=== PATIENT | female | born 1990 | race Caucasian/White ===

== ENCOUNTER 2025-05-17 17:36 | Emergency (ER) | payer OTHER, SELFPAY ==
[2025-05-17] VITALS (8 sets, daily range): BP systolic 95–121; BP diastolic 62–86; PULSE 71–84; RESP 12–18; TEMP 36.5–36.8; O2SAT 98–100; BMI 22.6
--- NOTE | ~2025-05-17 | CT_ITS ---
CLINICAL HISTORY: dissection CT angiography abdomen and pelvis with contrast. 3-D post processing. Comparison: None provided Findings: Aorta, mesenteric/renal arteries, and iliofemoral systems are within normal limits. No consolidation or effusion. Status post cholecystectomy. Solid organs are within normal limits. No renal stones. No bowel obstruction, pneumoperitoneum, or pneumatosis. Moderately distended urinary bladder measuring 12.3 cm in craniocaudal dimension.Post appendectomy changes. No acute fracture. IMPRESSION: Patent aorta and its major branches. No evidence of dissection or aneurysm. No significant atherosclerotic disease. Moderately distended urinary bladder. Emptying is suggested. Status post cholecystectomy. This document has been electronically signed by: Amador Portillo MD on 05/17/2025 19:49:33
--- NOTE | ~2025-05-17 | CT_ITS ---
CLINICAL HISTORY: CP, known PE off eliquis CT angiography chest with contrast. 3D Postprocessing. Comparison: None provided Findings: The heart is normal size. RV/LV ratio is normal. Unremarkable thoracic aorta and great vessels. No aneurysm. No pulmonary artery filling defects. The visualized thyroid and mediastinum are unremarkable. No consolidation or effusion. The visualized upper abdomen is unremarkable. The bones are intact. IMPRESSION: 1. No pulmonary emboli. No acute aortic syndrome. Lungs are grossly clear. This document has been electronically signed by: Amador Portillo MD on 05/17/2025 19:45:50
--- NOTE | 2025-05-17 17:42 | ECG_ITS ---
Test Reason : chest pain Blood Pressure : */* mmHG Vent. Rate : 80 BPM Atrial Rate : 80 BPM P-R Int : 144 ms QRS Dur : 62 ms QT Int : 368 ms P-R-T Axes : 69 35 82 degrees QTcB Int : 424 ms Normal sinus rhythm Possible Left atrial enlargement Possible Anterior infarct , age undetermined Abnormal ECG No previous ECGs available Referred By: Sindhu Ingram Electronically Signed By: DERICK GONZALEZ MD
--- NOTE | 2025-05-17 18:08 | ED.GENADULT ---
HPI - General Adult General Chief complaint: Chest Pain Stated complaint: sob,lung/chest pain past heart surgery Time Seen by Provider: 05/17/25 18:12 Source: patient Limitations: no limitations History of Present Illness ED Provider: Grace Hardwick PA-C HPI narrative: 35-year-old female with self report of cardiac ablation secondary to inappropriate tachycardia related to dysautonomia December of 2024 at [facility]. She was enrolled in a clinical trial related to the procedure. The procedure involved collapsing the right lung, to gain access to the heart. She had a chest tube placed following the procedure. She developed a subsequent pleural effusion. The patient also developed pulmonary emboli, her anticoagulation was discontinued after a few months of treatment. Today, patient developed severe, crushing, right anterior pleuritic chest pain. The patient is still having discomfort. Associated nausea. Related Data Allergies Allergy/AdvReac Type Severity Reaction Status Date / Time Penicillins Allergy Unknown Verified 05/17/25 18:06 Sulfa (Sulfonamide Allergy Unknown Verified 05/17/25 18:06 Antibiotics) diphenhydramine (From AdvReac Unknown Verified 05/17/25 18:06 Benadryl) midazolam AdvReac Itching Verified 05/17/25 20:29 ondansetron (From Zofran) AdvReac Unknown Verified 05/17/25 18:06 Review of Systems Review of Systems: Yes all other systems are reviewed and are negative Constitutional: Constitutional: Denies fatigue and Denies fever(s) Cardiovascular: Cardiovascular: Reports chest pain and Reports dyspnea Respiratory: Respiratory: Denies cough and Reports dyspnea Gastrointestinal: Gastrointestinal: Denies abdominal pain, Reports nausea and Denies vomiting Endocrine: Endocrine: Denies fatigue PMF Past Medical History Attestation statement: The following information was validated with the patient. Social History Social History Smoked in Last 30 Days: No Use of substances other than those prescribed or required for medical reasons: No Advance Directives: No Advance Directives Information Provided: Yes Do you have a plan to hurt others: No Plan Patient : No Physical Exam ED Vital Signs: Vital Signs - 24 hr 05/17/25 18:04 05/17/25 18:46 05/17/25 18:47 Temperature 98.3 F Pulse Rate 83 82 84 Respiratory Rate 18 18 18 Blood Pressure 95/62 97/64 107/68 Pulse Oximetry 100 Oxygen Delivery Method Room Air 06/30/25 19:42 05/17/25 20:24 05/17/25 21:08 Temperature Pulse Rate 79 71 Respiratory Rate 15 16 17 Blood Pressure 120/86 121/86 Pulse Oximetry 100 Oxygen Delivery Method Room Air 05/17/25 22:09 05/17/25 22:31 Temperature 97.7 F 97.7 F Pulse Rate 76 76 Respiratory Rate 12 12 Blood Pressure 107/74 107/74 Pulse Oximetry 98 98 Oxygen Delivery Method Room Air Room Air BMI result Body Mass Index 22.6 Const Other: Alert, pale, appears unwell Orientation/consciousness: patient oriented x3 Resp Other: Nonlabored respirations Cardio Other: Normal peripheral perfusion, radial pulses +2 equal bilaterally Skin Other: Warm dry no rash Neuro General: patient oriented x3, gait normal, no focal motor deficits and CN's II-XI intact bilaterally Psych Other: Cooperative Course Course Course Narrative: RME performed by Sindhu Ingram PA-C. Patient is a 35 year old assigned female at presenting to the emergency department with chest pain, dizziness, PE, recent cardiac surgery. Detailed physical exam and review of systems are deferred to the operater. EKG, labs, imaging ordered. veneer trimmer aware. Reevaluation(s) Reevaluation #1: I discussed findings with the patient, she is extremely relieved. She states that she has follow up with [facility] on this week. I offered pain medication for her to be discharged with, she declines. 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 If she is given analgesia in a hospital or an emergency department setting, this is appropriate. She states she is currently seeking pain management, she will discuss further options with her specialist at [place] this week. Medications Administered Discontinued Medications Generic Name Dose Route Start Last Admin Trade Name Freq PRN Reason Stop Dose Admin Acetaminophen 650 mg 05/17/25 19:23 05/17/25 19:34 Acetaminophen 325 Mg Tablet PO 05/17/25 19:24 Not Given ONCE ONE Acetaminophen 975 mg 05/17/25 19:23 05/17/25 19:27 Acetaminophen 325 Mg Tablet PO 05/17/25 19:24 975 mg ONCE ONE Administration Hydromorphone HCl 1 mg 05/17/25 20:07 05/17/25 20:24 Hydromorphone Hcl 1 Mg/Ml Syringe IVPUSH 05/17/25 20:08 1 mg ONCE ONE Administration Protocol Midazolam HCl 2 mg 05/17/25 19:23 05/17/25 19:27 Midazolam Hcl 2 Mg/2 Ml Vial IVPUSH 05/17/25 19:24 2 mg ONCE ONE Administration Medical Decision Making Medical Decision Making MDM Narrative: 35-year-old female with self report of cardiac ablation secondary to inappropriate tachycardia related to dysautonomia December of 2024 at [facility]. She was enrolled in a clinical trial related to the procedure. The procedure involved collapsing the right lung, to gain access to the heart. She had a chest tube placed following the procedure. She developed a subsequent pleural effusion. The patient also developed pulmonary emboli, her anticoagulation was discontinued after a few months of treatment. Today, patient developed severe, crushing, right anterior pleuritic chest pain. The patient is still having discomfort. Associated nausea. Problem: Extensive cardiac history History: Per patient I have considered the following differential diagnoses: PE, dissection, ACS, pneumonia, postoperative complication Plan: From triage, there was discrepancy with the patient's blood pressures, we will repeat. Given her reported history, I am considering PE versus dissection as cause for her symptoms. In regard to the dissection, she is not complaining of back or abdominal pain, her radial pulses are equal, and she is stable. Airing on the side of caution, we will be obtaining angiograms of the chest abdomen and pelvis. We will be screening basic labs including coag studies. I will be reaching out to [facility] to obtain records. Also considering ACS, however the patient has no known risk factors for coronary artery disease. We will be adding on troponin, EKG. The patient could have infectious etiology, we will wait for the chest x-ray. Although she has not been sick recently she is afebrile. Seems far out from her procedure to have a postoperative complication. Patient states Dilaudid works for her pain. I have independently reviewed the following tests: Labs: No leukocytosis, not anemic, no electrolyte abnormality, not , troponin negative EKG: Normal sinus, no ischemic changes no ectopy, rate of 80, QTC 424 CT angio chest:Findings: The heart is normal size. RV/LV ratio is normal. Unremarkable thoracic aorta and great vessels. No aneurysm. No pulmonary artery filling defects. The visualized thyroid and mediastinum are unremarkable. No consolidation or effusion. The visualized upper abdomen is unremarkable. The bones are intact. IMPRESSION: 1. No pulmonary emboli. No acute aortic syndrome. Lungs are grossly clear. CT angio abd/pelvis: IMPRESSION: Patent aorta and its major branches. No evidence of dissection or aneurysm. No significant atherosclerotic disease. Moderately distended urinary bladder. Emptying is suggested. Status post cholecystectomy. Lab Data 05/17/25 18:24 05/17/25 18:24 Labs: Lab Results 05/17/25 Range/Units 18:24 WBC 6.8 (4.8-10.8) X10*3/uL RBC 4.32 (4.20-5.50) X10*6/uL Hgb 11.4 L (12.0-16.0) g/dl Hct 35.2 L (37.0-47.0) % MCV 81.5 (80.0-98.0) fL MCH 26.4 L (27.0-33.0) pg MCHC 32.4 (31.0-35.0) g/dl RDW 14.6 (11.0-16.0) % Plt Count 315 (160-400) X10*3/uL MPV 8.9 L (9.4-12.3) fL Immature Gran % (Auto) 0.3 (0.0-0.4) % Neut % (Auto) 53.0 (45-73) % Lymph % (Auto) 37.5 (20-40) % [place] % (Auto) 7.0 (2-11) % Eos % (Auto) 1.6 (0-4) % Baso % (Auto) 0.6 (0-2) % Lymph # (Auto) 2.6 (1.2-4.9) X10*3/uL [place] # (Auto) 0.5 (0.1-1.2) X10*3/uL Eos # (Auto) 0.1 (0.0-0.4) X10*3/uL Baso # (Auto) 0.0 (0.0-0.2) X10*3/uL Abs Immat Gran (auto) 0.02 (0.00-0.03) X10*3/uL Absolute Neuts (auto) 3.6 (2.0-8.3) x10*3/uL Absolute Nucleated RBC 0.000 (0.0-0.012) X10*3/uL Nucleated RBC % (auto) 0.0 (0.0-0.2) /100WBC PT 10.4 L (10.9-12.4) SEC INR 0.9 (0.9-1.1) Sodium 137 (135-145) mmol/L Potassium 4.6 (3.3-5.1) mmol/L Chloride 109 H (96-108) mmol/L Carbon Dioxide 22 (22-29) mmol/L Anion Gap 11 L (12-20) BUN 13 (9-16) mg/dL Creatinine 0.69 (0.5-1.4) mg/dL Estim Creat Clear Calc 153.4 Estimated GFR > 60 Random Glucose 85 (60-115) mg/dL Calcium 8.9 (8.4-10.2) mg/dL Magnesium 2.1 (1.6-2.6) mg/dL Total Bilirubin 0.3 (0.0-1.0) mg/dL AST 27 (5-31) U/L ALT 20 (0-31) U/L Alkaline Phosphatase 54 (39-117) U/L Troponin I High Sens < 2.7 (<3.5-17.0) ng/L B-Natriuretic Peptide 115 H (<100) pg/mL Total Protein 7.6 (6.5-8.0) g/dL Albumin 4.2 (3.5-5.0) g/dL Discharge Plan Discharge Clinical Impression: Chest pain Patient Disposition: Home, Self-Care Instructions: Chest Pain (ED) Additional Instructions: All of your screening labs including a cardiac enzymes were normal. There were no concerning changes on your EKG. The angiograms of your chest, abdomen and pelvis were negative for acute process. Continue to follow up with your specialists. Stand Alone Forms: Work/School Release Interventions: ED Discharge Assessment Last Done: 05/17/25 22:31 Discharge Date/Time: 05/17/25 22:32 Print Language: Bruneian
[2025-05-17 18:28] LABS: MANUAL DIFF FLAG NO
[2025-05-17 18:32] LABS: Basophils Percent Auto 0.6 % (0-2); Eosinophils Absolute Auto 0.1 X10*3/uL (0.0-0.4); Eosinophils Percent Auto 1.6 % (0-4); Hematocrit 35.2 % (37.0-47.0); Hemoglobin 11.4 g/dl (12.0-16.0); Imm Gran Abs Auto 0.02 X10*3/uL (0.00-0.03); Imm Gran Pct Auto 0.3 % (0.0-0.4); Lymphocytes Absolute Auto 2.6 X10*3/uL (1.2-4.9); Lymphocytes Percent Auto 37.5 % (20-40); Mean Corpuscular HGB Conc 32.4 g/dl (31.0-35.0); Mean Corpuscular Hemoglobin 26.4 pg (27.0-33.0); Mean Corpuscular Volume 81.5 fL (80.0-98.0); Mean Platelet Volume 8.9 fL (9.4-12.3); Monocytes Absolute Auto 0.5 X10*3/uL (0.1-1.2); Neutrophils Absolute Auto 3.6 x10*3/uL (2.0-8.3); Platelet Count 315 X10*3/uL (160-400); Red Blood Count 4.32 X10*6/uL (4.20-5.50); Red Cell Distribution Width 14.6 % (11.0-16.0); White Blood Count 6.8 X10*3/uL (4.8-10.8)
[2025-05-17 18:42] LABS: INTERNATIONAL NORM RATIO 0.9 (0.9-1.1); Prothrombin Time 10.4 SEC (10.9-12.4)
--- OUTSIDE RECORDS SUMMARY | 2025-05-17 18:42 | XMS_ITS | Clinical Summary ---
Author Organization [facility] Address [address] [place] [address] Care Team Providers Care Track Patrol Name Role Phone Unavailable Primary Care Provider Unavailabl e Social History Tobacco Use Types Packs/Day Years Used Date Smoking Tobacco: Never Assessed Comments Unknown Sex and Gender Information Value Date Recorded Sex Assigned at Not on file Legal Sex Female 3:19 PM PST Gender Identity Not on file Sexual Orientation Not on file Plan of Treatment Not on file
--- OUTSIDE RECORDS SUMMARY | 2025-05-17 18:42 | XMS_ITS | Data Portability ---
Author Organization [employer] Address [address] [place] [address] Assessment Encounter Date Assessment Date Assessment LastModified by Organization Details LastModified Time 08/02/2018 08/02/2018 Patient with symptoms and findings most c/w persistent cervical lymphadenitis with increasing fatigue and generalized weakness. In light of symptoms and findings, patient was referred to the ER for further management and evaluation. Patient defers further evaluation here due to her ongoing symptoms and would like testing today. Patient expresses understanding and agrees with the plan and management. Patient left in stable condition to [facility] ER Not available 08/02/2018 16:20:04 Plan of Treatment Reminders Order Date Submit Date Provider Last Modified By Organization Details Last Modified Time Details Appointments None recorded. Lab None recorded. Referral emergency medicine referral - 28 year old female with persistent right sided neck pain and swelling X2 months. Patient has been treated with 2 courses of abx and without improvement by her PCP. Patient with persistent symptoms and now with increase in fatigue and malaise. Please evaluate for further management. 2017 018 Not available 8 09:54:32 Procedures None recorded. Surgeries None recorded. Imaging None recorded. Medication Orders None recorded. Patient TargetsNo targets recorded. Patient Instructions Encounter Date Encounter Id Patient Instructions Last Modified By Organization Details Last Modified Time 08/02/2018 neck pain: care instructions Not available 08/02/2018 14:31:00 fatigue: care instructions Not available 08/02/2018 14:31:00 Based on your symptoms and findings, you will require further evaluation and management for your condition which we are not able to provide you at this facility. You are being referred the nearest Emergency Room for further evaluation and treatment. Please bring your discharge summary and pertinent paper work for your treating provider to review. Not available 08/02/2018 14:31:41 Please refer to care instructions as discussed and provided by handout. Not available 08/02/2018 14:31:45 Reason for Referral Emergency Medicine Referral for Cervical lymphadenitis 28 year old female with persistent right sided neck pain and swelling X2 months. Patient has been treated with 2 courses of abx and without improvement by her PCP. Patient with persistent symptoms and now with increase in fatigue and malaise. Please evaluate for further management. Referring Physician: Deshaun Centeno, Urgent Care, Encounter Date: 08/02/2018 Problems Name Problem SNOMED Code Status Onset Date Resolution Date Notes Provider Name and Address Organization Details Recorded Time Hypertensive disorder 07794500 Active 2017 Deshaun Centeno MD [address] ,[place] [address], [place], [address], [facility], [facility] 8 16:10:33 Problem Notes None recorded. Procedures Surgical History Date Name Laterality Status Provider Name and Address Organization Details Recorded Time Cholecystectomy completed tasha walsh [facility], [facility] 08/02/2018 14:17:41 Shoulder joint surgery completed tasha walsh [facility], [facility] 08/02/2018 14:17:55 Ankle arthroscopy/surgery completed tasha walsh [facility], [facility] 08/02/2018 14:18:02 Imaging Results None recorded. Procedure Notes None recorded. Medical Equipment None Reported. Allergies Allergen ID Allergen Name Allergen Category Reaction Reaction Severity Criticality Documentation Date Start Date Code Code System Note Provider Name and Address Organization Details Recorded Time 8094 Product containin g penicilli n (product) medicatio n Not available Not available Not available 08/02/2018 15339 8001 SNOMED tasah pittman [facility], [facility] 8 14:16:35 8095 prednison e medicatio n Not available Not available Not available 08/02/2018 8640 RxNorm tasha pittman, [facility], [facility] 8 14:16:41 8096 Substance with sulfonami de structure and antibacte rial mechanism of action (substanc e) medicatio n Not available Not available Not available 08/02/2018 28801 8003 SNOMED tasha walsh null, [place] - [facility], [facility] 8 14:16:48 Medications Name Sig Start Date Stop Date Status Note LastModified by Organization Details LastModified Time quetiapine 25 mg tablet active Not Available Not Available Not Available clonidine HCl 0.1 mg tablet active Not Available Not Availabl e Not Available clindamycin HCl 300 mg capsule 08/02 completed Not Available Not Available Not Available citalopram 40 mg tablet active Not Available Not Available Not Available trazodone 50 mg tablet active Not Available Not Available Not Available azithromycin 250 mg tablet 08/02 completed Not Available Not Available Not Available alprazolam 1 mg tablet active Not Available Not Available Not Available hydrocodone 5 mg-acetaminophen 325 mg tablet active Not Available Not Availabl e Not Available sumatriptan 25 mg tablet active Not Available Not Available No t Available prednisone 20 mg tablet 08/02 completed Not Available Not Available Not Available dextroamphetamin e-amphetamine 10 mg tablet active Not Available Not Available No t Available clonazepam 1 mg tablet active Not Available Not Available Not Available hydroxyzine pamoate 50 mg capsule active Not Available Not Available Not Available butalbital-aceta minophen-caffein e 50 mg-325 mg-40 mg tablet active Not Available Not Availa ble Not Available ondansetron 8 mg disintegrating tablet active Not Available Not Available Not Available trazodone 100 mg tablet active Not Available Not Available Not Available lorazepam 2 mg tablet active Not Available Not Available Not Available benzonatate 100 mg capsule 08/02 completed Not Available Not Available Not Available clonazepam 2 mg tablet active Not Available Not Available Not Available propranolol ER 80 mg capsule,24 hr,extended release active Not Available Not Available Not Available promethazine 25 mg tablet active Not Available Not Available No t Available buspirone 7.5 mg tablet active Not Available Not Available Not Available zolpidem 10 mg tablet active Not Available Not Available Not Available ondansetron 4 mg disintegrating tablet active Not Available Not Available Not Available diazepam 5 mg tablet active Not Available Not Available Not Available Ventolin HFA 90 mcg/actuation aerosol inhaler active Not Available Not Availa ble Not Available desvenlafaxine succinate ER 50 mg tablet,extended release 24 hr active Not Available Not Availabl e Not Available Vitals Date Recorded Body height Body mass index (BMI) Body weight Heart rate Respiratory rate Oxygen saturation Oxygen saturation in Arterial blood by Pulse oximetry Body temperature Systolic blood pressure Diastolic blood pressure Provider Name and Address Organization Details Last Updated DateTime 8 185.42 cm 32.1 kg/m2 207590. 95 g 76 /min 16 /min 98 % 98 % 98.2 [degF] 128 mm[Hg] 87 mm[Hg] tasha walsh [facility], [facility] 8 14:16:12 Social History None recorded. Functional Status None recorded. Mental Status None recorded. Family History Relationship Description Onset Age of this Age Resolved Age Notes LastModified by Organization Details LastModified Time Unspecified Relation Hypertensive disorder [email or web address] Not available 08/02 14:17:18 Medical History Condition Response ADHD Y Hypertension Y Gynecological History Statement/Question Response Current Control Method None LMP Approximate Obstetrics History GPAL:G 0 P 0 0 0 0 Past Encounters Encounter ID Performer Location Encounter Start Date Encounter Closed Date Diagnosis/Indication Diagnosis SNOMED-CT Code Diagnosis ICD10 Code Diagnosis Note [id number] Deshaun Centeno MD [facility] ) [address] [place] [address] 08/02/2018 13:56:16 08/02/2018 14:38:50 Cervical lymphadenitis 0550820 I88.9 Malaise and fatigue 2717 46850 R53.81 Neck pain 28611451 M54.2 Health Concerns Section Related Observation LastModified by Organization Detai ls LastModified Time None Recorded Concern Status LastModified by Organization Details LastModified Time None Recorded Advance Directives Directive None Recorded Payers Insurance Date Sequence Insurance Name Policy Number Policy Narvaez Covered Member ID Narvaez Member ID Guarantor Name 08/02/2018 1 [employer] (PP[employer]) [id number] [facility] [id number] 74 [facility] Notes Date Note Type Note Provider Name a nd Address Organization Details Recorded Time 08/02/2018 text/html CC: Neck pain, swollen glands, fatigue Reported by patient: Patient recently relocated to the area over a week ago. Patient complains of right neck pain and mass for 2 months. Patient reports being treated by her PCP with 2 courses of abx for possible infection. However, patient reports that symptoms have not improved. She reports continued right neck pain and swelling. Notes pain with movement of her neck. She reports feeling a small mass in the right neck region. Patient reports today that she is concerned about her continued symptoms, but more so, she has had increase in fatigue and generalized. She sleeps all day and feels tired soon after activities. She denies chest pain, dyspnea or abdominal pain. Deshaun Centeno MD [address] ,[facility] [address], [place], [address], [facility] 08/02/2018 16:20:40 OBGyn Episode No OBEpisode recorded.
[2025-05-17 18:45] LABS: Alanine Aminotransferase 20 U/L (0-31); Albumin Level 4.2 g/dL (3.5-5.0); Alkaline Phosphatase 54 U/L (39-117); Anion Gap 11 (12-20); Aspartate Amino Transferase 27 U/L (5-31); Bilirubin Total 0.3 mg/dL (0.0-1.0); Blood Urea Nitrogen 13 mg/dL (9-16); Calcium 8.9 mg/dL (8.4-10.2); Carbon Dioxide 22 mmol/L (22-29); Chloride 109 mmol/L (96-108); Creatinine Clr Calc Pharmacy 153.4; Estimated Glomerular Filt Rate > 60; Glucose Random 85 mg/dL (60-115); Magnesium 2.1 mg/dL (1.6-2.6); Potassium 4.6 mmol/L (3.3-5.1); Sodium 137 mmol/L (135-145); Total Protein 7.6 g/dL (6.5-8.0)
[2025-05-17 18:50] LABS: B Type Natriuretic Peptide 115 pg/mL (<100)
[2025-05-17 18:52] LABS: Troponin-I High Sensitivity < 2.7 ng/L (<3.5-17.0)
[2025-05-17] MEDS: Midazolam HCl 2 MG/2 ML VIAL IVPUSH (19:27)
[2025-05-17] MEDS: Acetaminophen 325 MG TABLET 975 MG PO (19:27)
[2025-05-17] MEDS: HYDROmorphone HCl 1 MG/ML SYRINGE IVPUSH (20:24)
== END 2025-05-17 22:32 | disposition home or self-care (01) ==
PROVIDERS: Physician Assistant Medical; Emergency Provider Emergency Medicine
DX: R07.9 Chest pain, unspecified (principal); R11.0 Nausea; R06.00 Dyspnea, unspecified
CPT/HCPCS: 36415; 71275; 74174; 80053; 83735; 83880; 84484; 85025; 85610; 93005; 96374; 96375; 99285; J1171; J2250

== ENCOUNTER → 2025-05-17 17:42 | Outpatient (BNV) | payer OTHER, SELFPAY | PROVIDERS: Emergency Provider Emergency Medicine; Visit Provider Internal Medicine Cardiovascular Disease | DX: R94.31 Abnormal electrocardiogram [ECG] [EKG] (principal); R07.9 Chest pain, unspecified | CPT/HCPCS: 93010 ==

== ENCOUNTER → 2025-05-17 18:15 | Outpatient (BNV) | payer OTHER, SELFPAY | PROVIDERS: Visit Provider Student in an Organized Health Care Education/Training Program | DX: N32.89 Other specified disorders of bladder (principal); R07.9 Chest pain, unspecified; I26.99 Other pulmonary embolism without acute cor pulmonale; Z90.49 Acquired absence of other specified parts of digestive tract | CPT/HCPCS: 71275; 74174 ==

== ENCOUNTER 2025-05-30 17:04 | Emergency (ER) | payer OTHER, SELFPAY ==
--- NOTE | ~2025-05-30 | XR_ITS ---
CLINICAL HISTORY: cp 1 view chest x-ray Comparison: CT/SR - CT ANGIO CHEST PE PROTOCOL - 05/17/25 18:26 EDT Findings: No consolidation or effusion. Heart size is normal. No acute fracture. IMPRESSION: 1. No acute findings. This document has been electronically signed by: Jamil Singleton MD on 05/30/2025 21:14:53
--- NOTE | 2025-05-30 17:05 | ECG_ITS ---
Test Reason : chest pain Blood Pressure : */* mmHG Vent. Rate : 78 BPM Atrial Rate : 78 BPM P-R Int : 152 ms QRS Dur : 60 ms QT Int : 384 ms P-R-T Axes : 59 18 83 degrees QTcB Int : 437 ms Normal sinus rhythm Low voltage QRS Borderline ECG When compared with ECG of 17-May-2025 17:48, No significant change was found Referred By: Hima Mike Electronically Signed By: BRANDY NOVA
--- NOTE | 2025-05-30 17:05 | ED_ITS ---
HPI - General Adult General Chief complaint: Chest Pain Stated complaint: chest pain, fainted 2x today, heart surg months ag Time Seen by Provider: 05/30/25 17:22 Source: patient Mode of arrival: ambulatory Limitations: no limitations History of Present Illness ED Provider: HPI narrative: Patient's history of cardiac ablation for POTS related to dysautonomia in 01/12 used to be on propranolol 120 mg twice a day now taking only 20 mg twice a day comes here for still having the palpitation episode for last few days with today she had similar episode with heart rate in the 190s and fell lightheaded and slumped down with passing out noticed her heart rate was slowing down in 40s before she near-syncope this happened twice patient never had similar episode in the past does have palpitation mostly but heart rate never went down so slow patient took her propranolol in the morning also patient complaining of left- sided chest pain no incontinence no seizures no injury patient did have history of PE took anticoagulation only for 3 months stopped 2 months ago was seen here on 05/17 for similar episode and CTA chest was negative for PE patient is complaining of left-sided chest pain which increases on taking deep breaths no relation to the posterior no fever no chills Related Data Allergies Allergy/AdvReac Type Severity Reaction Status Date / Time Penicillins Allergy Unknown Verified 05/17/25 18:06 Sulfa (Sulfonamide Allergy Unknown Verified 05/17/25 18:06 Antibiotics) diphenhydramine (From AdvReac Unknown Verified 05/17/25 18:06 Benadryl) midazolam AdvReac Itching Verified 05/17/25 20:29 ondansetron (From Zofran) AdvReac Unknown Verified 05/30/25 17:16 Review of Systems 2 Review of Systems: Yes all other systems are reviewed and are negative [facility] Past Medical History Medical History (Updated 05/31/25 @ 00:00 by Orlando Hernandez) Dysautonomia POTS (postural orthostatic tachycardia syndrome) Surgical History (Updated 05/30/25 @ 19:33 by Wong Florian MD) H/O cardiac radiofrequency ablation Social History Social History Smoked in Last 30 Days: No Use of substances other than those prescribed or required for medical reasons: No Advance Directives: No Advance Directives Information Provided: No Do you have a plan to hurt others: No Plan Physical Exam ED Vital Signs: Vital Signs - 24 hr 05/30/25 17:09 05/30/25 18:35 05/30/25 19:47 Temperature 97.8 F 98.6 F Pulse Rate 81 79 78 Respiratory Rate 16 13 20 Blood Pressure 113/89 110/78 104/68 Pulse Oximetry 100 99 98 Oxygen Delivery Method Room Air Room Air Room Air 05/30/25 20:16 05/30/25 21:19 Temperature 97.7 F Pulse Rate 73 Respiratory Rate 20 16 Blood Pressure 103/60 Pulse Oximetry 99 Oxygen Delivery Method Room Air BMI result Body Mass Index 25.7 Appearance: Alert. Oriented X3. No acute distress. Eyes: PERRLA, No Nystagmus ENT: Pharynx normal. Oral Mucosa moist Neck: Normal inspection. Neck supple. CVS: Normal heart rate and rhythm. Pulses normal. No murmur no pericardial rub Respiratory: No respiratory distress. Equal air entry bilateral, no wheezing/rales/rhonchi Abdomen: Soft and nontender. Bowel sounds are present, no mass palpable, no CVA tenderness Skin: Skin warm and dry. Normal skin color. Normal skin turgor. Extremities: No lower extremity edema. No calf tenderness Neuro: Oriented X 3. No motor deficit. No sensory deficit.No cerebellar signs , cranial nerves II-XII intact Medications Administered Discontinued Medications Generic Name Dose Route Start Last Admin Trade Name Freq PRN Reason Stop Dose Admin Hydromorphone HCl 1 mg 05/30/25 20:12 05/30/25 20:16 Hydromorphone Hcl 1 Mg/Ml Syringe IVPUSH 05/30/25 20:13 1 mg ONCE ONE Administration Protocol Sodium Chloride 1,000 mls @ 999 mls/hr 05/30/25 19:21 05/30/25 21:20 Ns IV 05/30/25 20:21 Infused .Q1H1M ONE Infusion Acetaminophen 1,000 mg in 100 mls @ 400 mls/hr 05/30/25 19:21 05/30/25 20:16 Ofirmev IV 05/30/25 19:35 Infused ONCE ONE Infusion Ketorolac Tromethamine 15 mg 05/30/25 17:44 05/30/25 18:00 Ketorolac Tromethamine 15 Mg/Ml Vial IVPUSH 05/30/25 17:45 15 mg ONCE ONE Administration Lidocaine 1 patch 05/30/25 20:13 05/30/25 20:16 Lidocaine 4 % Patch Adh..Patch TRANSDERMA 05/30/25 20:14 1 patch ONCE ONE Administration Protocol Morphine Sulfate 4 mg 05/30/25 17:43 05/30/25 18:00 Morphine Sulfate 4 Mg/Ml Cartridge IVPUSH 05/30/25 17:44 4 mg ONCE ONE Administration Protocol Ondansetron HCl 4 mg 05/30/25 17:43 05/30/25 18:00 Ondansetron Hcl 4 Mg/2 Ml Vial IVPUSH 05/30/25 17:44 Not Given ONCE ONE Medical Decision Making Medical Decision Making [facility] Narrative: Patient's left-sided chest pain with recent cardiac ablation with similar presentation on 05/17 with workup negative today also patient's workup is negative no signs of pericarditis no EKG changes inflammatory markers CRP and sed rate also negative. Patient's D-dimer is also negative unlikely PE with recent CTA negative Differential Diagnosis Differential Diagnoses: The differential diagnosis associated with the presentation includes Bradycardia/vasovagal/autonomic syncope/PE/pericarditis Admission/Observation Consideration of admission/observation: Escalation of care including admission/observation considered Lab Data [facility] Lab Attestation statement: I reviewed the patient's lab results. 05/30/25 17:54 05/30/25 17:54 Labs: Lab Results 05/30/25 05/30/25 05/30/25 Range/Units 17:53 17:54 20:23 WBC 6.5 (4.8-10.8) X10*3/uL RBC 4.52 (4.20-5.50) X10*6/uL Hgb 11.6 L (12.0-16.0) g/dl Hct 36.1 L (37.0-47.0) % MCV 79.9 L (80.0-98.0) fL MCH 25.7 L (27.0-33.0) pg MCHC 32.1 (31.0-35.0) g/dl RDW 14.5 (11.0-16.0) % Plt Count 452 H D (160-400) X10*3/uL MPV 8.4 L (9.4-12.3) fL Immature Gran % (Auto) 0.3 (0.0-0.4) % Neut % (Auto) 62.9 (45-73) % Lymph % (Auto) 29.0 (20-40) % [place] % (Auto) 5.8 (2-11) % Eos % (Auto) 1.2 (0-4) % Baso % (Auto) 0.8 (0-2) % Lymph # (Auto) 1.9 (1.2-4.9) X10*3/uL [place] # (Auto) 0.4 (0.1-1.2) X10*3/uL Eos # (Auto) 0.1 (0.0-0.4) X10*3/uL Baso # (Auto) 0.1 (0.0-0.2) X10*3/uL Abs Immat Gran (auto) 0.02 (0.00-0.03) X10*3/uL Absolute Neuts (auto) 4.1 (2.0-8.3) x10*3/uL Absolute Nucleated RBC 0.000 (0.0-0.012) X10*3/uL Nucleated RBC % (auto) 0.0 (0.0-0.2) /100WBC ESR 16 (0-20) MM/HR D-Dimer High Sensitivty < 150 NG/ML Sodium 139 (135-145) mmol/L Potassium 3.9 (3.3-5.1) mmol/L Chloride 108 (96-108) mmol/L Carbon Dioxide 22 (22-29) mmol/L Anion Gap 13 (12-20) BUN 11 (9-16) mg/dL Creatinine 0.58 (0.5-1.4) mg/dL Estim Creat Clear Calc 162.6 Estimated GFR > 60 Random Glucose 85 (60-115) mg/dL Calcium 8.8 (8.4-10.2) mg/dL Magnesium 2.1 (1.6-2.6) mg/dL Troponin I High Sens < 2.7 < 2.7 (<3.5-17.0) ng/L C-Reactive Protein 0.11 (< or = 0.50) mg/dL Independent Interpretation I performed an independent interpretation of an: EKG Interpretation: Normal sinus rhythm heart rate 78 beats per minute normal interval normal axis no acute ST-T no acute ischemia External Record Review External record reviewed: Inpatient record Discharge Plan Discharge Clinical Impression: Chest pain, Dysautonomia, Near syncope Patient Disposition: Home, Self-Care Instructions: Chest Pain (ED), Near Syncope (ED), POTS (Postural Orthostatic Tachycardia Syndrome) (ED) Additional Instructions: Cause of chest pain is not clear at this time no evidence of acute coronary event Follow up with your prosthodontist/educator in a.m. Hold propranolol for now as you had slow heart rate Drink plenty of fluid Interventions: ED Discharge Assessment Last Done: 05/30/25 21:19 Discharge Date/Time: 05/30/25 21:24 Print Language: Azeri
[2025-05-30 17:09] VITALS: BP 113/89; PULSE 81; RESP 16; TEMP 36.6; O2SAT 100; BMI 25.7
[2025-05-30 17:59] LABS: MANUAL DIFF FLAG NO
[2025-05-30 18:01] LABS: Hematocrit 36.1 % (37.0-47.0); Hemoglobin 11.6 g/dl (12.0-16.0); Imm Gran Abs Auto 0.02 X10*3/uL (0.00-0.03); Imm Gran Pct Auto 0.3 % (0.0-0.4); Lymphocytes Absolute Auto 1.9 X10*3/uL (1.2-4.9); Mean Corpuscular HGB Conc 32.1 g/dl (31.0-35.0); Mean Corpuscular Hemoglobin 25.7 pg (27.0-33.0); Mean Corpuscular Volume 79.9 fL (80.0-98.0); NRBC Abs Auto 0.000 X10*3/uL (0.0-0.012); NRBC Pct Auto 0.0 /100WBC (0.0-0.2); Platelet Count 452 X10*3/uL (160-400); Red Blood Count 4.52 X10*6/uL (4.20-5.50); White Blood Count 6.5 X10*3/uL (4.8-10.8)
[2025-05-30 18:12] LABS: Anion Gap 13 (12-20); Blood Urea Nitrogen 11 mg/dL (9-16); Calcium 8.8 mg/dL (8.4-10.2); Carbon Dioxide 22 mmol/L (22-29); Chloride 108 mmol/L (96-108); Creatinine Clr Calc Pharmacy 162.6; Estimated Glomerular Filt Rate > 60; Potassium 3.9 mmol/L (3.3-5.1); Sodium 139 mmol/L (135-145)
[2025-05-30 18:14] LABS: Magnesium 2.1 mg/dL (1.6-2.6)
[2025-05-30 18:18] LABS: D Dimer High Sensitivity < 150 NG/ML
--- OUTSIDE RECORDS SUMMARY | 2025-05-30 18:26 | XMS_ITS | Data Portability ---
Author Organization [employer] Address [address] [place] [address] Assessment Encounter Date Assessment Date Assessment LastModified [...] management. Patient left in stable condition to [facility] ER Not available 08/02/2018 16:20:04 Plan [...] Address Organization Details Recorded Time Hypertensive disorder 63207741 Active 2017 Deshaun Centeno MD [address] [address], [place], [address], [facility], [facility] 8 16:10:33 Problem Notes None recorded. Procedures Surgical History Date Name Laterality Status Provider Name and Address Organization Details Recorded Time Cholecystectomy completed atsha walsh [facility], [facility] 08/02/2018 14:17:41 Shoulder joint surgery completed tasha walsh [facility], [facility] 08/02/2018 14:17:55 Ankle arthroscopy/surgery completed tasha walsh [facility], [facility] 08/02/2018 14:18:02 Imaging Results None recorded. Procedure Notes None recorded. Medical Equipment None Reported. Allergies Allergen ID Allergen Name Allergen Category Reaction Reaction Severity Criticality Documentation Date Start Date Code Code System Note Provider Name and Address Organization Details Recorded Time 8094 Product containin g penicilli n (product) medicatio n Not available Not available Not available 08/02/2018 53978 8001 SNOMED tasha pittman [facility], [facility] 8 14:16:35 8095 prednison e medicatio n Not available Not available Not available 08/02/2018 8640 RxNorm tasha pittman, [facility], [facility] 8 14:16:41 8096 Substance with sulfonami de structure and antibacte rial mechanism of action (substanc e) medicatio n Not available Not available Not available 08/02/2018 36169 8003 SNOMED tasha walsh [place], [place] - [place] [facility], [facility] 8 14:16:48 Medications Name Sig Start Date [...] blood by Pulse oximetry Body temperature Systolic And Diastolic Provider Name and Address Organization Details Last Updated DateTime 8 185.42 cm 32.1 kg/m2 062293. 95 g 76 /min 16 /min 98 % 98 % 98.2 [degF] 128/87 mm[Hg] tasha walsh [place] - [place] [facility], [facility] 8 14:16:12 Social History None recorded. Functional Status None recorded. Mental Status None recorded. Family History Relationship Description Onset Age of this Age Resolved Age Notes LastModified by Organization Details LastModified Time Unspecified Relation Hypertensive disorder [email or web address] Not available 08/02 14:17:18 Medical History Condition Response ADHD Y Hypertension Y Gynecological History Statement/Question Response Current Control Method None LMP Approximate Obstetrics History GPAL:G 0 P 0 0 0 0 Past Encounters Encounter ID Performer Location Encounter Start Date Encounter Closed Date Diagnosis/Indication Diagnosis SNOMED-CT Code Diagnosis ICD10 Code Diagnosis Note [id number] Deshaun Centeno MD [facility] ) [address] [place] [address] 08/02/2018 13:56:16 08/02/2018 14:38:50 Cervical lymphadenitis 7461873 I88.9 Malaise and fatigue 2717 50691 R53.81 Neck pain 26045829 M54.2 Health Concerns Section Related Observation LastModified by Organization Detai ls LastModified Time None Recorded Concern Status LastModified by Organization Details LastModified Time None Recorded Advance Directives Directive None Recorded Payers Insurance Date Sequence Insurance Name Policy Number Policy Narvaez Covered Member ID Narvaez Member ID Guarantor Name 08/02/2018 1 [employer] [id number] [facility] [id number] [facility] Notes Date Note Type Note Provider Name [...] abdominal pain. Deshaun Centeno MD [address] ,[facility] [address], [place], [address], [facility], [facility] 08/02/2018 16:20:40 OBGyn Episode No OBEpisode recorded.
--- OUTSIDE RECORDS SUMMARY | 2025-05-30 18:26 | XMS_ITS | Encounter Summary ---
Author Organization Formerly [facility] Address [address] [place] [address] Care Team Providers Care Tentering Machine Feeder Name Role Phone Alice Carmen NP Primary Care Provider [phone] Richard Bello MD Unavailable [phone] Encounter Details Date Type Department Care Team (Late st Contact Info) Description 01/15/2025 Scanned Document [facility] Cardiothoracic Surgery [address] [address] Cardiology, Scan Social History Tobacco Use Types Packs/Day Years Used Date Smoking Tobacco: Never Smokeless Tobacco: Never Alcohol Use Standard Drinks/Week Comments Never 0 (1 standard drink = 0.6 oz pur e alcohol) [facility] Utilities Answer Date Recorded In the past 12 months has e electric, gas, oil, or water [employer] threatened to shut off services in your home? No 01/08/2025 AUDIT-C Answer Date Recorded Q1: How often do you have a drink containing alcohol? Never 01/07/2025 Q2: How many drinks containi ng alcohol do you have on a typical day when you are drinking? Patient does not drink Q3: How often do you have si x or more drinks on one occasion? Never 01/07/2025 Overall Financial Resource Strain (CARDIA) Answe r Date Recorded How hard is it for you to pa y for the very basics like food, housing, medical care, and heating? Not hard at all 01/08/2025 Hunger Vital Sign Answer Date Recorded Within the past 12 months, y ou worried that your food would run out before you got the money to buy more. Never true 01/08/20 25 Within the past 12 months, t he food you bought just didn't last and you didn't have money to get more. Never true 01/08/2025 PRAPARE - Transportation Answer Date Re corded In the past 12 months, has l ack of transportation kept you from medical appointments or from getting medications? No 12/20 In the past 12 months, has l ack of transportation kept you from meetings, work, or from getting things needed for daily living? No 01/08/2025 Housing Stability Vital Sign Answer Warner e Recorded In the last 12 months, was t here a time when you were not able to pay the mortgage or rent on time? No 01/08/2025 In the past 12 months, how m any times have you moved where you were living? 0 01/08/2025 At any time in the past 12 m [facility], were you homeless or living in a senior care (including now)? No 01/08/2025 Comments Unknown Sex and Gender Information Value Date Recorded Sex Assigned at Female 07/23/2024 4:21 PM EDT Legal Sex Female 6:41 PM EDT Gender Identity Female 01/05/2025 1:54 PM EST Sexual Orientation Heterosexual (straight) 01/05 1:54 PM EST documented as of this encounter Plan of Treatment Upcoming Encounters Date Type Department Care Team (Late st Contact Info) Description 06/04/2025 1:00 PM EDT Office Visit [facility] Vascular [address] [id number] Bandar Schmitt MD [address] [place] [address] Jacqui Moore APRN [address] [place] [address] 06/10/2025 3:20 PM EDT [facility] [place] [address] [place] [address] Richard Bello MD [address] [address] documented as of this encounter Procedures Procedure Name Priority Date/Time Associated Diagnosis Comments CARDIOLOGY ANGIOGRAM 01/24/2025 documented in this encounter Results * CARDIOLOGY ANGIOGRAM (01/24/2025) Anatomical Region Laterality Modality Other us Scan Cardiology HX AMB PROCEDURES Final Result documented in this encounter Visit Diagnoses Not on filedocumented in this encounter Care Teams Tentering Machine Feeder Relationship Specialty Start Date End Date Alice Carmen NP [address] [place] [address] PCP - General 08/07/24 Richard Bello MD [address] [place] [id number] Primary Handhole Machine Operator Cardiovascular Disease 08/07/24 documented as of this encounter
--- OUTSIDE RECORDS SUMMARY | 2025-05-30 18:26 | XMS_ITS | Clinical Summary ---
Author Organization [address] [place] [address] Address [address] [place] [address] Phone Care Team Providers Care Machine Hamper Maker Name Role Phone Alice Carmen NP Primary Care Provider [phone] Allergies Active Allergy Reactions Criticality Noted Date Comments Diphenhydramine Hcl Cardiac Issue 05/10/2025 Penicillins Hives Medium 11/04/2015 Sulfa (Sulfonamide Antibiotics) Hives Medium 10/18 Ondansetron Hcl Cardiac Issue 05/10/2025 Long QT issues Medications apixaban (ELIQUIS) 5 mg tablet Take 1 tablet (5 mg total) by mouth 2 (two) times a day. Active clonazePAM (KlonoPIN) 2 mg tablet Take 1 tablet (2 mg total) by mouth 2 (two) times a day. Max Daily Amount: 4 mg Active colchicine (MITIGARE) 0.6 mg capsule capsule Take 1 capsule (0.6 mg total) by mouth 2 (two) times a day. For 90 days Active pantoprazole (PROTONIX) 40 mg EC tablet Take 1 tablet (40 mg total) by mouth 1 (one) time each day. Do not crush, chew, or split. Active propranoloL (INDERAL) 20 mg tablet Take 1 tablet (20 mg total) by mouth 2 (two) times a day. Active Active Problems Problem Noted Date Diagnosed Date Chest pain 03/30/2025 Inappropriate sinus tachycardia (CMS/HCC V24) Pericarditis 03/30/2025 Encounters Date Type Department Care Team Description 05/11/2025 7:01 PM EDT - 05/11/2025 9:32 PM EDT Emergency [facility] Emergency [address] [place] [address] Discharge Disposition: Left Against Medical Advice 05/10/2025 8:46 PM EDT - 05/10/2025 10:52 PM EDT Emergency [facility] Emergency [address] [place] [address] Discharge Disposition: Left Against Medical Advice 04/02/2025 Telephone [facility] Cardiology [facility] [address] [place] [address] Adilson Carver NP No Show 03/19/2025 Telephone [facility] Cardiology [facility] [address] [place] [address] Alice Carmen NP Hospital Follow-up from Last 3 Months Surgical History Surgery Date Site/Laterality Comments CARDIAC CATHETERIZATION Pt states she had experimental cardiac surgery 3 months ago for Vtach. Medical History Medical History Date Comments Anxiety and depression Social History Tobacco Use Types Packs/Day Years Used Date Smoking Tobacco: Never Smokeless Tobacco: Never Tobacco Cessation:Counseling Given: Not Answered Comments No Sex and Gender Information Value Date Recorded Sex Assigned at Not on file Legal Sex Female 8:12 PM EDT Gender Identity Not on file Sexual Orientation Not on file Obstetrics History Last Filed Vital Signs Vital Sign Reading Time Taken Comments Blood Pressure 105/83 05/11/2025 7:27 PM EDT Pulse 85 05/11/2025 7:27 PM EDT Temperature 36.7 C (98.1 F) 05/11/2025 7:27 PM EDT Respiratory Rate 16 05/11/2025 7:27 PM EDT Oxygen Saturation 100% 05/11/2025 7:27 PM EDT Inhaled Oxygen Concentration - - Weight 77.1 kg (170 lb) 05/11/2025 7:27 PM EDT Height 172.7 cm (5' 8 ) 05/11/2025 7:27 PM EDT Body Mass Index 25.85 05/11/2025 7:27 PM EDT Plan of Treatment Health Maintenance Due Date Last Done Comments DTaP,Tdap,and Td Vaccines (1 - Tdap) 2010 Hepatitis B Vaccines (1 of 3 - 19+ 3-dose series) 2010 Cervical Cancer Screening: P ap Smear 2012 Depression Screening 12/17/2023 HIV Screening 12/17/2023 Hepatitis C Screening 12/17/2023 Social Influencers of Health Screening 12/17/2023 COVID-19 Vaccine ( - 2023-2 5 season) 2024 Influenza Vaccine (#1) 2025 HIB Vaccines Aged Out No longer eligi ble based on patient's age to complete this topic HPV Vaccines Aged Out No longer eligi ble based on patient's age to complete this topic Hepatitis A Vaccines Aged Out No long er eligible based on patient's age to complete this topic IPV Vaccines Aged Out No longer eligi ble based on patient's age to complete this topic MMR Vaccines Aged Out No longer eligi ble based on patient's age to complete this topic Meningococcal ACWY Vaccine Aged Out N o longer eligible based on patient's age to complete this topic Meningococcal B Vaccine Aged Out No l onger eligible based on patient's age to complete this topic Pneumococcal Vaccine: Pediat rics (0 to 5 Years) and At-Risk Patients (6 to 49 Years) Aged Out No longer eligible b ased on patient's age to complete this topic RSV Immunization Patients Un bernadette 20 months Aged Out No longer eligible b ased on patient's age to complete this topic Varicella Vaccines Aged Out No longer eligible based on patient's age to complete this topic Procedures Procedure Name Priority Date/Time Associated Diagnosis Comments ECG ANNOTATED 05/12/2025 CBC WITH AUTO DIFFERENTIAL STAT 05/11/2025 8:00 PM EDT ACTIVATED PARTIAL THROMBOPLASTIN TIME STAT 05/11/2025 8:00 PM EDT PROTHROMBIN TIME WITH INR STAT 05/11/2025 8:00 PM EDT BASIC METABOLIC PANEL STAT 05/11/2025 8:00 PM EDT CBC AND DIFFERENTIAL STAT 05/11/2025 8:00 PM EDT ECG 12-LEAD STAT 05/11/2025 7:48 PM EDT ECG ANNOTATED 05/11/2025 CBC WITH AUTO DIFFERENTIAL STAT 05/10/2025 9:27 PM EDT B-TYPE NATRIURETIC PEPTIDE STAT 05/10/2025 9:27 PM EDT MAGNESIUM STAT 05/10/2025 9:27 PM EDT LIPASE STAT 05/10/2025 9:27 PM EDT COMPREHENSIVE METABOLIC PANEL STAT 05/10/2025 9:27 PM EDT CBC AND DIFFERENTIAL STAT 05/10/2025 9:27 PM EDT TROPONIN I HIGH SENSITIVITY STAT 05/10/2025 9:27 PM EDT ECG 12-LEAD STAT 05/10/2025 8:58 PM EDT from Last 3 Months Results * ECG-Annotated (05/12/2025) Only the most recent of2 resultswithin the time period is included. us Provider Onbase MD ECG ORDERABLES Final Result * (ABNORMAL) CBC auto differential (05/11/2025 8:00 PM EDT) Only the most recent of2 resultswithin the time period is included. WBC 5.5 4.8 - 10.8 K/mcL LAB HEMETOLOGY METHOD 05/11/2025 8:09 PM EDT [facility] RBC 4.20 3.80 - 4.80 M/mcL LAB HEMETOLOGY METHOD 05/11/2025 8:09 PM EDT [facility] Hemoglobin 10.9(L) 11.5 - 16.0 g/dL LAB HEMETOLOGY METHOD 05/11/2025 8:09 PM EDT [facility] Hematocrit 35.4 35.0 - 47.0 % LAB HEMETOLOGY METHOD 05/11/2025 8:09 PM EDT [facility] MCV 83.7 79.0 - 98.0 FL LAB HEMETOLOGY METHOD 05/11/2025 8:09 PM [facility] MCH 25.8(L) 27.0 - 32.0 pcg LAB HEMETOLOGY METHOD 05/11/2025 8:09 PM [facility] MCHC 30.8(L) 32.0 - 37.0 g/dL LAB HEMETOLOGY METHOD 05/11/2025 8:09 PM [facility] RDW 14.1 11.0 - 15.0 % LAB HEMETOLOGY METHOD 05/11/2025 8:09 PM [facility] Platelets 352 130 - 400 K/mcL LAB HEMETOLOGY METHOD 05/11/2025 8:09 PM [facility] MPV 8.7 7.0 - 11.0 FL LAB HEMETOLOGY METHOD 05/11/2025 8:09 PM [facility] NRBC 0.0 <1.0 % LAB HEMETOLOGY METHOD 05/11/2025 8:09 PM [facility] NRBC Absolute 0.00 <0.10 K/mcL LAB HEMETOLOGY METHOD 05/11/2025 8:09 PM [facility] Neutrophils Relative 54.1 % LAB HEMETOLOGY METHOD 05/11/2025 8:09 PM [facility] Lymphocytes Relative 37.4 % LAB HEMETOLOGY METHOD 05/11/2025 8:09 PM [facility] Monocytes Relative 6.6 % LAB HEMETOLOGY METHOD 05/11/2025 8:09 PM [facility] Eosinophils Relative 1.1 % LAB HEMETOLOGY METHOD 05/11/2025 8:09 PM [facility] Basophils Relative 0.6 % LAB HEMETOLOGY METHOD 05/11/2025 8:09 PM [facility] Immature Granulocytes Relative 0.2 % LAB HEMETOLOGY METHOD 05/11/2025 8:09 PM EDT [facility] Neutrophils Absolute 2.95 1.50 - 7.00 K/[facility] LAB HEMETOLOGY METHOD 05/11/2025 8:09 PM EDT [facility] Lymphocytes Absolute 2.04 1.00 - 5.00 K/mcL LAB HEMETOLOGY METHOD 05/11/2025 8:09 PM EDT [facility] Monocytes Absolute 0.36 0.20 - 1.00 K/[facility] LAB HEMETOLOGY METHOD 05/11/2025 8:09 PM EDT [facility] Eosinophils Absolute 0.06 0.00 - 0.50 K/[facility] LAB HEMETOLOGY METHOD 05/11/2025 8:09 PM EDT [facility] Basophils Absolute 0.03 0.00 - 0.20 K/mcL LAB HEMETOLOGY METHOD 05/11/2025 8:09 PM EDT [facility] Immature Granulocytes Absolute 0.01 0.00 - 0.03 K/[facility] LAB HEMETOLOGY METHOD 05/11/2025 8:09 PM EDT [facility] Blood Venous blood specimen / Unknown Venipuncture / Unknown 05/11/2025 8:00 PM EDT 05/11/2025 8:03 PM EDT us Brenda FELTON LAB BLOOD ORDERABLES Final Res ult [facility] [address] [place] [address], * APTT (05/11/2025 8:00 PM EDT) aPTT 29.8 24.1 - 39.3 sec LAB COAGULATION METHOD 05/11/2025 8:16 PM EDT [facility] Blood Venous blood specimen / Unknown Venipuncture / Unknown 05/11/2025 8:00 PM EDT 05/11/2025 8:03 PM EDT Brenda FELTON LAB BLOOD ORDERABLES Final Res ult Performing Organization Address [facility]/ZIP Co de Phone Number [facility] [address] [place] [address], [place] [phone] * Prothrombin time with INR (05/11/2025 8:00 PM EDT) Pathologist [facility] Protime 11.2 10.6 - 13.9 sec LAB COAGULATION METHOD 05/11/2025 8:16 PM EDT [facility] INR 0.9 LAB COAGULATION METHOD 05/11/2025 8:16 PM EDT [facility] Blood Venous blood specimen / Unknown Venipuncture / Unknown 05/11/2025 8:00 PM EDT 05/11/2025 8:03 PM EDT Brenda FELTON LAB BLOOD ORDERABLES Final Res ult Performing Organization Address City/[facility]/ZIP Co de Phone Number [facility] [address] [place] [address], [place] [phone] * Basic metabolic panel (05/11/2025 8:00 PM EDT) Pathologist [facility] Sodium 135 133 - 145 mmol/L LAB CHEMISTRY METHOD 05/11/2025 8:31 PM EDT [facility] Potassium 3.9 3.5 - 5.5 mmol/L LAB CHEMISTRY METHOD 05/11/2025 8:31 PM EDT [facility] Chloride 104 96 - 110 mmol/L LAB CHEMISTRY METHOD 05/11/2025 8:31 PM EDT [facility] CO2 24 21 - 32 mmol/L LAB CHEMISTRY METHOD 05/11/2025 8:31 PM EDT [facility] Anion Gap 7 3 - 11 LAB CHEMISTRY METHOD 05/11/2025 8:31 PM EDT [facility] Glucose 88 70 - 100 mg/dL LAB CHEMISTRY METHOD 05/11/2025 8:31 PM EDT [facility] BUN 9 5 - 25 mg/dL LAB CHEMISTRY METHOD 05/11/2025 8:31 PM EDT [facility] Creatinine 0.72 0.50 - 1.10 mg/dL LAB CHEMISTRY METHOD 05/11/2025 8:31 PM EDT [facility] eGFR 113 >=60 mL/min/1. 73m2 LAB CHEMISTRY METHOD 05/11/2025 8:31 PM EDT [facility] Comment:Calculation based on the Chronic Kidney Disease Epidemiology Collaboration (CKD-EPI) equation refit without adjustment for race. BUN/Creatinine Ratio 12.5 LAB CHEMISTRY METHOD 05/11/2025 8:31 PM EDT [facility] Calcium 9.1 8.5 - 10.5 mg/dL LAB CHEMISTRY METHOD 05/11/2025 8:31 PM EDT [facility] Blood Venous blood specimen / Unknown Venipuncture / Unknown 05/11/2025 8:00 PM EDT 05/11/2025 8:03 PM EDT us Brenda FELTON LAB BLOOD ORDERABLES Final Res ult [facility] [address] [place] [address], * ECG 12 lead (05/11/2025 7:48 PM EDT) Only the most recent of2 resultswithin the time period is included. Ventricular Rate ECG 77 BPM GEMUSE Atrial Rate 77 BPM GEMUSE P-R Interval 164 ms GEMUSE QRS Duration 62 ms GEMUSE Q-T Interval 386 ms GEMUSE QTc 436 ms GEMUSE P Wave [place] 57 degrees GEMUSE R [place] 22 degrees GEMUSE T [place] 76 degrees GEMUSE ECG Interpretation Normal sinus rhythm Normal ECG When compared with ECG of 10-MAY-2025 20:58, No significant change was found Confirmed by LISETTE BARAHONA ([id number]) on 05/12/2025 11:16:06 AM GEMUSE 05/11/2025 7:48 PM EDT 05/12/2025 11:16 AM EDT Brenda FELTON ECG ORDERABLES Final Result Performing Organization Address [facility] de Phone Number GEMUSE * Troponin I high sensitivity (05/10/2025 9:27 PM EDT) Pathologist [facility] High Sensitivity Troponin I <3 <=54 ng/L LAB CHEMISTRY METHOD 05/10/2025 10:32 PM EDT [facility] Blood Venous blood specimen / Unknown Venipuncture / Unknown 05/10/2025 9:27 PM EDT 05/10/2025 10:01 PM EDT Narrative [facility] - 05/10/2025 10:32 PM EDT High levels of biotin in samples may falsely decrease hsTroponin values. Use caution when interpreting hsTroponin results in patients taking biotin who exhibit renal impairment (eGFR <60) or in patients taking more than 20 mg/day of biotin. Tod Barr MD LAB BLOOD ORDERABLES Final Result Performing Organization Address [facility] de Phone Number [facility] [address] [place] [address], * B-type natriuretic peptide (05/10/2025 9:27 PM EDT) Pathologist [facility] BNP 50 <=100 pcg/mL LAB CHEMISTRY METHOD 05/10/2025 10:38 PM EDT [facility] Blood Venous blood specimen / Unknown Venipuncture / Unknown 05/10/2025 9:27 PM EDT 05/10/2025 10:01 PM EDT Tod Barr MD LAB BLOOD ORDERABLES Final Result Performing Organization Address [facility]/ZIP Co de Phone Number [facility] [address] [place] [address], [place] [phone] * Magnesium (05/10/2025 9:27 PM EDT) Magnesium 2.3 1.9 - 2.6 mg/dL LAB CHEMISTRY METHOD 05/10/2025 10:50 PM EDT [facility] Blood Venous blood specimen / Unknown Venipuncture / Unknown 05/10/2025 9:27 PM EDT 05/10/2025 10:01 PM EDT Tod Barr MD LAB BLOOD ORDERABLES Final Result Performing Organization Address [facility] Co de Phone Number [facility] [address] [place] [address], [place] [phone] * Lipase (05/10/2025 9:27 PM EDT) Pathologist [facility] Lipase 46 13 - 75 unit/L LAB CHEMISTRY METHOD 05/10/2025 10:50 PM EDT [facility] Blood Venous blood specimen / Unknown Venipuncture / Unknown 05/10/2025 9:27 PM EDT 05/10/2025 10:01 PM EDT Tod Barr MD LAB BLOOD ORDERABLES Final Result Performing Organization Address City/[facility]/ZIP Co de Phone Number [facility] [address] [place] [address], [place] [phone] * Comprehensive metabolic panel (05/10/2025 9:27 PM EDT) Sodium 138 133 - 145 mmol/L LAB CHEMISTRY METHOD 05/10/2025 10:51 PM EDT [facility] Potassium 4.1 3.5 - 5.5 mmol/L LAB CHEMISTRY METHOD 05/10/2025 10:51 PM [facility] Chloride 106 96 - 110 mmol/L LAB CHEMISTRY METHOD 05/10/2025 10:51 PM [facility] CO2 26 21 - 32 mmol/L LAB CHEMISTRY METHOD 05/10/2025 10:51 PM [facility] Anion Gap 6 3 - 11 LAB CHEMISTRY METHOD 05/10/2025 10:51 PM [facility] Glucose 83 70 - 100 mg/dL LAB CHEMISTRY METHOD 05/10/2025 10:51 PM [facility] BUN 10 5 - 25 mg/dL LAB CHEMISTRY METHOD 05/10/2025 10:51 PM [facility] Creatinine 0.71 0.50 - 1.10 mg/dL LAB CHEMISTRY METHOD 05/10/2025 10:51 PM [facility] eGFR 115 >=60 mL/min/1. 73m2 LAB CHEMISTRY METHOD 05/10/2025 10:51 PM [facility] Comment:Calculation based on the Chronic Kidney Disease Epidemiology Collaboration (CKD-EPI) equation refit without adjustment for race. BUN/Creatinine Ratio 14.1 LAB CHEMISTRY METHOD 05/10/2025 10:51 PM [facility] Calcium 9.2 8.5 - 10.5 mg/dL LAB CHEMISTRY METHOD 05/10/2025 10:51 PM [facility] AST (SGOT) 12 10 - 42 unit/L LAB CHEMISTRY METHOD 05/10/2025 10:51 PM [facility] ALT (SGPT) 21 10 - 60 unit/L LAB CHEMISTRY METHOD 05/10/2025 10:51 PM [facility] Alkaline Phosphatase 64 42 - 121 unit/L LAB CHEMISTRY METHOD 05/10/2025 10:51 PM [facility] Total Protein 7.1 6.0 - 8.0 g/dL LAB CHEMISTRY METHOD 05/10/2025 10:51 PM EDT [facility] Albumin 3.4 3.2 - 5.0 g/dL LAB CHEMISTRY METHOD 05/10/2025 10:51 PM EDT [facility] Total Bilirubin 0.3 0.0 - 1.4 mg/dL LAB CHEMISTRY METHOD 05/10/2025 10:51 PM EDT [facility] Blood Venous blood specimen / Unknown Venipuncture / Unknown 05/10/2025 9:27 PM EDT 05/10/2025 10:01 PM EDT us Tod Barr MD LAB BLOOD ORDERABLES Final Result [facility] [address] [place] [address], from Last 3 Months Insurance [facility] Care Teams Machine Hamper Maker Relationship Specialty Start Date End Date Alice Carmen NP [address] [place] [address], [address] [place], [place] [phone] PCP - General 03/27/23
--- OUTSIDE RECORDS SUMMARY | 2025-05-30 18:26 | XMS_ITS | Clinical Summary ---
Author Organization [facility] Address [address] [place] [address] Care Team Providers Care Operator Cavity Pump Name Role Phone Unavailable Primary Care Provider [...]
[2025-05-30 18:31] LABS: Troponin-I High Sensitivity < 2.7 ng/L (<3.5-17.0)
[2025-05-30 18:35] VITALS: BP 110/78; PULSE 79; RESP 13; TEMP 37; O2SAT 99
[2025-05-30 19:47] VITALS: BP 104/68; PULSE 78; RESP 20; O2SAT 98
[2025-05-30 20:16] VITALS: RESP 20
[2025-05-30] MEDS: Lidocaine 4 % Patch ADH..PATCH 1 PATCH TRANSDERMA (20:16)
[2025-05-30 20:46] LABS: Troponin-I High Sensitivity < 2.7 ng/L (<3.5-17.0)
[2025-05-30 21:19] VITALS: BP 103/60; PULSE 73; RESP 16; TEMP 36.5; O2SAT 99
== END 2025-05-30 21:24 | disposition home or self-care (01) ==
PROVIDERS: Emergency Provider Internal Medicine; PCP Nurse Practitioner Family
DX: R07.89 Other chest pain (principal); G90.1 Familial dysautonomia [Riley-Day]; R55 Syncope and collapse; Z79.899 Other long term (current) drug therapy
CPT/HCPCS: 36415; 71045; 80048; 83735; 84484; 85025; 85379; 85652; 86140; 93005; 96361; 96374; 96375; 99285; J0131; J1171; J1885; J2270

== ENCOUNTER → 2025-05-30 17:05 | Outpatient (BNV) | payer OTHER, SELFPAY | PROVIDERS: Emergency Provider Internal Medicine; PCP Nurse Practitioner Family; Visit Provider Internal Medicine | DX: R07.89 Other chest pain (principal) | CPT/HCPCS: 93010 ==

== ENCOUNTER → 2025-05-30 20:11 | Outpatient (BNV) | payer OTHER, SELFPAY | PROVIDERS: Emergency Provider Internal Medicine; PCP Nurse Practitioner Family; Visit Provider Radiology Diagnostic Radiology | DX: R07.9 Chest pain, unspecified (principal) | CPT/HCPCS: 71045 ==

== ENCOUNTER 2025-06-23 17:10 | Emergency (ER) | payer OTHER, SELFPAY ==
--- NOTE | ~2025-06-23 | MR_ITS ---
CLINICAL HISTORY: low back pain, numbness heavy LLE, urine incont --- Additional Notes or Special Instructions: r o cauda equina MR lumbar spine without intravenous contrast Comparison: None Findings: Normal heights of the 5 lumbar vertebrae. Trace retrolisthesis of the L5-S1. Heterogeneous marrow signal accentuated by multiple scattered hemangiomas. Modic endplate changes include Modic type 1 at L5-S1. Edge of the field artifacts noted. Conus terminates of the lower margin of the L1. No drainable paraspinal fluid collection. L1-L2: Bilateral facet arthropathy. No spinal stenosis. L2-L3: Disc bulge and bilateral facet arthropathy, with small facet effusions present. No spinal stenosis. L3-L4: Disc bulge, annular fissure, endplate hypertrophy, and bilateral facet arthropathy. No spinal stenosis. L4-L5: Disc bulge with small extrusion, endplate hypertrophy, and bilateral facet arthropathy. [id number] left lateral recess narrowing. Minimal left foraminal narrowing. L5-S1: Disc bulge, disc extrusion, endplate hypertrophy, listhesis, and bilateral facet arthropathy. Left paracentral disc component with mild/minimal spinal canal stenosis and moderate left lateral recess narrowing. Trace left foraminal narrowing. IMPRESSION: 1. Left lateral recess narrowing at L4-L5 and L5-S1. 2. Multifocal degenerative disc changes. 3. Multifocal facet arthropathy. This document has been electronically signed by: Sandro Montemayor MD on 06/23/2025 22:07:32
[2025-06-23 17:19] VITALS: BP 111/69; PULSE 85; RESP 18; TEMP 36.6; O2SAT 98; BMI 24.4
--- NOTE | 2025-06-23 17:21 | ED_ITS ---
HPI - Back Pain/Injury General Chief Complaint: Back Pain/Injury Stated Complaint: back injury, leg numbness, urinating onself Time Seen by Provider: 06/23/25 18:16 Source: patient and old records reviewed Mode of arrival: ambulatory Limitations: no limitations History of Present Illness ED Provider: CARMEN HPI Narrative: 35 yo female with PMH of anxiety, prior failed ablation attempt for tachycardia with complications including pericardial effusion and PE - just off blood thinners for 1 month now, back pain with disc herniation L4-L5/L5-S1 states she saw PCP and did PT but no relief - she has chronic pain, gait issues, L leg weakness, on and off tingling of her LE at times. Today she lifted a stack of book, closed the guerrero to the car, sat in her car and twisted her back and felt severe pain across the back along with saddle anesthesia, urinary incontinence and severe pain. No IVDA, no recent infections, no blood thinners in 1 month. MD elicited complaint: back pain and back injury Pertinent past history: prior back pain Onset (ago): hour(s) (today) Timing: constant Severity: severe Similar Symptoms Previously: No Quality: sharp and throbbing Location: lumbar spine Radiation: other (both hips) Exacerbating factors: movement Relieving factors: immobilization Context: while lifting and turning/twisting Associated symptoms: weakness, numbness, difficulty walking, loss of sensation in lower extremities and urinary incontinence Work related injury: No Related Data Previous Rx's ?Medication ?Instructions ?Recorded acetaminophen 500 mg capsule 1,000 mg (2 x 500 mg) PO .q8 PRN 06/23/25 fever or pain #30 caps cyclobenzaprine 10 mg tablet 10 mg PO TID PRN muscle s pasm #14 06/23/25 tabs ibuprofen 600 mg tablet 600 mg PO Q8H PRN fever or p ain 06/23/25 #30 tabs prednisone 10 mg tablet 10 mg PO DIRECTED #42 tab s 06/23/25 Allergies Allergy/AdvReac Type Severity Reaction Status Date / Time Penicillins Allergy Unknown Verified 06/23/25 17:21 Sulfa (Sulfonamide Allergy Unknown Verified 06/23/25 17:21 Antibiotics) diphenhydramine (From AdvReac Unknown Verified 06/23/25 17:21 Benadryl) midazolam AdvReac Itching Verified 06/23/25 17:21 ondansetron (From Zofran) AdvReac Unknown Verified 06/23/25 17:21 Review of Systems 2 Review of Systems: Constitutional : No Weight loss, No Fever, No Chills, ENT/Mouth : No Hearing loss, No Ear Pain, No Nasal Congestion, No Sinus Pain, No Hoarseness, No sore throat, No Rhinorrhea, No Swallowing Difficulty Cardiovascular : No Chest Pain, No SOB Respiratory : No Cough, No Dyspnea Gastrointestinal : No Nausea, No Vomiting, No Diarrhea, No abdominal Pain, No Hematochezia, No Melena Genitourinary : No Dysuria, No Urinary Frequency, No Hematuria, No Urinary Incontinence, Musculoskeletal : positive back pain Skin : No Skin Lesions, No rash Neuro : pos Weakness, pos Numbness, pos Paresthesias, pos loss of bowel or bladder incontinence, pos saddle anesthesia Yes all other systems are reviewed and are negative [facility] Past Medical History Attestation statement: The following information was validated with the patient. Source: old records reviewed Medical History Dysautonomia POTS (postural orthostatic tachycardia syndrome) Surgical History H/O cardiac radiofrequency ablation Social History Social History (Updated 06/23/25 @ 18:32 by Thuy Marshall DO) Unable to assess alcohol history related to: Unknown Patient Tobacco Use Status: Never used Tobacco Use of substances other than those prescribed or required for medical reasons: Unknown Advance Directives: No Advance Directives Information Provided: Yes Do you have a plan to hurt others: No Plan Patient : No Physical Exam 2 Vital Signs: Vital Signs: Last Vital Signs Temp 98.0 F 06/23/25 19:53 Pulse 70 06/23/25 19:53 Resp 16 06/23/25 19:53 BP 114/82 06/23/25 19:53 Pulse Ox 100 06/23/25 19:53 O2 Del Method Room Air 06/23/25 19:53 BMI result Body Mass Index 24.4 Appearance: Alert. Oriented X3. No acute distress. somewhat frustrated and upset with questioning but able to redirect the conversation Eyes: Pupils equal, round and reactive to light. ENT: Pharynx normal. Neck: Normal inspection. Neck supple. CVS: Normal heart rate and rhythm. Pulses normal. Respiratory: No respiratory distress. Breath sounds normal. Abdomen: Soft and nontender. Rectal: tone is present - Dot PCT present Back: ttp along lower lumbar spinal area Skin: Skin warm and dry. Normal skin color. Normal skin turgor. Extremities: No lower extremity edema. No calf ttp Neuro: Oriented X 3. diffuse weakness though limited effort due to pain, can wiggle toes, no clonus, reports saddle anesthesia, diminished DTRs in both achilles and patella Course Course Course Narrative: JOSE FRANCISCO Delcid 06/23/25 7992 This is a Rapid Medical Examination (RME) performed by Hector Lee PA-C in triage. Full HPI, ROS, assessment and treatment plan per primary provider in the Main ED. Hx: 35 yo F here for eval of acute onset back pain s/o lifting a few books around 1200 today. Reports episode of urinary incontinence after this, she did not know she was urinating at the time. Now having increasing numbness down her left lower extremity. States ?my legs feel like concrete blocks . hx of herniated discs. denies hx of spinal surgery. no IVDU. PE/vitals: decreased strength to LLE. decreased sensation to light touch to LLE. Exquisitely tender to palpation of midline lumbar spine without palpable step- off. Exam limited in triage as patient is seated in wheelchair Plan: labs, further eval in back charge preparation technician aware Reevaluation(s) Reevaluation #1: signed out to Rick Marshall DO 06/23/252012 Reevaluation #2: 8:31 PM 06/23/2025 (Hector FELTON): Patient is signed out to this provider at shift change. In summary the patient is a 35-year-old female presenting to the ED for evaluation of low back pain which began after lifting a book and twisting into her car. Patient reports associated loss of bladder control and bilateral lower extremity numbness with decreased sensation. The patient has a history of herniated discs but denies surgical spinal history or IVDA. The patient was evaluated with basic laboratory workup and ordered for an MRI which is scheduled at 20:30. This provider will follow up MRI results and disposition accordingly. 8:54 PM 06/23/2025 (Hector FELTON): This provider wishes contacted by information technology administrator advising patient was in the middle of preliminary images when she became extremely anxious and demanding to be pulled out of the machine. This provider went to the MRI suite and discussed her concerns, patient reports her father in an MRI machine and she is being triggered by the memories of that event and sounds of the machine. The patient is requesting additional anxiolysis and pain management. Patient will be treated with an additional mg of Dilaudid as well as Valium, RN is in route to the MRI suite at this time to administer medications to facilitate imaging. 11:09 PM 06/23/2025 (Hector FELTON): The patient's MRI has resulted and shows no fluid collection or evidence of cauda equina. The patient's MRI does show narrowing at L4-L5, and L5-S1 with multifocal degenerative disc changes. Patient will be treated with topical analgesics, Flexeril, prednisone, and OTC analgesics, with instructions for outpatient follow up with PCP for neurosurgical referral as indicated. Medications Administered Discontinued Medications Generic Name Dose Route Start Last Admin Trade Name Flash PRN Reason Stop Dose Admin Diazepam 5 mg 06/23/25 20:50 06/23/25 21:01 Diazepam 10 Mg/2 Ml Cartridge IVPUSH 06/23/25 20:51 5 mg STAT STA Administration Hydromorphone HCl 1 mg 06/23/25 18:27 06/23/25 19:57 Hydromorphone Hcl 1 Mg/Ml Syringe IVPUSH 06/23/25 18:28 1 mg ONCE ONE Administration Protocol Hydromorphone HCl 1 mg 06/23/25 20:47 06/23/25 21:01 Hydromorphone Hcl 1 Mg/Ml Syringe IVPUSH 06/23/25 20:48 1 mg ONCE ONE Administration Protocol Medical Decision Making Medical Decision Making [facility] Narrative: 35 yo female with PMH of anxiety, prior failed ablation attempt for tachycardia with complications including pericardial effusion and PE - just off blood thinners for 1 month now, back pain with disc herniation L4-L5/L5-S1 now here with pain, incontinence and saddle anesthesia after twisting. I am going to obtain labs, MRI and start on IV dilaudid for pain. I have also ordered bladder scan and PVR confirmed MRI tonight Differential Diagnosis Differential Diagnoses: The differential diagnosis associated with the presentation includes disc herniation, spasm, cauda equina Lab Data [facility] Lab Attestation statement: I reviewed the patient's lab results. 06/23/25 19:46 06/23/25 19:46 Labs: Lab Results 06/23/25 Range/Units 19:46 WBC 5.8 (4.8-10.8) X10*3/uL RBC 4.69 (4.20-5.50) X10*6/uL Hgb 11.8 L (12.0-16.0) g/dl Hct 36.6 L (37.0-47.0) % MCV 78.0 L (80.0-98.0) fL MCH 25.2 L (27.0-33.0) pg MCHC 32.2 (31.0-35.0) g/dl RDW 14.6 (11.0-16.0) % Plt Count 345 (160-400) X10*3/uL MPV 8.9 L (9.4-12.3) fL Immature Gran % (Auto) 0.3 (0.0-0.4) % Neut % (Auto) 55.2 (45-73) % Lymph % (Auto) 35.9 (20-40) % [place] % (Auto) 6.9 (2-11) % Eos % (Auto) 1.2 (0-4) % Baso % (Auto) 0.5 (0-2) % Lymph # (Auto) 2.1 (1.2-4.9) X10*3/uL [place] # (Auto) 0.4 (0.1-1.2) X10*3/uL Eos # (Auto) 0.1 (0.0-0.4) X10*3/uL Baso # (Auto) 0.0 (0.0-0.2) X10*3/uL Abs Immat Gran (auto) 0.02 (0.00-0.03) X10*3/uL Absolute Neuts (auto) 3.2 (2.0-8.3) x10*3/uL Absolute Nucleated RBC 0.000 (0.0-0.012) X10*3/uL Nucleated RBC % (auto) 0.0 (0.0-0.2) /100WBC Sodium 139 (135-145) mmol/L Potassium 4.2 (3.3-5.1) mmol/L Chloride 103 (96-108) mmol/L Carbon Dioxide 27 (22-29) mmol/L Anion Gap 13 (12-20) BUN 12 (9-16) mg/dL Creatinine 0.67 (0.5-1.4) mg/dL Estim Creat Clear Calc 140.8 Estimated GFR > 60 Random Glucose 82 (60-115) mg/dL Calcium 9.5 D (8.4-10.2) mg/dL Total Bilirubin 0.4 (0.0-1.0) mg/dL AST 28 (5-31) U/L ALT 29 (0-31) U/L Alkaline Phosphatase 63 (39-117) U/L Total Protein 7.6 (6.5-8.0) g/dL Albumin 4.5 (3.5-5.0) g/dL Beta HCG, Quant < 2 mIU/mL Independent Interpretation I performed an independent interpretation of an: MRI Radiology Impression Discussion of test interpretation with radiology: I have reviewed the radiologist's reading. Radiologist Impression: CLINICAL HISTORY: low back pain, numbness heavy LLE, urine incont --- Additional Notes or Special Instructions: r o cauda equina MR lumbar spine without intravenous contrast Comparison: None Findings: Normal heights of the 5 lumbar vertebrae. Trace retrolisthesis of the L5-S1. Heterogeneous marrow signal accentuated by multiple scattered hemangiomas. Modic endplate changes include Modic type 1 at L5-S1. Edge of the field artifacts noted. Conus terminates of the lower margin of the L1. No drainable paraspinal fluid collection. L1-L2: Bilateral facet arthropathy. No spinal stenosis. L2-L3: Disc bulge and bilateral facet arthropathy, with small facet effusions present. No spinal stenosis. L3-L4: Disc bulge, annular fissure, endplate hypertrophy, and bilateral facet arthropathy. No spinal stenosis. L4-L5: Disc bulge with small extrusion, endplate hypertrophy, and bilateral facet arthropathy. [id number] left lateral recess narrowing. Minimal left foraminal narrowing. L5-S1: Disc bulge, disc extrusion, endplate hypertrophy, listhesis, and bilateral facet arthropathy. Left paracentral disc component with mild/minimal spinal canal stenosis and moderate left lateral recess narrowing. Trace left foraminal narrowing. IMPRESSION: 1. Left lateral recess narrowing at L4-L5 and L5-S1. 2. Multifocal degenerative disc changes. 3. Multifocal facet arthropathy. This document has been electronically signed by: Sandro Montemayor MD on 06/23/2025 22:07:32 External Record Review External record reviewed: Outpatient record Procedures EJ/Peripheral Line Arm L: Time Out Performed: Yes Skin Cleansed in Sterile Fashion: Yes Size (gauge): 20 IV Secured and Dressing Applied: Yes Patient Tolerated Procedure: well and no complications Additional Comments: sterile US guided Discharge Plan Discharge Clinical Impression: Lumbar radiculopathy Strain of lumbar region Qualifiers: Encounter type: initial encounter Qualified Code(s): S39.012A - Strain of muscle, fascia and tendon of lower back, initial encounter Patient Disposition: Home, Self-Care Instructions: Low Back Strain (ED), Lumbar Radiculopathy (ED) Additional Instructions: Thank you for choosing [facility] Emergency Department for your care today. Thankfully your MRI today shows no evidence of compression of your spinal cord or an infectious cause of your low back pain. At this time there is no indication for admission to the hospital or continued ED observation, and it is safe to discharge you home. Your MRI does show degenerative disc disease and arthritis, as well as some narrowing of the space between your L4/L5 vertebrae and your L5/S1 vertebrae. This may be causing compression of nerves in your low back, a condition was lumbar radiculopathy. Please take prednisone as prescribed until finished. You may take alternating (staggered) doses of ibuprofen 600mg and Tylenol 1000mg every 4 hours as needed for any additional pain. Please rest the injured area, and apply ice for 20 minutes every hour. Please stay well hydrated and get plenty of rest. As a part of your care plan, you have also been prescribed a muscle relaxer called flexeril. Please take this medication only for severe pain or spasm that is not relieved by ibuprofen and/or Tylenol. Muscle relaxer medications can carry high risk of unintentional addiction and abuse. Take this medication only as directed and only if absolutely necessary. This medicine can make you drowsy, you are not allowed to drive, operate heavy machinery, or be the sole care provider for children while taking this medication. We have treated you with a lidocaine patch, if you find this provides you significant relief additional patches can be purchased at any local pharmacy without a prescription. Please follow up with your primary care physician for additional pain management, re-evaluation, and neurosurgical referral as indicated. As well as continued preventative care. If you do not have a primary care physician, please call the [facility] at [phone] to establish a new primary care physician. While waiting to establish your new primary care physician, you can call our Walk[facility]in [facility] at [phone] for non-emergency needs. Please return to the emergency department if you develop a severe or sudden change in your symptoms, a fever over 100.4 that does not improve with Tylenol or Ibuprofen, recurrent vomiting, or any other new or worsening symptoms or concerns. Prescriptions: New cyclobenzaprine 10 mg tablet 10 mg PO TID PRN (Reason: muscle spasm) Qty: 14 0RF prednisone 10 mg tablet 10 mg PO DIRECTED Qty: 42 0RF Rx Instructions: Take 60 mg (6 tabs) daily for 2 days. Then take 50 mg (5 tabs) daily for 2 days. Then take 40 mg (4 tabs) daily for 2 days. Then take 30 mg (3 tabs) daily for 2 days. Then take 20 mg (2 tabs) daily for 2 days. Then take 10 mg (1 tab) daily for 2 days. Then stop. ibuprofen 600 mg tablet 600 mg PO Q8H PRN (Reason: fever or pain) Qty: 30 0RF acetaminophen 500 mg capsule 1,000 mg PO .q8 PRN (Reason: fever or pain) Qty: 30 0RF Referrals: Alice Carmen, CRIMPING MACHINE OPERATOR [Primary Care Provider, Medical] Clinical Impression: Lumbar radiculopathy; Strain of lumbar region Print Language: Japanese
[2025-06-23 19:52] LABS: MANUAL DIFF FLAG NO
[2025-06-23 19:53] VITALS: BP 114/82; PULSE 70; RESP 16; TEMP 36.7; O2SAT 100
[2025-06-23 20:03] LABS: Hematocrit 36.6 % (37.0-47.0); Hemoglobin 11.8 g/dl (12.0-16.0); Imm Gran Abs Auto 0.02 X10*3/uL (0.00-0.03); Imm Gran Pct Auto 0.3 % (0.0-0.4); Lymphocytes Absolute Auto 2.1 X10*3/uL (1.2-4.9); Mean Corpuscular HGB Conc 32.2 g/dl (31.0-35.0); Mean Corpuscular Hemoglobin 25.2 pg (27.0-33.0); Mean Corpuscular Volume 78.0 fL (80.0-98.0); NRBC Abs Auto 0.000 X10*3/uL (0.0-0.012); NRBC Pct Auto 0.0 /100WBC (0.0-0.2); Platelet Count 345 X10*3/uL (160-400); Red Blood Count 4.69 X10*6/uL (4.20-5.50); White Blood Count 5.8 X10*3/uL (4.8-10.8)
[2025-06-23 20:15] LABS: Alanine Aminotransferase 29 U/L (0-31); Albumin Level 4.5 g/dL (3.5-5.0); Alkaline Phosphatase 63 U/L (39-117); Anion Gap 13 (12-20); Aspartate Amino Transferase 28 U/L (5-31); Blood Urea Nitrogen 12 mg/dL (9-16); Calcium 9.5 mg/dL (8.4-10.2); Carbon Dioxide 27 mmol/L (22-29); Chloride 103 mmol/L (96-108); Creatinine Clr Calc Pharmacy 140.8; Estimated Glomerular Filt Rate > 60; Potassium 4.2 mmol/L (3.3-5.1); Sodium 139 mmol/L (135-145); Total Protein 7.6 g/dL (6.5-8.0)
[2025-06-23] MEDS: diazePAM 10 MG/2 ML CARTRIDGE 5 MG IVPUSH (21:01)
[2025-06-23 23:55] VITALS: BP 117/87; PULSE 78; RESP 18; TEMP 36.7; O2SAT 97
[2025-06-24 00:11] VITALS: BP 117/87; PULSE 78; RESP 18; TEMP 36.7; O2SAT 97
== END 2025-06-24 00:12 | disposition home or self-care (01) ==
PROVIDERS: Physician Assistant Medical; Emergency Provider Emergency Medicine; PCP Nurse Practitioner Family
DX: S39.012A Strain of muscle, fascia and tendon of lower back, initial encounter (principal); M54.16 Radiculopathy, lumbar region; R20.0 Anesthesia of skin; R32 Unspecified urinary incontinence; R10.2 Pelvic and perineal pain; X50.1XXA Overexertion from prolonged static or awkward postures, initial encounter; X50.0XXA Overexertion from strenuous movement or load, initial encounter; Y93.9 Activity, unspecified; Y92.9 Unspecified place or not applicable; Y99.8 Other external cause status
CPT/HCPCS: 36415; 36556; 72148; 80053; 84702; 85025; 96374; 96375; 96376; 99284; 99285; J1171; J3360

== ENCOUNTER → 2025-06-23 18:16 | Outpatient (BNV) | payer OTHER, SELFPAY | PROVIDERS: Emergency Provider Emergency Medicine; PCP Nurse Practitioner Family; Visit Provider Radiology Neuroradiology | DX: M48.062 Spinal stenosis, lumbar region with neurogenic claudication (principal) | CPT/HCPCS: 72148 ==

== ENCOUNTER 2025-07-04 16:40 | Inpatient (IN) | payer OTHER, SELFPAY ==
--- NOTE | ~2025-07-04 | CT_ITS ---
CLINICAL HISTORY: neck manipulation , new headache numbness CT Head without contrast. CT angiography head and neck with contrast. 3D Postprocessing. Comparison: None provided Findings: HEAD CT: No intra-axial mass, midline shift, hydrocephalus, or acute hemorrhage. Vo-white matter differentiation is preserved. The visualized paranasal sinuses and mastoid air cells are normal. The orbits are unremarkable. No skull fracture. HEAD AND NECK CTA: Aortic arch and cervical great vessels are patent. Intracranial arteries are patent. No aneurysm, dissection, or occlusion. origin of the right posterior cerebral artery. No abnormal intracranial enhancement. The visualized thyroid gland is unremarkable. No cervical mass or fluid collection. Lung apices clear. No acute fracture. IMPRESSION: 1. Unremarkable head CT. 2. Patent head and neck CTA. This document has been electronically signed by: Jamil Singleton MD on 07/04/2025 23:33:56
[2025-07-04 17:12] VITALS: BP 125/83; PULSE 97; RESP 18; TEMP 36.6; O2SAT 97; BMI 25.8
--- NOTE | 2025-07-04 17:17 | ED.GENADULT ---
HPI - General Adult General Chief complaint: Back Pain/Injury Stated complaint: back weakness numbness (2 herniated discs) Time Seen by Provider: 07/04/25 20:50 Source: patient Mode of arrival: ambulatory Limitations: no limitations History of Present Illness ED Provider: Dr. Michaela Mcgarry HPI narrative: 35-year-old female with history of SVT post ablation presenting with ongoing lower extremity weakness, incontinence of bowel and bladder, continued low back pain after an injury that occurred at the gym approximately 2 weeks ago. Since that time she has been seen in the emergency department and had an MRI on 06/23/2025. She was diagnosed with a pinched nerve but no spinal cord impingement at that time. Admits that she has been doing physical therapy as prescribed 3 days a week as well as Lidoderm patches, Tylenol and ibuprofen for pain. Admits that nothing has seemed to help in her symptoms are only worsening over time. Unfortunately, she decided to go see a chiropractor on 07/01/2025, where she had her neck cracked. States that since that time she has been having headaches, severe neck pain, numbness and tingling of her bilateral upper extremities. Admits she will occasionally have numbness and tingling to her face as well. Had some blurry vision last week but that resolved. Denies nausea or vomiting. No reported chest pain or difficulty breathing. Admits that the pain in her back, legs, incontinence and saddle paresthesias have all worsened since she was seen here on the . She has not followed up with a neurosurgeon. Related Data Previous Rx's ?Medication ?Instructions ?Recorded acetaminophen 500 mg capsule 1,000 mg (2 x 500 mg) PO .q8 PRN 06/23/25 fever or pain #30 caps cyclobenzaprine 10 mg tablet 10 mg PO TID PRN muscle spasm #14 06/23/25 tabs ibuprofen 600 mg tablet 600 mg PO Q8H PRN fever or pain 06/23/25 #30 tabs prednisone 10 mg tablet 10 mg PO DIRECTED #42 tabs 06/23/25 Allergies Allergy/AdvReac Type Severity Reaction Status Date / Time Penicillins Allergy Unknown Verified 07/04/25 17:14 Sulfa (Sulfonamide Allergy Unknown Verified 07/04/25 17:14 Antibiotics) diphenhydramine (From AdvReac Unknown Verified 07/04/25 17:14 Benadryl) midazolam AdvReac Itching Verified 07/04/25 17:14 ondansetron (From Zofran) AdvReac Unknown Verified 07/04/25 17:14 prednisone AdvReac Palpitation Verified 07/04/25 17:16 s Review of Systems Review of Systems: as per HPI, full review of systems performed and negative but for the above mentioned pertinent positives and negatives. [facility] Past Medical History Attestation statement: The following information was validated with the patient. [facility] Narrative: SVT post ablation Source: old records reviewed Medical History Dysautonomia POTS (postural orthostatic tachycardia syndrome) Surgical History H/O cardiac radiofrequency ablation Social History Social History Unable to assess alcohol history related to: Unknown Patient Tobacco Use Status: Never used Tobacco Smoked in Last 30 Days: No Use of substances other than those prescribed or required for medical reasons: No Advance Directives: No Advance Directives Information Provided: No Do you have a plan to hurt others: No Plan Physical Exam ED Exam Exam: GENERAL: Ill-Appearing, appears uncomfortable. SKIN: Normal skin color for ethnicity, warm, dry, no rashes noted. HEENT: Normocephalic, atraumatic, no stridor, dry mucous membranes, dentition intact, EOMI, PERRLA. NECK: Soft, hypertonicity of the bilateral trapezius and scalenes, no crepitus, full ROM, midline structures nontender, no step-offs, no deformities, no lymphadenopathy. CHEST: Heart regular rhythm, no murmurs, symmetric chest rise and fall. PULMONARY: Clear to auscultation bilaterally, diminished at the bases, no labored breathing, no wheezes/rhales/rhonchi. ABDOMINAL: Soft, nondistended, nontender, positive bowel sounds in all quadrants. : Deferred. MUSCULOSKELETAL: Normal tone, full range of motion, no deformities, no peripheral edema. NEURO: Alert and oriented x3, CN II through XII intact, diminished sensation to light touch overlying bilateral lower extremities to the thighs, unable to elicit patellar reflexes bilaterally, diminished strength in plantar flexion, equal +3/5 strength bilateral dorsiflexion. PSYCHIATRIC: Flat affect, fluid speech, good eye contact and appropriate demeanor. Vital Signs: Vital Signs - 24 hr 07/04/25 17:12 07/04/25 20:08 07/04/25 22:24 Temperature 97.9 F 98.7 F Pulse Rate 97 85 Respiratory Rate 18 16 15 Blood Pressure 125/83 126/97 H Pulse Oximetry 97 100 Oxygen Delivery Method Room Air Room Air 07/04/25 23:09 Temperature Pulse Rate Respiratory Rate 14 Blood Pressure Pulse Oximetry Oxygen Delivery Method BMI result Body Mass Index 25.8 Course Course Course Narrative: Medical screening exam performed. Please refer to detailed history, exam, evaluation, and management by primary provider. Patient continues with low back pain, now with worsening headache, neck pain. MRI on 06/23. Consideration for possible MS? JS. Medications Administered Discontinued Medications Generic Name Dose Route Start Last Admin Trade Name Freq PRN Reason Stop Dose Admin Diazepam 5 mg 07/04/25 21:55 07/04/25 22:25 Diazepam 10 Mg/2 Ml Cartridge IVPUSH 07/04/25 21:56 5 mg STAT STA Administration Hydromorphone HCl 1 mg 07/04/25 23:06 07/04/25 23:09 Hydromorphone Hcl 1 Mg/Ml Syringe IVPUSH 07/04/25 23:07 1 mg ONCE ONE Administration Protocol Lactated Ringer's 1,000 mls @ 999 mls/hr 07/04/25 21:55 07/05/25 00:08 Lr IV 07/04/25 22:55 Infused .Q1H1M ONE Infusion Iohexol 70 ml 07/04/25 22:58 07/04/25 22:58 Iohexol 350 Mg/Ml 100 Ml Infus..Btl IV 07/04/25 22:59 70 ml ONCE ONE Administration Morphine Sulfate 4 mg 07/04/25 21:55 07/04/25 22:24 Morphine Sulfate 4 Mg/Ml Cartridge IVPUSH 07/04/25 21:56 4 mg ONCE ONE Administration Protocol Medical Decision Making Medical Decision Making [facility] Narrative: Patient presents today with a chief complaint of back pain, neck pain. Differential diagnosis includes musculoskeletal pain, osseous abnormality such as fracture or tumor, infection, spinal cord pathology such as cauda equina syndrome, ligamentous or disc pathology, vascular abnormalities, among many others. I reviewed the list of red flag features such as trauma, weight loss, abnormal neurological findings such as weakness, bowel or bladder incontinence, saddle paresthesia, as well as history of cancer, IV drug abuse, fever, to list a few. Based on history and physical examination, workup was initiated and results were reviewed. Patient had an MRI less than 2 weeks ago that showed evidence of degenerative disc disease and a pinched nerve at L4/L5 however, there was no spinal cord impingement to explain the cauda equina symptoms she is having today. A workup being so complete and including an MRI, obvious concern would be for other neurologic conditions causing her loss of bowel or bladder control, sensation alterations in tingling and numbness, vision changes and headache, such as MS. I do not feel that this is cauda equina syndrome given the injury that she had, normal MRI just a week and a half ago and continued worsening symptoms since then. Patient is at the point where she is wearing a diaper. She has to walk with a walker. She has never had this issue before. Malingering is also a consideration given her symptoms and relatively normal workup thus far however, I reviewed her controlled substance list and she has had pretty consistent medications prescribed over the last several months. Neurologically, I am unable to elicit patellar reflexes. She does have some hypertonicity of the bilateral lower extremities. She does have full function of the radial, median and ulnar nerves of the bilateral hands though. I think she will ultimately need an MRI, lumbar puncture to rule out MS. Plan to treat her pain, rule out dissection given her recent manipulation of the C-spine last week by chiropractor and if that is negative, we will admit to the hospital for further care and evaluation. Differential Diagnosis Differential Diagnoses: The differential diagnosis associated with the presentation includes (as above) Admission/Observation Consideration of admission/observation: Escalation of care including admission/observation considered Lab Data MDM Lab Attestation statement: I reviewed the patient's lab results. 07/04/25 17:46 07/04/25 17:46 Labs: Lab Results 07/04/25 Range/Units 17:46 WBC 6.5 (4.8-10.8) X10*3/uL RBC 4.47 (4.20-5.50) X10*6/uL Hgb 11.2 L (12.0-16.0) g/dl Hct 35.3 L (37.0-47.0) % MCV 79.0 L (80.0-98.0) fL MCH 25.1 L (27.0-33.0) pg MCHC 31.7 (31.0-35.0) g/dl RDW 15.0 (11.0-16.0) % Plt Count 377 (160-400) X10*3/uL MPV 8.7 L (9.4-12.3) fL Immature Gran % (Auto) 0.2 (0.0-0.4) % Neut % (Auto) 57.3 (45-73) % Lymph % (Auto) 32.3 (20-40) % [place] % (Auto) 7.9 (2-11) % Eos % (Auto) 1.4 (0-4) % Baso % (Auto) 0.9 (0-2) % Lymph # (Auto) 2.1 (1.2-4.9) X10*3/uL [place] # (Auto) 0.5 (0.1-1.2) X10*3/uL Eos # (Auto) 0.1 (0.0-0.4) X10*3/uL Baso # (Auto) 0.1 (0.0-0.2) X10*3/uL Abs Immat Gran (auto) 0.01 (0.00-0.03) X10*3/uL Absolute Neuts (auto) 3.7 (2.0-8.3) x10*3/uL Absolute Nucleated RBC 0.000 (0.0-0.012) X10*3/uL Nucleated RBC % (auto) 0.0 (0.0-0.2) /100WBC Sodium 136 (135-145) mmol/L Potassium 4.0 (3.3-5.1) mmol/L Chloride 107 (96-108) mmol/L Carbon Dioxide 20 L (22-29) mmol/L Anion Gap 13 (12-20) BUN 19 H (9-16) mg/dL Creatinine 0.70 (0.5-1.4) mg/dL Estim Creat Clear Calc 134.7 Estimated GFR > 60 Random Glucose 125 H (60-115) mg/dL Calcium 9.1 (8.4-10.2) mg/dL Total Creatine Kinase 75 (26-140) U/L C-Reactive Protein < 0.10 (< or = 0.50) mg/dL Beta HCG, Quant < 2 mIU/mL Radiology Impression Discussion of test interpretation with radiology: I have reviewed the radiologist's reading. Radiologist Impression: CT Head without contrast. CT angiography head and neck with contrast. 3D Postprocessing. Comparison: None provided Findings: HEAD CT: No intra-axial mass, midline shift, hydrocephalus, or acute hemorrhage. Vo-white matter differentiation is preserved. The visualized paranasal sinuses and mastoid air cells are normal. The orbits are unremarkable. No skull fracture. HEAD AND NECK CTA: Aortic arch and cervical great vessels are patent. Intracranial arteries are patent. No aneurysm, dissection, or occlusion. origin of the right posterior cerebral artery. No abnormal intracranial enhancement. The visualized thyroid gland is unremarkable. No cervical mass or fluid collection. Lung apices clear. No acute fracture. IMPRESSION: 1. Unremarkable head CT. 2. Patent head and neck CTA. This document has been electronically signed by: Jamil Singleton MD on 07/04/2025 23:33:56 External Record Review External record reviewed: Inpatient record Prescription Management I considered prescription management with: Pain Medication Chronic Conditions Patient?s care impacted by: Other (SVT) Discharge Plan Discharge Clinical Impression: Low back pain, Facial paresthesia, Urinary incontinence, Headache Patient Disposition: Admitted As Inpatient Print Language: Vietnamese
[2025-07-04 18:00] LABS: MANUAL DIFF FLAG NO
[2025-07-04 18:01] LABS: Hematocrit 35.3 % (37.0-47.0); Hemoglobin 11.2 g/dl (12.0-16.0); Imm Gran Abs Auto 0.01 X10*3/uL (0.00-0.03); Imm Gran Pct Auto 0.2 % (0.0-0.4); Lymphocytes Absolute Auto 2.1 X10*3/uL (1.2-4.9); Mean Corpuscular HGB Conc 31.7 g/dl (31.0-35.0); Mean Corpuscular Hemoglobin 25.1 pg (27.0-33.0); Mean Corpuscular Volume 79.0 fL (80.0-98.0); NRBC Abs Auto 0.000 X10*3/uL (0.0-0.012); NRBC Pct Auto 0.0 /100WBC (0.0-0.2); Platelet Count 377 X10*3/uL (160-400); Red Blood Count 4.47 X10*6/uL (4.20-5.50); White Blood Count 6.5 X10*3/uL (4.8-10.8)
[2025-07-04 18:24] LABS: Anion Gap 13 (12-20); Blood Urea Nitrogen 19 mg/dL (9-16); Calcium 9.1 mg/dL (8.4-10.2); Carbon Dioxide 20 mmol/L (22-29); Chloride 107 mmol/L (96-108); Creatinine Clr Calc Pharmacy 134.7; Estimated Glomerular Filt Rate > 60; Potassium 4.0 mmol/L (3.3-5.1); Sodium 136 mmol/L (135-145)
[2025-07-04 20:08] VITALS: BP 126/97; PULSE 85; RESP 16; TEMP 37.1; O2SAT 100
[2025-07-04 22:24] VITALS: RESP 15
[2025-07-04] MEDS: diazePAM 10 MG/2 ML CARTRIDGE 5 MG IVPUSH (22:25)
--- NOTE | 2025-07-04 22:43 | PC.NURSE ---
20 G IV line established in L forearm, patient medicated per JAN.
[2025-07-04] MEDS: iohexoL 350 MG/ML 100 ML INFUS..BTL 70 ML IV (22:58)
[2025-07-04] MEDS: Lactated Ringers 1,000 ML 999 ML IV (23:02)
[2025-07-04 23:09] VITALS: RESP 14
[2025-07-05] VITALS (7 sets, daily range): BP systolic 100–122; BP diastolic 61–88; PULSE 77–90; RESP 16–20; TEMP 36.4–37.2; O2SAT 99–100; BMI 25.8
--- NOTE | 2025-07-05 02:01 | PC.NURSE ---
Patient is incontinent of urine, re care provided, purewick applied. Patient continues to complaint of 10/10 pain in her neck/spinal cord. Dr. Mcgarry made aware, new order received for Ketamine 50 mg IVP. Patient refused Ketamine. Dr. Mcgarry notified.
--- NOTE | 2025-07-05 02:12 | P.HPHOSP_ITS ---
History of Present Illness Date of Service: 07/05/25 Attending physician on admission: David Navarro Chief Complaint: Lower abdominal pain, lower extremities weakness Lorene Cabezas is a 35 years old woman with a past medical history significant for POTS and dysautonomia presents to the emergency department complaining of worsening lower back pain associated with lower extremities weakness + decreased sensation, gait difficulty and incontinence of bowel and bladder. Lower back pain started after injuring her back while exercising at the gym about 2 weeks ago. She also complained of having numbness to her groin. She has been using a walker. She visited the emergency department about 12 days ago and underwent an MRI that showed no compression of the spinal cord. She has been participating with physical therapy and has been taking ibuprofen, Tylenol; and using lidocaine patches. Unfortunately these interventions have been unsuccessful. She was also referred to Neurosurgery for follow-up. She also has been experiencing headache and neck pain since she her neck was many purulent by a chiropractor 4 days ago. She denied fever or chills. She denied any chest pain, shortness on breath, abdominal pain, nausea, vomiting or diarrhea. She did not report any toxic habits. June 25 - left lateral recess narrowing at L4-L5 and L5-S1, multifocal degenerative disc changes and multifocal enteropathy. In the ED today, she was found to have normal vital signs. Blood workup showed no leukocytosis and CRP is normal. Hemoglobin is 11.7 and platelets 377. There are no significant electrolyte imbalances. BUN is 19 and creatinine 0.70. test is negative. Head and neck CTA is normal. ED tx: Diazepam 5 mg IV, morphine mg IV, LR 1 L IV, Dilaudid 1 mg IV Review of Systems 2 Review of Systems: All 12 systems were reviewed and normal except as noted in HPI. [facility] Medical History Dysautonomia POTS (postural orthostatic tachycardia syndrome) Surgical History H/O cardiac radiofrequency ablation Social History Unable to assess alcohol history related to: Unknown Patient Tobacco Use Status: Never used Tobacco Smoked in Last 30 Days: No Use of substances other than those prescribed or required for medical reasons: No Advance Directives: No Advance Directives Information Provided: No Do you have a plan to hurt others: No Plan Nutrition Risks: No Nutritional Risk Meds Allergies Allergy/AdvReac Type Severity Reaction Status Date / Time Penicillins Allergy Unknown Verified 07/04/25 17:14 Sulfa (Sulfonamide Allergy Unknown Verified 07/04/25 17:14 Antibiotics) diphenhydramine (From AdvReac Unknown Verified 07/04/25 17:14 Benadryl) midazolam AdvReac Itching Verified 07/04/25 17:14 ondansetron (From Zofran) AdvReac Unknown Verified 07/04/25 17:14 prednisone AdvReac Palpitation Verified 07/04/25 17:16 s Active Medications: Current Medications Acetaminophen (Acetaminophen 325 Mg Tablet) 975 mg PO Q6H PRN PRN Reason: Pain, Mild 1-3,fever,headache Calcium Carbonate (Calcium Carbonate 750 Mg Tab.Chew) 750 mg PO Q4H PRN PRN Reason: Heartburn Enoxaparin Sodium (Enoxaparin Sodium 40 Mg/0.4 Ml Syringe) 40 mg SUBCUT Q24H JOSIANE Hydromorphone HCl (Hydromorphone Hcl 1 Mg/Ml Syringe) 1 mg IVPUSH Q4H PRN; Protocol PRN Reason: Pain, Severe (Pain Scale 7-10) Magnesium Hydroxide (Milk Of Magnesia 30 Ml Oral.Susp) 30 ml PO DAILY PRN PRN Reason: Constipation Melatonin (Melatonin 3 Mg Tablet) 6 mg PO BEDTIME PRN PRN Reason: Insomnia Sodium Chloride (0.9 % Sodium Chloride Flush 3 Ml Syringe) 3 ml IVFLUSH QSHIFT [facility] Physical Exam 2 Vital Signs and Narrative: Vital Signs: Last Vital Signs Temp 98.7 F 07/04/25 20:08 Pulse 85 07/05/25 01:57 Resp 18 07/05/25 01:57 BP 122/88 07/05/25 01:57 Pulse Ox 99 07/05/25 01:57 O2 Del Method Room Air 07/05/25 01:57 BMI result Body Mass Index 25.8 Constitutional - Awake and Alert, No apparent distress HEENT - PERRL, EOMI Heart - RRR, no murmurs. Heart - Normal lung expansion, Normal respiratory effort, No respiratory distress, CTA bilaterally Abdomen - NT / ND; +BS; No rebound or guarding Extremities - no calf tenderness bilaterally, no swelling Musculoskeletal - Lower back/paraspinal muscles tenderness to palpation. Skin - Warm/Dry Neurological - Alert & oriented x3. Strength: 5/5 upper extremities; 1/5 lower extremities. DTRs knees absent. Babinski sign - equivocal. Psychological - Appropriate affect Results Labs 07/04/25 17:46 07/04/25 17:46 Labs: Laboratory Results - last 24 hr 07/04/25 17:46 MCV 79.0 L MCH 25.1 L MCHC 31.7 RDW 15.0 Plt Count 377 MPV 8.7 L Immature Gran % (Auto) 0.2 Neut % (Auto) 57.3 Lymph % (Auto) 32.3 [place] % (Auto) 7.9 Eos % (Auto) 1.4 Baso % (Auto) 0.9 Lymph # (Auto) 2.1 [place] # (Auto) 0.5 Eos # (Auto) 0.1 Baso # (Auto) 0.1 Abs Immat Gran (auto) 0.01 Absolute Neuts (auto) 3.7 Absolute Nucleated RBC 0.000 Nucleated RBC % (auto) 0.0 Anion Gap 13 Estim Creat Clear Calc 134.7 Estimated GFR > 60 Random Glucose 125 H Calcium 9.1 Total Creatine Kinase 75 C-Reactive Protein < 0.10 Beta HCG, Quant < 2 Assessment and Plan (1) Low back pain: Qualifiers: Chronicity: acute Back pain laterality: bilateral Sciatica presence: u nspecified whether sciatica present Qualified Code(s): M54.50 - Low back pain, unspecified Status: Acute (2) Urinary incontinence: Qualifiers: Urinary Incontinence type: unspecified incontinence Qualified Code(s): R32 - Unspecified urinary incontinence Status: Acute (3) Lower extremity weakness: Qualifiers: Laterality: bilateral Qualified Code(s): R29.898 - Other symptoms and signs involving the musculoskeletal system Status: Acute Plan Lorene Cabezas is a 35 y/o woman presents with: Lower back pain, lower extremities weakness and numbness; and incontinence. Recent lumbar MRI without constraxt showed no cord compression; showed left lateral recess narrowing at L4-L5 and L5-S1. CRP negative. Obtain thoracic and lumbar CT scan with IV contrast to asses for other pathology such infections, tumors, myelitis. Check vitamin B12 level, HIV, TAMARA, IAN, RPR and Lyme serology. Neurology consult. Code status: Full DVT prophylaxis: Lovenox Patient will need hospitalization for at least 2 midnights for lower back pain and lower extremity neurological changes management evaluation with IV pain meds and evaluation by subspecialty. Quality Stroke Does the patient have a stroke diagnosis?: No VTE Prior VTE?: No VTE Risk Level:: Medical - moderate - high VTE Device Contraindication: Treatment Not Indicated VTE Drug Contraindication: N/A - Med Ordered
--- NOTE | 2025-07-05 02:19 | PC.NURSE ---
Patient medicated with Dilaudid 1 mg IVP for 10/10 pain in neck/back.
[2025-07-05 04:38] LABS: MANUAL DIFF FLAG NO
[2025-07-05 04:39] LABS: Hematocrit 33.0 % (37.0-47.0); Hemoglobin 10.3 g/dl (12.0-16.0); Imm Gran Abs Auto 0.02 X10*3/uL (0.00-0.03); Imm Gran Pct Auto 0.3 % (0.0-0.4); Lymphocytes Absolute Auto 2.6 X10*3/uL (1.2-4.9); Mean Corpuscular HGB Conc 31.2 g/dl (31.0-35.0); Mean Corpuscular Hemoglobin 24.6 pg (27.0-33.0); Mean Corpuscular Volume 78.9 fL (80.0-98.0); NRBC Abs Auto 0.000 X10*3/uL (0.0-0.012); NRBC Pct Auto 0.0 /100WBC (0.0-0.2); Platelet Count 323 X10*3/uL (160-400); Red Blood Count 4.18 X10*6/uL (4.20-5.50); White Blood Count 6.4 X10*3/uL (4.8-10.8)
[2025-07-05 04:57] LABS: Anion Gap 12 (12-20); Blood Urea Nitrogen 12 mg/dL (9-16); Calcium 9.0 mg/dL (8.4-10.2); Carbon Dioxide 22 mmol/L (22-29); Chloride 106 mmol/L (96-108); Creatinine Clr Calc Pharmacy 154.6; Estimated Glomerular Filt Rate > 60; Magnesium 2.2 mg/dL (1.6-2.6); Potassium 3.7 mmol/L (3.3-5.1); Sodium 136 mmol/L (135-145)
[2025-07-05 05:33] LABS: Vitamin B12 347 pg/mL (200-900)
--- NOTE | 2025-07-05 05:41 | MHC.EDTECH ---
New purewick, along with new tubing and suction canister has been placed in order to collect urine sample from patient. Marian care was provided prior to placement.
[2025-07-05 06:30] LABS: Appearance Urine Clear; Glucose Urine UA Negative (Negative); PH 5.5 (5.0-9.0); Specific Gravity - Urine >= 1.030 (1.005-1.025)
--- NOTE | 2025-07-05 06:30 | PC.NURSE ---
Urine sample collected for UA, C+S via clean catch and sent to lab for processing, purewick in place. Patient medicated with Dilaudid 1 mg IVP for 9/10 back pain, effect pending. Patient is able to make her needs known, call boyce within patient's reach.
--- NOTE | 2025-07-05 08:23 | PHA.MEDREC ---
Pharmacy Consult ? Medication Reconciliation Pharmacy has completed the medication reconciliation. Spoke with pt to confirm meds, pt was a good historian.
[2025-07-05 08:29] LABS: Syphilis Screen Nonreactive (Nonreactive)
[2025-07-05] MEDS: 0.9 % Sodium Chloride Flush 3 ML SYRINGE IVFLUSH ×2 (09:46→16:31)
--- NOTE | 2025-07-05 10:27 | P.CNNE_ITS ---
History of Present Illness Data of Consult Service Date: 07/05/25 Primary Care Provider: None Physician HPI Reason for consult: Back pain and leg weakness 35 years old woman with a past medical history significant for POTS and dysautonomia presents to the emergency department complaining of worsening lower back pain associated with lower extremities weakness + decreased sensation, gait difficulty and incontinence of bowel and bladder. Lower back pain started after injuring her back while exercising at the gym about 2 weeks ago. She also complained of having numbness to her groin. She has been using a walker. She visited the emergency department about 12 days ago and underwent an MRI that showed no compression of the spinal cord. When I saw her in emergency room she continues to have these symptoms and back pain. Review of Systems 2 Review of Systems: Complain of problem with urination and leg weakness PMFSH Past Medical History Medical History Dysautonomia POTS (postural orthostatic tachycardia syndrome) Surgical History Surgical History H/O cardiac radiofrequency ablation Social History Social History Unable to assess alcohol history related to: Unknown Patient Tobacco Use Status: Never used Tobacco Smoked in Last 30 Days: No Use of substances other than those prescribed or required for medical reasons: No Advance Directives: No Advance Directives Information Provided: No Do you have a plan to hurt others: No Plan Nutrition Risks: No Nutritional Risk Meds Allergies Allergy/AdvReac Type Severity Reaction Status Date / Time Penicillins Allergy Unknown Verified 07/04/25 17:14 Sulfa (Sulfonamide Allergy Unknown Verified 07/04/25 17:14 Antibiotics) diphenhydramine (From AdvReac Unknown Verified 07/04/25 17:14 Benadryl) midazolam AdvReac Itching Verified 07/04/25 17:14 ondansetron (From Zofran) AdvReac Unknown Verified 07/04/25 17:14 prednisone AdvReac Palpitation Verified 07/04/25 17:16 s Active Medications: Current Medications Acetaminophen (Acetaminophen 325 Mg Tablet) 975 mg PO Q6H PRN PRN Reason: Pain, Mild 1-3,fever,headache Calcium Carbonate (Calcium Carbonate 750 Mg Tab.Chew) 750 mg PO Q4H PRN PRN Reason: Heartburn Enoxaparin Sodium (Enoxaparin Sodium 40 Mg/0.4 Ml Syringe) 40 mg SUBCUT Q24H [facility] Last Admin: 07/05/25 09:46 Dose: Not Given Hydromorphone HCl (Hydromorphone Hcl 1 Mg/Ml Syringe) 1 mg IVPUSH Q4H PRN; Protocol PRN Reason: Pain, Severe (Pain Scale 7-10) Last Admin: 07/05/25 06:22 Dose: 1 mg Magnesium Hydroxide (Milk Of Magnesia 30 Ml Oral.Susp) 30 ml PO DAILY PRN PRN Reason: Constipation Melatonin (Melatonin 3 Mg Tablet) 6 mg PO BEDTIME PRN PRN Reason: Insomnia Sodium Chloride (0.9 % Sodium Chloride Flush 3 Ml Syringe) 3 ml IVFLUSH QSHIFT [facility] Last Admin: 07/05/25 09:46 Dose: 3 ml Home Medications ?Medication ?Instructions ?Recorded ?Confirmed ?Last Taken ?Type acetaminophen 500 mg capsule 1,000 mg PO Q8H fever or pain 07/05/25 07/05/25 07/04/25 History clonazepam 1 mg tablet 1 mg PO BID PRN panic attack s 07/05/25 07/05/25 Unknown History ibuprofen 800 mg tablet 800 mg PO QID 07/05/2507/0507/04/25 History lemborexant 10 mg tablet (Dayvigo) 10 mg PO BEDTIME [place] N insomnia 07/05/25 07/05/25 Unknown History propranolol 20 mg tablet 40 mg PO TID PRN anxiety 07/05/25 Unknown History Physical Exam 2 Vital Signs: Vital Signs: Last Vital Signs Temp 97.6 F 07/05/25 05:12 Pulse 77 07/05/25 05:12 Resp 16 07/05/25 06:22 BP 100/65 07/05/25 05:12 Pulse Ox 99 07/05/25 05:12 O2 Del Method Room Air 07/05/25 05:12 BMI result Body Mass Index 25.8 Neuro: Other: She is alert and awake with normal spontaneity of speech fluency comprehension and affect. No obvious arm weakness. She was having difficulty putting herself in a sitting position complaining of severe back pain. There was no obvious muscle atrophy or fasciculation in legs. Knee reflexes were good 2+ bilaterally. Ankle reflexes were absent and plantars were flexor. She barely could lift each leg up against gravity. She was able to wiggle toes but formal strength examination was somewhat limited. Speech was normal. Results Labs 07/05/25 03:31 07/05/25 03:31 Labs: Short CBC 07/04/25 07/05/25 Range/Units 17:46 03:31 WBC 6.5 6.4 (4.8-10.8) X10*3/uL Hgb 11.2 L 10.3 L (12.0-16.0) g/dl Hct 35.3 L 33.0 L (37.0-47.0) % Plt Count 377 323 (160-400) X10*3/uL BMP 07/04/25 07/05/25 17:46 03:31 Sodium 136 136 Potassium 4.0 3.7 Chloride 107 106 Carbon Dioxide 20 L 22 BUN 19 H 12 Creatinine 0.70 0.61 Calcium 9.1 9.0 Cardiac Enzymes 07/04/25 Range/Units 17:46 Total Creatine Kinase 75 (26-140) U/L Urine 07/05/25 Range/Units 06:21 Urine Color Yellow Urine Appearance Clear Urine pH 5.5 (5.0-9.0) Ur Specific [place] >= 1.030 H (1.005-1.025) Urine Protein Negative (Neg-Trace) mg/dL Urine Glucose (UA) Negative (Negative) mg/dL MRI of lumbosacral spine was reviewed. There was disc osteophyte complex at L5- S1 slightly towards the left side causing [id number] foraminal stenosis. Assessment and Plan (1) Lower extremity weakness: Qualifiers: Laterality: bilateral Qualified Code(s): R29.898 - Other symptoms and signs involving the musculoskeletal system Status: Acute 35 years old woman with somewhat atypical presentation but main complain of bilateral leg weakness, loss of urine control and severe back pain. She recently has been investigated with an MRI of lumbosacral spine that did not reveal any significant pathology or surgical lesion. Disc osteophyte complex at L5-S1 was there but not significant enough to explain her situation. Her examination is somewhat difficult to interpret because of pain. My recommendation is to obtain a thoracic spine MRI to rule out any lesion in that area. I agree with the labs tested. Please add serum CPK level. If no thoracic area lesion is found, EMG nerve conduction study of lower extremities should also be considered for explanation of loss of ankle reflexes. Procedures Date of Service Date of Service: 07/05/25
--- NOTE | 2025-07-05 12:14 | PC.NURSE ---
Pt refusing MRI until she receives sedation. Pt states today is the anniversary of her father's , and he passed while getting an MRI. Pt states ativan will not be helpful and states you need to knock me out . MD aware, MRI aware.
--- NOTE | 2025-07-05 12:47 | PC.NURSE ---
Per field map technician Marta Sunitha, no need for new MRI screening form at this time as pt just had MRI imaging 06/23/2025.
--- NOTE | 2025-07-05 13:40 | MHC.CM.PN ---
pt lives with roomates is indepedent has a ride when dcd pcp is pola hernandez [facility]
--- NOTE | 2025-07-05 14:00 | PC.NURSE ---
Pt requesting tylenol for 07/28 pain. Administered PRN 975mg PO per request. Care ongoing.
--- NOTE | 2025-07-05 18:04 | HO.PM.IMPN ---
Subjective Subjective Date of Service: 07/05/25 Interval History: Multiple complaints today including significant back pain, endorsed paresthesia down the back of both legs the medial aspects of the thighs. Endorses generalized pins and needles around the cheek and face today. Review of Systems Review of Systems: Yes all other systems are reviewed and are negative Physical Exam Exam: Exam: Constitutional - Awake and Alert, No apparent distress HEENT - PERRL, EOMI Heart - RRR, no murmurs. Heart - Normal lung expansion, Normal respiratory effort, No respiratory distress, CTA bilaterally Abdomen - NT / ND; +BS; No rebound or guarding Extremities - no calf tenderness bilaterally, no swelling Musculoskeletal - Lower back/paraspinal muscles tenderness to palpation. Skin - Warm/Dry Neurological - Alert & oriented x3. Strength: 5/5 upper extremities; 1/5 lower extremities. DTRs knees absent. Babinski sign - equivocal. Psychological - Appropriate affect Vital Signs: Vital Signs: Last Vital Signs Temp 99.0 F 07/05/25 15:33 Pulse 90 07/05/25 15:33 Resp 20 07/05/25 15:33 BP 117/68 07/05/25 15:33 Pulse Ox 99 07/05/25 15:33 O2 Del Method Room Air 07/05/25 15:33 BMI result Body Mass Index 25.8 Objective Data Active Medications Acetaminophen (Acetaminophen 325 Mg Tablet) 975 mg PO Q6H PRN PRN Reason: Pain, Mild 1-3,fever,headache Last Admin: 07/05/25 14:00 Dose: 975 mg Documented By: MILO-BERONICA Calcium Carbonate (Calcium Carbonate 750 Mg Tab.Chew) 750 mg PO Q4H PRN PRN Reason: Heartburn Enoxaparin Sodium (Enoxaparin Sodium 40 Mg/0.4 Ml Syringe) 40 mg SUBCUT Q24H [facility] Last Admin: 07/05/25 09:46 Dose: Not Given Documented By: GINNY Non-Admin Reason: Patient Refused Comments: pt refused, education given Hydromorphone HCl (Hydromorphone Hcl 1 Mg/Ml Syringe) 1 mg IVPUSH Q4H PRN; Protocol PRN Reason: Pain, Severe (Pain Scale 7-10) Last Admin: 07/05/25 15:36 Dose: 1 mg Documented By: MIRI Magnesium Hydroxide (Milk Of Magnesia 30 Ml Oral.Susp) 30 ml PO DAILY PRN PRN Reason: Constipation Melatonin (Melatonin 3 Mg Tablet) 6 mg PO BEDTIME PRN PRN Reason: Insomnia Sodium Chloride (0.9 % Sodium Chloride Flush 3 Ml Syringe) 3 ml IVFLUSH QSHIFT [facility] Last Admin: 07/05/25 16:31 Dose: 3 ml Documented By: JOSE Labs 07/05/25 03:31 07/05/25 03:31 Labs: Laboratory Results - last 24 hr 07/04/25 07/05/25 07/05/25 17:46 03:31 06:21 MCV 78.9 L MCH 24.6 L MCHC 31.2 RDW 15.0 Plt Count 323 MPV 9.0 L Immature Gran % (Auto) 0.3 Neut % (Auto) 50.0 Lymph % (Auto) 40.0 [place] % (Auto) 7.8 Eos % (Auto) 1.4 Baso % (Auto) 0.5 Lymph # (Auto) 2.6 [place] # (Auto) 0.5 Eos # (Auto) 0.1 Baso # (Auto) 0.0 Abs Immat Gran (auto) 0.02 Absolute Neuts (auto) 3.2 Absolute Nucleated RBC 0.000 Nucleated RBC % (auto) 0.0 Anion Gap 13 12 Estim Creat Clear Calc 134.7 154.6 Estimated GFR > 60 > 60 Random Glucose 125 H 84 Calcium 9.1 9.0 Magnesium 2.2 Total Creatine Kinase 75 C-Reactive Protein < 0.10 Vitamin B12 347 Beta HCG, Quant < 2 Urine Color Yellow Urine Appearance Clear Urine pH 5.5 Ur Specific [place] >= 1.030 H Urine Protein Negative Urine Glucose (UA) Negative Urine Ketones Negative Urine Blood Negative Urine Nitrite Negative Ur Leukocyte Esterase Negative T.pallidum Ab (EIA) Nonreactive Assessment and Plan (1) Lower extremity weakness: Status: Acute (2) Low back pain: Status: Acute (3) Facial paresthesia: Status: Acute (4) Urinary incontinence: Status: Acute Plan 35-year-old female, background history of PE OTS, dysautonomia, presenting to emergency department with complaints of worsening lower back pain and lower extremity weakness with decreased sensation, gait difficulty and urinary/bowel incontinence, admitted to hospital for workup of same. MRI 06/25/25: left lateral recess narrowing at L4-L5 and L5-S1, multifocal degenerative disc changes and multifocal enteropathy Neuro recommending workup with thoracic MRI Lower back pain Bilateral lower extremity weakness and numbness Bowel and urinary incontinence Chronic medical complaints MRI 06/25/2025 revealing left lateral recess narrowing L4/L5 and L5-S1. No evidence of cord compression. Blood work otherwise unremarkable. Neurology has evaluated patient, recommendation is greatly appreciated. PLAN - Neurology recommendations greatly appreciated - MRI thoracic spine - analgesia - evaluate for other pathology; lab work and evaluation ordered [facility] - VTE: Enoxaparin - CODE STATUS: Full code - DIET: Regular Total time managing care of this patient today: 35 minutes. Quality Stroke Does the patient have a stroke diagnosis?: No VTE Prior VTE?: No VTE Risk Level:: Medical - moderate - high VTE Device Contraindication: Treatment Not Indicated VTE Drug Contraindication: N/A - Med Ordered
--- NOTE | 2025-07-05 19:43 | PM.EVENT ---
Event Note Date of Service: 07/05/25 Event Note: Nurse reported that the patient wanted to leave. Patient states that she can not continue with hospitalization as she has to present herself to a court tomorrow morning. Patient deemed to have capacity and understands the risks of leaving against medical advice including worsening of her condition. She verbalized understanding and wants to leave against medical advice. Time Spent With Patient Time: Total time managing care of this patient today ____ minutes.
--- NOTE | 2025-07-05 20:08 | PC.NURSE ---
Assumed care of this patient at 19:00. On safe start, this patient stated to this automatic typewriter inspector I need to leave. I can't stay. I have court in the morning that I can't miss or they will issue a warrant for my arrest . Consultant Education offered to place an U/S IV so that the previously ordered CT could be obtained tonight. Despite this, this patient denied these offered and repeated again their request to leave. This automatic typewriter inspector explained this would be leaving AGAINST MEDICAL ADVICE. Patient is A&Ox4 and verbalized understanding. This patient also refused scheduled vital signs. Nursing casting supervisor made aware of patient AMA request, as well as covering Dr. López, who presented to this patient's bedside to discuss leaving AMA (please see MD event note for details). IV was removed. AMA form completed by this automatic typewriter inspector and RN witness. Patient ambulated independently, appearing steady, with a walker and her belongings off the unit.
[2025-07-06 14:57] LABS: SM/Ribonucleoprotein Ab <1.0 NEG AI (<1.0 NEG); Smith Protein <1.0 NEG AI (<1.0 NEG)
[2025-07-06 18:28] LABS: Lyme Abs Screen <0.90 index
[2025-07-08 22:43] LABS: ANA Pattern 3 Nuclear, Homogeneous; ANA Titer 3 1:320 titer; Anti Nuclear Antibody Pattern Nuclear, Speckled; Anti Nuclear Antibody Screen POSITIVE (NEGATIVE); Anti Nuclear Antibody Titer 1:1280 titer
[2025-07-10 07:03] LABS: HIV RNA PCR Qn Copies Not Detected Copies/mL; HIV RNA PCR Qn Log Copies Not Detected Log cps/mL
== END 2025-07-05 20:00 | disposition left against medical advice (07) | DRG 552 ==
LOC: HO.ED 07-05 01:33 → HO.EDOVER 07-05 02:08 → HO.S3 07-05 14:24
PROVIDERS: Physician Assistant; Admitting Provider Internal Medicine; Emergency Provider Emergency Medicine; Visit Provider Hospitalist
DX: M54.50 Low back pain, unspecified (principal); R32 Unspecified urinary incontinence; R29.898 Other symptoms and signs involving the musculoskeletal system; R15.9 Full incontinence of feces; Z79.899 Other long term (current) drug therapy
CPT/HCPCS: 36415; 70496; 70498; 80048; 81003; 82550; 82607; 83735; 84702; 85025; 86038; 86039; 86140; 86235; 86617; 86618; 86780; 87536; 87900; 99285; J1171; J2270; J3360; J7120; Q9967

== ENCOUNTER → 2025-07-04 21:55 | Outpatient (BNV) | payer OTHER, SELFPAY | PROVIDERS: Emergency Provider Emergency Medicine; Visit Provider Radiology Diagnostic Radiology | DX: R51.9 Headache, unspecified (principal); R20.0 Anesthesia of skin | CPT/HCPCS: 70496; 70498 ==

== ENCOUNTER → 2025-07-05 01:33 | Outpatient (BNV) | payer OTHER, SELFPAY | PROVIDERS: Admitting Provider Internal Medicine; Emergency Provider Emergency Medicine; Visit Provider Internal Medicine | DX: R29.898 Other symptoms and signs involving the musculoskeletal system (principal); M54.50 Low back pain, unspecified; R20.2 Paresthesia of skin; R32 Unspecified urinary incontinence | CPT/HCPCS: 99223; 99499 ==

== ENCOUNTER → 2025-07-05 01:33 | Outpatient (BNV) | payer OTHER, SELFPAY | PROVIDERS: Admitting Provider Internal Medicine; Emergency Provider Emergency Medicine; Visit Provider Psychiatry & Neurology Neurology | DX: R29.898 Other symptoms and signs involving the musculoskeletal system (principal) | CPT/HCPCS: 99222 ==

== ENCOUNTER 2025-07-20 16:33 | Emergency (ER) | payer OTHER, SELFPAY ==
--- NOTE | ~2025-07-20 | CT_ITS ---
CLINICAL HISTORY: R neck pain paresthesia CT cervical spine without contrast Comparison: CT/SR - CT ANGIO HEAD NECK - 07/04/25 22:[address] - CT ANGIO HEAD NECK - 07/04/25 22:32 EDT Findings: Vertebral alignment is within normal limits. No significant degenerative change. No acute fractures or dislocations. No acute findings on limited view of the intracranial contents. No cervical fluid collections or masses. No consolidation or effusion at the lung apices. IMPRESSION: No acute findings. This document has been electronically signed by: Asa Ashby MD on 07/20/2025 20:14:22
--- NOTE | ~2025-07-20 | CT_ITS ---
CLINICAL HISTORY: fall 1 wk ago, headache CT head without contrast COMPARISON: CT/SR - CT ANGIO HEAD NECK - 07/04/25 22:[address] - CT ANGIO HEAD NECK - 07/04/25 22:32 EDT FINDINGS: No acute intracranial hemorrhage, extra-axial fluid collection, mass effect, or midline shift. Ventricular system and basilar cisterns are patent. Vo-white matter differentiation is maintained. No gross orbital abnormality. No suspicious or acute bone lesion. Mastoid air cells and paranasal sinuses are predominantly clear. IMPRESSION: 1. No acute intracranial abnormality. This document has been electronically signed by: Asa Ashby MD on 07/20/2025 20:15:59
--- NOTE | 2025-07-20 16:59 | ED.GENADULT ---
HPI - General Adult General Stated complaint: Fall - back injury, weakness in legs Related Data Home Medications ?Medication ?Instructions ?Recorded ?Confirmed acetaminophen 500 mg capsule 1,000 mg PO Q8H fever or pain 07/05/25 07/05/25 clonazepam 1 mg tablet 1 mg PO BID PRN panic attacks 07/05/25 07/05/25 ibuprofen 800 mg tablet 800 mg PO QID 07/05/25 07/05/25 lemborexant 10 mg tablet (Dayvigo) 10 mg PO BEDTIME PRN insomnia 07/05/25 07/05/25 propranolol 20 mg tablet 40 mg PO TID PRN anxiety 07/05/25 07/05/25 Allergies Allergy/AdvReac Type Severity Reaction Status Date / Time Penicillins Allergy Unknown Verified 07/04/25 17:14 Sulfa (Sulfonamide Allergy Unknown Verified 07/04/25 17:14 Antibiotics) diphenhydramine (From AdvReac Unknown Verified 07/04/25 17:14 Benadryl) midazolam AdvReac Itching Verified 07/04/25 17:14 ondansetron (From Zofran) AdvReac Unknown Verified 07/04/25 17:14 prednisone AdvReac Palpitation Verified 07/04/25 17:16 [facility] Past Medical History Medical History Dysautonomia POTS (postural orthostatic tachycardia syndrome) Surgical History H/O cardiac radiofrequency ablation Social History Social History Household Members: Friend(s) Housing: House Do you presently have visiting nurse or other home services: No Unable to assess alcohol history related to: Unknown Patient Tobacco Use Status: Never used Tobacco service: No Course Course Course Narrative: This is a Rapid Medical Examination (RME) performed by Hector Lee PA-C in triage. Full HPI, ROS, assessment and treatment plan per primary provider in the Main ED. Hx: 35 yo F here for eval of PE/vitals: Plan: Discharge Plan Discharge Prescriptions: No Action propranolol 20 mg tablet 40 mg PO TID PRN (Reason: anxiety) Dayvigo 10 mg tablet 10 mg PO BEDTIME PRN (Reason: insomnia) clonazepam 1 mg tablet 1 mg PO BID PRN (Reason: panic attacks) ibuprofen 800 mg tablet 800 mg PO QID acetaminophen 500 mg capsule 1,000 mg PO Q8H Print Language: Latvian
[2025-07-20 17:01] VITALS: BP 127/77; PULSE 80; RESP 18; TEMP 37; O2SAT 100; BMI 24.4
--- NOTE | 2025-07-20 17:35 | ED.BACK ---
HPI - Back Pain/Injury General Chief Complaint: Back Pain/Injury Stated Complaint: Fall - back injury, weakness in legs Time Seen by Provider: 07/20/25 17:31 History of Present Illness ED Provider: julio HPI Narrative: 35 F chronic back pain proximally a month ago she had a lumbar MRI showing degenerative disease and foraminal narrowing. Reported to have fallen about a week ago due to generalized weakness in the legs onto the coccyx. Patient reports to me that she went to [facility] 1 week ago after she fell onto the buttock sliding down the wall in her bathroom after she lost her balance due to generalized leg weakness. She tells me that low back imaging was done. She continues to complain of right paraspinal neck pain and some mild generalized headache. She feels weak all over especially in the legs worsening with severe pain in the coccyx and lumbosacral region no additional falls or trauma she lives in an apartment with a roommate was using a walker but has been having more and more difficulty ambulating. Arrived by over she said she had to be assisted out of the [employer] unable to bear any weight on her own. No fever or chills no anticoagulation she had a PE and pericardial effusion after SVT ablation in the past but not on anticoagulation currently only on clonazepam as needed and propranolol Related Data Home Medications ?Medication ?Instructions ?Recorded ?Confirmed acetaminophen 500 mg capsule 1,000 mg PO Q8H fever or pain 07/05/25 07/05/25 clonazepam 1 mg tablet 1 mg PO BID PRN panic attacks 07/05/25 07/05/25 ibuprofen 800 mg tablet 800 mg PO QID 07/05/25 07/05/25 lemborexant 10 mg tablet (Dayvigo) 10 mg PO BEDTIME PRN insomnia 07/05/25 07/05/25 propranolol 20 mg tablet 40 mg PO TID PRN anxiety 07/05/25 07/05/25 Allergies Allergy/AdvReac Type Severity Reaction Status Date / Time Penicillins Allergy Unknown Verified 07/20/25 17:03 Sulfa (Sulfonamide Allergy Unknown Verified 07/20/25 17:03 Antibiotics) diphenhydramine (From AdvReac Unknown Verified 07/20/25 17:03 Benadryl) midazolam AdvReac Itching Verified 07/20/25 17:03 ondansetron (From Zofran) AdvReac Unknown Verified 07/20/25 17:03 prednisone AdvReac Palpitation Verified 07/20/25 17:03 s [facility] Past Medical History Medical History Dysautonomia POTS (postural orthostatic tachycardia syndrome) Surgical History H/O cardiac radiofrequency ablation Social History Social History Household Members: Friend(s) Housing: House Do you presently have visiting nurse or other home services: No Unable to assess alcohol history related to: Unknown Patient Tobacco Use Status: Never used Tobacco Advance Directives: No Advance Directives Information Provided: No service: No Physical Exam Exam: Exam: EXAM: Gen: Alert, awake, looks uncomfortable in pain sitting in a wheelchair Head: Atraumatic Eyes: Anicteric, Normal conjunctiva. ENT: Moist mucosa, no pallor. ? Neck: Limitation of rotation due to pain. No midline instability or pinpoint bony tenderness mild right paraspinal tenderness. No bruising no step-offs Skin: ?No observable rash or bruising on exposed or examined skin Respiratory: Breathing comfortably, No distress.Clear to auscultation bilaterally, symmetric chest expansion, No wheeze, rales, ronchi. Cardiovascular: Regular rate and rhythm. No murmurs or rub. Well perfused periphery, warm extremities. No edema. ? Abdominal: No focal tenderness. Soft, no objective distension. No palpable masses or obvious organomegaly. ?No guarding, no rebound tenderness or other peritoneal findings. : No flank tenderness. Neuro: Alert. Minimal effort she reports secondary to pain and weakness in the legs will not lift the thighs off the bed minimal plantar dorsiflexion thought to be secondary to effort and/or pain provocation this is symmetric. Sensation intact to light touch Psych: Calm. Cooperative. MSK: No grossly visible deformity. Vital signs: See flowsheet Vital Signs: Vital Signs: Last Vital Signs Temp 98.6 F 07/20/25 20:48 Pulse 80 07/20/25 20:48 Resp 18 07/20/25 20:48 BP 127/77 07/20/25 20:48 Pulse Ox 100 07/20/25 20:48 O2 Del Method Room Air 07/20/25 20:48 BMI result Body Mass Index 24.4 Course Reevaluation(s) Reevaluation #1: 18:30: We will begin physician observation for physical therapy and case management evaluation Reevaluation #2: 1845 patient informed nurse and subsequently I spoke with her as well she declined PT case management. She did not want any prescribed medications. I went into discussed with her given her self-described limited mobility and ongoing intractable back pain she would benefit from rehab. I do not see evidence of any significant neurologic changes and she has been imaged with lumbar MR twice over the past week or 2. Unlikely acute neurosurgical issue or acute demyelinating or other neurologic issue given the comprehensive assessment at [facility] with in the past few days. The patient was tearful but confirmed and I felt she had capacity to do so that she did not want rehab I told her that she could return at anytime. The nurse informed me after this that the patient despite requiring 2 person assist to get from wheelchair into the bed dressed herself and ambulated with her walker out of the emergency department. Medications Administered Discontinued Medications Generic Name Dose Route Start Last Admin Trade Name Mirq PRN Reason Stop Dose Admin Diazepam 2 mg 07/20/25 17:46 07/20/25 18:17 Diazepam 2 Mg Tablet PO 07/20/25 17:47 2 mg ONCE ONE Administration Ketorolac Tromethamine 30 mg 07/20/25 17:46 07/20/25 18:20 Ketorolac Tromethamine 30 Mg/Ml Vial IM 07/20/25 17:47 Not Given ONCE ONE Morphine Sulfate 15 mg 07/20/25 17:46 07/20/25 18:17 Morphine Sulfate Immed Release 15 Mg Tablet PO 07/20/25 17:47 15 mg ONCE ONE Administration Medical Decision Making Medical Decision Making [facility] Narrative: Medical Decision Makin female with degenerative disc disease foraminal compression back injury in April 2025 now reports worsening bilateral lower extremity weakness complains of neck pain and headache. Lives alone declined acute rehab disposition from [facility] last time. She had a repeat MRI of the lumbar spine at [facility] which again showed no acute neurosurgical emergency neurosurgery and Neurology and physical medicine and rehabilitation were consulted due the patient's pain and demonstration of lower extremity weakness. Psych was also involved. Patient had had documentation of recent admissions there and the possibly of conversion disorder was raised . Here the patient demonstrates and reports severe pain and pinpoint pain in the lumbosacral and coccyx region. I will x-ray these areas to evaluate for fracture. She has no midline neck tenderness but given her perseveration and concern for the lack of imaging of cervical and head I will get these to rule out any acute emergent findings. Patient may need once again acute rehabilitation given her home situation and self-reported inability to ambulate. Pain control multimodal analgesia with opioid, non opioid and muscle relaxants topicals if patient tolerates. Preliminary Favored Differential Diagnosis: Degenerative disc disease, foraminal narrowing, back contusion, coccyx contusion, coccyx or sacral fracture, somatization, conversion disorder, unlikely acute or worsening neuromuscular disorder or higher level cord compression among additional considered etiologies Testing Interpreted Independently: ?See below for details Radiology or Lab testing Results Reviewed: ?See below for details Consults: ?See below for details Independent Historians/External Chart Reviews: ?See below for details Social Determinants of Health Impacting MDM/Planning: ?See below for details Admission/Observation Consideration of admission/observation: Escalation of care including admission/observation considered Consult Healthcare Provider PT and case management were consulted Lab Data 07/20/25 19:33 07/20/25 19:33 Labs: Lab Results 07/20/25 Range/Units 19:33 WBC 7.0 (4.8-10.8) X10*3/uL RBC 4.90 (4.20-5.50) X10*6/uL Hgb 11.9 L (12.0-16.0) g/dl Hct 38.8 (37.0-47.0) % MCV 79.2 L (80.0-98.0) fL MCH 24.3 L (27.0-33.0) pg MCHC 30.7 L (31.0-35.0) g/dl RDW 15.5 (11.0-16.0) % Plt Count 363 (160-400) X10*3/uL MPV 9.0 L (9.4-12.3) fL Immature Gran % (Auto) 0.3 (0.0-0.4) % Neut % (Auto) 63.8 (45-73) % Lymph % (Auto) 28.5 (20-40) % Galax % (Auto) 5.5 (2-11) % Eos % (Auto) 1.2 (0-4) % Baso % (Auto) 0.7 (0-2) % Lymph # (Auto) 2.0 (1.2-4.9) X10*3/uL Galax # (Auto) 0.4 (0.1-1.2) X10*3/uL Eos # (Auto) 0.1 (0.0-0.4) X10*3/uL Baso # (Auto) 0.1 (0.0-0.2) X10*3/uL Abs Immat Gran (auto) 0.02 (0.00-0.03) X10*3/uL Absolute Neuts (auto) 4.4 (2.0-8.3) x10*3/uL Absolute Nucleated RBC 0.000 (0.0-0.012) X10*3/uL Nucleated RBC % (auto) 0.0 (0.0-0.2) /100WBC Sodium 142 (135-145) mmol/L Potassium 4.3 (3.3-5.1) mmol/L Chloride 110 H (96-108) mmol/L Carbon Dioxide 22 (22-29) mmol/L Anion Gap 14 (12-20) BUN 10 (9-16) mg/dL Creatinine 0.67 (0.5-1.4) mg/dL Estim Creat Clear Calc 140.8 Estimated GFR > 60 Random Glucose 79 (60-115) mg/dL Calcium 9.1 (8.4-10.2) mg/dL Beta HCG, Quant < 2 mIU/mL Radiology Impression Discussion of test interpretation with radiology: I have reviewed the radiologist's reading. External Record Review External record reviewed: Inpatient record ([facility] records pasted below. ) [facility] 07/18 discharge summary copied below for clarity of recent clinical context: Hospital [id number] yo F w/ hx of mast cell activation syndrome, anxiety, inappropriate sinus tachy s/p ablation (12/2024), and provoked PE (01/2025) s/p AC completion, presented following a mechanical fall admitted for acute on chronic back pain and lower extremity weakness. MRI lumbar spine showed no significant changes compared to prior imaging, and neurosurgery determined no need for surgical intervention on initial presentation. PM&R consulted and recommended outpatient follow up in pain clinic. Patient was initially not amenable to PO medications iso of reported nausea/vomiting and limited efficacy of non-opiate analgesics from previous admissions, and was also not amenable to any anti-emetics as patient reports prior use was related to inappropriate sinus tachy s/p ablation (12/2024). Patient clinically improved to tolerate PO meds offered through shared decision making and demonstrated improvement in b/l LE functional mobility and sensation, now able to ambulate with a walker. PT w/ rehab offered for dispo planning, but patient declined so will instead plan for dispo to home w/ services. Patient requested to be discharged to home w/ only a walker and requested no medications be prescribed upon dc per her job requirements. Discussion of risks and benefits for dc without medications held; patient had full capacity. Patient is clinically and hemodynamically stable for discharge to home with services. ? Acute on chronic back pain (M54.9) Lumbar disc herniation (M51.26) Lower Extremity Weakness (R29.898) Patient reports onset of back pain in early April 2025 after injury at gym; patient had mechanical fall landing on tailbone w/o head trauma for current presentation Lower back pain refractory to PT, meds (ibuprofen, acetaminophen, gabapentin), massage therapy, and acupuncture Patient has been evaluated by PMR, neurology, neurosurgery, and psych in recent admissions and possibility of a conversion disorder was raised for LLE weakness ? Current Admit: MRI lumbar spine shows no significant changes compared to prior April 2025 lumbar spine MRIs. PM&R consulted; did not appreciate obvious neurological lesion on imaging, but noted T9 hemangioma. Radiology reported visualization of thoracic spine on patient's lumbar MRI and saw no cord compression; dedicated thoracic spine imaging not indicated. Patient requested to be sent home w/ no medication scripts per her job requirements and exclusively requested a walker for discharge; discussion of risks and benefits for discharge without medications held, patient has full capacity Prescription Management I considered prescription management with: Pain Medication Discharge Plan Discharge Clinical Impression: Low back pain Qualifiers: Chronicity: acute Back pain laterality: bilateral Sciatica presence: unspecified whether sciatica present Qualified Code(s): M54.50 - Low back pain, unspecified Patient Disposition: Home, Self-Care Instructions: Acute Low Back Pain (ED) Additional Instructions: You were evaluated for low back pain recent MRIs have shown degenerative disc disease and foraminal narrowing you also fell recently on your low back. You declined sacral and coccyx x-rays here. We wanted to have you evaluated by our physical therapist but you felt that you wanted to leave. At anytime you may return for re-evaluation and assessment by physical therapy. Per their records previously at [facility] they had offered and discharged with contact information for their pain management clinic we advise you to continue with that plan of care Prescriptions: No Action propranolol 20 mg tablet 40 mg PO TID PRN (Reason: anxiety) Dayvigo 10 mg tablet 10 mg PO BEDTIME PRN (Reason: insomnia) clonazepam 1 mg tablet 1 mg PO BID PRN (Reason: panic attacks) ibuprofen 800 mg tablet 800 mg PO QID acetaminophen 500 mg capsule 1,000 mg PO Q8H Interventions: ED Discharge Assessment Last Done: 07/20/25 20:48 Discharge Date/Time: 07/20/25 21:00 Print Language: Yi
--- NOTE | 2025-07-20 17:38 | PC.NURSE ---
Pt sitting in w/c, very crying stating shes frustrated w/ the lack of care shes been getting from [facility]. Pt endorses increased bilat LE weakness and incontinence of bowel and bladder x 3 mos. Pt has had mult imaging including lumbar xrays and MRi'S; THE LAST mri WAS LAST week at [facility].
[2025-07-20 18:00] VITALS: BP 126/84; PULSE 79; RESP 16; TEMP 37.1; O2SAT 100
--- OUTSIDE RECORDS SUMMARY | 2025-07-20 18:08 | XMS_ITS | Encounter Summary ---
Author Organization [facility] Address [address] [place] [address] Care Team Providers Care Project Eng Name Role Phone Alice Carmen NP Primary Care Provider [phone] Richard Bello MD Unavailable [phone] Bandar Schmitt MD Unavailable Yaneli Tesfaye RN Unavailable [phone] Beatriz Miller PT Unavailable [phone] Encounter Details Date Type Department Care Team (Late st Contact Info) Description 12/09/2024 Telephone [facility] OR [address] [place] [address] Penny Hui, BELL HOLE DIGGER [address] [place] [address] Social History Tobacco Use Types Packs/Day Years Used Date Smoking Tobacco: Never Smokeless Tobacco: Never Alcohol Use Standard Drinks/Week Comments Never 0 (1 standard drink = 0.6 oz pur e alcohol) Comments Unknown Sex and Gender Information Value Date Recorded Sex Assigned at Female 07/23/2024 4:21 PM EDT Legal Sex Female 6:41 PM EDT Gender Identity Female 01/05/2025 1:54 PM EST Sexual Orientation Heterosexual (straight) 01/05 1:54 PM EST documented as of this encounter Plan of Treatment Upcoming Encounters Date Type Department Care Team (Late Contact Info) Description 07/22/2025 2:00 PM EDT Evaluation [facility] [address] [place] [phone] Hugo Arias MD [address] [place] [address] Dianne Cash, PT [address] [place] [address] 08/06/2025 8:00 AM EDT Consult [facility] [address] [facility] [address] [place] [address] Sandro Sauer DO [address] [place], [place] [id number] 12/09/2025 3:00 PM EST Office Visit [facility] Heart & Vascular [facility] [address] [phone] Richard Bello MD [address] [place] [phone] documented as of this encounter Visit Diagnoses Not on filedocumented in this encounter Additional Health Concerns Infection Onset Date Last Indicated Resolved Time R/O Respiratory Disease 01/07/2025 01/07/202512/20 7:55 AM EST documented as of this encounter Care Teams Project Eng Relationship Specialty Start Date End Date Alice Carmen NP [address] [place] [address] PCP - General 08/07/24 Richard Bello MD [facility] [place] [address] Primary Painter Helper Spray Cardiovascular Disease 08/07/24 Bandar Schmitt MD [address] [place], [place] [address] Painter Helper Spray Cardiac Electrophysiology 06/04/25 Yaneli Tesfaye, RN [address] [place] [address] Nurse Navigator Surgery, Neurosurgery 06/28/25 07/07/25 Beatriz Miller, PT [address] [address] Pad AssemblerExtension Work Director Medicine and Rehabilitation 06/28/25 documented as of this encounter
--- OUTSIDE RECORDS SUMMARY | 2025-07-20 18:08 | XMS_ITS | Encounter Summary ---
Author Organization [facility] Address [address] [place] [address] Care Team Providers Care Fire Prevention Specialist Name Role Phone Alice Carmen NP Primary Care Provider [phone] Richard Bello MD Unavailable [phone] Bandar Schmitt MD Unavailable Yaneli Tesfaye RN Unavailable [phone] Beatriz Miller PT Unavailable [phone] Encounter Details Date Type Department Care Team (Late st Contact Info) Description 12/02/2024 Scanned Document [facility] Heart & Vascular [facility] [address] [place] [address] Bandar Schmitt MD [address] [place], [place] [id number] Social History Tobacco Use Types Packs/Day Years [...] Info) Description 07/22/2025 2:00 PM EDT Evaluation [facility] [address] [place] [address] Hugo Arias MD [address] [place] [address] Dianne Cash, PT [address] [place] [address] 08/06/2025 8:00 AM EDT Consult [facility] [address] 85 [facility] [address] [place] [phone] Sandro Sauer DO [address] [place], [place] [phone] 12/09/2025 3:00 PM EST Office Visit [facility] Heart & Vascular [facility] [address] [phone] Richard Bello MD [address] [phone] documented as of this encounter Visit Diagnoses Not on filedocumented in this encounter Additional Health Concerns Infection Onset Date Last Indicated Resolved Time R/O Respiratory Disease 01/07/2025 01/07/2025 02/ 7:55 AM EST documented as of this encounter Care Teams Fire Prevention Specialist Relationship Specialty Start Date End Date Alice Carmen NP [address] [place] [address] PCP - General 08/07/24 Richard Bello MD [address] [place] [id number] Primary Dry Kiln Loader Cardiovascular Disease 08/07/24 Bandar Schmitt MD [address] [place], [place] [phone] Dry Kiln Loader Cardiac Electrophysiology 7/18/25 Yaneli Tesfaye, RN [address] [place] [address] Nurse Navigator Surgery, Neurosurgery 06/28/25 07/07/25 Beatriz Miller, PT [address] [address] Licensed BondsmanRn Patient Services Medicine and Rehabilitation 06/28/25 documented as of this encounter
--- OUTSIDE RECORDS SUMMARY | 2025-07-20 18:08 | XMS_ITS ---
Author Name [facility] Organization Unknown Results Test Name/Text Value Interpretation Date Range Source Sodium SerPl-sCnc 138.0 mmol/L 06/27/2025 136 - 14 5 HHCCT BUN/Creat SerPl 15.0 Ratio 06/27/2025 10 - 25 HH CCT Calcium SerPl-mCnc 8.6 mg/dL Below low normal 06/27/2025 8.7 - 10.5 HHCCT Anion Gap Bld-sCnc 9.0 06/27/2025 7 - 17 HHCCT Chloride SerPl-sCnc 105.0 mmol/L 06/27/2025 98 - 1 07 HHCCT Potassium SerPl-sCnc 3.7 mmol/L 06/27/2025 3.4 - 5 .3 HHCCT Creat SerPl-mCnc 0.6 mg/dL 06/27/2025 0.4 - 1.1 HH CCT Glucose SerPl-mCnc 90.0 mg/dL 06/27/2025 65 - 99 HHCCT CO2 SerPl-sCnc 24.0 mmol/L 06/27/2025 22 - 33 HH CCT BUN SerPl-mCnc 9.0 mg/dL 06/27/2025 8 - 21 HHCC T GFR/BSA.pred SerPlBld FNP-GFW-AfTVeh >90.0 06/27/2025 59 - HHCCT Magnesium SerPl-mCnc 2.0 mg/dL 06/27/2025 1.6 - 2. 7 HHCCT Albumin SerPl-mCnc 3.6 g/dL 06/27/2025 3.5 - 5 HHCCT Globulin Ser Calc-mCnc 2.5 g/dL 06/27/2025 1.5 - 3.9 HHCCT ALT SerPl-cCnc 17.0 U/L 06/27/2025 10 - 50 HHCC T ALP SerPl-cCnc 54.0 U/L 06/27/2025 32 - 122 HHCC T Bilirub Direct SerPl-mCnc 0.1 mg/dL 06/27/2025 0 - 0.2 HHCCT Prot SerPl-mCnc 6.1 g/dL Below low normal 06/27/2025 6.3 - 8.3 HHCCT Bilirub SerPl-mCnc 0.3 mg/dL 06/27/2025 0.2 - 1 HHCCT AST SerPl-cCnc 13.0 U/L 06/27/2025 10 - 50 HH[facility] T Albumin/Glob SerPl 1.4 Ratio 06/27/2025 1 - 3 HHCCT Monocytes/leuk NFr Bld Auto 8.8 % 06/27/2025 HHCCT RBC num Bld Auto 4.1 Mil/uL 06/27/2025 4 - 5.4 H HCCT MCV RBC Auto 81.0 fL 06/27/2025 80 - 100 HHCCT Basophils/leuk NFr Bld Auto 0.6 % 06/27/2025 CCT Platelet num Bld Auto 308.0 Thou/uL 06/27/2025 150 - 450 HHCCT Imm Granulocytes/leuk NFr Bld Auto 0.2 % 06/27/2025 CCT Neutrophils/leuk NFr Bld Auto 45.0 % 06/27/2025 HHCCT Lymphocytes/leuk NFr Bld Auto 43.3 % 06/27/2025 CCT Imm Granulocytes num Bld Auto 0.01 Thou/uL 06/27/2025 0 - 0.1 HHCCT MCHC RBC Auto-mCnc 30.6 g/dL 06/27/2025 30 - 36 HHCCT Eosinophil/leuk NFr Bld Auto 2.1 % 06/27/2025 CCT RDW RBC Auto-Rto 14.7 % Above high normal 06/27/2025 11.5 - 14.5 HHCCT WBC num Bld Auto 5.4 Thou/uL 06/27/2025 4 - 11 HHCCT PMV Bld Auto 8.4 fL 06/27/2025 7.5 - 12.5 HHCCT Eosinophil num Bld Auto 0.11 Thou/uL 06/27/2025 0 - 0.7 HHCCT Basophils num Bld Auto 0.03 Thou/uL 06/27/2025 0 - 0.2 HHCCT MCH RBC Qn Auto 24.9 pg Below low normal 06/27/2025 26 - 3 4 HHCCT Hct VFr Bld Auto 33.3 % Below low normal 06/27/2025 35 - 47 HHCCT Hgb Bld-mCnc 10.2 g/dL Below low normal 06/27/2025 11.7 - 15 .7 HHCCT Monocytes num Bld Auto 0.47 Thou/uL 06/27/2025 0.2 - 1.5 HHCCT Lymphocytes num Bld Auto 2.32 Thou/uL 06/27/2025 1.5 - 4.5 HHCCT Neutrophils num Bld Auto 2.42 Thou/uL 06/27/2025 2 - 7.5 HHCCT Delta NO CHANGE 05/09/2025 - 3 HHCCT Troponin T SerPl-mCnc <6.0 ng/L 05/09/2025 - 15 HHCCT Globulin Ser Calc-mCnc 2.7 g/dL 05/09/2025 1.5 - 3.9 HHCCT CO2 SerPl-sCnc 25.0 mmol/L 05/09/2025 22 - 33 HH CCT ALT SerPl-cCnc 15.0 U/L 05/09/2025 10 - 50 HHCC T Bilirub SerPl-mCnc 0.3 mg/dL 05/09/2025 0.2 - 1 HHCCT Potassium SerPl-sCnc 4.1 mmol/L 05/09/2025 3.4 - 5 .3 HHCCT Glucose SerPl-mCnc 82.0 mg/dL 05/09/2025 65 - 99 HHCCT Prot SerPl-mCnc 6.6 g/dL 05/09/2025 6.3 - 8.[address] Calcium SerPl-mCnc 9.2 mg/dL 05/09/2025 8.7 - 10.5 HHCCT AST SerPl-cCnc 17.0 U/L 05/09/2025 10 - 50 HHCC T BUN/Creat SerPl 15.0 Ratio 05/09/2025 10 - 25 HH CCT Albumin SerPl-mCnc 3.9 g/dL 05/09/2025 3.5 - 5 HHCCT Chloride SerPl-sCnc 100.0 mmol/L 05/09/2025 98 - 1 07 HHCCT BUN SerPl-mCnc 9.0 mg/dL 05/09/2025 8 - 21 HHCC T ALP SerPl-cCnc 57.0 U/L 05/09/2025 32 - 122 HHCC T Sodium SerPl-sCnc 135.0 mmol/L Below low normal 05/09/2025 1 36 - 145 HHCCT Albumin/Glob SerPl 1.4 Ratio 05/09/2025 1 - 3 HHCCT Anion Gap Bld-sCnc 10.0 05/09/2025 7 - 17 HHCCT GFR/BSA.pred SerPlBld RUB-MHY-WzTYjr >90.0 05/09/2025 59 - HHCCT Creat SerPl-mCnc 0.6 mg/dL 05/09/2025 0.4 - 1.1 HH CCT Magnesium SerPl-mCnc 2.2 mg/dL 05/09/2025 1.6 - 2. 7 HHCCT Troponin T SerPl-mCnc <6.0 ng/L 05/09/2025 - 15 HHCCT Delta NO PREVIOUS RESULT 05/09/2025 - 3 HHCCT D dimer FEU PPP-mCnc <150.0 ng/mL DDU 05/09/2025 - 230 HHCCT Hct VFr Bld Auto 36.7 % 05/09/2025 35 - 47 HH CCT MCHC RBC Auto-mCnc 31.6 g/dL 05/09/2025 30 - 36 HHCCT Eosinophil num Bld Auto 0.1 Thou/uL 05/09/2025 0 - 0.7 HHCCT MCV RBC Auto 84.0 fL 05/09/2025 80 - 100 HHCCT Basophils/leuk NFr Bld Auto 0.7 % 05/09/2025 HHCCT Neutrophils num Bld Auto 4.07 Thou/uL 05/09/2025 2 - 7.5 HHCCT Monocytes num Bld Auto 0.47 Thou/uL 05/09/2025 0.2 - 1.5 HHCCT MCH RBC Qn Auto 26.6 pg 05/09/2025 26 - [address] Lymphocytes/leuk NFr Bld Auto 35.3 % 05/09/2025 HHCCT Hgb Bld-mCnc 11.6 g/dL Below low normal 05/09/2025 11.7 - 15 .7 HHCCT Eosinophil/leuk NFr Bld Auto 1.4 % 05/09/2025 HHCCT RBC num Bld Auto 4.36 Mil/uL 05/09/2025 4 - 5.4 HHCCT Lymphocytes num Bld Auto 2.56 Thou/uL 05/09/2025 1.5 - 4.5 HHCCT Basophils num Bld Auto 0.05 Thou/uL 05/09/2025 0 - 0.2 HHCCT Platelet num Bld Auto 399.0 Thou/uL 05/09/2025 150 - 450 HHCCT Monocytes/leuk NFr Bld Auto 6.5 % 05/09/2025 HHCCT WBC num Bld Auto 7.3 Thou/uL 05/09/2025 4 - 11 HHCCT Neutrophils/leuk NFr Bld Auto 56.0 % 05/09/2025 HHCCT Imm Granulocytes/leuk NFr Bld Auto 0.1 % 05/09/2025 HHCCT PMV Bld Auto 8.5 fL 05/09/2025 7.5 - 12.5 HHCCT RDW RBC Auto-Rto 14.4 % 05/09/2025 11.5 - 14.5 HHCCT Imm Granulocytes num Bld Auto 0.01 Thou/uL 05/09/2025 0 - 0.1 HHCCT Glucose Ur Strip-mCnc Negative 03/27/2025 0 - 99 HHCCT Urobilinogen Ur Strip-mCnc 0.2 EU/dL 03/27/2025 0.2 - 1 HHCCT Color Ur Yellow 03/27/2025 HHCCT Sp Gr Ur Strip 1.021 03/27/2025 1.003 - 1.03 HHCCT Prot Ur Strip-mCnc Negative 03/27/2025 - CCT Bilirub Ur Strip-mCnc Negative 03/27/2025 - HHCCT Clarity Ur Clear 03/27/2025 HHCCT Ketones Ur Strip-mCnc Small Abnormal 03/27/2025 - HHCCT pH Ur Strip 5.5 03/27/2025 5 - 8 HHCCT Nitrite Ur Ql Strip Negative 03/27/2025 - CCT Leukocyte esterase Ur Ql Strip Negative 03/27/2025 - CCT Hgb Ur Ql Strip Negative 03/27/2025 - [facility] CT Magnesium SerPl-mCnc 2.0 mg/dL 03/27/2025 1.6 - 2. 6 HHCCT Phosphate SerPl-mCnc 3.8 mg/dL 03/27/2025 2.4 - 5. 1 HHCCT ALP SerPl-cCnc 64.0 U/L 03/27/2025 32 - 122 HHCC T Sodium SerPl-sCnc 140.0 mmol/L 03/27/2025 136 - 14 5 HHCCT Glucose SerPl-mCnc 86.0 mg/dL 03/27/2025 74 - 106 HHCCT Prot SerPl-mCnc 7.1 g/dL 03/27/2025 5.7 - 8.[address] GFR/BSA.pred SerPlBld CRD-XCZ-UzCJnb >90.0 03/27/2025 59 - HHCCT ALT SerPl-cCnc 46.0 U/L Above high normal 03/27/2025 7 - 35 HHCCT Chloride SerPl-sCnc 107.0 mmol/L 03/27/2025 98 - 1 07 HHCCT Potassium SerPl-sCnc 4.3 mmol/L 03/27/2025 3.4 - 4 .5 HHCCT Anion Gap Bld-sCnc 9.0 03/27/2025 5 - 15 HHCCT Albumin/Glob SerPl 1.5 Ratio 03/27/2025 1.5 - 2.5 HHCCT Creat SerPl-mCnc 0.6 mg/dL 03/27/2025 0.6 - 1 HH CCT AST SerPl-cCnc 33.0 U/L 03/27/2025 - 34 HHCC T Calcium SerPl-mCnc 9.3 mg/dL 03/27/2025 8.7 - 10.5 HHCCT BUN/Creat SerPl 10.0 Ratio 03/27/2025 10 - 25 HH CCT Bilirub SerPl-mCnc 0.5 mg/dL 03/27/2025 0.3 - 1.2 HHCCT CO2 SerPl-sCnc 24.0 mmol/L 03/27/2025 20 - 31 HH CCT Globulin Ser Calc-mCnc 2.8 g/dL 03/27/2025 1.5 - 3.9 HHCCT Albumin SerPl-mCnc 4.3 g/dL 03/27/2025 3.4 - 4.8 HHCCT BUN SerPl-mCnc 6.0 mg/dL Below low normal 03/27/2025 9 - 23 HHCCT CK SerPl-cCnc 34.0 U/L 03/27/2025 34 - 145 HHCCT Delta NO PREVIOUS RESULT 03/27/2025 HHCCT Troponin I SerPl DL<=0.01 ng/mL-mCnc <3.0 ng/L 03/27/2025 - 34 HHCCT D dimer FEU PPP-mCnc 2855.0 ng/mL FEU Above high normal 03/18 0 - 500 HHCCT INR PPP 1.0 03/27/2025 HHCCT Prothrombin time 12.0 seconds 03/27/2025 10 - 13.5 HHCCT Anticoagulant APIXABAN (ELIQUIS) 03/27/2025 HHCCT Basophils num Bld Auto 0.05 Thou/uL 03/27/2025 0 - 0.2 HHCCT Eosinophil num Bld Auto 0.2 Thou/uL 03/27/2025 0 - 0.7 HHCCT Imm Granulocytes num Bld Auto 0.01 Thou/uL 03/27/2025 0 - 0.1 HHCCT WBC num Bld Auto 6.1 Thou/uL 03/27/2025 4 - 11 HHCCT Imm Granulocytes/leuk NFr Bld Auto 0.2 % 03/27/2025 HHCCT MCHC RBC Auto-mCnc 32.0 g/dL 03/27/2025 30 - 36 HHCCT Eosinophil/leuk NFr Bld Auto 3.3 % 03/27/2025 HHCCT Hct VFr Bld Auto 37.8 % 03/27/2025 35 - 47 HH CCT Neutrophils/leuk NFr Bld Auto 54.7 % 03/27/2025 HHCCT Lymphocytes/leuk NFr Bld Auto 33.8 % 03/27/2025 HHCCT RDW RBC Auto-Rto 13.6 % 03/27/2025 11.5 - 14.5 HHCCT RBC num Bld Auto 4.46 Mil/uL 03/27/2025 4 - 5.4 HHCCT Monocytes num Bld Auto 0.44 Thou/uL 03/27/2025 0.2 - 1.5 HHCCT Platelet num Bld Auto 273.0 Thou/uL 03/27/2025 150 - 450 HHCCT Monocytes/leuk NFr Bld Auto 7.2 % 03/27/2025 HHCCT MCV RBC Auto 85.0 fL 03/27/2025 80 - 100 HHCCT Hgb Bld-mCnc 12.1 g/dL 03/27/2025 11.7 - 15.7 HHCC T MCH RBC Qn Auto 27.1 pg 03/27/2025 26 - [address] Neutrophils num Bld Auto 3.32 Thou/uL 03/27/2025 2 - 7.5 HHCCT Lymphocytes num Bld Auto 2.05 Thou/uL 03/27/2025 1.5 - 4.5 HHCCT Basophils/leuk NFr Bld Auto 0.8 % 03/27/2025 HHCCT PMV Bld Auto 9.9 fL 03/27/2025 7.5 - 12.5 HHCCT Phosphate SerPl-mCnc 4.5 mg/dL Normal 01/13/2025 2.4 - 5. 1 HHCCT Glucose SerPl-mCnc 89.0 mg/dL Normal 01/13/2025 74 - 106 HHCCT Calcium SerPl-mCnc 9.2 mg/dL Normal 01/13/2025 8.7 - 10.5 HHCCT Chloride SerPl-sCnc 105.0 mmol/L Normal 01/13/2025 98 - 1 07 HHCCT Sodium SerPl-sCnc 139.0 mmol/L Normal 01/13/2025 136 - 14 5 HHCCT BUN SerPl-mCnc 7.0 mg/dL Below low normal 01/13/2025 9 - 23 HHCCT GFR/BSA.pred SerPlBld NJP-DUQ-KwBTxa >90.0 Normal 01/13/2025 59 - HHCCT CO2 SerPl-sCnc 26.0 mmol/L Normal 01/13/2025 20 - 31 HH CCT BUN/Creat SerPl 14.0 Ratio Normal 01/13/2025 10 - 25 HH CCT Anion Gap Bld-sCnc 8.0 Normal 01/13/2025 5 - 15 HHCCT Creat SerPl-mCnc 0.5 mg/dL Below low normal 01/13/2025 0.6 - 1 HHCCT Potassium SerPl-sCnc 3.8 mmol/L Normal 01/13/2025 3.4 - 4 .5 HHCCT Magnesium SerPl-mCnc 2.0 mg/dL Normal 01/13/2025 1.6 - 2. 6 HHCCT RBC num Bld Auto 4.45 Mil/uL Normal 01/13/2025 4 - 5.4 HHCCT PMV Bld Auto 9.1 fL Normal 01/13/2025 7.5 - 12.5 HHCCT WBC num Bld Auto 4.3 Thou/uL Normal 01/13/2025 4 - 11 HHCCT Platelet num Bld Auto 289.0 Thou/uL Normal 01/13/2025 150 - 450 HHCCT Hct VFr Bld Auto 37.9 % Normal 01/13/2025 35 - 47 HH CCT RDW RBC Auto-Rto 15.3 % Above high normal 01/13/2025 11.5 - 14.5 HHCCT MCHC RBC Auto-mCnc 31.9 g/dL Normal 01/13/2025 30 - 36 HHCCT MCV RBC Auto 85.0 fL Normal 01/13/2025 80 - 100 HHCCT Hgb Bld-mCnc 12.1 g/dL Normal 01/13/2025 11.7 - 15.7 HHCC T MCH RBC Qn Auto 27.2 pg Normal 01/13/2025 26 - [address] Magnesium SerPl-mCnc 2.0 mg/dL Normal 01/12/2025 1.6 - 2. 6 HHCCT Phosphate SerPl-mCnc 4.4 mg/dL Normal 01/12/2025 2.4 - 5. 1 HHCCT BUN SerPl-mCnc 6.0 mg/dL Below low normal 01/12/2025 9 - 23 HHCCT BUN/Creat SerPl 12.0 Ratio Normal 01/12/2025 10 - 25 HH CCT Potassium SerPl-sCnc 3.7 mmol/L Normal 01/12/2025 3.4 - 4 .5 HHCCT Sodium SerPl-sCnc 141.0 mmol/L Normal 01/12/2025 136 - 14 5 HHCCT CO2 SerPl-sCnc 28.0 mmol/L Normal 01/12/2025 20 - 31 HH CCT Creat SerPl-mCnc 0.5 mg/dL Below low normal 01/12/2025 0.6 - 1 HHCCT Calcium SerPl-mCnc 8.9 mg/dL Normal 01/12/2025 8.7 - 10.5 HHCCT Chloride SerPl-sCnc 106.0 mmol/L Normal 01/12/2025 98 - 1 07 HHCCT Anion Gap Bld-sCnc 7.0 Normal 01/12/2025 5 - 15 HHCCT Glucose SerPl-mCnc 96.0 mg/dL Normal 01/12/2025 74 - 106 HHCCT GFR/BSA.pred SerPlBld XVM-BQB-EnHEca >90.0 Normal 01/12/2025 59 - HHCCT MCH RBC Qn Auto 27.8 pg Normal 01/12/2025 26 - [address] Hgb Bld-mCnc 12.1 g/dL Normal 01/12/2025 11.7 - 15.7 HHCC T MCV RBC Auto 85.0 fL Normal 01/12/2025 80 - 100 HHCCT WBC num Bld Auto 4.5 Thou/uL Normal 01/12/2025 4 - 11 HHCCT PMV Bld Auto 8.7 fL Normal 01/12/2025 7.5 - 12.5 HHCCT RDW RBC Auto-Rto 15.3 % Above high normal 01/12/2025 11.5 - 14.5 HHCCT RBC num Bld Auto 4.36 Mil/uL Normal 01/12/2025 4 - 5.4 HHCCT MCHC RBC Auto-mCnc 32.5 g/dL Normal 01/12/2025 30 - 36 HHCCT Platelet num Bld Auto 251.0 Thou/uL Normal 01/12/2025 150 - 450 HHCCT Hct VFr Bld Auto 37.2 % Normal 01/12/2025 35 - 47 HH CCT Phosphate SerPl-mCnc 4.1 mg/dL Normal 01/11/2025 2.4 - 5. 1 HHCCT Magnesium SerPl-mCnc 2.0 mg/dL Normal 01/11/2025 1.6 - 2. 6 HHCCT GFR/BSA.pred SerPlBld HSQ-HIR-RrMEbe >90.0 Normal 01/11/2025 59 - HHCCT Glucose SerPl-mCnc 91.0 mg/dL Normal 01/11/2025 74 - 106 HHCCT Anion Gap Bld-sCnc 9.0 Normal 01/11/2025 5 - 15 HHCCT BUN SerPl-mCnc <5.0 mg/dL Below low normal 01/11/2025 9 - 23 HHCCT Calcium SerPl-mCnc 8.9 mg/dL Normal 01/11/2025 8.7 - 10.5 HHCCT CO2 SerPl-sCnc 27.0 mmol/L Normal 01/11/2025 20 - 31 HH CCT Sodium SerPl-sCnc 142.0 mmol/L Normal 01/11/2025 136 - 14 5 HHCCT BUN/Creat SerPl Not calculated Normal 01/11/2025 10 - 25 HHCCT Potassium SerPl-sCnc 3.6 mmol/L Normal 01/11/2025 3.4 - 4 .5 HHCCT Chloride SerPl-sCnc 106.0 mmol/L Normal 01/11/2025 98 - 1 07 HHCCT Creat SerPl-mCnc 0.5 mg/dL Below low normal 01/11/2025 0.6 - 1 HHCCT RDW RBC Auto-Rto 15.6 % Above high normal 01/11/2025 11.5 - 14.5 HHCCT WBC num Bld Auto 5.8 Thou/uL Normal 01/11/2025 4 - 11 HHCCT Hct VFr Bld Auto 37.7 % Normal 01/11/2025 35 - 47 HH CCT MCH RBC Qn Auto 26.8 pg Normal 01/11/2025 26 - [address] RBC num Bld Auto 4.4 Mil/uL Normal 01/11/2025 4 - 5.4 H HCCT MCV RBC Auto 86.0 fL Normal 01/11/2025 80 - 100 HHCCT Hgb Bld-mCnc 11.8 g/dL Normal 01/11/2025 11.7 - 15.7 HHCC T Platelet num Bld Auto 262.0 Thou/uL Normal 01/11/2025 150 - 450 HHCCT MCHC RBC Auto-mCnc 31.3 g/dL Normal 01/11/2025 30 - 36 HHCCT PMV Bld Auto 9.1 fL Normal 01/11/2025 7.5 - 12.5 HHCCT Creat SerPl-mCnc 0.5 mg/dL Below low normal 01/10/2025 0.6 - 1 HHCCT Anion Gap Bld-sCnc 8.0 Normal 01/10/2025 5 - 15 HHCCT Sodium SerPl-sCnc 143.0 mmol/L Normal 01/10/2025 136 - 14 5 HHCCT Chloride SerPl-sCnc 108.0 mmol/L Above high normal 98 - 107 HHCCT GFR/BSA.pred SerPlBld WIO-CMX-PvKUdj >90.0 Normal 01/10/2025 59 - HHCCT BUN/Creat SerPl Not calculated Normal 01/10/2025 10 - 25 HHCCT CO2 SerPl-sCnc 27.0 mmol/L Normal 01/10/2025 20 - 31 HH CCT Potassium SerPl-sCnc 4.2 mmol/L Normal 01/10/2025 3.4 - 4 .5 HHCCT BUN SerPl-mCnc <5.0 mg/dL Below low normal 01/10/2025 9 - 23 HHCCT Glucose SerPl-mCnc 88.0 mg/dL Normal 01/10/2025 74 - 106 HHCCT Calcium SerPl-mCnc 8.7 mg/dL Normal 01/10/2025 8.7 - 10.5 HHCCT Phosphate SerPl-mCnc 3.7 mg/dL Normal 01/10/2025 2.4 - 5. 1 HHCCT Magnesium SerPl-mCnc 2.0 mg/dL Normal 01/10/2025 1.6 - 2. 6 HHCCT MCV RBC Auto 87.0 fL Normal 01/10/2025 80 - 100 HHCCT Hct VFr Bld Auto 38.4 % Normal 01/10/2025 35 - 47 HH CCT Platelet num Bld Auto 271.0 Thou/uL Normal 01/10/2025 150 - 450 HHCCT MCH RBC Qn Auto 26.8 pg Normal 01/10/2025 26 - [address] RDW RBC Auto-Rto 15.9 % Above high normal 01/10/2025 11.5 - 14.5 HHCCT PMV Bld Auto 9.0 fL Normal 01/10/2025 7.5 - 12.5 HHCCT WBC num Bld Auto 7.7 Thou/uL Normal 01/10/2025 4 - 11 HHCCT RBC num Bld Auto 4.4 Mil/uL Normal 01/10/2025 4 - 5.4 H HCCT Hgb Bld-mCnc 11.8 g/dL Normal 01/10/2025 11.7 - 15.7 HHCC T MCHC RBC Auto-mCnc 30.7 g/dL Normal 01/10/2025 30 - 36 HHCCT Magnesium SerPl-mCnc 1.9 mg/dL Normal 01/10/2025 1.6 - 2. 6 HHCCT Phosphate SerPl-mCnc 2.2 mg/dL Below low normal 01/10/2025 2 .4 - 5.1 HHCCT GFR/BSA.pred SerPlBld ZWV-EXG-ZeKQeu >90.0 Normal 01/10/2025 59 - HHCCT Sodium SerPl-sCnc 141.0 mmol/L Normal 01/10/2025 136 - 14 5 HHCCT Calcium SerPl-mCnc 8.4 mg/dL Below low normal 01/10/2025 8.7 - 10.5 HHCCT Creat SerPl-mCnc 0.4 mg/dL Below low normal 01/10/2025 0.6 - 1 HHCCT BUN/Creat SerPl Not calculated Normal 01/10/2025 10 - 25 HHCCT BUN SerPl-mCnc <5.0 mg/dL Below low normal 01/10/2025 9 - 23 HHCCT Potassium SerPl-sCnc 3.6 mmol/L Normal 01/10/2025 3.4 - 4 .5 HHCCT Glucose SerPl-mCnc 88.0 mg/dL Normal 01/10/2025 74 - 106 HHCCT CO2 SerPl-sCnc 26.0 mmol/L Normal 01/10/2025 20 - 31 HH CCT Anion Gap Bld-sCnc 8.0 Normal 01/10/2025 5 - 15 HHCCT Chloride SerPl-sCnc 107.0 mmol/L Normal 01/10/2025 98 - 1 07 HHCCT Anion Gap Bld-sCnc 6.0 Normal 01/09/2025 5 - 15 HHCCT Creat SerPl-mCnc 0.5 mg/dL Below low normal 01/09/2025 0.6 - 1 HHCCT Chloride SerPl-sCnc 110.0 mmol/L Above high normal 98 - 107 HHCCT GFR/BSA.pred SerPlBld CKV-FCF-CbDUll >90.0 Normal 01/09/2025 59 - HHCCT Calcium SerPl-mCnc 8.3 mg/dL Below low normal 01/09/2025 8.7 - 10.5 HHCCT BUN SerPl-mCnc <5.0 mg/dL Below low normal 01/09/2025 9 - 23 HHCCT CO2 SerPl-sCnc 27.0 mmol/L Normal 01/09/2025 20 - 31 HH CCT BUN/Creat SerPl Not calculated Normal 01/09/2025 10 - 25 HHCCT Glucose SerPl-mCnc 81.0 mg/dL Normal 01/09/2025 74 - 106 HHCCT Sodium SerPl-sCnc 143.0 mmol/L Normal 01/09/2025 136 - 14 5 HHCCT Potassium SerPl-sCnc 3.8 mmol/L Normal 01/09/2025 3.4 - 4 .5 HHCCT Magnesium SerPl-mCnc 2.0 mg/dL Normal 01/09/2025 1.6 - 2. 6 HHCCT Phosphate SerPl-mCnc 2.1 mg/dL Below low normal 01/09/2025 2 .4 - 5.1 HHCCT WBC num Bld Auto 6.8 Thou/uL Normal 01/09/2025 4 - 11 HHCCT Hgb Bld-mCnc 11.2 g/dL Below low normal 01/09/2025 11.7 - 15 .7 HHCCT MCV RBC Auto 87.0 fL Normal 01/09/2025 80 - 100 HHCCT RDW RBC Auto-Rto 16.1 % Above high normal 01/09/2025 11.5 - 14.5 HHCCT RBC num Bld Auto 4.08 Mil/uL Normal 01/09/2025 4 - 5.4 HHCCT MCHC RBC Auto-mCnc 31.5 g/dL Normal 01/09/2025 30 - 36 HHCCT Hct VFr Bld Auto 35.5 % Normal 01/09/2025 35 - 47 HH CCT Platelet num Bld Auto 223.0 Thou/uL Normal 01/09/2025 150 - 450 HHCCT MCH RBC Qn Auto 27.5 pg Normal 01/09/2025 26 - [address] PMV Bld Auto 9.3 fL Normal 01/09/2025 7.5 - 12.5 HHCCT Magnesium SerPl-mCnc 2.2 mg/dL Normal 01/09/2025 1.6 - 2. 6 HHCCT Chloride SerPl-sCnc 106.0 mmol/L Normal 01/09/2025 98 - 1 07 HHCCT Anion Gap Bld-sCnc 8.0 Normal 01/09/2025 5 - 15 HHCCT Glucose SerPl-mCnc 104.0 mg/dL Normal 01/09/2025 74 - 106 HHCCT Calcium SerPl-mCnc 8.5 mg/dL Below low normal 01/09/2025 8.7 - 10.5 HHCCT Potassium SerPl-sCnc 3.3 mmol/L Below low normal 01/09/2025 3.4 - 4.5 HHCCT Creat SerPl-mCnc 0.5 mg/dL Below low normal 01/09/2025 0.6 - 1 HHCCT Sodium SerPl-sCnc 140.0 mmol/L Normal 01/09/2025 136 - 14 5 HHCCT BUN SerPl-mCnc <5.0 mg/dL Below low normal 01/09/2025 9 - 23 HHCCT GFR/BSA.pred SerPlBld TYT-HRV-LbCWaq >90.0 Normal 01/09/2025 59 - HHCCT CO2 SerPl-sCnc 26.0 mmol/L Normal 01/09/2025 20 - 31 HH CCT BUN/Creat SerPl Not calculated Normal 01/09/2025 10 - 25 HHCCT Phosphate SerPl-mCnc 1.3 mg/dL Below low normal 01/09/2025 2 .4 - 5.1 HHCCT Chloride SerPl-sCnc 108.0 mmol/L Above high normal 98 - 107 HHCCT BUN SerPl-mCnc <5.0 mg/dL Below low normal 01/08/2025 9 - 23 HHCCT Glucose SerPl-mCnc 98.0 mg/dL Normal 01/08/2025 74 - 106 HHCCT Calcium SerPl-mCnc 7.9 mg/dL Below low normal 01/08/2025 8.7 - 10.5 HHCCT BUN/Creat SerPl Not calculated Normal 01/08/2025 10 - 25 HHCCT GFR/BSA.pred SerPlBld POI-UHC-LrAQkv >90.0 Normal 01/08/2025 59 - HHCCT CO2 SerPl-sCnc 24.0 mmol/L Normal 01/08/2025 20 - 31 HH CCT Potassium SerPl-sCnc 3.3 mmol/L Below low normal 01/08/2025 3.4 - 4.5 HHCCT Creat SerPl-mCnc 0.5 mg/dL Below low normal 01/08/2025 0.6 - 1 HHCCT Anion Gap Bld-sCnc 6.0 Normal 01/08/2025 5 - 15 HHCCT Sodium SerPl-sCnc 138.0 mmol/L Normal 01/08/2025 136 - 14 5 HHCCT Magnesium SerPl-mCnc 2.1 mg/dL Normal 01/08/2025 1.6 - 2. 6 HHCCT WBC num Bld Auto 10.0 Thou/uL Normal 01/08/2025 4 - 11 H[facility]CT Platelet num Bld Auto 209.0 Thou/uL Normal 01/08/2025 150 - 450 HHCCT PMV Bld Auto 9.3 fL Normal 01/08/2025 7.5 - 12.5 HHCCT MCHC RBC Auto-mCnc 32.1 g/dL Normal 01/08/2025 30 - 36 HHCCT Hgb Bld-mCnc 11.2 g/dL Below low normal 01/08/2025 11.7 - 15 .7 HHCCT MCV RBC Auto 85.0 fL Normal 01/08/2025 80 - 100 HHCCT RBC num Bld Auto 4.11 Mil/uL Normal 01/08/2025 4 - 5.4 HHCCT Hct VFr Bld Auto 34.9 % Below low normal 01/08/2025 35 - 47 HHCCT RDW RBC Auto-Rto 15.9 % Above high normal 01/08/2025 11.5 - 14.5 HHCCT MCH RBC Qn Auto 27.3 pg Normal 01/08/2025 26 - [address] Magnesium SerPl-mCnc 1.7 mg/dL Normal 01/07/2025 1.6 - 2. 6 HHCCT Glucose SerPl-mCnc 120.0 mg/dL Above high normal 01/07/2025 74 - 106 HHCCT Creat SerPl-mCnc 0.6 mg/dL Normal 01/07/2025 0.6 - 1 HH CCT Bilirub SerPl-mCnc 0.3 mg/dL Normal 01/07/2025 0.3 - 1.2 HHCCT Sodium SerPl-sCnc 140.0 mmol/L Normal 01/07/2025 136 - 14 5 HHCCT AST SerPl-cCnc 24.0 U/L Normal 01/07/2025 - 34 HHCC T ALP SerPl-cCnc 44.0 U/L Normal 01/07/2025 32 - 122 [facility]CC T BUN/Creat SerPl 10.0 Ratio Normal 01/07/2025 10 - 25 HH CCT Globulin Ser Calc-mCnc 2.3 g/dL Normal 01/07/2025 1.5 - 3.9 HHCCT Potassium SerPl-sCnc 3.8 mmol/L Normal 01/07/2025 3.4 - 4 .5 HHCCT Prot SerPl-mCnc 6.0 g/dL Normal 01/07/2025 5.7 - 8.[address] CO2 SerPl-sCnc 21.0 mmol/L Normal 01/07/2025 20 - 31 HH CCT Chloride SerPl-sCnc 111.0 mmol/L Above high normal 5 98 - 107 HHCCT ALT SerPl-cCnc 18.0 U/L Normal 01/07/2025 7 - 35 HHCC T GFR/BSA.pred SerPlBld [id number] >90.0 Normal 01/07/2025 59 - HHCCT BUN SerPl-mCnc 6.0 mg/dL Below low normal 01/07/2025 9 - 23 HHCCT Anion Gap Bld-sCnc 8.0 Normal 01/07/2025 5 - 15 HHCCT Albumin/Glob SerPl 1.6 Ratio Normal 01/07/2025 1.5 - 2.5 HHCCT Albumin SerPl-mCnc 3.7 g/dL Normal 01/07/2025 3.4 - 4.8 HHCCT Calcium SerPl-mCnc 7.6 mg/dL Below low normal 01/07/2025 8.7 - 10.5 HHCCT WBC num Bld Auto 9.2 Thou/uL Normal 01/07/2025 4 - 11 HHCCT Hct VFr Bld Auto 37.9 % Normal 01/07/2025 35 - 47 HH CCT MCH RBC Qn Auto 26.9 pg Normal 01/07/2025 26 - [address] PMV Bld Auto 9.3 fL Normal 01/07/2025 7.5 - 12.5 HHCCT RDW RBC Auto-Rto 15.5 % Above high normal 01/07/2025 11.5 - 14.5 HHCCT MCHC RBC Auto-mCnc 31.4 g/dL Normal 01/07/2025 30 - 36 HHCCT Platelet num Bld Auto 225.0 Thou/uL Normal 01/07/2025 150 - 450 HHCCT Hgb Bld-mCnc 11.9 g/dL Normal 01/07/2025 11.7 - 15.7 HHCC T MCV RBC Auto 86.0 fL Normal 01/07/2025 80 - 100 HHCCT RBC num Bld Auto 4.42 Mil/uL Normal 01/07/2025 4 - 5.4 HHCCT Influenza virus A in upper resp spec by LETY with probe detection Not Detected Normal 01/07/2025 HHCCT 2019-nCOV RNA Not Detected Normal 01/07/2025 HH CCT Respiratory syncytial virus RNA in upper resp spec by LETY with probe detection Not Detected Normal 01/07/2025 HHCCT Influenza virus B in upper resp spec by LETY with probe detection Not Detected Normal 01/07/2025 HHCCT Comment Negative results do not preclude SARS-CoV-2, Influenza or RSV infection and should not be used as the sole basis for treatment or other patient management decisions. Normal 01/07/2025 HHCCT Creat SerPl-mCnc 0.7 mg/dL Normal 01/05/2025 0.6 - 1 HH CCT GFR/BSA.pred SerPlBld SUP-DAB-NeEDpe >90.0 Normal 01/05/2025 59 - HHCCT BUN SerPl-mCnc 10.0 mg/dL Normal 01/05/2025 9 - [address] BUN/Creat SerPl 14.0 Ratio Normal 01/05/2025 10 - 25 HH CCT Sodium SerPl-sCnc 140.0 mmol/L Normal 01/05/2025 136 - 14 5 HHCCT CO2 SerPl-sCnc 28.0 mmol/L Normal 01/05/2025 20 - 31 HH CCT Anion Gap Bld-sCnc 5.0 Normal 01/05/2025 5 - 15 HHCCT Calcium SerPl-mCnc 9.2 mg/dL Normal 01/05/2025 8.7 - 10.5 HHCCT Potassium SerPl-sCnc 3.8 mmol/L Normal 01/05/2025 3.4 - 4 .5 HHCCT Glucose SerPl-mCnc 100.0 mg/dL Normal 01/05/2025 74 - 106 HHCCT Chloride SerPl-sCnc 107.0 mmol/L Normal 01/05/2025 98 - 1 07 HHCCT INR PPP 1.0 Normal 01/05/2025 HHCCT Prothrombin time 11.4 seconds Normal 01/05/2025 10 - 13.5 HHCCT Anticoagulant Information not given Normal 01/05/2025 HHCCT Hct VFr Bld Auto 44.3 % Normal 01/05/2025 35 - 47 HH CCT PMV Bld Auto 9.2 fL Normal 01/05/2025 7.5 - 12.5 HHCCT MCV RBC Auto 86.0 fL Normal 01/05/2025 80 - 100 HHCCT Lymphocytes/leuk NFr Bld Auto 24.1 % Normal 01/05/2025 HHCCT Basophils num Bld Auto 0.03 Thou/uL Normal 01/05/2025 0 - 0.2 HHCCT Eosinophil num Bld Auto 0.06 Thou/uL Normal 01/05/2025 0 - 0.7 HHCCT Imm Granulocytes num Bld Auto 0.02 Thou/uL Normal 01/05/2025 0 - 0.1 HHCCT RDW RBC Auto-Rto 16.0 % Above high normal 01/05/2025 11.5 - 14.5 HHCCT Monocytes num Bld Auto 0.39 Thou/uL Normal 01/05/2025 0.2 - 1.5 HHCCT Monocytes/leuk NFr Bld Auto 5.6 % Normal 01/05/2025 HHCCT RBC num Bld Auto 5.14 Mil/uL Normal 01/05/2025 4 - 5.4 HHCCT Hgb Bld-mCnc 13.8 g/dL Normal 01/05/2025 11.7 - 15.7 HHCC T MCH RBC Qn Auto 26.8 pg Normal 01/05/2025 26 - [address] Lymphocytes num Bld Auto 1.68 Thou/uL Normal 01/05/2025 1.5 - 4.5 HHCCT Basophils/leuk NFr Bld Auto 0.4 % Normal 01/05/2025 HHCCT MCHC RBC Auto-mCnc 31.2 g/dL Normal 01/05/2025 30 - 36 HHCCT Neutrophils/leuk NFr Bld Auto 68.7 % Normal 01/05/2025 HHCCT WBC num Bld Auto 7.0 Thou/uL Normal 01/05/2025 4 - 11 H[facility]CT Platelet num Bld Auto 313.0 Thou/uL Normal 01/05/2025 150 - 450 HHCCT Neutrophils num Bld Auto 4.78 Thou/uL Normal 01/05/2025 2 - 7.5 HHCCT Eosinophil/leuk NFr Bld Auto 0.9 % Normal 01/05/2025 HHCCT Imm Granulocytes/leuk NFr Bld Auto 0.3 % Normal 01/05/2025 HHCCT History of Medication Use Medication Directions Dispensed Refills Start Date End Date Stat lidocaine (LIDODERM) 5 % patch Place 1 patch on the skin daily. Apply patch and leave on for 12 hours then remove. Patch may remain on skin for 12 hours per day. 06/29/2025 active acetaminophen (TYLENOL) 325 MG tablet Take 3 tablets (975 mg total) by mouth every 6 (six) hours. 06/28/2025 active oxyCODONE (ROXICODONE) 5 MG immediate release tablet Take 1 tablet (5 mg total) by mouth every 4 (four) hours as needed for severe pain. Max Daily Amount: 30 mg 06/28/2025 active Eliquis 5 MG tablet 1 tablet (5 mg total) by Mouth/Oral Cavity route every 12 hours. 02/11/2025 active acetaminophen (TYLENOL) 325 MG tablet Take 2 tablets (650 mg total) by mouth 4 times daily (every 6 hours) as needed for moderate pain, headaches or fever. 01/13/2025 active colchicine (COLCRYS) 0.6 mg tablet Take 1 tablet (0.6 mg total) by mouth 2 (two) times a day. 01/13/2025 active ibuprofen (MOTRIN) 600 MG tablet Take 1 tablet (600 mg total) by mouth every 6 (six) hours around the clock. 01/13/2025 active methocarbamol (ROBAXIN) 750 MG tablet Take 1 tablet (750 mg total) by mouth 3 (three) times a day as needed for muscle spasms. 01/13/2025 active oxyCODONE (ROXICODONE) 10 mg immediate release tablet Take 1 tablet (10 mg total) by mouth 4 times daily (every 6 hours) as needed for severe pain or moderate pain. Max Daily Amount: 40 mg 01/13/2025 active PANTOprazole (PROTONIX) 40 MG EC tablet Take 1 tablet (40 mg total) by mouth daily. 01/13/2025 active pregabalin (LYRICA) 75 MG capsule Take 1 capsule (75 mg total) by mouth 2 (two) times a day. 01/13/2025 active senna 8.6 MG Tab tablet Take 2 tablets by mouth 2 (two) times a day. 01/13/2025 active sucralfate (CARAFATE) 1 g tablet Take 1 tablet (1 g total) by mouth as needed. 08/03/2024 08/18/2024 aborted Lemborexant (DayVigo) 10 MG Tab Take by mouth. a ctive Allergies Allergen Reaction Severity Comment Documented Date Source Status ONDANSETRON UNKNOWN/PATIENT AND FAMILY UNABLE TO DEFINE 02/16/2025 [facility] active NICKEL ANAPHYLAXIS 01/07/2025 [facility] active IODINATED CONTRAST MEDIA UNKNOWN/PATIENT AND FAMILY UNABLE TO DEFINE 08/07/2024 [facility] active DIPHENHYDRAMINE UNKNOWN/PATIENT AND FAMILY UNABLE TO DEFINE 05/31/2024 [facility] active IVABRADINE RASH/DERMATITIS Brand name Bharat 05/19/2024 [facility] active BENZONATATE PALPITATIONS 04/13/2020 [facility] acti ve IODINE PALPITATIONS Patient went into SVT 03/04/2019 [facility] active PREDNISONE HIVES 07/31/2018 [facility] active ALUMINUM ANAPHYLAXIS [facility] CLINDAMYCIN ANAPHYLAXIS [facility] PENICILLINS HIVES [facility] Problems Problem Status Onset Date Problem Type Date of Resolution Source History of bruising easily active 2024-01-02 ProblemAct [facility] Primary oligomenorrhea active 2022-07-12 ProblemAct [facility] Positive TAMARA (antinuclear antibody) active 2024-01-02 ProblemAct [facility] Hypertensive disorder active 2018-08-02 ProblemAct [facility] 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 ProblemAct [facility] Polyarthralgia active 2024-01-[address] Palpitations active 2023-03-22 ProblemAct [facility] Intractable back pain active 2025-06-27 ProblemAct [facility] Sciatica of left side active 2022-10-17 ProblemAct [facility] Urinary incontinence, unspecified type active EncounterDiagnosisAct HH [facility] Acute pulmonary embolism without acute cor pulmonale active 2025-02-16 ProblemAct [facility] Keloid scar active 2023-01-09 ProblemAct [facility] 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 2022-07-12 ProblemAct [facility] Chest pain active 2024-05-31 ProblemAct [facility] Syncope active 2024-05-31 ProblemAct [facility] Sacroiliac joint dysfunction active EncounterDiagnosisAct [facility] History of pulmonary embolism active 2025-03-27 ProblemAct [facility] Lumbar radicular pain active EncounterDiagnosis Act [facility] Anxiety active 2024-10-01 ProblemAct [facility] Ventricular tachycardia (paroxysmal) active 2023-11-06 ProblemAct [facility] YAHAIRA (generalized anxiety disorder) active 2022-07-12 ProblemAct [facility] Encounter for consultation active 2024-08-18 ProblemAct [facility] PMS (premenstrual syndrome) active 2023-01-22 ProblemAct [facility] Panic disorder active 2023-04-17 ProblemAct [facility] Inappropriate sinus tachycardia active 2025-02-16 ProblemAct [facility] S/P ablation operation for arrhythmia active 2025-01-07 ProblemAct [facility] Immunizations Vaccine Date Source Lot Number Status Influenza, Quadrivalent (FLU ARIX, AFLURIA, FLULAVAL, FLUZONE) Preservative Free IM 09/13/2022 [facility] [id number] completed Influenza, Quadrivalent (FLU ARIX, AFLURIA, FLULAVAL, FLUZONE) Preservative Free IM 09/13/2022 [facility] [id number] completed Influenza, Quadrivalent (FLU ARIX, AFLURIA, FLULAVAL, FLUZONE) Preservative Free IM 09/13/2022 [facility] [id number] completed Tdap 06/28/2022 [facility] [id number] completed Tdap 06/28/2022 [facility] [id number] completed Tdap 06/28/2022 [facility] [id number] completed Encounters Encounter Type Encounter Reason Primary Diagnosis Location Date Ambulatory Dorsalgia, unspecified Dorsalgia, unspecified Potential 07/07/2025 Inpatient Low back pain, unspecified Low back pain, unspecified Potential 06/26/2025 Emergency LOWER BACK PAIN LOWER BACK PAIN [facility] 06/26/2025 Ambulatory Inappropriate sinus tachycardia Inappropriate sinus tachycardia Potential 06/10/2025 Emergency Chest pain, unspecified Chest pain, unspecified Potential 05/08/2025 Inpatient Chest pain, unspecified Chest pain, unspecified Potential 2025 Ambulatory Inappropriate sinus tachycardia, so stated Inappropriate sinus tachycardia, so stated Potential 02/16/2025 Ambulatory Inappropriate sinus tachycardia, so stated Inappropriate sinus tachycardia, so stated Potential 02/16/2025 Ambulatory Encounter for follow-up examination after completed treatment for conditions other than malignant neoplasm Encounter for follow-up examination after completed treatment for conditions other than malignant neoplasm Potential 01/21/2025 Inpatient Inappropriate sinus tachycardia, so stated Inappropriate sinus tachycardia, so stated Potential 01/07/2025 Ambulatory Encounter for other preprocedural examination Encounter for other preprocedural examination Potential 01/05/2025 Ambulatory Inappropriate sinus tachycardia, so stated Inappropriate sinus tachycardia, so stated Potential 01/05/2025 Ambulatory Inappropriate sinus tachycardia, so stated Inappropriate sinus tachycardia, so stated Potential 10/22/2024 Ambulatory Sore Throat Sore Throat Potential 10/05/2024 Ambulatory Counseling, unspecified Counseling, unspecified Potential 08/18/2024 Ambulatory Potential 08/18/2024 Ambulatory Inappropriate sinus tachycardia, so stated Inappropriate sinus tachycardia, so stated Potential 08/07/2024 Ambulatory Counseling, unspecified Counseling, unspecified Potential 08/07/2024 Care Team Organization Name Specialty Phone Email Start Date End Da te [facility] remember,Patient Primary Care 06/29/2025 [facility] Patient remember Primary Care 06/26/2025 [facility] Not directory Primary Care 06/26/[address] [facility] 11/03/2024 025 Potential ZURBA Primary Care 08/07/2024 Potential ISHA ZURBA Primary Care 08/07/2024 Potential 07/03/2024 Potential NO PCP Primary Care 07/03/[address] [facility] 10/20/2022 024
--- OUTSIDE RECORDS SUMMARY | 2025-07-20 18:08 | XMS_ITS | Encounter Summary ---
Author Organization [facility] Address [address] [place] [address] Care Team Providers Care Conservation Scientist Name Role Phone Alice Carmen NP Primary Care Provider [phone] Richard Bello MD Unavailable [phone] Bandar Schmitt MD Unavailable Yaneli Tesfaye RN Unavailable [phone] Beatriz Miller PT Unavailable [phone] Encounter Details Date Type Department Care Team (Late st Contact Info) Description 12/02/2024 Scanned Document [facility] Heart & Vascular [facility] [address] [place] [address] Bandar Schmitt MD [address] [place], [place] [id number] Social History Tobacco Use Types Packs/Day Years [...] Info) Description 07/22/2025 2:00 PM EDT Evaluation [facility] [address] [place] [address] Hugo Arias MD [address] [place] [address] Dianne Cash, PT [address] [place] [address] 08/06/2025 8:00 AM EDT Consult [facility] PHYSICAL MEDICINE & REHAB [place] [address] 85 [facility] [address] [place] [address] Sandro Sauer DO [address] [place], [place] [id number] 12/09/2025 3:00 PM EST Office Visit [facility] Heart & Vascular [facility] [address] [phone] Richard Bello MD [address] [id number] documented as of this encounter Visit Diagnoses Not on filedocumented in this encounter Additional Health Concerns Infection Onset Date Last Indicated Resolved Time R/O Respiratory Disease 01/07/2025 01/07/2025 02/ 7:55 AM EST documented as of this encounter Care Teams Conservation Scientist Relationship Specialty Start Date End Date Alice Carmen NP [address] [place] [address] PCP - General 08/07/24 Richard Bello MD [address] [place] [phone] Primary Clay Processing Factory Worker Cardiovascular Disease 08/07/24 Bandar Schmitt MD [address] [place], [place] [phone] Clay Processing Factory Worker Cardiac Electrophysiology 7/18/25 Yaneli Tesfaye, RN [address] [place] [address] Nurse Navigator Surgery, Neurosurgery 06/28/25 07/07/25 Beatriz Miller, PT [address] [address] Vulcanizing Machine OperatorCns Medicine and Rehabilitation 06/28/25 documented as of this encounter
--- OUTSIDE RECORDS SUMMARY | 2025-07-20 18:08 | XMS_ITS | Encounter Summary ---
Author Organization [facility] Address [address] [place] [address] Care Team Providers Care Driver/Merchandiser Name Role Phone Alice Carmen NP Primary Care Provider [phone] Richard Bello MD Unavailable [phone] Bandar Schmitt MD Unavailable Yaneli Beck RN Unavailable [phone] Beatriz Miller PT Unavailable [phone] Encounter Details Date Type Department Care Team (Late st Contact Info) Description 03/27/2025 Scanned Document [facility] 80 [facility] [address] [place] [address] Provider, Generic Social History Tobacco Use Types Packs/Day Years Used Date Smoking Tobacco: Never Smokeless Tobacco: Never Alcohol Use Standard Drinks/Week Comments Never 0 (1 standard drink = 0.6 oz pur e alcohol) [facility] Utilities Answer Date Recorded In the past 12 months has [employer], gas, oil, or water [employer] threatened to shut off services in your home? No 03/27/2025 AUDIT-C Answer Date Recorded Q1: How often do you have a drink containing alcohol? Never 03/27/2025 Q2: How many drinks containi ng alcohol do you have on a typical day when you are drinking? Patient does not drink Q3: How often do you have si x or more drinks on one occasion? Never 03/27/2025 Overall Financial Resource Strain (CARDIA) Answe r Date Recorded How hard is it for you to pa y for the very basics like food, housing, medical care, and heating? Somewhat hard 03/27/2025 Hunger Vital Sign Answer Date Recorded Within the past 12 months, y ou worried that your food would run out before you got the money to buy more. Never true 03/27/20 25 Within the past 12 months, t he food you bought just didn't last and you didn't have money to get more. Never true 03/27/2025 PRAPARE - Transportation Answer Date Re corded In the past 12 months, has l ack of transportation kept you from medical appointments or from getting medications? No 03/18 In the past 12 months, has l ack of transportation kept you from meetings, work, or from getting things needed for daily living? No 03/27/2025 Housing Stability Vital Sign Answer Warner e Recorded In the last 12 months, was t here a time when you were not able to pay the mortgage or rent on time? No 03/27/2025 In the past 12 months, how m any times have you moved where you were living? 0 03/27/2025 At any time in the past 12 m [facility], were you homeless or living in a fpc (including now)? No 03/27/2025 Comments Unknown Sex and Gender Information Value Date Recorded Sex Assigned at Female 07/23/2024 4:21 PM EDT Legal Sex Female 6:41 PM EDT Gender Identity Female 01/05/2025 1:54 PM EST Sexual Orientation Heterosexual (straight) 01/05 1:54 PM EST documented as of this encounter Functional Status * Audit-C Score Answer Date of Assessment Author 0 03/27/2025 3:27 PM EDT Jayesh Reid RN * Question Answer Date of Assessment Author Q1: How often do you have a drink containing alcohol? Never 03/27/2025 3:27 PM EDT Jayesh Reid RN Q2: How many drinks containing alcohol do you have on a typical day when you are drinking? Patient does not drink 03/27/2025 3:27 PM EDT Jayesh Reid RN Q3: How often do you have six or more drinks on one occasion? Never 03/27/2025 3:27 PM EDT Jayesh Reid RN documented as of this encounter Plan of Treatment Upcoming Encounters Date Type Department Care Team (Late st Contact Info) Description 07/22/2025 2:00 PM EDT Evaluation [facility] [address] [place] [phone] Hugo Arias MD [address] [place] [address] Dianne Cash, PT [address] [place] [address] 08/06/2025 8:00 AM EDT Consult [facility] PHYSICAL MEDICINE & REHAB [facility] [address] 85 [facility] [address] [place] [phone] Sandro Sauer DO [address] [place] [address] 12/09/2025 3:00 PM EST Office Visit [facility] Heart & Vascular [place] [address] [place] [phone] Richard Bello MD [address] [place] [address] documented as of this encounter Visit Diagnoses Not on filedocumented in this encounter Care Teams Driver/Merchandiser Relationship Specialty Start Date End Date Alice Carmen NP [address] [place] [address] PCP - General 08/07/24 Richard Bello MD [address] [place] [id number] Primary Painter And Body Mechanic Apprentice Cardiovascular Disease 08/07/24 Bandar Schmitt MD [address] [place] [address] Painter And Body Mechanic Apprentice Cardiac Electrophysiology 06/04/25 Yaneli Tesfaye, RN [address] [place] [address] Nurse Navigator Surgery, Neurosurgery 06/28/25 07/07/25 Beatriz Miller, PT [address] [address] Outreach CounselorRecruiting And Selection Consultant Medicine and Rehabilitation 06/28/25 documented as of this encounter
--- OUTSIDE RECORDS SUMMARY | 2025-07-20 18:08 | XMS_ITS | Encounter Summary ---
Author Organization [facility] Address [address] [place] [address] Care Team Providers Care Energy Consultant Name Role Phone Alice Carmen NP Primary Care Provider [phone] Richard Bello MD Unavailable [phone] Bandar Schmitt MD Unavailable Yaneli Beck RN Unavailable [phone] Beatriz Miller PT Unavailable [phone] Encounter Details Date Type Department Care Team (Late st Contact Info) Description 01/15/2025 Scanned Document [facility] Cardiothoracic Surgery [place] [address] [place] [phone] Cardiology, Scan Social History Tobacco Use Types Packs/Day Years Used Date Smoking Tobacco: Never Smokeless Tobacco: Never Alcohol Use Standard Drinks/Week Comments Never 0 (1 standard drink = 0.6 oz pur e alcohol) [facility] Utilities Answer Date Recorded In the past 12 months has [employer], gas, oil, or water [employer] threatened to shut off services in your [...] any time in the past 12 m [facility], were you homeless or living in a jail (including now)? No 01/08/2025 Comments Unknown Sex [...] Info) Description 07/22/2025 2:00 PM EDT Evaluation [facility] [address] [place] [address] Hugo Arias MD [address] [place] [address] Dianne Cash, PT [address] [place] [address] 08/06/2025 8:00 AM EDT Consult [facility] PHYSICAL MEDICINE & REHAB [place] [address] [facility] [address] [place] [address] Sandro Sauer DO [address] [place], [place] [phone] 12/09/2025 3:00 PM EST Office Visit [facility] Heart & Vascular [facility] [address] [place] [address] Richard Bello MD [address] [place] [address] documented as of this encounter Procedures Procedure Name Priority Date/Time Associated Diagnosis Comments CARDIOLOGY ANGIOGRAM 01/24/2025 documented in this encounter Results * CARDIOLOGY ANGIOGRAM (01/24/2025) Anatomical Region Laterality Modality Other us Scan Cardiology HX AMB PROCEDURES Final Result documented in this encounter Visit Diagnoses Not on filedocumented in this encounter Care Teams Energy Consultant Relationship Specialty Start Date End Date Alice Carmen NP [address] [place] [address] PCP - General 08/07/24 Richard Bello MD [address] [place] [address] Primary Deflector Operator Cardiovascular Disease 08/07/24 Bandar Schmitt MD [address] [place] [address] Deflector Operator Cardiac Electrophysiology 06/04/25 Yaneli Tesfaye RN [address] [place], [place] [phone] Nurse Navigator Surgery, Neurosurgery 06/28/25 07/07/25 Beatriz Miller, PT 85 [facility] [address] [place] [phone] Manager MissionTool And Machine Maintainer Medicine and Rehabilitation 06/28/25 documented as of this encounter
--- OUTSIDE RECORDS SUMMARY | 2025-07-20 18:08 | XMS_ITS | Clinical Summary ---
Author Organization [facility] Address [address] [place] [address] Care Team Providers Care Bill Cutter Name Role Phone Ref, Has No Pcp Or Primary Care Provider Unavail able Allergies Active Allergy Reactions Criticality Noted Date Comments Diphenhydramine Hcl Arrhythmia High 06/07/2025 Methocarbamol Ventricular Tachycardia Penicillins Hives 06/07/2025 Sulfa (Sulfonamide Antibiotics) Hives 06/07/2025 Ondansetron Hcl Arrhythmia High 06/07/2025 Medications clonazePAM (KlonoPIN) 1 mg tablet Take 1 mg by mouth 3 times a day. 05/25/2025 Active colchicine (COLCRYS) 0.6 mg tablet Take 0.6 mg by mouth 2 times daily. 01/13/2025 Active ibuprofen (MOTRIN) 800 mg tablet Take 800 mg by mouth every 8 hours as needed for pain. 02/27/2025 Active propranoloL (INDERAL) 20 mg tablet Take 20 mg by mouth 2 times daily. Active Active Problems Problem Noted Date Diagnosed Date Weakness 06/08/2025 Encounters Date Type Department Care Team Description 06/07/2025 7:15 PM EDT - 06/08/2025 12:08 PM EDT Hospital Encounter [facility] Emergency Department [address] [place] [address] Simone Ortiz MD [facility] MD Brigitte Donis, Arturo Cast MD Acute midline low back pain without sciatica (Primary Dx) Discharge Disposition: Home or Self Care () from Last 3 Months Social History Tobacco Use Types Packs/Day Years Used Date Smoking Tobacco: Never Smokeless Tobacco: Never Tobacco Cessation:Counseling Given: Not Answered Alcohol Use Standard Drinks/Week Comments Never 0 (1 standard drink = 0.6 oz pur e alcohol) Comments No Sex and Gender Information Value Date Recorded Sex Assigned at Female 06/07/2025 7:05 PM EDT Legal Sex Female 7:01 PM EDT Gender Identity Female 06/07/2025 7:05 PM EDT Sexual Orientation Not on file Last Filed Vital Signs Vital Sign Reading Time Taken Comments Blood Pressure 102/80 06/08/2025 8:00 AM EDT Pulse 75 06/08/2025 8:00 AM EDT Temperature 36.8 C (98.3 F) 06/07/2025 7:11 PM EDT Respiratory Rate 17 06/08/2025 8:00 AM EDT Oxygen Saturation 99% 06/08/2025 8:00 AM EDT Inhaled Oxygen Concentration - - Weight 83.9 kg (185 lb) 06/07/2025 7:11 PM EDT Height 185.4 cm (6' 1 ) 06/07/2025 7:11 PM EDT Body Mass Index 24.41 06/07/2025 7:11 PM EDT Plan of Treatment Health Maintenance Due Date Last Done Comments Cervical Cancer Screening 1991 HIV Screening 1991 HPV and Pap Smear 1991 Pap Smear 1991 Varicella Vaccines (1 of 2 - 13+ 2-dose series) 2004 Hepatitis B Vaccines (1 of 3 - 19+ 3-dose series) 2010 Alcohol/Substance Use Screening 11/18/2024 Depression Screening and Follow-Up 11/18/2024 Social Drivers of Health Tereza ual Screening 11/18/2024 COVID-19 Vaccine (1 - 2023-2 5 season) 2025 Influenza Vaccine (#1) 2025 09/13/2022 DTaP,Tdap,and Td Vaccines (2 - Td or Tdap) 06/28/2032 06/28/2022 RSV Vaccine (60+ years old a nd patients) (1 - 1-dose 75+ series) 2066 Hepatitis C Screening Completed 07/12/2022 Pneumococcal Vaccine: Pediat torin (0-5 Years) and At-Risk Patients (6-50 Years) Aged Out No longer eligible b ased on patient's age to complete this topic Procedures * Due to [place] [employer] law, this organization might not be sharing negative HIV tests. Procedure Name Priority Date/Time Associated Diagnosis Comments MRI LUMBAR SPINE WO CONTRAST STAT 06/07/2025 8:30 PM EDT HCG, QUALITATIVE, SERUM STAT 06/07/2025 8:14 PM EDT COMPREHENSIVE METABOLIC PANEL STAT 06/07/2025 8:14 PM EDT CBC AUTO DIFFERENTIAL STAT 06/07/2025 8:14 PM EDT from Last 3 Months Results * Due to [place] [employer] law, this organization might not be sharing negative HIV tests. * MRI Lumbar Spine without Contrast (06/07/2025 8:30 PM EDT) Anatomical Region Laterality Modality Spine, L-spine Magnetic Resonan ce 06/07/2025 8:00 PM EDT Impressions 06/07/2025 9:22 PM EDT Lumbar degenerative disease as above. END OF IMPRESSION If this radiology report contains a blank impression section, it is an incomplete radiology report. Please contact the interpreting radiologist or applicable radiology division as soon as possible to obtain the completed interpretation. Workstation ID: [id number] Narrative 06/07/2025 9:22 PM EDT PROCEDURE: MRI LUMBAR SPINE WO CONTRAST INDICATION: 35 years Female who presents with/for Low back pain, no red flags, no prior management TECHNIQUE: As Above. COMPARISON: None FINDINGS: Straightening of normal lumbar lordosis, nonspecific and possibly positional. Lumbar vertebral body heights are preserved. Bone marrow signal within normal limits. The spinal cord ends in good position above the level of L2. The terminal spinal cord, conus medullaris, and cauda equina are normal in course, caliber, and signal. Paravertebral soft tissues without evidence of acute pathology. L2 vertebral body hemangioma. Degenerative disc disease at L4-L5 and L5-S1 with left posterior paracentral disc protrusion. This is most pronounced at L4-L5. Moderate left asymmetric narrowing of the thecal sac at L4-L5 and mild left asymmetric narrowing of the thecal sac at L5-S1. The L5-S1 disc abuts the left L5 and S1 nerves but is without significant mass effect. Resulting Agency Comment [id number] Procedure Note Rick Tineo MD - 06/07/2025 PROCEDURE: MRI LUMBAR SPINE WO CONTRAST INDICATION: 35 years Female who presents with/for Low back pain, no redflags, no prior management TECHNIQUE: As Above. COMPARISON: None FINDINGS: Straightening of normal lumbar lordosis, nonspecific and possiblypositional. Lumbar vertebral body heights are preserved. Bone marrowsignal within normal limits. The spinal cord ends in good position abovethe level of L2. The terminal spinal cord, conus medullaris, and caudaequina are normal in course, caliber, and signal. Paravertebral softtissues without evidence of acute pathology. L2 vertebral bodyhemangioma. Degenerative disc disease at L4-L5 and L5-S1 with left posteriorparacentral disc protrusion. This is most pronounced at L4-L5. Moderateleft asymmetric narrowing of the thecal sac at L4-L5 and mild leftasymmetric narrowing of the thecal sac at L5-S1. The L5-S1 disc abuts theleft L5 and S1 nerves but is without significant mass effect. IMPRESSION: Lumbar degenerative disease as above. END OF IMPRESSION If this radiology report contains a blank impression section, it is anincomplete radiology report. Please contact the interpreting radiologistor applicable radiology division as soon as possible to obtain thecompleted interpretation. Workstation ID: [id number] us [facility] IM MRI PROCEDURES Final Re sult * (ABNORMAL) CBC Auto Differential (06/07/2025 8:14 PM EDT) WBC 6.7 4.8 - 10.8 10*3/uL 06/07/2025 8:33 PM EDT [facility] RBC 4.43 4.20 - 5.40 10*6/uL 06/07/2025 8:33 PM EDT [facility] Hemoglobin 11.1(L) 11.7 - 15.5 g/dL 06/07/2025 8:33 PM EDT [facility] Hematocrit 34.9(L) 35.7 - 45.8 % 06/07/2025 8:33 PM EDT [facility] MCV 78.8(L) 81.0 - 99.0 fL 06/07/2025 8:33 PM EDT [facility] MCH 25.1(L) 26.0 - 34.0 pg 06/07/2025 8:33 PM EDT [facility] MCHC 31.8 31.0 - 36.0 g/dL 06/07/2025 8:33 PM EDT [facility] RDW 14.4 12.0 - 15.0 % 06/07/2025 8:33 PM EDT [facility] RDW Standard Deviation 41.3 36.4 - 46.3 fL 06/07/2025 8:33 PM EDT [facility] Platelets 397 140 - 440 10*3/uL 06/07/2025 8:33 PM EDT [facility] MPV 8.8(L) 9.4 - 12.3 fL 06/07/2025 8:33 PM EDT [facility] Neutrophil % 48.9(L) 50.0 - 75.0 % 06/07/2025 8:33 PM EDT [facility] Immature Grans % 0.3 0.0 - 0.9 % 06/07/2025 8:33 PM EDT [facility] Lymphocyte % 39.7 20.0 - 44.0 % 06/07/2025 8:33 PM EDT [facility] Monocyte % 9.0 0.0 - 14.0 % 06/07/2025 8:33 PM EDT [facility] Eosinophil % 1.2 0.0 - 5.0 % 06/07/2025 8:33 PM EDT [facility] Basophil % 0.9 0.0 - 2.0 % 06/07/2025 8:33 PM EDT [facility] Neutrophil # 3.27 1.80 - 7.70 10*3/uL 06/07/2025 8:33 PM EDT [facility] Immature Grans # <0.03 0.00 - 0.03 10*3/uL 06/07/2025 8:33 PM EDT [facility] Lymphocyte # 2.70 1.00 - 4.75 10*3/uL 06/07/2025 8:33 PM EDT [facility] Monocyte # 0.60 0.00 - 0.60 10*3/uL 06/07/2025 8:33 PM EDT [facility] Eosinophil # 0.10 0.00 - 0.80 10*3/uL 06/07/2025 8:33 PM EDT [facility] Basophil # 0.10 0.00 - 0.20 10*3/uL 06/07/2025 8:33 PM EDT [facility] nRBC % 0.0 0 - 0 /100 WBCs 06/07/2025 8:33 PM EDT [facility] nRBC # <0.01 0.00 - 0.13 10*3/uL 06/07/2025 8:33 PM EDT [facility] Blood Structure of peripheral vein / Unknown Venipuncture / Unknown 06/07/2025 8:14 PM EDT 06/07/2025 8:30 PM EDT [facility] BLOOD ORDERABLES Final Result [facility] [address] [place] [address], [place] [phone] * hCG, Qualitative, Serum (06/07/2025 8:14 PM EDT) HCG Qualitative, Serum Negative Negative [place] [facility] 06/07/2025 8:44 PM EDT [facility] Blood Structure of peripheral vein / Unknown Venipuncture / Unknown 06/07/2025 8:14 PM EDT 06/07/2025 8:30 PM EDT [facility] BLOOD ORDERABLES Final Result [facility] [address] [place] [address], [place] [phone] * (ABNORMAL) Comprehensive Metabolic Panel (06/07/2025 8:14 PM EDT) NA 135(L) 136 - 145 mmol/L 06/07/2025 8:50 PM EDT [facility] K 4.1 3.5 - 5.1 mmol/L 06/07/2025 8:50 PM EDT [facility] Cl 102 98 - 109 mmol/L 06/07/2025 8:50 PM EDT [facility] CO2 22 22 - 32 mmol/L 06/07/2025 8:50 PM EDT [facility] Anion Gap 15 >=0 06/07/2025 8:50 PM EDT [facility] Glucose 88 60 - 99 mg/dL 06/07/2025 8:50 PM EDT [facility] Creatinine 0.61 0.50 - 1.12 mg/dL 06/07/2025 8:50 PM EDT [facility] Calcium 9.5 8.4 - 10.4 mg/dL 06/07/2025 8:50 PM EDT [facility] Total Protein 7.7 6.6 - 8.7 g/dL 06/07/2025 8:50 PM EDT [facility] Albumin 4.3 3.5 - 5.0 g/dL 06/07/2025 8:50 PM EDT [facility] Bilirubin, Total 0.2 0.2 - 1.2 mg/dL 06/07/2025 8:50 PM EDT [facility] Alkaline Phosphatase 60 40 - 129 U/L 06/07/2025 8:50 PM EDT [facility] AST 19 0 - 33 U/L 06/07/2025 8:50 PM EDT [facility] ALT 24 <=33 U/L 06/07/2025 8:50 PM EDT [facility] BUN 16 6 - 20 mg/dL 06/07/2025 8:50 PM EDT [facility] eGFR >90 >=60 mL/min/1. 73m2 06/07/2025 8:50 PM EDT [facility] Comment:The estimated glomer ular filtration rate (eGFR) is calculated using a new formula developed by the NKF-ASN task force to eliminate race-based correction factors. The new formula uses serum/plasma creatinine, age, and gender to determine eGFR. A value below 60mls/min might indicate kidney disease and will be flagged. For additional information, see Mian et al, Am J Kidney Dis. 2021;79(2):268- 288, A Unifying Approach for GFR estimation: Recommendations of the NKF-ASN Task Force on Reassessing the Inclusion of Race in Diagnosing Kidney Disease . Globulin, Total 3.4 2.1 - 4.2 g/dL 06/07/2025 8:50 PM EDT [facility] A/G Ratio 1.3(L) 1.5 - 3.0 06/07/2025 8:50 PM EDT [facility] Blood Structure of peripheral vein / Unknown Venipuncture / Unknown 06/07/2025 8:14 PM EDT 06/07/2025 8:30 PM EDT [facility] BLOOD ORDERABLES Final Result [facility] [address] [place] [address], from Last 3 Months Insurance [employer] Care Teams Bill Cutter Relationship Specialty Start Date End Date Ref, Has No Pcp Or DO NOT EDIT THIS RECORD VIA PROVIDER ON THE FLY PCP - General Social Work Specialist 06/07/25
--- OUTSIDE RECORDS SUMMARY | 2025-07-20 18:08 | XMS_ITS | Encounter Summary ---
Author Organization [facility] Address [address] [place] [phone] Phone Care Team Providers Care Micro Lab Analyst Name Role Phone Alice Carmen TRAINING AND DEVELOPMENT ASSISTANT Primary Care Provider [phone] Encounter Details Date Type Department Care Team (Late st Contact Info) Description 04/18/2025 Procedure Pass [facility], [address] [address] Social History Tobacco Use Types Packs/Day Years Used Date Smoking Tobacco: Never Smokeless Tobacco: Never Alcohol Use Standard Drinks/Week Comments Not Currently 0 (1 standard drink = 0.6 oz pur e alcohol) sober x 5 years Child or Family Care Answer Date Record ed Do you have problems with on e of the following making it difficult for you to work, study, or receive health care? No 07/09/2022 Education Answer Date Recorded Are you interested in more education? Not on vanessa e 07/10/2024 Are you concerned about learning? Not on file 07/10/2024 No 07/10/2024 No 07/10/2024 Food Answer Date Recorded Within the past 6 months we worried whether our food would run out before we got money to buy more. Never True 04/19/2025 Within the past 6 months the food we bought just didn't last and we didn't have enough money to get more. Never True Residential Stability Answer Date Recor ded What is your housing situation today? I have leonie sing 04/19/2025 How many times have you move d in the past 12 months? Zero (I did not move) 04/19/2025 Paying for Meds Answer Date Recorded Do you have trouble paying for medicines? No 04/19/2025 Paying Utility Bills Answer Date Record ed Do you have trouble paying your heating or elect ricity bill? No 04/19/2025 Transportation Answer Date Recorded Has the lack of transportati on kept you from medical appointments or from getting medications? No 04/19/2025 Unemployment Answer Date Recorded Are you currently unemployed or working on a part-time or temporary basis, and looking for work? No 07/09/2022 Digital Access Answer Date Recorded No 04/19/2025 Yes 04/19/2025 Do you have reliable internet access at home? Ye s 04/19/2025 Do you have a device (e.g., phone, tablet, computer) with a working camera? Yes 04/19/2025 Intimate Partner Violence Answer Date R ecorded Are you denied basic needs s uch as food, clothing, or medical care? No 04/19/2025 In the past 12 months have y ou been in a relationship with a person who hurts, threatens, or tries to control you? No 04/19/2025 Are you denied basic needs s uch as food, clothing, or medical care? No 04/19/2025 In the past 12 months have y ou been in a relationship with a person who hurts, threatens, or tries to control you? No 04/19/2025 Comments No Sex and Gender Information Value Date Recorded Sex Assigned at Female 03/03/2022 7:16 PM EDT Legal Sex Female 7:01 PM EDT Gender Identity Female 03/03/2022 7:16 PM EDT Sexual Orientation Straight 05/30/2023 3: 12 PM EDT documented as of this encounter Functional Status * Calculated C-SSRS Risk Score (Lifetime/Recent) Answer Date of Assessment Author No Risk Indicated 04/19/2025 8:53 PM EDT Brenda Ely RN * [place] Suicide Severity Rating Scale (Screener/Recent Self-Report) Question Answer Date of Assessment Author 1. Wish to be (Past 1 Month) No 04/19/2025 8:53 PM EDT Erin Herring RN 2. Non-Specific Active Suicidal Thoughts (Past 1 Month) No 04/19/2025 8:53 PM EDT Erin Herring RN 6. Suicidal Behavior (Lifetime) No 04/19/2025 8:53 PM EDT Erin Herring RN documented as of this encounter Plan of Treatment Not on file documented as of this encounter Visit Diagnoses Not on filedocumented in this encounter Additional Health Concerns Assessment Noted Time PHQ-2 Depression Total Score: 0 06/19/20 23 4:56 PM EDT documented as of this encounter Care Teams Micro Lab Analyst Relationship Specialty Start Date End Date Alice Carmen FNP [address] [place] [address], [address] [place] [address] [email or web address] PCP - General Family Medicine 09/28/22 documented as of this encounter Additional Source Comments The information contained in this document represents components of the legal health record. It is not the complete legal health record.[facility]
--- OUTSIDE RECORDS SUMMARY | 2025-07-20 18:08 | XMS_ITS | Encounter Summary ---
Author Organization [facility] Address [address] [place] [phone] Phone Care Team Providers Care Door To Door Salesman Name Role Phone Alice Carmen MEDICAL INSURANCE BILLER Primary Care Provider [phone] Encounter Details Date Type Department Care Team (Late st Contact Info) Description 10/15/2022 Procedure Pass [facility], [address] [address] Social History Tobacco Use Types Packs/Day Years [...] Answer Date Recorded Are you interested in help w ith more adult education (for example, completing high school, GED, job training, learning the Serbian language, technical skills, or developing parenting skills)? No 07/09/2022 Food Answer Date Recorded Within the past 6 months we worried whether our food would run out before we got money to buy more. Never True 07/09/2022 Within the past 6 months the food we bought just didn't last and we didn't have enough money to get more. Never True Residential Stability Answer Date Recor ded What is your housing situation today? I have leonie sing 07/09/2022 How many times have you moved in the past 12 sat ths? One time 07/09/2022 Paying for Meds Answer Date Recorded Do you have trouble paying for medicines? No 07/09/2022 Paying Utility Bills Answer Date Record ed Do you have trouble paying your heating or elect ricity bill? No 07/09/2022 Transportation Answer Date Recorded Has the lack of transportati on kept you from medical appointments or from getting medications? No 07/09/2022 Unemployment Answer Date Recorded Are you currently unemployed or working on a part-time or temporary basis, and looking for work? No 07/09/2022 Comments No Sex and Gender Information Value Date Recorded Sex Assigned at Female 03/03/2022 7:16 PM EDT Legal Sex Female 7:01 PM EDT Gender Identity Female 03/03/2022 7:16 PM EDT Sexual Orientation Straight 05/30/2023 3: 12 PM EDT documented as of this encounter Plan of Treatment Not on file documented as of this encounter Visit Diagnoses Not on filedocumented in this encounter Additional Health Concerns Infection Onset Date Last Indicated Resolved Time CoV-Risk 05/30/2023 05/30/2023 06/10/2023 1:21 AM EDT CoV-Risk 11/12/2024 11/12/2024 11/23/2024 1:22 AM EST CoV-Risk 01/01/2025 01/01/2025 01/12/2025 1:22 AM EST Assessment Noted Time PHQ-2 Depression Total Score: 0 07/09/20 11:33 AM EDT documented as of this encounter Care Teams Door To Door Salesman Relationship Specialty Start Date End Date Alice Carmen April, MEDICAL INSURANCE BILLER [address] [place] [address], [address] [place] [address] [email or web address] PCP - General Family Medicine 09/28/22 documented as of this encounter Additional Source Comments The information contained in this document represents components of the legal health record. It is not the complete legal health record.[facility]
--- OUTSIDE RECORDS SUMMARY | 2025-07-20 18:09 | XMS_ITS | Encounter Summary ---
Author Organization [facility] Address [address] [place] [address] Care Team Providers Care Warehouse Representative Name Role Phone Unavailable Primary Care Provider Unavailabl e Prior Encounters Date Type Department Care Team Description 12/07/2019 Converted 13x Documents [facility] [address] [facility] [address] [facility] [address] [place] [address] <No scans attached> Plan of Treatment Not on file Visit Diagnoses Not on file
--- OUTSIDE RECORDS SUMMARY | 2025-07-20 18:09 | XMS_ITS | Encounter Summary ---
Author Organization [facility] Address [address] [place] [address] Care Team Providers Care V/Stol Landing Signal Officer Name Role Phone Alice Carmen NP Primary Care Provider Richard Bello MD Unavailable [phone] Bandar Schmitt MD Unavailable Yaneli Tesfaye RN Unavailable [phone] Beatriz Miller PT Unavailable [phone] Encounter Details Date Type Department Care Team (Late Contact Info) Description 08/07/2024 Scanned Document [facility] [address] [facility] [address] [place] [phone] Provider, Generic Social History Tobacco Use [...] Info) Description 07/22/2025 2:00 PM EDT Evaluation [facility] [address] [place] [phone] Hugo Arias MD [address] [place] [id number] Dianne Cash, PT [address] [place] [address] 08/06/2025 8:00 AM EDT Consult [facility] [address] [facility] [address] [place] [address] Sandro Sauer DO [address] [place], [place] [id number] 12/09/2025 3:00 PM EST Office Visit [facility] [place] [address] [place] [address] Richard Bello MD [address] [place] [address] documented as of this encounter Visit Diagnoses Not on filedocumented in this encounter Additional Health Concerns Infection Onset Date Last Indicated Resolved Time R/O Respiratory Disease 01/07/2025 01/07/202512/20 7:55 AM EST documented as of this encounter Care Teams V/Stol Landing Signal Officer Relationship Specialty Start Date End Date Alice Carmen NP [address] [place] [address] PCP - General 08/07/24 Richard Bello MD [facility] [place] [address] Primary Branch Store Manager Cardiovascular Disease 08/07/24 Bandar Schmitt MD [address] [place] [address] Branch Store Manager Cardiac Electrophysiology 06/04/25 Yaneli Tesfaye, JIMI [address] [place] [address] Nurse Navigator Surgery, Neurosurgery 06/28/25 07/07/25 Beatriz Miller, PT [address] [address] Licensed ArchitectTour Narrator Medicine and Rehabilitation 06/28/25 documented as of this encounter
--- OUTSIDE RECORDS SUMMARY | 2025-07-20 18:09 | XMS_ITS | Clinical Summary ---
Author Organization [address] [place] [address] Address [address] [place] [address] Phone Care Team Providers Care Field Hauler Name Role Phone Physician, No Pcp Primary Care Provider Unavaila ble Allergies Active Allergy Reactions Criticality Noted Date Comments Diphenhydramine Hcl Cardiac Issue 05/10/2025 Penicillins Hives Medium 11/04/2015 Sulfa (Sulfonamide Antibiotics) Hives Medium 10/18 Ondansetron Hcl Cardiac Issue 05/10/2025 Long QT issues Medications clonazePAM (KlonoPIN) 2 mg tablet Take 1 [...] Active Problems Problem Noted Date Diagnosed Date Atypical mole 06/22/2025 History of atypical skin mole 06/22/2025 History of keloid of skin 06/22/2025 Chest pain 03/30/2025 Inappropriate sinus tachycardia (CMS/HCC V24) Pericarditis 03/30/2025 Encounters Date Type Department Care Team Description 07/13/[address] [place] [address] Trav Zarate, 06/23/[address] [place] [phone] Trav Zarate DO 06/22/2025 9:30 AM EDT Consult Plastic & Reconstructive Surgery [facility] [address] [place] [phone] Holland Rice PA Atypical mole (Primary Dx); History of atypical skin mole; History of keloid of skin 06/05/2025 3:15 PM EDT - 06/05/2025 5:44 PM EDT Emergency [facility] Emergency [address] [place] [phone] Warren Kelley MD Lyle, David C, MD Chest wall pain (Primary Dx) Discharge Disposition: Home or Self Care 05/11/2025 7:01 PM EDT - 05/11/2025 9:32 PM EDT Emergency [facility] Emergency [address] [place] [phone] Discharge Disposition: Left Against Medical Advice 05/10/2025 8:46 PM EDT - 05/10/2025 10:52 PM EDT Emergency [facility] Emergency [address] [place] [phone] Discharge Disposition: Left Against Medical Advice from Last 3 Months Surgical History Surgery Date Site/Laterality Comments CARDIAC CATHETERIZATION Pt states she had experimental cardiac surgery 3 months ago for Vtach. Medical History Medical History Date Comments Anxiety and depression History of pulmonary embolus (PE) Social History Tobacco Use Types Packs/Day Years [...] Sign Reading Time Taken Comments Blood Pressure 122/92 06/22/2025 9:20 AM EDT Pulse 78 06/22/2025 9:20 AM EDT Temperature 37.2 C (99 F) 06/05/2025 3:09 PM EDT Respiratory Rate 16 06/05/2025 4:53 PM EDT Oxygen Saturation 100% 06/05/2025 4:53 PM EDT Inhaled Oxygen Concentration - - Weight 90.4 kg (199 lb 3.2 oz) 06/22/2025 9:20 A M EDT Height 181.6 cm (5' 11.5 ) 06/22/2025 9:20 AM ED T Body Mass Index 27.4 06/22/2025 9:20 AM EDT Plan of Treatment Upcoming Encounters Date Type Department Care Team (Late st Contact Info) Description 07/28/2025 9:00 AM EDT Procedure visit Plastic & Reconstructive Surgery - [place] [address] [address] Trav Zarate DO [address] [place] [address] 08/09/2025 11:00 AM EDT Office Visit Plastic & Reconstructive Surgery [facility] [address] [phone] Mariam Sanchez PA [address] [place] [address] Health Maintenance Due Date Last Done Comments Hepatitis B Vaccines (1 of 3 - 19+ 3-dose series) 2010 Cervical Cancer Screening: Pap Smear 2012 Cholesterol Screening (Lipid Panel) 12/17/2023 HIV Screening 12/17/2023 Social Influencers of Health Screening 12/17/2023 Depression Screening 11/18/2024 COVID-19 Vaccine (2 - season) 2025 05/18/2022 Influenza Vaccine (#1) 2025 09/13/2022 Hypertension/CHF/CAD Annual BMP Blood Test 06/16/2026 06/16/2025, 06/05/2025, 05/11/2025, Additional history exists DTaP,Tdap,and Td Vaccines (2 - Td or Tdap) 06/28/2032 06/28/2022 Hepatitis C Screening Completed 07/12/2022 HIB Vaccines Aged Out No longer eligi [...] age to complete this topic Pneumococcal Vaccine: Pediatrics (0 to 5 Years) and At-Risk Patients (6 to 49 Years) Aged Out No longer eligible based on patient's age to complete this topic RSV Immunization Patients Under 20 months Aged Out No longer eligible based on patient's age to complete this topic Varicella Vaccines Aged Out No longer eligible based on patient's age to complete this topic Procedures Procedure Name Priority Date/Time Associated Diagnosis Comments ECG ANNOTATED 06/07/2025 XR CHEST 2 VIEWS STAT 06/05/2025 5:08 PM EDT POC , URINE DIAGNOSTIC STAT 06/05/2025 4:38 PM EDT CBC WITH AUTO DIFFERENTIAL STAT 06/05/2025 3:27 PM EDT LIPASE STAT 06/05/2025 3:27 PM EDT COMPREHENSIVE METABOLIC PANEL STAT 06/05/2025 3:27 PM EDT TROPONIN I HIGH SENSITIVITY STAT 06/05/2025 3:27 PM EDT CBC AND DIFFERENTIAL STAT 06/05/2025 3:27 PM EDT B-TYPE NATRIURETIC PEPTIDE STAT 06/05/2025 3:27 PM EDT D-DIMER STAT 06/05/2025 3:27 PM EDT ECG 12-LEAD STAT 06/05/2025 3:03 PM EDT ECG ANNOTATED 05/12/2025 CBC WITH AUTO DIFFERENTIAL [...] from Last 3 Months Results * ECG-Annotated (06/07/2025) Only the most recent of3 resultswithin the time period is included. us Provider Onbase MD ECG ORDERABLES Final Result * XR Chest 2 Views (06/05/2025 5:08 PM EDT) Anatomical Region Laterality Modality Body Radiographic Holly ging 06/06/2025 8:05 AM EDT Impressions 06/06/2025 8:07 AM EDT No acute chest disease. -------- FINAL REPORT -------- Dictated By: Cecilio Metz Dictated Date: 06/06/2025 08:05 ET Assigned Physician: Cecilio Metz Reviewed and Electronically Signed By: Cecilio Metz Signed Date: 06/06/2025 08:07 ET Workstation ID: [id number] Transcribed By: Self Edit Transcribed Date: 06/06/2025 08:05 ET Narrative 06/06/2025 8:07 AM EDT EXAMINATION: CHEST CLINICAL INFORMATION: Chest pain COMPARISON: Frontal view 07/13/24 TECHNIQUE: 2 views of the chest FINDINGS: Cardiac size within normal limits. The mediastinal contours, aimee, and vasculature are within normal limits. There are large lung volumes. There is no pneumonia or major zone of atelectasis. The visualized pleural margins are within normal limits. No suspicious focal bony lesions. No evidence of pneumoperitoneum. Procedure Note Cecilio Metz MD - 06/06/2025 EXAMINATION: CHEST CLINICAL INFORMATION: Chest pain COMPARISON: Frontal view 07/13/24 TECHNIQUE: 2 views of the chest FINDINGS: Cardiac size within normal limits. The mediastinal contours, aimee, andvasculature are within normal limits. There are large lung volumes. Thereis no pneumonia or major zone of atelectasis. The visualized pleural margins are within normal limits. No suspicious focal bony lesions. No evidence of pneumoperitoneum. IMPRESSION: No acute chest disease. -------- FINAL REPORT -------- Dictated By: Cecilio Metz Dictated Date: 06/06/2025 08:05 ET Assigned Physician: Cecilio Metz Reviewed and Electronically Signed By: Cecilio Metz Signed Date: 06/06/2025 08:07 ET Workstation ID: [id number] Transcribed By: Self Edit Transcribed Date: 06/06/2025 08:05 ET Shankar Watts MD IMG XR PROCEDURES Final Result * POC , urine manually resulted (06/05/2025 4:38 PM EDT) HCG, Ur POC Negative Negative POC hCG Int QC Pass? Yes Yes EXPIRATION DATE POC 2027-01-05 LOT NUMBER POC [id number] Urine Urine specimen obtained by clean catch procedure / Unknown 06/05/2025 4:38 PM EDT Shankar Watts MD POINT OF CARE TEST ENTER/EDIT OR DERABLES Final Result * Troponin I high sensitivity (06/05/2025 3:27 PM EDT) Only the most recent of2 resultswithin the time period is included. [facility] High Sensitivity Troponin I <3 <=54 ng/L LAB CHEMISTRY METHOD 06/05/2025 4:04 PM EDT [facility] Blood Venous blood specimen / Unknown Venipuncture / Unknown 06/05/2025 3:27 PM EDT 06/05/2025 3:36 PM EDT Narrative [facility] - 06/05/2025 4:04 PM EDT High levels of biotin in samples may falsely decrease hsTroponin values. Use caution when interpreting hsTroponin results in patients taking biotin who exhibit renal impairment (eGFR <60) or in patients taking more than 20 mg/day of biotin. us Warren Kelley MD LAB BLOOD ORDERABLES Final Resul t [facility] [address] [place] [address], * (ABNORMAL) CBC auto differential (06/05/2025 3:27 PM EDT) Only the most recent of3 resultswithin the time period is included. [facility] WBC 6.1 4.8 - 10.8 K/mcL LAB HEMETOLOGY METHOD 06/05/2025 3:49 PM EDT [facility] RBC 3.90 3.80 - 4.80 M/mcL LAB HEMETOLOGY METHOD 06/05/2025 3:49 PM EDT [facility] Hemoglobin 9.9(L) 11.5 - 16.0 g/dL LAB HEMETOLOGY METHOD 06/05/2025 3:49 PM EDT [facility] Hematocrit 33.1(L) 35.0 - 47.0 % LAB HEMETOLOGY METHOD 06/05/2025 3:49 PM EDT [facility] MCV 84.0 79.0 - 98.0 FL LAB HEMETOLOGY METHOD 06/05/2025 3:49 PM EDT [facility] MCH 25.1(L) 27.0 - 32.0 pcg LAB HEMETOLOGY METHOD 06/05/2025 3:49 PM EDT [facility] MCHC 29.9(L) 32.0 - 37.0 g/dL LAB HEMETOLOGY METHOD 06/05/2025 3:[facility] RDW 14.5 11.0 - 15.0 % LAB HEMETOLOGY METHOD 06/05/2025 3:49 PM EDT [facility] Platelets 302 130 - 400 K/mcL LAB HEMETOLOGY METHOD 06/05/2025 3:[facility] MPV 10.1 7.0 - 11.0 FL LAB HEMETOLOGY METHOD 06/05/2025 3:49 [facility] NRBC 0.0 <1.0 % LAB HEMETOLOGY METHOD 06/05/2025 3:49 PM EDT [facility] NRBC Absolute 0.00 <0.10 K/mcL LAB HEMETOLOGY METHOD 06/05/2025 3:49 PM EDT [facility] Neutrophils Relative 56.9 % LAB HEMETOLOGY METHOD 06/05/2025 3:49 PM EDT [facility] Lymphocytes Relative 32.8 % LAB HEMETOLOGY METHOD 06/05/2025 3:49 PM EDT [facility] Monocytes Relative 7.9 % LAB HEMETOLOGY METHOD 06/05/2025 3:49 PM EDT [facility] Eosinophils Relative 1.5 % LAB HEMETOLOGY METHOD 06/05/2025 3:49 PM EDT [facility] Basophils Relative 0.7 % LAB HEMETOLOGY METHOD 06/05/2025 3:49 PM EDT [facility] Immature Granulocytes Relative 0.2 % LAB HEMETOLOGY METHOD 06/05/2025 3:49 PM EDT [facility] Neutrophils Absolute 3.46 1.50 - 7.00 K/mcL LAB HEMETOLOGY METHOD 06/05/2025 3:49 PM EDT [facility] Lymphocytes Absolute 1.99 1.00 - 5.00 K/mcL LAB HEMETOLOGY METHOD 06/05/2025 3:49 PM EDT [facility] Monocytes Absolute 0.48 0.20 - 1.00 K/mcL LAB HEMETOLOGY METHOD 06/05/2025 3:49 PM EDT [facility] Eosinophils Absolute 0.09 0.00 - 0.50 K/mcL LAB HEMETOLOGY METHOD 06/05/2025 3:49 PM EDT [facility] Basophils Absolute 0.04 0.00 - 0.20 K/mcL LAB HEMETOLOGY METHOD 06/05/2025 3:49 PM EDT [facility] Immature Granulocytes Absolute 0.01 0.00 - 0.03 K/mcL LAB HEMETOLOGY METHOD 06/05/2025 3:49 PM EDT [facility] Blood Venous blood specimen / Unknown Venipuncture / Unknown 06/05/2025 3:27 PM EDT 06/05/2025 3:36 PM EDT us Warren Kelley MD LAB BLOOD ORDERABLES Final Resul t [facility] [address] [place] [address], * D-Dimer (06/05/2025 3:27 PM EDT) D-Dimer, Quant (D-DU) <150 <=230 ng/mL DDU LAB COAGULATION METHOD 06/05/2025 4:04 PM EDT [facility] Blood Venous blood specimen / Unknown Venipuncture / Unknown 06/05/2025 3:27 PM EDT 06/05/2025 3:36 PM EDT Narrative [facility] - 06/05/2025 4:04 PM EDT D-Dimer <230 ng/mL (D-Dimer units) is the threshold for exclusion of DVT/PE. D-Dimer may be elevated in: Critically ill, severely infected, trauma patients, DIC, acute CVA, acute SD, unstable angina, AF, old age, , and smoking. D-Dimer may be decreased with: Initiation of heparin therapy and oral anticoagulants. us Warren Kelley MD LAB BLOOD ORDERABLES Final Resul t Performing Organization Address [facility]/ZIP Co de Phone Number [facility] [address] [place] [address], [place] [phone] * (ABNORMAL) B-type natriuretic peptide (06/05/2025 3:27 PM EDT) Only the most recent of2 resultswithin the time period is included. BNP 203(H) <=100 pcg/mL LAB CHEMISTRY METHOD 06/05/2025 4:12 PM EDT [facility] Blood Venous blood specimen / Unknown Venipuncture / Unknown 06/05/2025 3:27 PM EDT 06/05/2025 3:36 PM EDT us Warren Kelley MD LAB BLOOD ORDERABLES Final Resul t Performing Organization Address [facility]/ZIP Co de Phone Number [facility] [address] [place] [address], [place] [phone] * Lipase (06/05/2025 3:27 PM EDT) Only the most recent of2 resultswithin the time period is included. Lipase 35 13 - 75 unit/L LAB CHEMISTRY METHOD 06/05/2025 4:04 PM [facility] Blood Venous blood specimen / Unknown Venipuncture / Unknown 06/05/2025 3:27 PM EDT 06/05/2025 3:36 PM EDT us Warren Kelley MD LAB BLOOD ORDERABLES Final Resul t [facility] [address] [place] [address], [place] [phone] * Comprehensive metabolic panel (06/05/2025 3:27 PM EDT) Only the most recent of2 resultswithin the time period is included. Pathologist [facility] Sodium 136 133 - 145 mmol/L LAB CHEMISTRY METHOD 06/05/2025 4:06 PM [facility] Potassium 4.6 3.5 - 5.5 mmol/L LAB CHEMISTRY METHOD 06/05/2025 4:06 PM [facility] Chloride 108 96 - 110 mmol/L LAB CHEMISTRY METHOD 06/05/2025 4:06 PM [facility] CO2 24 21 - 32 mmol/L LAB CHEMISTRY METHOD 06/05/2025 4:06 PM [facility] Anion Gap 4 3 - 11 LAB CHEMISTRY METHOD 06/05/2025 4:06 PM [facility] Glucose 89 70 - 100 mg/dL LAB CHEMISTRY METHOD 06/05/2025 4:06 PM [facility] BUN 15 5 - 25 mg/dL LAB CHEMISTRY METHOD 06/05/2025 4:06 PM [facility] Creatinine 0.56 0.50 - 1.10 mg/dL LAB CHEMISTRY METHOD 06/05/2025 4:06 PM [facility] eGFR 123 >=60 mL/min/1. 73m2 LAB CHEMISTRY METHOD 06/05/2025 4:06 PM [facility] Comment:Calculation based on the Chronic Kidney Disease Epidemiology Collaboration (CKD-EPI) equation refit without adjustment for race. BUN/Creatinine Ratio 26.8 LAB CHEMISTRY METHOD 06/05/2025 4:06 PM [facility] Calcium 8.5 8.5 - 10.5 mg/dL LAB CHEMISTRY METHOD 06/05/2025 4:06 PM [facility] AST (SGOT) 16 10 - 42 unit/L LAB CHEMISTRY METHOD 06/05/2025 4:06 PM [facility] ALT (SGPT) 36 10 - 60 unit/L LAB CHEMISTRY METHOD 06/05/2025 4:06 PM [facility] Alkaline Phosphatase 58 42 - 121 unit/L LAB CHEMISTRY METHOD 06/05/2025 4:06 PM [facility] Total Protein 6.5 6.0 - 8.0 g/dL LAB CHEMISTRY METHOD 06/05/2025 4:06 PM [facility] Albumin 3.2 3.2 - 5.0 g/dL LAB CHEMISTRY METHOD 06/05/2025 4:06 PM [facility] Total Bilirubin 0.2 0.0 - 1.4 mg/dL LAB CHEMISTRY METHOD 06/05/2025 4:06 PM [facility] Blood Venous blood specimen / Unknown Venipuncture / Unknown 06/05/2025 3:27 PM EDT 06/05/2025 3:36 PM EDT us Warren Kelley MD LAB BLOOD ORDERABLES Final Resul t [facility] [address] [place] [address], * ECG 12 lead (06/05/2025 3:03 PM EDT) Only the most recent of3 resultswithin the time period is included. Ventricular Rate ECG 81 BPM GEMUSE Atrial Rate 81 BPM GEMUSE P-R Interval 158 ms GEMUSE QRS Duration 62 ms GEMUSE Q-T Interval 364 ms GEMUSE QTc 422 ms GEMUSE P Wave [place] 59 degrees GEMUSE R [place] 17 degrees GEMUSE T [place] 82 degrees GEMUSE ECG Interpretation Normal sinus rhythm Normal ECG When compared with ECG of 11-MAY-2025 19:48, No significant change was found Confirmed by LISETTE BARAHONA ([id number]) on 06/06/2025 8:33:51 AM GEMUSE 06/05/2025 3:03 PM EDT 06/06/2025 8:33 AM EDT Warren Kelley MD ECG ORDERABLES Final Result Performing Organization Address City/[facility]/ZIP Co de Phone Number GEMUSE * APTT (05/11/2025 8:00 PM EDT) aPTT 29.8 24.1 - 39.3 sec LAB COAGULATION METHOD 05/11/2025 8:16 PM EDT [facility] Blood Venous blood specimen / Unknown Venipuncture / Unknown 05/11/2025 8:00 PM EDT 05/11/2025 8:03 PM EDT us Brenda FELTON LAB BLOOD ORDERABLES Final Res ult Performing Organization Address City/[facility]/ZIP Co de Phone Number [facility] [address] [place] [address], [place] [phone] * Prothrombin time with INR (05/11/2025 8:00 PM EDT) Protime 11.2 10.6 - 13.9 sec LAB COAGULATION METHOD 05/11/2025 8:16 PM EDT [facility] INR 0.9 LAB COAGULATION METHOD 05/11/2025 8:16 PM [facility] Blood Venous blood specimen / Unknown Venipuncture / Unknown 05/11/2025 8:00 PM EDT 05/11/2025 8:03 PM EDT us Brenda FELTON LAB BLOOD ORDERABLES Final Res ult [facility] [address] [place] [address], * Basic metabolic panel (05/11/2025 8:00 PM EDT) Sodium 135 133 - 145 mmol/L LAB CHEMISTRY METHOD 05/11/2025 8:31 PM [facility] Potassium 3.9 3.5 - 5.5 mmol/L LAB CHEMISTRY METHOD 05/11/2025 8:31 PM [facility] Chloride 104 96 - 110 mmol/L LAB CHEMISTRY METHOD 05/11/2025 8:31 PM [facility] CO2 24 21 - 32 mmol/L LAB CHEMISTRY METHOD 05/11/2025 8:31 PM [facility] Anion Gap 7 3 - 11 LAB CHEMISTRY METHOD 05/11/2025 8:31 PM [facility] Glucose 88 70 - 100 mg/dL LAB CHEMISTRY METHOD 05/11/2025 8:31 PM [facility] BUN 9 5 - 25 mg/dL LAB CHEMISTRY METHOD 05/11/2025 8:31 PM [facility] Creatinine 0.72 0.50 - 1.10 mg/dL LAB CHEMISTRY METHOD 05/11/2025 8:31 PM [facility] eGFR 113 >=60 mL/min/1. 73m2 LAB CHEMISTRY METHOD 05/11/2025 8:31 PM [facility] Comment:Calculation based on the Chronic Kidney Disease Epidemiology Collaboration (CKD-EPI) equation refit without adjustment for race. BUN/Creatinine Ratio 12.5 LAB CHEMISTRY METHOD 05/11/2025 8:31 PM EDT [facility] Calcium 9.1 8.5 - 10.5 mg/dL LAB CHEMISTRY METHOD 05/11/2025 8:31 PM EDT [facility] Blood Venous blood specimen / Unknown Venipuncture / Unknown 05/11/2025 8:00 PM EDT 05/11/2025 8:03 PM EDT Brenda FELTON LAB BLOOD ORDERABLES Final Res ult Performing Organization Address City/[facility]/ZIP Co de Phone Number [facility] [address] [place] [address], [place] [phone] * Magnesium (05/10/2025 9:27 PM EDT) Magnesium 2.3 1.9 - 2.6 mg/dL LAB CHEMISTRY METHOD 05/10/2025 10:50 PM EDT [facility] Blood Venous blood specimen / Unknown Venipuncture / Unknown 05/10/2025 9:27 PM EDT 05/10/2025 10:01 PM EDT Tod Barr MD LAB BLOOD ORDERABLES Final Result Performing Organization Address [facility]/ZIP Co de Phone Number [facility] [address] [place] [address], [place] [phone] from Last 3 Months Insurance [employer] Care Teams Field Hauler Relationship Specialty Start Date End Date Physician, No Pcp PCP - General 06/05/25
--- OUTSIDE RECORDS SUMMARY | 2025-07-20 18:09 | XMS_ITS | Clinical Summary ---
Author Organization [facility] Health Address [address] [place] [address] Care Team Providers Care Property Management Bookkeeper Name Role Phone Unavailable Primary Care Provider [...]
--- OUTSIDE RECORDS SUMMARY | 2025-07-20 18:09 | XMS_ITS | Encounter Summary ---
Author Organization [facility] Address [address] [place] [address] Phone Care Team Providers Care Joint Cutter Machine Name Role Phone Alice Carmen MAINTENANCE SHOP LABORER Primary Care Provider [phone] Encounter Details Date Type Department Care Team (Late st Contact Info) Description 08/11/2024 Procedure Pass [facility] Admitting Dept Virtual Department [address] [place] [address] Social History Tobacco Use Types Packs/Day Years [...] have you moved in the past 12 mon ths? One time 07/09/2022 Paying for Meds [...] 07/09/2022 Digital Access Answer Date Recorded No 04/09/2023 No 04/09/2023 Reliable internet access at home? Not on file 04/09/2023 Device with a working camera? Not on file Comments No Sex and Gender Information Value [...] Onset Date Last Indicated Resolved Time CoV-Risk 11/12/2024 11/12/2024 11/23/2024 1:22 AM EST CoV-Risk 01/01/2025 01/01/2025 01/12/2025 1:22 AM EST Assessment Noted Time PHQ-2 Depression Total Score: 0 06/19/20 4:56 PM EDT documented as of this encounter Care Teams Joint Cutter Machine Relationship Specialty Start Date End Date Alice Carmen Aye, LIZ [address] [place] [address], [address] [place] [address] [email or web address] PCP - General Family Medicine 09/28/22 documented as of this encounter Additional Source Comments The information contained in this document represents components of the legal health record. It is not the complete legal health record.[facility]
--- OUTSIDE RECORDS SUMMARY | 2025-07-20 18:09 | XMS_ITS | Encounter Summary ---
Author Organization [facility] Address [address] [place] [address] Phone Care Team Providers Care Golf Club Assembler Name Role Phone Alice Carmen CRISIS THERAPIST Primary Care Provider [phone] Encounter Details Date Type Department Care Team (Late st Contact Info) Description 10/03/2022 Procedure Pass [facility], Ct Scan - [address] [address] Social History Tobacco Use Types Packs/Day Years [...] high school, GED, job training, learning the [place] language, technical skills, or developing parenting skills)? [...] and looking for work? No 07/09/2022 Comments Unknown Sex and Gender Information Value Date Recorded Sex Assigned at Female 03/03/2022 7:16 PM EDT Legal Sex Female 7:01 PM EDT Gender Identity Female 03/03/2022 7:16 PM EDT Sexual Orientation Straight 05/30/2023 3: 12 PM EDT documented as of this encounter Functional Status * Calculated C-SSRS Risk Score (Lifetime/Recent) Answer Date of Assessment Author No Risk Indicated 10/03/2022 1:55 PM EST Kayla Herrera RN * [place]eral Suicide Severity Rating Scale (Screener/Recent Self-Report) Question Answer Date of Assessment Author 1. Wish to be (Past 1 Month) No 022 1:55 PM Kayla Oneal RN 2. Non-Specific Active Suici enrique Thoughts (Past 1 Month) No 10/03/2022 1:55 PM Judd Oneal RN 6. Suicidal Behavior (Lifetime) No 2 1:55 PM Kayla Oneal RN documented as of this encounter Plan [...] documented as of this encounter Care Teams Golf Club Assembler Relationship Specialty Start Date End Date Alice Carmen FNP [address] [place] [address], [address] [place] [address] [email or web address] PCP - General Family Medicine 09/28/22 documented as of this encounter Additional Source Comments The information contained in this document represents components of the legal health record. It is not the complete legal health record.[facility]
--- OUTSIDE RECORDS SUMMARY | 2025-07-20 18:09 | XMS_ITS | Encounter Summary ---
Author Organization [facility] Address [address] [place] [id number] Phone Care Team Providers Care Pipe Maker Name Role Phone Pcp, Unknown Primary Care Provider Alice Baker [facility] Primary Care Provider Encounter Details Date Type Department Care Team (Late st Contact Info) Description 06/02/2022 Procedure Pass [facility], Ct Scan - [address] [address] Social History Tobacco Use Types Packs/Day Years [...] Date of Assessment Author No Risk Indicated 06/02/2022 6:56 PM EDT Karina Redmond, RN * Hemphill Suicide Severity Rating Scale (Screener/Recent Self-Report) Question Answer Date of Assessment Author 1. Wish to be (Past 1 Month) No 022 6:56 PM EDT Karina Redmond, RN 2. Non-Specific Active Suici enrique Thoughts (Past 1 Month) No 06/02/2022 6:56 PM EDT Karina Redmond, RN 6. Suicidal Behavior (Lifetime) No 6:56 PM EDT Karina Redmond RN documented as of this encounter Plan of Treatment Not on file documented as of this encounter Visit Diagnoses Not on filedocumented in this encounter Additional Health Concerns Infection Onset Date Last Indicated Resolved Time CoV-Risk 05/30/2023 05/30/2023 06/10/2023 1:21 AM EDT CoV-Risk 11/12/2024 11/12/2024 11/23/2024 1:22 AM EST CoV-Risk 01/01/2025 01/01/2025 01/12/2025 1:22 AM EST documented as of this encounter Care Teams Pipe Maker Relationship Specialty Start Date End Date Pcp, Unknown PCP - General 03/03/22 09/27/22 Alice Carmen FNP [address] [place] [address], [address] [place] [address] [email or web address] PCP - General Family Medicine 09/28/22 documented as of this encounter Additional Source Comments The information contained in this document represents components of the legal health record. It is not the complete legal health record.[facility]
--- OUTSIDE RECORDS SUMMARY | 2025-07-20 18:09 | XMS_ITS | Encounter Summary ---
Author Organization [facility] Address [address] [place] [address] Care Team Providers Care Licensed Customs Broker Name Role Phone Pcp, No Primary Care Provider UnavailAlice Hernandez NP Primary Care Provider [phone] Richard Bello MD Unavailable [phone] Bandar Schmitt MD Unavailable Yaneli Tesfaye RN Unavailable [phone] Beatriz Miller PT Unavailable [phone] Encounter Details Date Type Department Care Team (Late st Contact Info) Description 06/09/2024 Scanned Document [facility] [address] [facility] [address] [place] [id number] Provider, Generic Social History Tobacco Use [...] Info) Description 07/22/2025 2:00 PM EDT Evaluation [facility] [address] [place] [id number] Hugo Arias MD [address] [place] [id number] Dianne Cash, PT [address] [place] [address] 08/06/2025 8:00 AM EDT Consult [facility] [place] [address] [facility] [address] [place] [address] Sandro Sauer DO [address] [place] [address] 12/09/2025 3:00 PM EST Office Visit [facility] [address] [place] [address] Richard Bello MD [address] [place] [address] documented as of this encounter Procedures Procedure Name Priority Date/Time Associated Diagnosis Comments HOLTER MONITOR - 24 HOUR 06/09/2024 documented in this encounter Results * HOLTER MONITOR - 24 HOUR (06/09/2024) Anatomical Region Laterality Modality Other Narrative 06/09/2024 Ordered by an unspecified provider. us Generic Provider [facility] ORDERABLES Final Result documented in this encounter Visit Diagnoses Not on filedocumented in this encounter Additional Health Concerns Infection Onset Date Last Indicated Resolved Time R/O Respiratory Disease 01/07/2025 01/07/202512/20 7:55 AM EST documented as of this encounter Care Teams Licensed Customs Broker Relationship Specialty Start Date End Date Pcp, No PCP - General General Medicine 07/03/24 08/06/24 Alice Carmen NP [address] [place] [address] [place] [address] PCP - General 08/07/24 Richard Bello MD [address] [place] [id number] Primary Maintenance Coordinator Cardiovascular Disease 08/07/24 Bandar Schmitt MD [address] [place] [address] Maintenance Coordinator Cardiac Electrophysiology 06/04/25 Yaneli Tesfaye, JIMI [address] [place] [address] Nurse Navigator Surgery, Neurosurgery 06/28/25 07/07/25 Beatriz Miller, PT [address] [address] [employer] [facility] 06/28/25 documented as of this encounter
--- OUTSIDE RECORDS SUMMARY | 2025-07-20 18:09 | XMS_ITS | Clinical Summary ---
Author Organization [facility] Address [address] [facility] [address] [place] [address] Phone Care Team Providers Care Farm Equipment Service Technician Name Role Phone Alice Carmen MESSAGE CLERK Primary Care Provider [phone] Allergies Active Allergy Reactions Criticality Noted Date Comments Alum-Mag Hydroxide-Simeth 04/04/2025 Aluminum Anaphylaxis High 01/07/2025 Diphenhydramine Hcl 05/31/2024 Benzonatate Palpitations Low 04/13/2020 Clindamycin Anaphylaxis High 02/16/2025 Gabapentin Other (See Comments) 04/25/2025 numbness Ivabradine Rash Medium 05/19/2024 Brand name Corlanor Ketorolac 04/04/2025 Other Reaction(s): rash Nickel Anaphylaxis High 01/07/2025 Ondansetron Unknown Medium 02/16/2025 Penicillins Anaphylaxis,Hives High 07/31/2018 Prednisone Anaphylaxis,Hives High 07/31/2018 Prochlorperazine 04/04/2025 Sulfa (Sulfonamide Antibiotics) Hives 07/31/2018 Medications propranoloL (INDERAL) 20 MG immediate release tablet Take 20 mg by mouth 2 (two) times a day. Active EPINEPHrine 0.3 mg/0.3 mL auto-injector Inject 0.3 mL (0.3 mg total) into the muscle as needed for anaphylaxis. 1 each 06/10/2024 Active clonazePAM (KLONOPIN) 1 MG tablet 3 (three) times a day as needed. 05/19/2024 Active colchicine (COLCRYS) 0.6 mg tablet Take 0.6 mg by mouth 2 (two) times a day. 01/13/2025 Active lemborexant (DAYVIGO) 10 mg tabletIndication s:Insomnia, unspecified type Take 1 tablet (10 mg total) by mouth nightly at bedtime as needed (insomnia). 30 tablet 2 05/26/2025 Active Active Problems Problem Noted Date Diagnosed Date Urinary retention 04/05/2025 Assessment & Plan (04/19/2025 12:38 PM EDT): Chronic urinary retention with dark urine, no infection, normal renal function. Possible spinal-related etiology due to herniated disc. - Order kidney and bladder ultrasound. - Refer to urology for further evaluation. - Provide urine collection cup for home use if able to urinate. Orders: [facility]- Dr. 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 Sena Santiago. Subacute frontal sinusitis 11/26/2024 Assessment & Plan (11/26/2024 6:04 PM EST): Will treat for the sinusitis with doxy given duration of a month without improvement, continue nasal saline for irritated nasal passages. Reviewed no evidence of otitis media. PCN allergic. Orders: doxycycline monohydrate (MONODOX) 100 MG capsule; Take 1 capsule (100 mg total) by mouth 2 (two) times a day for 10 days. Iron deficiency anemia secon desirae to inadequate dietary iron intake 11/26/2024 Assessment & Plan (11/26/2024 6:04 PM EST): Discussed could try alternate day dosing of iron supplement and take this with vitamin C to help absorption, recheck labs a month after starting treatment, reassured her anemia is mild. She has ongoing workup planned with GI for their concern of possible IBD. Reports light menses so that is not likely the etiology of anemia. Orders: CBC and differential; Future Reticulocytes; Future Anal fissure 11/26/2024 Assessment & Plan (11/26/2024 6:04 PM EST): Chronic constipation 11/26/2024 Assessment & Plan (11/26/2024 6:04 PM EST): Dysautonomia 11/26/2024 Assessment & Plan (11/26/2024 6:04 PM EST): Continue follow up with child care associate for dysautonomia Dr. Schmitt Rash and other nonspecific skin eruption Assessment & Plan (09/04/2024 9:56 PM EDT): Goran presents with concern of new rash. Difficult to identify cause on exam today. Rash is scant and does not appear vesicular at this time. Crosses midline so not consisted with shingles. She is not noticing benefit from topical steroid and finds this may have caused more irritation. Given that the salicylic acid is working for her I have recommended she continue with this and follow up if the rash is worsening. Sinus congestion 09/04/2024 Assessment & Plan (09/04/2024 9:57 PM EDT): We talked through different recommendations but she reports having a reaction of tachycardia to any of the recommendations including Flonase. She will continue with sinus rinses and plan to see her mortgage analyst. Syncope 05/31/2024 Assessment & Plan (04/05/2025 1:50 AM EDT): New syncope, in seated position with hx of recent ablation Tele monitor for arrythmia ECHO in AM Cards in Am Orthostatics Assessment & Plan (06/15/2024 12:49 PM EDT): No clear evidence of symptomatic bradycardia or high degree AV block currently. Assessment & Plan (05/31/2024 8:28 PM EDT): Concern for cardiac syncope, possibly bradycardic but with significant prodrome. She has had recent 48 hr holter in late April with 4 beats of SVT, HR as low as 46 and up to 110's all rather reassuring as compared to what she is now currently reporting Currently describing repeated syncopal events all with enough prodrome she was able to lay herself on the ground each time prior to the event; occurring over the past 5 days. Will stop both her propranolol and her sleep aide as both can lead to dizziness. I have requested full orthostatics now as well DDimer Card consult in am as well. Chest pain 05/31/2024 Assessment & Plan (04/05/2025 1:50 AM EDT): Chronic chest pain On Colchicine and ibuprofen for such Will continue this Add PPI if she is able Offered heat and Ice She has a long history and this is not an acute issue thus will avoid narcotics as they are not likely appropriate therapy Assessment & Plan (05/31/2024 8:22 PM EDT): Chronic chest pain, unrelated to exercise or changes in her HR ongoing for weeks repeatedly normal troponins not likely acute ischemia. Pt has normal echo one year ago but these symptoms are much more recent than this; querry some pericardial symptom perhaps. Not clear exact etiology but warrants at least a chest xray. Plan: DDimer CXR ECG monitoring Cards consult in AM Other insomnia 02/18/2024 History of bruising easily 01/02/2024 Overview (01/02/2024): G0 Assessment & Plan (01/02/2024 11:38 AM EST): No excessive bruising on my exam today; will pursue lupus anticoagulant with next routine labs in context of entire clinical picture Positive TAMARA (antinuclear antibody) 01/02/2024 Overview (01/02/2024): 1:320 sp (07/2023) Rheum evaluation in [place] c. 2020 per patient report neg except for borderline positivity of anti-histone Ab No Raynaud's Telogen effluvium dx'd by derm in [place] c. 2020 Assessment & Plan (01/02/2024 11:36 AM EST): No specific objective evidence to confirm underlying SLE or related autoimmune connective tissue disease. Daily malar flush that is not provoked by sun exposure and does not spare nasolabial folds is not characteristic of lupus-related rash. There is no clear current indication for hydroxychloroquine or other DMARD. Additional / updated labs as below (rheum records from [place] not available for my review). Polyarthralgia 01/02/2024 Overview (01/02/2024): Patient limits NSAIDs secondary to easy bruising Assessment & Plan (01/02/2024 11:37 AM EST): No subjective or objective e/o underlying inflammatory arthritis. Specifically, no swelling or pattern of AM stiffness; no synovitis or joint effusion on exam today. Hx suggests component of hypermobility but my exam today really does not support this. For dedicated re-evaluation on f/u. Paroxysmal supraventricular tachycardia 11/06/20 Assessment & Plan (05/01/2024 5:56 PM EDT): Not sure at this point whether patient has inappropriate sinus tachycardia or SVT. Symptoms correlate more with inappropriate sinus tachycardia. Will request for 48-hour Holter. In view of symptoms consistent with inappropriate sinus tachycardia will start the patient on ivabradine. Assessment & Plan (02/17/2024 11:46 PM EDT): 1 run of SVT lasting 5 beats. No evidence of sustained arrhythmias. Will monitor it symptomatically. Assessment & Plan (11/06/2023 10:45 AM EST): Will request for an event monitor to evaluate further. Patient knows about Valsalva maneuvers that help her to terminate her SVTs. No documented SVTs at this point. Panic disorder 04/17/2023 Palpitations 03/22/2023 Assessment & Plan (06/15/2024 12:49 PM EDT): Holter monitor did not show any significant arrhythmia. She has another MCT requested. Will follow-up with results. No clear evidence of any significant arrhythmia currently. Continue propranolol. Counseled about graded exercise program Assessment & Plan (05/31/2024 8:50 PM EDT): She has had a fairly thorough work up of such with a 30 day event monitor and a recent 48 hr holtor, repeated trops and ECG's as well. However given her report of Headaches as well as sweating episodes it would be reasonable to evaluate for Pheochromocytoma, (will begin 24 hour Urine for fractionated chatecolamines and metanephrines and get A1c as this can be a clue if abnormal) make sure TSH is within range Cards consult as to consider POTS as well. Assessment & Plan (05/01/2024 5:55 PM EDT): Patient is complaining of significant palpitations with simple activity. Will request for 48-hour heart monitor to evaluate for inappropriate sinus tachycardia versus SVT. We discussed in length with regards to lifestyle modification versus medication. Patient feels she has significant tachycardia with simple activity. Continue propranolol. Will start patient on ivabradine. Assessment & Plan (02/17/2024 11:45 PM EDT): PAC and PVC burden less than 0.1%. No sustained arrhythmias. 1 run of SVT lasting 5 beats. At this point will monitor it symptomatically. Assessment & Plan (11/06/2023 10:44 AM EST): Will request for event monitor to evaluate further. Echocardiogram shows normal ejection fraction without significant valvular disease. Patient knows about Valsalva maneuvers that help her to stop her palpitations Assessment & Plan (03/22/2023 3:04 PM EDT): Goran presents for follow-up from earlier this week regarding palpitations and anxiety. She notes that hospital did an EKG as well as an exam on her and found that she was having palpitations and advised her to urgently see a special technical operations officer. She called [facility] cardiology to make an appointment but they were very rude to her and advised that she see her PCP for referral as they do not accept referrals from the emergency room. She is still experiencing palpitations and is highly anxious. Her EKG today shows a sinus rhythm with occasional PVCs-no ST or T wave inversions. I put referral into cardiology to Nancy Omer today- urgent. My request is for Holter monitor. I refer propranolol-10 mg 3 times daily as needed for palpitations or anxiety. She strongly is against the idea of going to the emergency room today but I informed her that if her symptoms get worse that she should. Follow-up with her PCP next week. She will call if there are any other issues or concerns. She understands and agrees. Pelvic pain 01/22/2023 Assessment & Plan (02/13/2023 4:00 PM EDT): The etiology of her pelvic pain is not clear but given the fact that she was told she had a history of chocolate cyst at the time of her laparoscopy in 2018 for appendicitis, it is highly likely that she may have endometriosis. I have recommended that we obtain a copy of the operative note for further evaluation. However, in the interim, it is not unreasonable to start Aygestin secondary to the symptoms that she is having. I reviewed that with the use of Aygestin it is possible that her bleeding will decrease and her pain will improve. However, I did review other possible treatment options including the Mirena IUD and other forms of progestin only hormonal regulation. I would avoid any systemic estrogen given her previous reaction to the combined control pills. However, I did explain it is possible she may have the same reaction with the norethindrone. I also explained that we usually start with 5 mg of norethindrone daily and increase up to a maximum of 15 mg a day to help control symptoms. Assessment & Plan (01/22/2023 2:41 PM EST): Patient with history of ovarian cyst Pelvic exam benign Last US documented within normal limits 3 years ago, follow up US ordered Pain mostly related to menstrual cycle and dysmenorrhea, comfort measures reviewed Plan trial of continuous OCPs, rx sent to pharmacy Follow up in 3 months or sooner as indicated PMS (premenstrual syndrome) 01/22/2023 Assessment & Plan (05/08/2023 4:26 PM EDT): It is not entirely clear that she has PMS. She does have a history of anxiety disorder. I did explain that medications like sertraline can be used to treat PMS like symptoms. However, I explained that 50 mg is the usual dose needed to achieve any type of response. She will see how she does on the 25 mg. In terms of the PVCs, I explained I am not aware of any direct connection between the menstrual cycle and PVCs. I did explain that she could explore other alternatives to help with the PVCs and anxiety including a different beta-annemarie, possibly metoprolol. Assessment & Plan (02/13/2023 4:01 PM EDT): Reviewed other possible treatments for her PMS including SSRIs like Zoloft. She states that she has not done well on SSRIs or SNRIs in the past would like to avoid this. I did explain that it is possible she may have a good response to the Aygestin if it suppresses her ovulation. Assessment & Plan (01/22/2023 2:43 PM EST): Patient reports significant mood changes in the 1-2 weeks leading up to her period Experiencing severe anxiety due to these mood changes Plan continuous OCPs for menstrual cycle management Patient to follow up with PCP/psych about SSRI as she is currently on other medications Warning signs/symptoms reviewed Keloid scar 01/09/2023 Sciatica of left side 10/17/2022 Assessment & Plan (10/17/2022 7:07 AM EST): Referred to [facility]. Attention deficit disorder (ADD) without hyperac tivity 07/12/2022 Assessment & Plan (10/17/2022 7:07 AM EST): Stable, continue the adderall, follow up 3 mos for med check. Assessment & Plan (07/12/2022 5:15 PM EDT): I agreed to take over her adderall prescription. She signed CSA and gave sample for utox today. PDMP reviewed. Follow up in 3 months. YAHAIRA (generalized anxiety disorder) 07/12/2022 Assessment & Plan (10/17/2022 7:07 AM EST): Stable, continue klonopin. Assessment & Plan (07/12/2022 5:17 PM EDT): I agreed to take over her klonopin rx at this time as she feels her current prescribing relationship is not therapeutic, she is looking for a new long-term psychiatrist. She does take a higher dose of klonoping (up to 3 mg per day) however she has failed trial of numerous SSRIs, SNRI, wellbutrin and seroquel and she has been in treatment since age 16. Anxiety Assessment & Plan (03/22/2023 3:04 PM EDT): Goran burns is a highly anxious 32-year-old female. She is taking her anxiety medication as directed however it seems to not be effective. I wrote for propranolol-10 mg 3 times daily to be taken as needed. Informed her to go to the emergency room this weekend for anxiety worsens. She notes that she does feel safe at home. She will call if there are any other issues or [id number] with her PCP next week. She understands and agrees. Resolved Problems Problem Noted Date Diagnosed Date Resolved Date Saddle anesthesia 10/17/2022 12/27/2022 Assessment & Plan (10/17/2022 7:06 AM EST): Episode of saddle anesthesia for about 24-48 hours after a work out in which she felt a lumbar pop on 10/03, lumbar MRI did show L5-S1 annular tear; no cauda equina; she will have neck and head MRI as per advisement of the ED clinician. Change in mole 10/17/2022 12/27/2022 Assessment & Plan (10/17/2022 7:09 AM EST): Risk factors for melanoma with regular tanning, she has two changing dark nevi, one of these is symptomatic of pain and pruritus, history of keloid after one nevus removed, referred to plastic surgery for excision. Primary oligomenorrhea 07/12/202209/18 Assessment & Plan (07/12/2022 5:15 PM EDT): Discussed she should have a hormonal method for endometrial protection given infrequent menses every 5-6 months; she will follow up with [facility] and decide on a strategy. Jimenez strausslor 07/12/2022 12/27/2022 Encounters Date Type Department Care Team Description 06/25/2025 3:05 PM EDT - 06/25/2025 5:16 PM EDT Emergency [facility] [address] [place] [address] Discharge Disposition: Left Without Being Seen 05/26/2025 Telephone [facility] [address] [place] [address] Tiara Eli [facility] Rx alt request form 05/25/[address] [address] Alice Carmen FNP Medication Refill (lemborexant (DAYVIGO) 10 mg tablet) 05/12/2025 Orders Only [address] [address] ProviderHarris MD 04/30/[address] [address] Carmel Sinclair Referral 04/29/2025 Telephone [facility] [address] [place] [address] Nancy Hagan RN 04/28/[address] [address] Alice Carmen FNP Referral ([facility] 04/25/2025 3:23 PM EDT - 04/25/2025 5:48 PM EDT Emergency [facility] Emergency [address] [place] [address] Discharge Disposition: Home or Self Care 04/19/2025 9:55 PM EDT - 04/20/2025 1:24 AM EDT Emergency [facility] Emergency [address] [place] [address] Patria Brown MD Discharge Disposition: Short Term Hospital 04/19/2025 12:15 PM EDT Office Visit [facility] Medicine [address] [place] [address] Steve Gaines CNP Urinary retention (Primary Dx); Lumbar disc herniation from Last 3 Months Immunizations Immunization Administration Dates Next Due Influenza Quadrivalent Preservative Free IM 08/19 Tdap 06/28/2022 Family History Medical History Relation Comments Hypertension Father Pancreatic cancer Father Hypertension Maternal Grandfather Hypertension Maternal Grandmother Hyperthyroidism Maternal Grandmother Hypertension Mother Hyperthyroidism Mother Hypertension Paternal Grandfather Hypertension Paternal Grandmother Relation Status Comments Father Maternal Grandfather Maternal Grandmother Mother Alive Paternal Grandfather Paternal Grandmother Social History Tobacco Use Types Packs/Day Years Used Date Smoking Tobacco: Never Smokeless Tobacco: Never Tobacco Cessation:Counseling Given: Not Answered Alcohol Use Standard Drinks/Week Comments Not Currently [...] as food, clothing, or medical care? No 06/25/2025 In the past 12 months have y ou been in a relationship with a person who hurts, threatens, or tries to control you? No 06/25/2025 Are you denied basic needs s uch as food, clothing, or medical care? No 06/25/2025 In the past 12 months have y ou been in a relationship with a person who hurts, threatens, or tries to control you? No 06/25/2025 Comments No Sex and Gender Information Value Date Recorded Sex Assigned at Female 03/03/2022 7:16 PM EDT Legal Sex Female 7:01 PM EDT Gender Identity Female 03/03/2022 7:16 PM EDT Sexual Orientation Straight 05/30/2023 3: 12 PM EDT Last Filed Vital Signs Vital Sign Reading Time Taken Comments Blood Pressure 144/92 06/25/2025 3:21 PM EDT Pulse 94 06/25/2025 3:21 PM EDT Temperature 36.6 C (97.9 F) 06/25/2025 3:21 PM EDT Respiratory Rate 18 06/25/2025 3:21 PM EDT Oxygen Saturation 96% 06/25/2025 3:21 PM EDT Inhaled Oxygen Concentration - - Weight 78.5 kg (173 lb) 06/25/2025 3:21 PM EDT Height 185.4 cm (6' 1 ) 06/25/2025 3:21 PM EDT Body Mass Index 22.82 06/25/2025 3:21 PM EDT Plan of Treatment Health Maintenance Due Date Last Done Comments DEPRESSION SCREENING 06/19/2024 06/19/2023 INFLUENZA VACCINE (#1) 2025 09/13/2022 COVID-19 VACCINE (2 - 2024-2 6 season) 2025 05/18/2022 PAP SMEAR 01/22/2026 01/22/2023 Adult Td,Tdap Booster 06/28/2032 06/28/2022 HEPATITIS C SCREENING Completed 07/12/2022 HIV ONE-TIME SCREENING (18-6 5 YEARS) Completed 07/12/2022 SMOKING STATUS SCREENING (On ce After 26 Yrs) Completed 04/25/2025 HEPATITIS A VACCINES Aged Out No long er eligible based on patient's age to complete this topic HIB VACCINES Aged Out No longer eligi ble based on patient's age to complete this topic MENINGOCOCCAL VACCINES (ACWY) Aged Out No longer eligible based on patient's age to complete this topic MENINGOCOCCAL VACCINES (B) Aged Out N o longer eligible based on patient's age to complete this topic PNEUMOCOCCAL VACCINES (0-49 years) Aged Out No longer eligible based on patient's age to complete this topic Medical Devices Not on file Procedures Procedure Name Priority Date/Time Associated Diagnosis Comments OUTSIDE ECG Routine 05/12/2025 11:31 AM EDT OUTSIDE ECG Routine 05/12/2025 10:28 AM EDT C-REACTIVE PROTEIN STAT 04/19/2025 10 :57 PM EDT SEDIMENTATION RATE (ESR) STAT 04/19/2025 10:57 PM EDT HCG, SERUM QUALITATIVE STAT 10:57 PM EDT BASIC METABOLIC PANEL STAT 04/19/2025 10:57 PM EDT CBC AND DIFFERENTIAL STAT 04/19/2025 10:57 PM EDT PAP TEST Routine 01/22/2023 12:00 AM EST HEPATITIS C ANTIBODY, QUALITATIVE Routine 07/12/2022 11:51 AM EDT Need for hepatitis C screening test from Last 3 Months or Most Recently Relevant to Health Maintenance Results * Outside ECG Report Only (05/12/2025 11:31 AM EDT) Only the most recent of2 resultswithin the time period is included. Historical Provider MD ECG ORDERABLES Final Res ult * HCG, serum qualitative (04/19/2025 10:57 PM EDT) HCG, QUALITATIVE Negative Negative IU/L [facility] Blood 04/19/2025 10:5 7 PM EDT 04/19/2025 11:02 PM EDT Patria Brown MD LAB BLOOD ORDERABLES Final R esult Performing Organization Address City/[facility]/ZIP Co de Phone Number [address] [address] * Sedimentation rate (ESR) (04/19/2025 10:57 PM EDT) ESR 12 0 - 20 mm/h [facility] Blood 04/19/2025 10:5 7 PM EDT 04/19/2025 11:02 PM EDT Patria Brown MD LAB BLOOD ORDERABLES Final R esult Performing Organization Address City/[facility]/ZIP Co de Phone Number [address] [address] * (ABNORMAL) CBC and differential (04/19/2025 10:57 PM EDT) WBC 7.01 4.00 - 11.00 K/uL [facility] RBC 4.48 4.00 - 5.20 M/uL [facility] HGB 12.1 12.0 - 16.0 g/dL [facility] HCT 37.4 36.0 - 46.0 % [facility] PLT 333 150 - 450 K/uL [facility] MCV 83.5 80.0 - 100.0 fL [facility] MCH 27.0 27.0 - 31.0 pg [facility] MCHC 32.4 32.0 - 36.0 g/dL [facility] RDW 13.6 11.5 - 14.5 % [facility] MPV 8.8 8.4 - 12.0 fL [facility] NRBC 0.00 0.00 /100 WBCs [facility] ABSOLUTE NRBC 0.00 0.00 K/uL [facility] DIFF METHOD Auto [facility] NEUTS 47.5(L) 48.0 - 76.0 % [facility] LYMPHS 41.1(H) 18.0 - 41.0 % [facility] MONOS 8.3 4.0 - 11.0 % [facility] EOS 2.0 0.0 - 5.0 % [facility] BASOS 1.0 0.0 - 1.5 % [facility] Granulocytes, immature (%) 0.1 0.0 - 0.9 % [facility] ABSOLUTE NEUTS 3.33 1.92 - 7.60 K/uL [facility] ABSOLUTE LYMPHS 2.88 0.72 - 4.10 K/uL [facility] ABSOLUTE MONOS 0.58 0.16 - 1.10 K/uL [facility] ABSOLUTE EOS 0.14 0.00 - 0.50 K/uL [facility] ABSOLUTE BASOS 0.07 0.00 - 0.15 K/uL [facility] Granulocytes, immature 0.01 0.00 - 0.09 K/uL [facility] Blood 04/19/2025 10:5 7 PM EDT 04/19/2025 11:02 PM EDT us Patria Brown MD LAB BLOOD ORDERABLES Final R esult [facility] [address] [place] [address] * C-Reactive Protein (04/19/2025 10:57 PM EDT) C REACTIVE PROTEIN <3.0 0.0 - 4.0 mg/L [facility] Blood 04/19/2025 10:5 7 PM EDT 04/19/2025 11:02 PM EDT Patria Brown MD LAB BLOOD ORDERABLES Final R esult Performing Organization Address [facility]/ZIP Co de Phone Number [address] [address] * Basic metabolic panel (04/19/2025 10:57 PM EDT) SODIUM 134 133 - 146 mmol/L [facility] CHLORIDE 99 96 - 108 mmol/L [facility] POTASSIUM 3.9 3.3 - 5.1 mmol/L [facility] CO2 25 21 - 35 mmol/L [facility] BUN 14 6 - 19 mg/dL [facility] CREATININE 0.60 0.5 - 1.5 mg/dL [facility] GLUCOSE 80 70 - 99 mg/dL [facility] CALCIUM 9.2 8.4 - 10.3 mg/dL [facility] EGFR >120 >59 mL/min/1.7 3m2 [facility] Comment:Estimated glomerular filtration rate calculated using the CKD-EPI refit equation. ANION GAP 14 10 - 20 mmol/L [facility] Blood 04/19/2025 10:5 7 PM EDT 04/19/2025 11:02 PM EDT us Patria Brown MD LAB BLOOD ORDERABLES Final R esult Performing Organization Address City/[facility]/ZIP Co de Phone Number [address] [address] * Pap Test (01/22/2023 12:00 AM EST) 01/22/2023 01/23/2023 9:1 3 AM EST Narrative SEE NARRATIVE - 01/28/2023 9:00 AM EDT [address] [address] Recorder Gravity Prospecting: Heidi Mojica MD FOOD SPECIALIST Cytology Report FINAL DIAGNOSIS A. PAP SMEAR (SUREPATH) CE: SPECIMEN ADEQUACY: Satisfactory for evaluation; transformation zone present. INTERPRETATION: NEGATIVE FOR INTRAEPITHELIAL LESION OR MALIGNANCY. Electronically Signed Out By: GERSON Dunne([facility]) The Pap test is a screening test primarily for squamous cancers and precursors and has associated false-negative and false-positive results. New technologies such as liquid-based preparations may decrease but will not eliminate all false-negative results. Regular sampling and follow-up of unexplained clinical signs and symptoms are recommended to minimize false negative results. PROCEDURES/ADDENDA HPV Testing (Requested) Ordered Date: 01/23/2023 A. PAP SMEAR (SUREPATH) CE: Human Papilloma Virus Test NEGATIVE for high-risk Human Papilloma Virus types 16, 18, 45 and the Other high risk probe set (Includes 31, 33, 35, 39, 51, 52, 56, 58, 59, 66, 68) Note: Testing performed by [employer] HR-HPV analysis. Clinical correlation is advised. This HPV test was performed at [facility], [address] [place] [address]. This test has been FDA approved for [employer] cervical cytology specimens. The accuracy and precision of this test for all other specimen sources has been verified in the Cytopathology Laboratory of the [facility] and has not been cleared or approved by the U.S. Food and Drug Administration. Clinical correlation is advised. CLINICAL HISTORY Date of Last Menstrual Period: Not Provided Menstrual History: Unknown Other Clinical Conditions: Screening Pap FOOD SPECIALIST exam with abnormal findings: PELVIC PAIN SPECIMEN SOURCE A: PAP SMEAR (SUREPATH) CE Patient Name: GORAN BARBER : 1990 (Age: 32) Sex: F Institution: [facility] Location: [facility] Date of Collection: 01/22/2023 Date of Reported: 01/28/2023 09:00 Results to: Mariam David us Mariam Boyd MD CYTOLOGY ORDER ANGELIKA Final Result SEE NARRATIVE * Hepatitis C antibody, qualitative (07/12/2022 11:51 AM EDT) HCV NON-REACTIV E NON-REACTI VE [facility] Blood 07/12/2022 11:5 1 AM EDT 07/12/2022 11:55 AM EDT us Alice Carmen MESSAGE CLERK LAB BLOOD ORDERABLES Final Re sult [address] [address] from Last 3 Months or Most Recently Relevant to Health Maintenance Insurance [employer] TOTAL CHOICE INDEMNITY [employer] TOTAL CHOICE INDEMNITY [employer] [facility] TOTAL CHOICE IN[facility]ITY [facility] TOTAL CHOICE [facility]DEMNITY [employer] [facility] TOTAL CHOICE INDEMNITY [facility] TOTAL CHOICE INDEMNITY [facility] TOTAL CHOICE INDEMNITY [facility] TOTAL CHOICE INDEMNITY [facility] TOTAL CHOICE INDEMNITY Advance Directives For more information, please contact: [phone] (9AM - 5PM [facility], Saturday-Saturday) * Full Code (Latest Code Status on File) Date Activated Date Inactivated Comments 04/05/2025 1:39 AM Question Answer Comments Code Status Confirmed With: Patient * Full Code Date Activated Date Inactivated Comments 05/31/2024 9:55 PM 04/05/2025 1:39 AM Question Answer Comments Code Status Confirmed With: Patient Care Teams Farm Equipment Service Technician Relationship Specialty Start Date End Date Alice Carmen April, MESSAGE CLERK [address] [place] [address] [address] [place] [address] [email or web address] PCP - General Family Medicine 09/28/22 Additional Source Comments The information contained in this document represents components of the legal health record. It is not the complete legal health record.[facility]
--- OUTSIDE RECORDS SUMMARY | 2025-07-20 18:09 | XMS_ITS | Encounter Summary ---
Author Organization [facility] Address [address] [place] [address] Phone Care Team Providers Care Architectural Manager Name Role Phone Alice Carmen FABRIC AND ACCESSORIES ESTIMATOR Primary Care Provider [phone] Encounter Details Date Type Department Care Team (Late st Contact Info) Description 11/05/2024 Procedure Pass [facility], Ct Scan - [address] [address] Social History Tobacco Use Types Packs/Day Years [...] with a working camera? Not on file Intimate Partner Violence Answer Date R ecorded Are you denied basic needs s uch as food, clothing, or medical care? No 11/05/2024 In the past 12 months have y ou been in a relationship with a person who hurts, threatens, or tries to control you? No 11/05/2024 Are you denied basic needs s uch as food, clothing, or medical care? No 11/05/2024 In the past 12 months have y ou been in a relationship with a person who hurts, threatens, or tries to control you? No 11/05/2024 Comments No Sex and Gender Information Value Date Recorded Sex Assigned at Female 03/03/2022 7:16 PM EDT Legal Sex Female 7:01 PM EDT Gender Identity Female 03/03/2022 7:16 PM EDT Sexual Orientation Straight 05/30/2023 3: 12 PM EDT documented as of this encounter Functional Status * Calculated C-SSRS Risk Score (Lifetime/Recent) Answer Date of Assessment Author No Risk Indicated 11/05/2024 11:38 AM Carmen Dunham, JIMI * [place] Suicide Severity Rating Scale (Screener/Recent Self-Report) Question Answer Date of Assessment Author 1. Wish to be (Past 1 Month) No 024 11:38 AM Carmen Dunham, RN 2. Non-Specific Active Suici enrique Thoughts (Past 1 Month) No 11/05/2024 11:38 AM Carmen Dunham , RN 6. Suicidal Behavior (Lifetime) No 12/19/202 4 11:38 AM EST Carmen Elias RN documented as of this encounter Plan of Treatment Not on file documented as of this encounter Visit Diagnoses Not on filedocumented in this encounter Additional Health Concerns Infection Onset Date Last Indicated Resolved Time CoV-Risk 11/12/2024 11/12/2024 11/23/2024 1:2 2 AM EST CoV-Risk 01/01/2025 01/01/2025 01/12/2025 1:22 AM EST Assessment Noted Time PHQ-2 Depression Total Score: 0 06/19/20 4:56 PM EDT documented as of this encounter Care Teams Architectural Manager Relationship Specialty Start Date End Date Alice Carmen Aye, LIZ [address] [place] [address], [address] [place] [address] [email or web address] PCP - General Family Medicine 09/28/22 documented as of this encounter Additional Source Comments The information contained in this document represents components of the legal health record. It is not the complete legal health record.[facility]
--- OUTSIDE RECORDS SUMMARY | 2025-07-20 18:09 | XMS_ITS | Encounter Summary ---
Author Organization [facility] Address [address] [place] [address] Phone Care Team Providers Care Medical Territory Manager Name Role Phone Alice Carmen ILLUMINATING ENGINEER Primary Care Provider [phone] Encounter Details Date Type Department Care Team (Late st Contact Info) Description 10/15/2022 Procedure Pass [facility], [address] [address] Social History Tobacco Use Types Packs/Day Years [...] high school, GED, job training, learning the [place] language, technical skills, or developing parenting skills)? [...] documented as of this encounter Care Teams Medical Territory Manager Relationship Specialty Start Date End Date Alice Carmen April, ILLUMINATING ENGINEER [address] [place] [address], [address] [place] [address] [email or web address] PCP - General Family Medicine 09/28/22 documented as of this encounter Additional Source Comments The information contained in this document represents components of the legal health record. It is not the complete legal health record.[facility]
--- OUTSIDE RECORDS SUMMARY | 2025-07-20 18:09 | XMS_ITS | Encounter Summary ---
Author Organization [facility] Address [address] [place] [address] Care Team Providers Care Flue Gas Analyst Name Role Phone Alice Carmen NP Primary Care Provider [phone] Richard Bello MD Unavailable [phone] Bandar Schmitt MD Unavailable Yaneli Tesfaye RN Unavailable [phone] Beatriz Miller PT Unavailable [phone] Encounter Details Date Type Department Care Team (Late st Contact Info) Description 10/05/2024 Scanned Document [facility] Heart [facility] V[facility] [place] [address] [place] [id number] Cardiology, Scan Social History Tobacco Use Types [...] Info) Description 07/22/2025 2:00 PM EDT Evaluation [facility] [address] [place] [address] Hugo Arias MD [address] [place], [place] [id number] Dianne Cash, PT [address] [place] [address] 08/06/2025 8:00 AM EDT Consult [facility] PHYSICAL MEDICINE & REHAB [facility] [address] [facility] [address] [place] [address] Sandro Sauer DO [address] [place], [place] [id number] 12/09/2025 3:00 PM EST Office Visit [facility] Heart & Vascular [facility] [address] [place] [address] Richard Bello MD [address] [place] [address] documented as of this encounter Visit Diagnoses Not on filedocumented in this encounter Additional Health Concerns Infection Onset Date Last Indicated Resolved Time R/O Respiratory Disease 01/07/2025 01/07/202512/20 7:55 AM EST documented as of this encounter Care Teams Flue Gas Analyst Relationship Specialty Start Date End Date Alice Carmen NP [address] [place] [address] PCP - General 08/07/24 Richard Bello MD [facility] [place] [address] Primary Shellfish Dredge Operator Cardiovascular Disease 08/07/24 Bandar Schmitt MD [address] [place] [address] Shellfish Dredge Operator Cardiac Electrophysiology 06/04/25 Yaneli Tesfaye, JIMI [address] [place], [place] [id number] Nurse Navigator Surgery, Neurosurgery 06/28/25 07/07/25 Beatriz Miller, PT [address] [address] Maxillofacial Prosthetics DentistRepair Technician Medicine and Rehabilitation 06/28/25 documented as of this encounter
--- OUTSIDE RECORDS SUMMARY | 2025-07-20 18:09 | XMS_ITS | Encounter Summary ---
Author Organization [facility] Address [address] [facility] [address] [place] [address] Phone Care Team Providers Care Kennel Worker Name Role Phone Alice Carmen HARD ROCK DRILL OPERATOR Primary Care Provider [phone] Reason for Visit * Reason Onset Date Comments Referral 04/30/2025 Encounter Details Date Type Department Care Team ([facility] st Contact Info) Description 04/30/[address] [facility] [address] [place] [address] [email or web address] Referral Social History Tobacco Use Types Packs/Day Years [...] your housing situation today? I have leonie nunn 04/19/2025 How many times have you move [...] as food, clothing, or medical care? No 04/25/2025 In the past 12 months have y ou been in a relationship with a person who hurts, threatens, or tries to control you? No 04/25/2025 Are you denied basic needs s uch as food, clothing, or medical care? No 04/25/2025 In the past 12 months have y ou been in a relationship with a person who hurts, threatens, or tries to control you? No 04/25/2025 Comments No Sex and Gender Information Value Date Recorded Sex Assigned at Female 03/03/2022 7:16 PM EDT Legal Sex Female 7:01 PM EDT Gender Identity Female 03/03/2022 7:16 PM EDT Sexual Orientation Straight 05/30/2023 3: 12 PM EDT documented as of this encounter Progress Notes * Alice Carmen FNP - 05/02/2025 9:57 PM EDT reviewed * Carmel Sinclair - 04/30/2025 10:38 AM EDT Nathalia from [facility] Neurosurgery called in stating the pt has been referred there but was alreadyconsulted in the ED. Caller stated there was nothing surgical that they could offer the pt. Please contact and advise. Central Support Anode Machine Operator (Please do not reply to this user; this inbox is not monitored.) Thank you. documented in this encounter Plan of Treatment Not on file documented as of this encounter Visit Diagnoses Not on filedocumented in this encounter Additional Health Concerns Assessment Noted Time PHQ-2 Depression Total Score: 0 06/19/20 23 4:56 PM EDT documented as of this encounter Care Teams Kennel Worker Relationship Specialty Start Date End Date Alice Carmen FNP [address] [place] [address], [address] [place] [address] [email or web address] PCP - General Family Medicine 09/28/22 documented as of this encounter Additional Source Comments The information contained in this document represents components of the legal health record. It is not the complete legal health record.[facility]
--- OUTSIDE RECORDS SUMMARY | 2025-07-20 18:09 | XMS_ITS | Encounter Summary ---
Author Organization [facility] Address [address] [place] [address] Care Team Providers Care Psychological Aide Name Role Phone Pcp, No Primary Care Provider UnavailAlice Hernandez NP Primary Care Provider [phone] Richard Bello MD Unavailable [phone] Bandar Schmitt MD Unavailable Yaneli Tesfaye RN Unavailable [phone] Beatriz Miller PT Unavailable [phone] Encounter Details Date Type Department Care Team (Late st Contact Info) Description 06/15/2024 Scanned Document [facility] [address] [facility] [address] [place] [address] Cardiology, Scan Social History Tobacco Use Types [...] Info) Description 07/22/2025 2:00 PM EDT Evaluation [facility] [address] [place] [address] Hugo Arias MD [address] [place] [id number] Dianne Cash, PT [address] [place] [address] 08/06/2025 8:00 AM EDT Consult [facility] PHYSICAL MEDICINE & REHAB [place] [address] [facility] [address] [place] [address] Sandro Sauer DO [address] [place] [address] 12/09/2025 3:00 PM EST Office Visit [facility] Heart & Vascular [facility] [address] [place] [address] Richard Bello MD [address] [place] [address] documented as of this encounter Visit Diagnoses Not on filedocumented in this encounter Additional Health Concerns Infection Onset Date Last Indicated Resolved Time R/O Respiratory Disease 01/07/2025 01/07/202512/20 7:55 AM EST documented as of this encounter Care Teams Psychological Aide Relationship Specialty Start Date End Date Pcp, No PCP - General General Medicine 07/03/24 08/06/24 Alice Carmen NP [address] [place] [address] PCP - General 08/07/24 Richard Bello MD [address] [place] [address] Primary Historiography Professor Cardiovascular Disease 08/07/24 Bandar Schmitt MD [address] [place] [address] Historiography Professor Cardiac Electrophysiology 06/04/25 Yaneli Tesfaye, JIMI [address] [place] [address] Nurse Navigator Surgery, Neurosurgery 06/28/25 07/07/25 Beatriz Miller, PT [address] [address] Broke Beater Machine OperatorCommercial Account Executive Medicine and Rehabilitation 06/28/25 documented as of this encounter
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
--- OUTSIDE RECORDS SUMMARY | 2025-07-20 18:09 | XMS_ITS | Encounter Summary ---
Author Organization [facility] Address [address] [place] [address] Phone Care Team Providers Care Senior Medical Director Name Role Phone Alice Carmen [employer] Primary Care Provider [phone] Encounter Details Date Type Department Care Team (Late st Contact Info) Description 10/03/2022 Procedure [facility], [address] [address] Social History Tobacco Use Types Packs/Day Years [...] high school, GED, job training, learning the Macedonian language, technical skills, or developing parenting skills)? [...] 1:55 PM EST Kayla Herrera RN * Early Suicide Severity Rating Scale (Screener/Recent Self-Report) Question [...] documented as of this encounter Care Teams Senior Medical Director Relationship Specialty Start Date End Date Alice Carmen FNP [address] [place] [address], [address] [place] [address] [email or web address] PCP - General Family Medicine 09/28/22 documented as of this encounter Additional Source Comments The information contained in this document represents components of the legal health record. It is not the complete legal health record.[facility]
[2025-07-20] MEDS: Morphine Sulfate Immed Release 15 MG TABLET PO (18:17)
--- NOTE | 2025-07-20 18:24 | PC.NURSE ---
While medicating pt for pain control, pt requested iv pain med but was explained since she had c/o slurring her words while at home the best option at this time prior to CT is po meds. Pt refused IM toradol. Pt undressed for radiology and not found to be incontinent of bowel/bladder at this time.
[2025-07-20 19:38] LABS: MANUAL DIFF FLAG NO
[2025-07-20 19:39] LABS: Hematocrit 38.8 % (37.0-47.0); Hemoglobin 11.9 g/dl (12.0-16.0); Imm Gran Abs Auto 0.02 X10*3/uL (0.00-0.03); Imm Gran Pct Auto 0.3 % (0.0-0.4); Lymphocytes Absolute Auto 2.0 X10*3/uL (1.2-4.9); Mean Corpuscular HGB Conc 30.7 g/dl (31.0-35.0); Mean Corpuscular Hemoglobin 24.3 pg (27.0-33.0); Mean Corpuscular Volume 79.2 fL (80.0-98.0); NRBC Abs Auto 0.000 X10*3/uL (0.0-0.012); NRBC Pct Auto 0.0 /100WBC (0.0-0.2); Platelet Count 363 X10*3/uL (160-400); Red Blood Count 4.90 X10*6/uL (4.20-5.50); White Blood Count 7.0 X10*3/uL (4.8-10.8)
[2025-07-20 20:00] VITALS: BP 122/87; PULSE 82; RESP 16; TEMP 36.9; O2SAT 100
[2025-07-20 20:03] LABS: Anion Gap 14 (12-20); Blood Urea Nitrogen 10 mg/dL (9-16); Calcium 9.1 mg/dL (8.4-10.2); Carbon Dioxide 22 mmol/L (22-29); Chloride 110 mmol/L (96-108); Creatinine Clr Calc Pharmacy 140.8; Estimated Glomerular Filt Rate > 60; Potassium 4.3 mmol/L (3.3-5.1); Sodium 142 mmol/L (135-145)
--- NOTE | 2025-07-20 20:25 | MHC.CM.ED ---
Addendum entered by Bere Soto 07/20/25 20:54: CM gave patient the [facility] Physician referral listing. Highlighting the [place] and [place] offices, as they are taking new patients. I stressed the importance of taking the first available appointment. Pt did accept paper. Addendum entered by Bere Soto 07/20/25 20:38: CM reviewed the medical record and the notes from [facility]. Pt had a full work-up. She does have some disc disease, but nothing that would explain her symptoms. It was suggested in the [facility] notes, that she suffers from conversion disorder. Pt is requesting discharge home. Provider aware and is meeting with patient. Original Note: CM met with patient to discuss discharge planning. Pt lives with room mates. Uses a walker. No wheelchair. Recently completed outpatient PY 3x/wk, She states it made her back pain and paralysis worse. She declines to complete a HCP. She declines to report any contacts. She states she has a mother, but she is a horrible person and not much of a mother . She does not have a PCP. She states she is maxed out on tylenol and motrin. 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 She works for the [employer]. She cannot go to [facility] and declines PT evaluation, as she cannot be out of work . States she has a therapist and a psychiatrist. She states they have told her not care care anymore . That only she cares about her and she is hopeless. CM suggested she may want to speak to someone about her hopelessness. She tells CM that no one cares about her, she has a total distrust of medicine. She states that people think she is faking or drug seeking. She states she is neither. She is very negative. CM asked what she wanted us to do. She states she just wants to sleep. States the PO meds did not help her, but will not ask for IV, cause then they say you are drug seeking. Pt tells CM that she will be in pain, in a wheelchair and incontinent for the rest of her life. CM did explain to her that many people are paralyzed and have chronic pain, and use wheelchairs and have full lives. She does not believe this. REGINE shared all of this with Dr. Ramírez and the primary RN. It is CM opinion that this patient would benefit from a psych evaluation, which she declines. Pt is A&Ox4. She has full capacity. CM is unable to meet her needs, as she declines all supports.
[2025-07-20 20:48] VITALS: BP 127/77; PULSE 80; RESP 18; TEMP 37; O2SAT 100
--- NOTE | 2025-07-20 20:51 | PC.NURSE ---
Pt informed of impending discharge. Pt given clothes and privacy to get dressed. Pt was able to dress self without assistance, when asked if she needed a w/c she declined and said she will ambulate out of ED w/ the walker by self. Pt tolerated well.
--- NOTE | 2025-08-04 18:58 | P.DS_ITS ---
DS: Providers Provider Date of Service: 07/05/25 Date of discharge: 08/05/25 Primary care physician: None Physician Admitting clinician: David Navarro Attending physician on admission: Jesus Acosta Attending physician on discharge: Jesus Acosta DS: Summary Hospital Course Hospital Course: HPI: Lorene Cabezas is a 35 years old woman with a past medical history significant for POTS and dysautonomia presents to the emergency department complaining of worsening lower back pain associated with lower extremities weakness + decreased sensation, gait difficulty and incontinence of bowel and bladder. Lower back pain started after injuring her back while exercising at the gym about 2 weeks ago. She also complained of having numbness to her groin. She has been using a walker. She visited the emergency department about 12 days ago and underwent an MRI that showed no compression of the spinal cord. She has been participating with physical therapy and has been taking ibuprofen, Tylenol; and using lidocaine patches. Unfortunately these interventions have been unsuccessful. She was also referred to Neurosurgery for follow-up. She also has been experiencing headache and neck pain since she her neck was many purulent by a chiropractor 4 days ago. She denied fever or chills. She denied any chest pain, shortness on breath, abdominal pain, nausea, vomiting or diarrhea. She did not report any toxic habits. June 25 - left lateral recess narrowing at L4-L5 and L5-S1, multifocal degenerative disc changes and multifocal enteropathy. In the ED today, she was found to have normal vital signs. Blood workup showed no leukocytosis and CRP is normal. Hemoglobin is 11.7 and platelets 377. There are no significant electrolyte imbalances. BUN is 19 and creatinine 0.70. test is negative. Head and neck CTA is normal. ED tx: Diazepam 5 mg IV, morphine mg IV, LR 1 L IV, Dilaudid 1 mg IV Hospital course: Patient was admitted to Med/Surgical gamino and treated with pain medications. A thoracic and lumbar MRI were ordered. Patient was evaluated by neurologis and recommended a thoracic MRI. According to physician, Dr. Hayden López, patient left againt medical advice because she has to present herself to a court the following morning. Patient left prior to having the thoracic MRI performed. Event note June, Dr. López: Nurse reported that the patient wanted to leave. Patient states that she can not continue with hospitalization as she has to present herself to a court tomorrow morning. Patient deemed to have capacity and understands the risks of leaving against medical advice including worsening of her condition. She verbalized understanding and wants to leave against medical advice . Time Attestation Discharge Coordination Time (in mins): Unknown Quality: Safe Use of Opioids Does Pt have an Active Cancer Diagnosis on the Problem List?: No Quality: Stroke Does the patient have a stroke diagnosis?: No Physical Exam Exam: Exam: Not present when patient left AMA. Of note, some information below does not correspond to the encounter on July 05, as the patient presented to the ED after that date. The information below was generated automatically by the EMR. Vital Signs: Vital Signs: Last Vital Signs Temp 98.6 F 07/20/25 20:48 Pulse 80 07/20/25 20:48 Resp 18 07/20/25 20:48 BP 127/77 07/20/25 20:48 Pulse Ox 100 07/20/25 20:48 O2 Del Method Room Air 07/20/25 20:48 BMI result Body Mass Index 24.4 Discharge Plan Discharge Clinical Impression: Low back pain Patient Disposition: Home, Self-Care Prescriptions: No Action propranolol 20 mg tablet 40 mg PO TID PRN (Reason: anxiety) Dayvigo 10 mg tablet 10 mg PO BEDTIME PRN (Reason: insomnia) clonazepam 1 mg tablet 1 mg PO BID PRN (Reason: panic attacks) ibuprofen 800 mg tablet 800 mg PO QID acetaminophen 500 mg capsule 1,000 mg PO Q8H Interventions: ED Discharge Assessment Last Done: 07/20/25 20:48 Discharge Date/Time: 07/20/25 21:00 Print Language: Venezuelan
== END 2025-07-20 21:00 | disposition home or self-care (01) ==
PROVIDERS: Emergency Provider Emergency Medicine
DX: M54.50 Low back pain, unspecified (principal); R51.9 Headache, unspecified; M54.2 Cervicalgia; Z79.899 Other long term (current) drug therapy
CPT/HCPCS: 36415; 70450; 72125; 80048; 84702; 85025; 96372; 99283; 99284; J1885

== ENCOUNTER → 2025-07-20 17:47 | Outpatient (BNV) | payer OTHER, SELFPAY | PROVIDERS: Emergency Provider Emergency Medicine; Visit Provider Radiology Diagnostic Radiology | DX: M54.2 Cervicalgia (principal); R20.2 Paresthesia of skin; R51.9 Headache, unspecified; W19.XXXA Unspecified fall, initial encounter | CPT/HCPCS: 70450; 72125 ==

== ENCOUNTER → 2025-07-20 18:03 | Outpatient (BNV) | payer OTHER, SELFPAY | PROVIDERS: Emergency Provider Emergency Medicine; Visit Provider Internal Medicine | DX: M54.50 Low back pain, unspecified (principal) | CPT/HCPCS: 99283 ==

== ENCOUNTER 2025-10-02 16:09 | Emergency (ER) | payer OTHER, SELFPAY ==
--- OUTSIDE RECORDS SUMMARY | 2021-02-26 10:05 | XMS_ITS | Continuity of Care Document ---
Author Organization [facility] [place] Address [address] [place] [address] Phone Care Team Providers Care Senior Informatica Developer Name Role Phone Unavailable Unavailable Unavailable Allergies, Adverse Reactions, Alerts Substance Reaction Status Criticality Sulfa (Sulfonamide Antibiotics) Skin irritation Active No Information Sulfa (Sulfonamide Antibiotics) Active No Information Penicillins Active No Information Medications Medication Instructions Dosage Effective Dates (start - stop) Status Comments propranolol ER 60 mg capsule,24 hr,extended release take 1 capsule by oral route every day 60 MG - Active Klonopin 1 mg tablet take 1 tablet by or al route 3 times every day 1 MG - Active Vyvanse 70 mg capsule take 1 capsule by oral route every day in the morning 70 MG - Active Procedures Procedure Date Ua Dip Stik/tablet; Wo Micro A 21 Basic Physical Contract Service Only Feb Rad Exam Cervical; Complete Offic/outpt E&m [facility] 5 Service(s) provided in the office during regularly Services provided in an urgent care cent er Rad Exam; Clav Complt Advance Directives Directive Yes / No Effective Date File Name No Information Encounters Encounter Description Practice Location Reason(s) For Visit Diagnoses Date Provider Providers Copied on Encounter Basic Physical Contract Service Only [facility] [place], [address], [place], [id number], tel:[phone] [facility] physical (chief complaint) Encounter for examination and observation for oth reasons No Information Offic/outpt E&m [facility], [address], [place], [place], [id number], tel:[phone] [facility] [address] joint or extremity pain (chief complaint)o ther (chief complaint) Pain in right shoulder Brielle Monteiro. [address], [address], [place], [address], [place]. tel:[phone] Family History Family Member Type Diagnosis Age At Onset Father Problem (finding) Hypertension Mother Problem (finding) Hypertension Father Problem (finding) Cancer - pancreatic Payers Payer name Insurance type Covered libertarian ID Authoriza tion(s) No Information Social History Type Description Quantity Date Captured Comments Alcohol Use Details Unknown Caffeine Use Details Unknown Tobacco Use Status Cigarette smoker Smoking Status Current every day smoker Smoking Tobacco Use Details Cigarette: No Details Available Cigarette: No Details Available Sex Female Vital Signs Date / Time: Height Weight BMI Pulse Rate Blood Pressure Temperature Respiratory Rate Body Surface Area Head Circumference Head Circ. Percentile Wt./Johan. Percentile BMI percentile Pulse Ox Inhaled Ox 6:12 PM 73.00 in 85.729 kg (189.00 lbs) 24.9 4 kg/m eter (2) 82 /min 138/105 mm[Hg] 98.10 F 18 /min 6:35 PM 65 /min 153/107 mm[Hg] 6:42 PM 71 /min 148/102 mm[Hg] 18 /min Chief Complaint And Reason For Visit From encounter dated '02/26/2021 15:05'. physical (chief complaint). Description: Last LMP was 02/26/2021. The patient does use tobacco. Additional information: PATIENT PRESENTS FOR PHYSICAL EXAM, STATES SHE REQUIRES CLEARANCE FROM A HEALTHCARE PROVIDER TO RTW AFTER BEING SEEN IN ER FOR SUSPECTED ALLERGIC REACTION TO RECENT COVID VACCINE;REPORTS DIAGNOSIS WAS PANIC ATTACK. PATIENT REPORTS HX OF ANXIETY. . Reason For Referral Reason For Referral No Information Plan Of Treatment Date Type Action Status Referral Ordered: Referral: Orthopedics. Appointment date/timeframe: 2 Weeks ordered Referral Ordered: Rad Exam Cervical; Complete Right ordered Referral Ordered: Rad Exam; Clav Complt Right ordered History Of Present Illness Encounter Date Complaint History Of Prese nt Illness physical Last LMP was 09/2021. The patient does use tobacco. Additional information: PATIENT PRESENTS FOR PHYSICAL EXAM, STATES SHE REQUIRES CLEARANCE FROM A HEALTHCARE PROVIDER TO RTW AFTER BEING SEEN IN ER FOR SUSPECTED ALLERGIC REACTION TO RECENT COVID VACCINE; REPORTS DIAGNOSIS WAS PANIC ATTACK. PATIENT REPORTS HX OF ANXIETY. . Functional Status Date Functional Assessmen t No Information Instructions Date Instruction Additional Infor leonila ELEVATED BP ON REPEA MIRLANDE CHECKS. CLEARED FOR WORK WITH DOCUMENTATION FROM TREATING PROVIDER OF STABLE BLOOD PRESSURE MANAGEMENT. I RECOMMEND YOU CONTACT YOUR TREATING PROVIDER TO REQUEST THIS SUPPLEMENTAL DOCUMENTATION. Related to Encounter for examination and observation for oth reasons Assessments Type Assessment Date assessment Encounter for examination and ob servation for oth reasons Mental Status Date Cognitive Assessment Orientation - [place] ed to time, place, person, situation. Patient Care Teams Name Effective Dates (start - stop) Status Members No Information
--- OUTSIDE RECORDS SUMMARY | 2021-02-26 10:05 | XMS_ITS | Continuity of Care Document ---
Author Organization [facility] [place] Address [address] [place] [address] Phone Care Team Providers Care Auto Radiator Specialist Name Role Phone Unavailable Unavailable Unavailable Allergies, [...] Feb Rad Exam Cervical; Complete Offic/outpt E&m [facility] 5 Service(s) provided in the office during regularly Services provided in an urgent care cent er Rad Exam; Clav Complt Advance Directives Directive Yes / No Effective Date File Name No Information Encounters Encounter Description Practice Location Reason(s) For Visit Diagnoses Date Provider Providers Copied on Encounter Basic Physical Contract Service Only [facility] [place], [address], [place], [id number], tel:[phone] [facility] physical (chief complaint) Encounter for examination and observation for oth reasons No Information Offic/outpt E&m [facility], [address], [place], [place], [id number], tel:[phone] [facility] [address] joint or extremity pain (chief complaint)o ther (chief complaint) Pain in right shoulder Brielle Monteiro. [address], [address], [place], [address], [place]. tel:[phone] Family History Family Member Type Diagnosis Age At Onset Father Problem (finding) Hypertension Mother Problem (finding) Hypertension Father Problem (finding) Cancer - pancreatic Payers Payer name Insurance type Covered constitution party ID Authoriza tion(s) No Information Social History [...] Mental Status Date Cognitive Assessment Orientation - [place] ed to time, place, person, situation. Patient Care Teams Name Effective Dates (start - stop) Status Members No Information
--- OUTSIDE RECORDS SUMMARY | 2025-09-27 11:00 | XMS_ITS | Encounter Summary ---
Author Organization [facility] Address [address] [place] [phone] Phone Care Team Providers Care Eating Disorder Psychologist Name Role Phone Alice Carmen CIVIL DEFENSE DIRECTOR Primary Care Provider [phone] Reason for Visit * Reason Comments Breast Problem Encounter Details Date Type Department Care Team (Late st Contact Info) Description 09/27/2025 11:00 AM EST Office Visit [facility] [address] [place] [address] Mona Zarate MD [address] [facility], [address] [place] [address] [email or web address] Lump in upper outer quadrant of right breast (Primary Dx) Social History Tobacco Use Types Packs/Day Years [...] got money to buy more. Never True 09/24/2025 Within the past 6 months the food we bought just didn't last and we didn't have enough money to get more. Never True Residential Stability Answer Date Recor ded What is your housing situation today? I have leonie nunn 09/24/2025 How many times have you move d in the past 12 months? Zero (I did not move) 09/24/2025 Paying for Meds Answer Date Recorded Do you have trouble paying for medicines? No 09/24/2025 Paying Utility Bills Answer Date Record ed Do you have trouble paying your heating or elect ricity bill? No 09/24/2025 Transportation Answer Date Recorded Has the lack of transportati on kept you from medical appointments or from getting medications? No 09/24/2025 Unemployment Answer Date Recorded Are you currently unemployed or working on a part-time or temporary basis, and looking for work? No 07/09/2022 Digital Access Answer Date Recorded No 09/24/2025 Yes 09/24/2025 Do you have reliable internet access at home? Ye s 09/24/2025 Do you have a device (e.g., phone, tablet, computer) with a working camera? Yes 09/24/2025 Intimate Partner Violence Answer Date R ecorded Are you denied basic needs s uch as food, clothing, or medical care? No 09/24/2025 In the past 12 months have y ou been in a relationship with a person who hurts, threatens, or tries to control you? No 09/24/2025 Are you denied basic needs s uch as food, clothing, or medical care? No 09/24/2025 In the past 12 months have y ou been in a relationship with a person who hurts, threatens, or tries to control you? No 09/24/2025 Comments No Sex and Gender Information Value Date Recorded Sex Assigned at Female 03/03/2022 7:16 PM EDT Legal Sex Female 7:01 PM EDT Gender Identity Female 03/03/2022 7:16 PM EDT Sexual Orientation Straight 05/30/2023 3: 12 PM EDT documented as of this encounter Last Filed Vital Signs Vital Sign Reading Time Taken Comments Blood Pressure 98/68 09/27/2025 11:13 AM EST Pulse - - Temperature - - Respiratory Rate - - Oxygen Saturation - - Inhaled Oxygen Concentration - - Weight - - Height - - Body Mass Index - - documented in this encounter Progress Notes * Antonia Duran MA - 09/27/2025 11:00 AM EST Does the patient agree to a flight operation coordinator?: No Procedure performed requiring flight operation coordinator: physical exam/inspection of breast * Mona Zarate MD - 09/27/2025 11:00 AM EST Encounter Date: 09/27/2025 Chief Complaint: Chief Complaint Patient presents with Breast Problem Subjective: Beverly Herman is a 35 y.o. who presents for discovery of 3 small lumps in the upper outer quadrant of the right breast, noticed a few weeks ago. Today she can palpate only 1 of these distinctly No family history of breast cancer, she has had family members with some benign breast biopsies She has breast implants that were removed about 5 years ago . 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 no medication changes Allergies Allergen Reactions Aluminum Anaphylaxis Clindamycin Anaphylaxis Ketamine Unknown Cardiac issue Nickel Anaphylaxis Penicillins Anaphylaxis and Hives Prednisone Anaphylaxis and Hives Sulfa (Sulfonamide Antibiotics) Hives and Anaphylaxis Ivabradine Rash Brand name Corlanor Ondansetron Unknown Alum-Mag Hydroxide-Simeth Benadryl [Diphenhydramine Hcl] Gabapentin Other (See Comments) numbness Gadolinium-Containing Contrast Media Other Reaction(s): Cardiac Issue I go into V-Tach Ketorolac Other Reaction(s): rash Prochlorperazine Benzonatate Palpitations Methocarbamol Other (See Comments) Other Reaction(s): Ventricular Tachycardia Objective: BP 98/68 Gen: Alert, cooperative. Well-appearing on today's exam NEUROLOGIC: speech fluent, grossly intact BREAST - examined sitting and supine, no skin changes, no adenopathy; there are bilateral scars consistent with mammoplasty, including circumferential scar around the areola. Both breasts have some diffuse nodularity that is not necessarily symmetric consistent with previous breast surgery. The area of concern at approximately 10:00 there is 1 small maybe 5 to 6 mm lump that is palpable, though it does not seem to be different from other scattered nodularity Assessment/Plan: 35 y.o. with: Problem List Items Addressed This Visit Obstetrics and Gynecology Lump in upper outer quadrant of right breast Overview Present for a few weeks, is in luteal phase of cycle Status post breast implant subsequently removed Current Assessment & Plan Today she can palpate only 1-3 lump she palpated earlier, prefers to have diagnostic imaging ratherthan waiting 1 menstrual cycle to see if this resolves. Describes a diagnostic bilateral mammogram with ultrasound the targeted area, if there is nothing seen on imaging but she can still palpate, I advised her she should still see a breast surgeon. If cyst nothing needs to be done if solid the radiologist will guide us Explained the diagnostic mammogram and ultrasound will come under any deductible if she has 1 Relevant Orders Mammogram Diagnostic (Bilateral) US Breast (Right) Mona Zarate MD documented in this encounter Miscellaneous Notes * Assessment & Plan Note - Mona Zarate MD - 09/27/2025 1:05 PM ESTAssociated Problem(s): Lump in upper outer quadrant of right breast Today she can palpate only 1-3 lump she palpated earlier, prefers to have diagnostic imaging ratherthan waiting 1 menstrual cycle to see if this resolves. Describes a diagnostic bilateral mammogram with ultrasound the targeted area, if there is nothing seen on imaging but she can still palpate, I advised her she should still see a breast surgeon. If cyst nothing needs to be done if solid the radiologist will guide us Explained the diagnostic mammogram and ultrasound will come under any deductible if she has 1 documented in this encounter Plan of Treatment Upcoming Encounters Date Type Department Care Team (Late st Contact Info) Description 11/05/2025 11:40 AM EST Office Visit [facility] [address] [place] [address] Camron Umana MD [address] [facility], [address] [place] [address] [email or web address] Scheduled Orders Name Type Priority Associated Diagnoses Orde r Schedule Mammogram Diagnostic (Bilateral) Imaging Routine Lump in upper outer quadrant of right breast Expected: 09/27/2025, Expires: 12/28/2025 US Breast (Right) Imaging Routine Lump in upper outer quadrant of right breast Expected: 09/27/2025, Expires: 09/27/2027 documented as of this encounter Visit Diagnoses Diagnosis Lump in upper outer quadrant of right breast- Primary documented in this encounter Additional Health Concerns Assessment Noted Time PHQ-2 Depression Total Score: 0 06/19/20 23 4:56 PM EDT documented as of this encounter Care Teams Eating Disorder Psychologist Relationship Specialty Start Date End Date Alice Carmen FNP [address] [place] [address] [address] [place] [address] [email or web address] PCP - General Family Medicine 09/28/22 documented as of this encounter Additional Source Comments The information contained in this document represents components of the legal health record. It is not the complete legal health record.[facility]
--- NOTE | 2025-10-02 16:11 | ECG_ITS ---
Test Reason : CP Blood Pressure : */* mmHG Vent. Rate : 66 BPM Atrial Rate : 66 BPM P-R Int : 158 ms QRS Dur : 66 ms QT Int : 408 ms P-R-T Axes : 50 12 60 degrees QTcB Int : 427 ms Normal sinus rhythm Low voltage QRS Borderline ECG When compared with ECG of 30-May-2025 17:06, No significant change was found Referred By: Generic ED Physician Electronically Signed By: DERICK GONZALEZ MD
[2025-10-02 16:24] VITALS: BP 116/88; PULSE 69; RESP 14; TEMP 36.6; O2SAT 100; BMI 29.5
--- OUTSIDE RECORDS SUMMARY | 2025-10-02 16:36 | XMS_ITS | Encounter Summary ---
Author Organization [facility] Address [address] [place] [address] Care Team Providers Care Waterworks Chief Engineer Name Role Phone Alice Carmen NP Primary Care Provider [phone] Richard Bello MD Unavailable [phone] Bandar Schmitt MD Unavailable Yaneli Beck RN Unavailable [phone] Beatriz Miller PT Unavailable [phone] Encounter Details Date Type Department Care Team (Late st Contact Info) Description 12/02/2024 Scanned Document [facility] Heart & Vascular [place] [address] [place] [address] Bandar Schmitt MD [address] [phone] Social History Tobacco Use Types Packs/Day Years [...] Indicated Resolved Time R/O Respiratory Disease 01/07/2025 01/07/202512/205 7:55 AM EST documented as of this encounter Care Teams Waterworks Chief Engineer Relationship Specialty Start Date End Date Alice Carmen NP [address] [place] [address] PCP - General 08/07/24 Richard Bello MD [address] [place] [phone] Primary Rn Surgical Cardiovascular Disease 08/07/24 Bandar Schmitt MD [address] [place] [address] Rn Surgical Cardiac Electrophysiology 06/04/25 Yaneli Tesfaye, RN [address] [place] [address] Nurse Navigator Surgery, Neurosurgery 06/28/25 07/07/25 Beatriz Miller, PT [address] [address] Ornamental Machine OperatorSpa Manager/Esthetician Medicine and Rehabilitation 06/28/25 documented as of this encounter
--- OUTSIDE RECORDS SUMMARY | 2025-10-02 16:36 | XMS_ITS | Encounter Summary ---
Author Organization [facility] Address [address] [place] [address] Care Team Providers Care Director Of Solutions Architecture Name Role Phone Alice Carmen NP Primary Care Provider [phone] Richard Bello MD Unavailable [phone] Bandar Schmitt MD Unavailable Yaneli Beck RN Unavailable [phone] Beatriz Miller PT Unavailable [phone] Encounter Details Date Type Department Care Team (Late st Contact Info) Description 01/15/2025 Scanned Document [facility] Cardiothoracic Surgery [place] [address] [place] [phone] Cardiology, Scan Social History Tobacco Use Types Packs/Day Years Used Date Smoking Tobacco: Never Smokeless Tobacco: Never Alcohol Use Standard Drinks/Week Comments Never 0 (1 standard drink = 0.6 oz pur e alcohol) [facility] Utilities Answer Date Recorded In the past 12 months has [employer], gas, oil, or water [employer] threatened to shut off services in [...] any time in the past 12 [facility], were you homeless or living in a intermediate (including now)? No 01/08/2025 Comments Unknown Sex and Gender Information Value Date Recorded Sex Assigned at Female 07/23/2024 4:21 PM EDT Legal Sex Female 6:41 PM EDT Gender Identity Female 01/05/2025 1:54 PM EST Sexual Orientation Heterosexual (straight) 01/05 1:54 PM EST documented as of this encounter Plan of Treatment Not on file documented as of this encounter Procedures Procedure Name Priority Date/Time Associated Diagnosis Comments CARDIOLOGY ANGIOGRAM 01/24/2025 documented in this encounter Results * CARDIOLOGY ANGIOGRAM (01/24/2025) Anatomical Region Laterality Modality Other us Scan Cardiology HX AMB PROCEDURES Final Result documented in this encounter Visit Diagnoses Not on filedocumented in this encounter Care Teams Director Of Solutions Architecture Relationship Specialty Start Date End Date Alice Carmen NP [address] [place] [address] PCP - General 08/07/24 Richard Bello MD [address] [place] [address] Primary Community Living Coach Cardiovascular Disease 08/07/24 Bandar Schmitt MD [address] [place] [address] Community Living Coach Cardiac Electrophysiology 06/04/25 Yaneli Tesfaye RN [address] [place] [address] Nurse Navigator Surgery, Neurosurgery 06/28/25 07/07/25 Beatriz Miller, PT [address] [phone] Horizontal Boring Mill Set Up OperatorCustomer Service Advocate Medicine and Rehabilitation 06/28/25 documented as of this encounter
--- OUTSIDE RECORDS SUMMARY | 2025-10-02 16:36 | XMS_ITS | Encounter Summary ---
Author Organization [facility] Address [address] [place] [address] Care Team Providers Care Cylindrical Mixer Name Role Phone Alice Carmen NP Primary Care Provider [phone] Richard Bello MD Unavailable [phone] Bandar Schmitt MD Unavailable Yaneli Beck RN Unavailable [phone] Beatriz Miller PT Unavailable [phone] Encounter Details Date Type Department Care Team (Late st Contact Info) Description 12/02/2024 Scanned Document [facility] Heart & V[facility] [place] [address] [place] [address] Bandar Schmitt MD [address] [phone] Social History Tobacco Use Types Packs/Day Years [...] documented as of this encounter Care Teams Cylindrical Mixer Relationship Specialty Start Date End Date Alice Carmen NP [address] [place] [address] PCP - General 08/07/24 Richard Bello MD [address] [place] [address] Primary Livestock Trader Cardiovascular Disease 08/07/24 Bandar Schmitt MD [address] [place] [address] Livestock Trader Cardiac Electrophysiology 06/04/25 Yaneli Tesfaye, RN [address] [place] [address] Nurse Navigator Surgery, Neurosurgery 06/28/25 07/07/25 Beatriz Miller, PT [address] [address] Director Weights And MeasuresPress Operator Automatic Medicine and Rehabilitation 06/28/25 documented as of this encounter
--- OUTSIDE RECORDS SUMMARY | 2025-10-02 16:37 | XMS_ITS | Clinical Summary ---
Author Organization [facility] Address [facility] [place] [address] Care Team Providers Care Rental Representative Name Role Phone None Primary Care Provider Unavailabl e Allergies Active Allergy Reactions Criticality Noted Date Comments Alum-Mag Hydroxide-Simeth 04/04/2025 Aluminum Anaphylaxis High 01/07/2025 Benzonatate Palpitations Medium 04/13/2020 Clindamycin Anaphylaxis High 02/16/2025 Diphenhydramine Other (See Comments) High 05/31/2024 Other Reaction(s): Cardiac Issue Gabapentin Other (See Comments) 04/25/2025 numbness Iodine Palpitations Low 08/03/2020 Ivabradine Rash Medium 05/19/2024 Brand name Corlanor Ketorolac 04/04/2025 Other Reaction(s): rash Methocarbamol 06/08/2025 Other Reaction(s): Ventricular Tachycardia Nickel Anaphylaxis High 01/07/2025 Ondansetron Other (See Comments) High 02/16/2025 Other Reaction(s): Cardiac Issue, Unknown Long QT issues Penicillins Anaphylaxis High 11/04/2015 Prednisone Anaphylaxis,Hives High 07/31/2018 Prochlorperazine 04/04/2025 Sulfa (Sulfonamide Antibiotics) Anaphylaxis High 11/04/2015 Medications lidocaine 4 % Adhesive Patch, Medicated Apply 1 patch onto the skin daily. (leave on for 12 hours and remove for 12 hours) 30 patch 06/18/2025 Active acetaminophen (Tylenol) 500 mg tablet Take 2 tablets by mouth every 4 hours as needed for Pain. 06/17/2025 Active ibuprofen (Motrin) 400 mg tablet Take 1 tablet by mouth Three Times Daily for DHE. 06/17/2025 Active propranoloL (Inderal) 20 mg tablet Take 1 tablet by mouth every 4 hours. 06/17/2025 Active Dayvigo 10 mg tablet Take 1 tablet by mouth nightly as needed. 06/17/2025 Active clonazePAM (KlonoPIN) 1 mg tablet Take 1 tablet by mouth 3 times daily as needed for Anxiety. 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 She understands and agrees. Syncope 05/31/2024 Overview (06/17/2025): Last Assessment & Plan: No clear evidence of symptomatic bradycardia or high degree AV block currently. Chest pain 05/31/2024 Overview (06/17/2025): Last Assessment & Plan: Chronic chest pain, [...] CXR ECG monitoring Cards consult in AM Polyarthralgia 01/02/2024 Overview (06/17/2025): Patient limits NSAIDs secondary to easy bruising Last Assessment & Plan: No subjective or objective e/o underlying inflammatory arthritis. Specifically, no swelling or pattern of AM stiffness; no synovitis or joint effusion on exam today. Hx suggests component of hypermobility but my exam today really does not support this. For dedicated re-evaluation on f/u. Positive TAMARA (antinuclear antibody) 01/02/2024 Overview (06/17/2025): 1:320 sp (07/2023) Rheum evaluation in [place] [...] my review). Ventricular tachycardia (paroxysmal) 11/06/2023 Overview (06/17/2025): Last Assessment & Plan: Not sure at this point whether patient has inappropriate sinus tachycardia or SVT. Symptoms correlate more with inappropriate sinus tachycardia. Will request for 48-hour Holter. In view of symptoms consistent with inappropriate sinus tachycardia will start the patient on ivabradine. Panic disorder 04/17/2023 PMS (premenstrual syndrome) 01/22/2023 Overview (06/17/2025): Last Assessment & Plan: It is not [...] anxiety including a different beta-annemarie, possibly metoprolol. Pelvic pain 01/22/2023 Sciatica of left side 10/17/2022 Overview (06/17/2025): Last Assessment & Plan: Referred to [facility]. Attention deficit disorder (ADD) without hyperac tivity 07/12/2022 Overview (06/17/2025): Last Assessment & Plan: Stable, continue the adderall, follow up 3 mos for med check. YAHAIRA (generalized anxiety disorder) 07/12/2022 Overview (06/17/2025): Last Assessment & Plan: Stable, continue klonopin. Social History Tobacco Use Types Packs/Day Years Used Date Smoking Tobacco: Never Smokeless Tobacco: Never Tobacco Cessation:Counseling Given: No DH IPV Inpatient Questions Answer Date Recorded Does Anyone Try to Keep You From Having Contact with Others or Doing Things Outside Your Home? no 06/17/2025 Feels Threatened by Someone no 05/20 Feels Unsafe at Home or Work/School no 06/17/2025 Physical Signs of Abuse Present no 06/17/2025 Comments No Sex and Gender Information Value Date Recorded Sex Assigned at Not on file Legal Sex Female 6:19 PM EDT Gender Identity Not on file Sexual Orientation Not on file Last Filed Vital Signs Vital Sign Reading Time Taken Comments Blood Pressure 108/72 06/17/2025 11:31 AM EDT Pulse 80 06/17/2025 11:31 AM EDT Temperature 37.6 C (99.7 F) 06/17/2025 11:31 AM EDT Respiratory Rate 16 06/17/2025 11:3 1 AM EDT Oxygen Saturation 97% 06/17/2025 11: 31 AM EDT Inhaled Oxygen Concentration - - Weight 81.6 kg (179 lb 14.3 oz) 025 12:39 PM EDT Height 185.4 cm (6' 0.99 ) 06/17/2025 1 2:39 PM EDT Body Mass Index 23.74 06/17/2025 12:39 PM EDT Plan of Treatment Health Maintenance Due Date Last Done Comments HIV screen 2009 Hepatitis C Screening 2009 Hepatitis B vaccine (0-59 yrs) and Risk (1) 2010 Tetanus/Diphtheria/Pertussis Vaccines (1 - Tdap) 03/26 HPV test 2021 PAP Smear 2021 Covid-19 Vaccine (1 - 2024- season) 2025 Influenza (Flu) vaccine (1 o f 1 - Influenza standard series) 07/19/2025 Insurance [employer] Advance Directives * Attempt Cardiopulmonary Resuscitation - Inpatient (Latest Code Status on File) Date Activated Date Inactivated Comments 06/17/2025 6:04 AM 06/17/2025 3:11 PM Question Answer Comments Code Status decision made by: Patient Care Teams Rental Representative Relationship Specialty Start Date End Date None None PCP - General 06/16/25
--- OUTSIDE RECORDS SUMMARY | 2025-10-02 16:37 | XMS_ITS | Encounter Summary ---
Author Organization [facility] Address [address] [place] [address] Phone Care Team Providers Care Manager Personnel Selection Name Role Phone Alice Carmen FALL INTERN Primary Care Provider [phone] Encounter Details Date Type Department Care Team (Late st Contact Info) Description 10/15/2022 Procedure Pass [facility], [address] [address] Social History Tobacco Use Types Packs/Day Years [...] high school, GED, job training, learning the [place] language, technical skills, or developing parenting skills)? [...] Office Visit [facility] [address] [place] [address] [place] [address] Camron Umana MD [address] [place] [address], [address] [place] [address] documented as of this encounter Visit Diagnoses Not on filedocumented in this encounter Additional Health Concerns Infection Onset Date Last Indicated Resolved Time CoV-Risk 05/30/2023 05/30/2023 06/10/2023 1:21 AM EDT CoV-Risk 11/12/2024 11/12/2024 11/23/2024 1:22 AM EST CoV-Risk 01/01/2025 01/01/2025 01/12/2025 1:22 AM EST Assessment Noted Time PHQ-2 Depression Total Score: 0 07/09/20 11:33 AM EDT documented as of this encounter Care Teams Manager Personnel Selection Relationship Specialty Start Date End Date Alice Carmen FNP [address] [place] [address] [address] [place] [address] PCP - General Family Medicine 09/28/22 documented as of this encounter Additional Source Comments The information contained in this document represents components of the legal health record. It is not the complete legal health record.[facility]
--- OUTSIDE RECORDS SUMMARY | 2025-10-02 16:37 | XMS_ITS | Clinical Summary ---
Author Organization [facility] Address [address] [place] [address] Care Team Providers Care Speed Belt Sander Name Role Phone Ref, Has No Pcp [...] Problem Noted Date Diagnosed Date Weakness 06/08/2025 Social History Tobacco Use Types Packs/Day Years [...] ual Screening 11/18/2024 COVID-19 Vaccine (1 - 2024-2 6 season) 2025 Influenza Vaccine (#1) 2025 09/13/2022 DTaP,Tdap,and Td Vaccines (2 - Td or Tdap) 06/28/2032 06/28/2022 Hepatitis C Screening Completed 07/12/2022 Pneumococcal Vaccine: Pediat torin (0-5 Years) and At-Risk Patients (6-50 Years) Aged Out No longer eligible b ased on patient's age to complete this topic Insurance [employer] Care Teams Speed Belt Sander Relationship Specialty Start Date End Date Ref, Has No Pcp Or DO NOT EDIT THIS RECORD VIA PROVIDER ON THE FLY PCP - General Notched Blade Loader 06/07/25
--- OUTSIDE RECORDS SUMMARY | 2025-10-02 16:37 | XMS_ITS | Encounter Summary ---
Author Organization [facility] Address [address] [place] [address] Care Team Providers Care Wheat And Oats Flake Miller Name Role Phone Alice Carmen NP Primary Care Provider [phone] Richard Bello MD Unavailable [phone] Bandar Schmitt MD Unavailable Yaneli Beck RN Unavailable [phone] Beatriz Miller PT Unavailable [phone] Encounter Details Date Type Department Care Team (Late st Contact Info) Description 03/27/2025 Scanned Document [facility] [address] [facility] [address] [place] [address] Provider, Generic Social History Tobacco Use Types Packs/Day Years Used Date Smoking Tobacco: Never Smokeless Tobacco: Never Alcohol Use Standard Drinks/Week Comments Never 0 (1 standard drink = 0.6 oz pur e alcohol) [facility] Utilities Answer Date Recorded In the past 12 months has [employer], gas, oil, or water [employer] threatened to shut off services in your [...] time in the past 12 m [facility], were you homeless or living in a long term (including now)? No 03/27/2025 Comments Unknown Sex and Gender Information Value Date Recorded Sex Assigned at Female 07/23/2024 4:21 PM EDT Legal Sex Female 6:41 PM EDT Gender Identity Female 01/05/2025 1:54 PM EST Sexual Orientation Heterosexual (straight) 01/05 1:54 PM EST documented as of this encounter Functional Status * AUDIT-C Total Score - Female Answer Date of Assessment Author 0 03/27/2025 3:27 PM EDT Jayesh Reid RN * AUDIT-C Score Answer Date of Assessment Author 0 03/27/2025 3:27 PM EDT Jayesh Reid RN * Question Answer Date of Assessment Author Q1: How often do you have a drink containing alcohol? Never 03/27/2025 3:27 PM KIMT Jayesh Reid RN Q2: How many drinks [...] on filedocumented in this encounter Care Teams Wheat And Oats Flake Miller Relationship Specialty Start Date End Date Alice Carmen NP [address] [place] [address] PCP - General 08/07/24 Richard Bello MD [address] [place] [place] [address] Primary Heater Operator Cardiovascular Disease 08/07/24 Bandar Schmitt MD [address] [place] [address] Heater Operator Cardiac Electrophysiology 06/04/25 Yaneli Tesfaye RN [address] [place] [address] Nurse Navigator Surgery, Neurosurgery 06/28/25 07/07/25 Beatriz Miller, PT [address] [address] Patient Admitting ClerkPlate Driller Medicine and Rehabilitation 06/28/25 documented as of this encounter
--- OUTSIDE RECORDS SUMMARY | 2025-10-02 16:38 | XMS_ITS | Clinical Summary ---
Author Organization [facility] Address [address] [place] [address] Care Team Providers Care Core Stacker Name Role Phone Alice Carmen NP Primary Care Provider [phone] Richard Bello MD Unavailable [phone] Bandar Schmitt MD Unavailable Beatriz Miller PT Unavailable [phone] Allergies Active Allergy Reactions Criticality Noted Date Comments Aluminum Anaphylaxis High 01/07/2025 Benzonatate Palpitations Medium 04/13/2020 Clindamycin Anaphylaxis High 02/16/2025 Diphenhydramine Unknown/Patient and Family Unable to Define Medium 05/31/2024 Gabapentin Delirium/Confusion/P sychosis Medium 07/25/2025 Psychosis nerves on fire paranoia Ivabradine Rash/Dermatitis Medium 05/19/2024 Brand name Corlanor Ketamine Unknown/Patient and Family Unable to Define Medium 07/25/2025 Cardiac issue Methocarbamol Other (See Comments) Low 06/08/2025 Other Reaction(s): Ventricular Tachycardia Nickel Anaphylaxis High 01/07/2025 Ondansetron Unknown/Patient and Family Unable to Define Medium 02/16/2025 Penicillins Anaphylaxis,Hives High 07/31/2018 Prednisone Anaphylaxis,Hives High 07/31/2018 Prochlorperazine Edisylate Unknown/Patient and Family Unable to Define Medium 08/06/2025 Sulfa Antibiotics Anaphylaxis High 11/04/2015 Medications clonazePAM (KlonoPIN) 1 MG tablet Take 1 tablet (1 mg total) by mouth as needed. Active EPINEPHrine 0.3 mg/0.3 mL IJ auto-injection Inject 0.3 mL (0.3 mg total) into the thigh once as needed for allergic reaction. 4 Active Lemborexant (DayVigo) 10 MG Tab Take by mouth. Activ e propranolol (INDERAL) 20 MG tabletIndicatio ns:Inappropriat e [...] every 6 (six) hours. 360 tablet 5 Active Additional Information Patient not taking.Reported on 08/06/2025 oxyCODONE (ROXICODONE) 5 MG immediate release tabletIndicatio [...] 12 hours per day. 30 patch 5 Active ibuprofen (MOTRIN) 400 MG tablet Take 1 tablet (400 mg total) by mouth. 5 Active Active Problems Problem Noted Date Diagnosed [...] Pt has been to ED and to [facility] with similar complains and workup was negative [...] if there are any other issues or [id number]-[id number] with her PCP next week. She understands [...] 5-6 months; she will follow up with [facility] and decide on a strategy. Hypertensive disorder 08/02/2018 Encounters Date Type Department Care Team Description 08/06/2025 8:00 AM EDT Consult [facility] PHYSICAL [facility]ICINE & REH[facility] [address] [place] [phone] Sandro Sauer DO Intractable back pain (Primary Dx); Urinary incontinence, unspecified type; Incontinence of feces, unspecified fecal incontinence type; Sciatica of left side; Polyarthralgia 08/05/2025 11:00 AM EDT Treatment [facility] [address] [place] [id number] Hugo Arias MD Bord, David, PT Intractable back pain (Primary Dx); Difficulty walking; Muscle weakness 08/05/2025 Travel 07/22/2025 2:00 PM EDT Evaluation [facility] [address] [place] [id number] Hugo Arias MD Couture, Sarah, PT Intractable back pain (Primary Dx); Difficulty walking; Muscle weakness 07/22/2025 Travel 07/07/2025 2:00 PM EDT Telemedicine [facility] [id number] [address] [place] [address] [address] [place] [address] Rony Cuadra APRN Intractable back pain (Primary Dx); Lumbar radicular pain; Sacroiliac joint dysfunction; Urinary incontinence, unspecified type 07/07/2025 Travel from Last 3 Months Immunizations Immunization Administration Dates Next Due Influenza, Quadrivalent (FLU ARIX, AFLURIA, FLULAVAL, FLUZONE) Preservative Free IM 09/13/2022 Tdap 06/28/2022 Family History Medical History Relation Name Comments Cancer Father Uzair Herman Pancreatic Heart attack Father Uzair Herman Pancreatic cancer Father Uzair Herman Hypertension Maternal Aunt Leah Barrera Hypertension Maternal Grandmother Ashly Avina Hypertension Mother [facility] Thyroid disease Mother [facility] Relation Name Status Comments Father Uzair Herman Maternal Aunt Leah Barrera Maternal Grandfather Maternal Grandmother Ashly Avina Mother [facility] Social History Tobacco Use Types Packs/Day Years Used Date Smoking Tobacco: Never Smokeless Tobacco: Never Tobacco Cessation:Counseling Given: Not Answered Alcohol Use Standard Drinks/Week Comments Never 0 (1 standard drink = 0.6 oz pur e alcohol) [facility] Utilities Answer Date Recorded In the past 12 months has [employer], gas, oil, or water [employer] threatened to shut off services in your [...] medical care, and heating? Somewhat hard 03/27/2025 [facility] [place] [facility] [employer] - Occupational Stress Questionnaire Answer Date Recorded Do you feel stress - tense, restless, nervous, or anxious, or unable to sleep at night because your mind is troubled all the time - these days? Not at all 08/06/2025 Hunger Vital Sign Answer Date Recorded Within [...] were you homeless or living in a fdc (including now)? No 06/28/2025 Physical Activity Answer Date Recorded On average, how many days pe r week do you engage in moderate to strenuous exercise (like a brisk walk)? 0 days 08/06/2025 On average, how many minutes do you exercise per day at this level? 0 min 08/06/2025 Comments No Sex and Gender Information Value Date Recorded Sex Assigned at Female 07/23/2024 4:21 PM EDT Legal Sex Female 6:41 PM EDT Gender Identity Female 01/05/2025 1:54 PM EST Sexual Orientation Heterosexual (straight) 01/05 1:54 PM EST Last Filed Vital Signs Vital Sign Reading Time Taken Comments Blood Pressure 113/79 08/06/2025 8:01 AM EDT Pulse 87 08/06/2025 8:01 AM EDT Temperature 36.7 C (98.1 F) 06/28/2025 1:38 PM EDT Respiratory Rate 16 06/28/2025 1:38 PM EDT Oxygen Saturation 97% 08/06/2025 8:01 AM EDT Inhaled Oxygen Concentration - - Weight 88.8 kg (195 lb 12.3 oz) 06/27/2025 7:41 AM EDT Height 185.4 cm (6' 1 ) 06/10/2025 3:33 PM EDT Body Mass Index 25.83 06/10/2025 3:33 PM EDT Plan of Treatment Health Maintenance Due Date Last Done Comments Hepatitis C Virus Screening 1991 HIV Screening 2004 Hepatitis B Vaccines (1 of 3 - 19+ 3-dose series) 2010 Pap Smear (Ages 21-65) 2012 Influenza Vaccine 06/18/2025 09/13/2022, 09/13/2022 COVID-19 Vaccine (2 - 2024-2 6 season) 2025 05/18/2022 DTaP/Tdap/Td Vaccines (2 - T d or Tdap) 06/28/2032 06/28/2022 HPV Vaccines (No Doses Required) Completed Pneumococcal Vaccine: Pediatric (0-5 Years) and At-Risk Patients (6 to 49 Years) Aged Out No longer eligible b ased on patient's age to complete this topic Goals Goal Patient Goal Type Associated Problems Recent Progress Patient-Stated? Author PT LTG 1 Physical Therapy No Dianne Cash PT Note: Target Date: 09/17/25 Pt will.... Improve MDQ to less than 50 Be able to ambulate 100ft or more with cane or less assistive device Be able to negotiate 3 or more stairs with 1 or less rail Report pain with ADLs less than 5/10 PT STG 1 Physical Therapy No Dianne Cash PT Note: Target Date: 08/17/25 Pt will.... Be independent with HEP 5x/wk Improve MDQ to less than 70 Improve lumbar mobility by 25% in all directions Insurance [employer] Advance Directives * Full Code (Latest Code [...] 2:50 PM 01/07/2025 2:50 PM Care Teams Core Stacker Relationship Specialty Start Date End Date Alice Carmen NP [address] [place] [id number] PCP - General 08/07/24 Richard Bello MD [address] [place] [id number] Primary Frame Pulley Mortising Machine Operator Cardiovascular Disease 08/07/24 Bandar Schmitt MD [address] [place] [address] Frame Pulley Mortising Machine Operator Cardiac Electrophysiology 06/04/25 Beatriz Miller, PT [address] [address] Instrument AdjusterWhite Lead Filterer Medicine and Rehabilitation 06/28/25
--- OUTSIDE RECORDS SUMMARY | 2025-10-02 16:38 | XMS_ITS | Clinical Summary ---
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 Name Role Phone Physician, Pcp Unknown Primary Care Provider Heaven vailable Allergies Active Allergy Reactions Criticality Noted Date Comments Diphenhydramine Hcl Cardiac Issue 05/10/2025 Gabapentin Hallucinations 07/25/2025 Psychosis nerves on fire paranoia Gadolinium-Containing Contrast Media Cardiac Issue 07/24/2025 I go into V-Tach Ketamine 07/25/2025 Cardiac issue Penicillins Hives Medium 11/04/2015 Sulfa (Sulfonamide Antibiotics) Hives Medium 11/04/2015 Ondansetron Hcl Cardiac Issue 05/10/2025 Long QT issues Medications clonazePAM (KlonoPIN) 2 mg tablet Take 1 mg by mouth 2 (two) times a day if needed for anxiety. Active propranoloL (INDERAL) 20 mg tablet Take 1 tablet (20 mg total) by mouth 2 (two) times a day. Active tiZANidine (ZANAFLEX) 2 mg tablet Take 1 tablet (2 mg total) by mouth 3 (three) times a day for 10 days. 30 tablet 07/27/2025 Active acetaminophen (TYLENOL) 500 mg tablet Take 2 tablets (1,000 mg total) by mouth every 6 (six) hours if needed for mild pain for up to 10 days. 30 tablet 09/12/2025 09/22/20 25 Active Problems Problem Noted Date Diagnosed Date Lumbar disc herniation 07/27/2025 Back pain 07/24/2025 Atypical mole 06/22/2025 History of atypical skin mole 06/22/2025 History of keloid of skin 06/22/2025 Chest pain 03/30/2025 Inappropriate sinus tachycardia (CMS/HCC V24) Pericarditis 03/30/2025 Encounters Date Type Department Care Team Description 09/12/2025 4:05 PM EDT - 09/12/2025 6:48 PM EDT Emergency [facility] Emergency [address] [place] [phone] Jose Romo MD Notash, Mark, MD Chest pain, unspecified type (Primary Dx) Discharge Disposition: Home or Self Care 08/09/2025 4:02 PM EDT - 08/09/2025 5:47 PM EDT Emergency [facility] Emergency [address] [place] [phone] Chantelle Brennan MD Discharge Disposition: Left Against Medical Advice 08/09/2025 11:00 AM EDT Office Visit [facility] [address] [facility] [address] [place] [phone] Mariam Sanchez PA Atypical mole (Primary Dx) 07/28/2025 9:00 AM EDT Procedure visit [facility] [address] [facility] [address] [place] [address] Trav Zarate DO History of atypical skin mole (Primary Dx) 07/24/2025 2:57 PM EDT - 07/27/2025 5:14 PM EDT Hospital Encounter [facility] Medical Surgical Unit [address] [place] [phone] Tod Barr MD Lawrenz, MD Kvng Herrera Rizwan, MD Alam, Aroosa, MD Santoyo-Pacheco, Omar D, MD Intractable low back pain (Primary Dx); Neuropathy involving both lower extremities; Bilateral leg weakness; Urinary incontinence, unspecified type; Lumbar disc herniation; Chronic left-sided low back pain with left-sided sciatica Discharge Disposition: Home or Self Care 07/13/2025 [place] [address] [facility] [address] [place] [phone] Trav Zarate DO from Last 3 Months Surgical History Surgery Date Site/Laterality Comments CARDIAC CATHETERIZATION Pt states she had experimental cardiac surgery 3 months ago for Vtach. CHOLECYSTECTOMY APPENDECTOMY BREAST ENHANCEMENT SURGERY and removal SHOULDER-LEFT ANKLE-LEFT Medical History Medical History Date Comments Anxiety and depression History of pulmonary embolus (PE) Inappropriate sinus tachycardia (CMS/HCC V24) Family History Medical History Relation Name Comments Pancreatic cancer Father Thyroid disease Mother Relation Name Status Comments Father Mother Social History Tobacco Use Types Packs/Day Years Used Date Smoking Tobacco: Never Smokeless Tobacco: Never Tobacco Cessation:Counseling Given: Not Answered Alcohol Use Standard Drinks/Week Comments Not Currently 0 (1 standard drink = 0.6 oz pur e alcohol) Interpersonal Safety Answer Date Record ed Physical Abuse Unrecognized value 07/25/2025 Verbal Abuse Unrecognized value 07/25/2025 Comments No Sex and Gender Information Value Date Recorded Sex Assigned at Not on file Legal Sex Female 8:12 PM EDT Gender Identity Not on file Sexual Orientation Not on file Obstetrics History Last Filed Vital Signs Vital Sign Reading Time Taken Comments Blood Pressure 133/88 09/12/2025 5:59 PM EDT Pulse 77 09/12/2025 5:59 PM EDT Temperature 36.4 C (97.5 F) 09/12/2025 5:59 PM EDT Respiratory Rate 18 09/12/2025 5:59 PM EDT Oxygen Saturation 100% 09/12/2025 5:59 PM EDT Inhaled Oxygen Concentration - - Weight 83.9 kg (185 lb) 09/12/2025 3:54 PM EDT Height 185.4 cm (6' 1 ) 09/12/2025 3:54 PM EDT Body Mass Index 24.41 09/12/2025 3:54 PM EDT Plan of Treatment Health Maintenance Due Date Last Done Comments Hepatitis B Vaccines (1 of 3 - 19+ 3-dose series) 2010 Cervical Cancer Screening: Pap Smear 2012 HPV Vaccines (1 - 3-dose SCDM series) 2018 Cholesterol Screening (Lipid Panel) 12/17/2023 HIV Screening 12/17/2023 Social Influencers of Health Screening 12/17/2023 Depression Screening 11/18/2024 COVID-19 Vaccine ( - season) 2025 05/18/2022 Influenza Vaccine (#1) 2025 09/13/2022 Hypertension/CHF/CAD Annual BMP Blood Test 09/12/2026 09/12/2025, 08/09/2025, 07/25/2025, Additional history exists DTaP,Tdap,and Td Vaccines (2 - Td or Tdap) 06/28/2032 06/28/2022 RSV Immunization Adult Patients (1 - 1-dose 75+ series) 2066 Hepatitis C Screening Completed 07/12/2022 HIB Vaccines [...] Priority Date/Time Associated Diagnosis Comments ECG ANNOTATED 09/13/2025 MAGNESIUM STAT 09/12/2025 5:54 PM EDT LIPASE STAT 09/12/2025 5:54 PM EDT COMPREHENSIVE METABOLIC PANEL STAT 09/12/2025 5:54 PM EDT TROPONIN I HIGH SENSITIVITY Timed 09/12/2025 5:54 PM EDT D-DIMER STAT 09/12/2025 5:10 PM EDT CBC WITH AUTO DIFFERENTIAL STAT 09/12/2025 5:10 PM EDT CBC AND DIFFERENTIAL STAT 09/12/2025 5:10 PM EDT TROPONIN I HIGH SENSITIVITY Timed 09/12/2025 5:10 PM EDT ECG 12-LEAD STAT 09/12/2025 3:48 PM EDT ECG ANNOTATED 08/10/2025 HCG, SERUM, QUALITATIVE STAT Add-on 08/09/2025 4:31 PM EDT CBC WITH AUTO DIFFERENTIAL STAT 08/09/2025 4:31 PM EDT MAGNESIUM STAT 08/09/2025 4:31 PM EDT LIPASE STAT 08/09/2025 4:31 PM EDT COMPREHENSIVE METABOLIC PANEL STAT 08/09/2025 4:31 PM EDT CBC AND DIFFERENTIAL STAT 08/09/2025 4:31 PM EDT TROPONIN I HIGH SENSITIVITY Timed 08/09/2025 4:31 PM EDT ECG 12-LEAD STAT 08/09/2025 4:16 PM EDT TISSUE EXAM Routine 07/28/2025 9:16 AM EDT History of atypical skin mole TROPONIN I HIGH SENSITIVITY Routine 07/25/2025 6:23 AM EDT CBC WITH AUTO DIFFERENTIAL Routine 07/25/2025 6:23 AM EDT MAGNESIUM Routine 07/25/2025 6:23 AM EDT BASIC METABOLIC PANEL Routine 07/25/2025 6:23 AM EDT CBC AND DIFFERENTIAL Routine 07/25/2025 6:23 AM EDT MR CERVICAL SPINE WO CONTRAST STAT 07/24/2025 9:30 PM EDT MR THORACIC SPINE WO CONTRAST STAT 07/24/2025 9:29 PM EDT MR LUMBAR SPINE WO CONTRAST STAT 07/24/2025 7:25 PM EDT XR LUMBAR SPINE 2-3 VIEWS STAT 07/24/2025 4:50 PM EDT C-REACTIVE PROTEIN STAT Add-on 07/24/2025 3: 47 PM EDT CBC WITH AUTO DIFFERENTIAL STAT 07/24/2025 3:47 PM EDT HCG, SERUM, QUALITATIVE STAT 07/24/2025 3:47 PM EDT BASIC METABOLIC PANEL STAT 07/24/2025 3:47 PM EDT CBC AND DIFFERENTIAL STAT 07/24/2025 3:47 PM EDT from Last 3 Months Results * ECG-Annotated (09/13/2025) Only the most recent of2 resultswithin the time period is included. us Provider Onbase MD ECG ORDERABLES Final Result * Troponin I high sensitivity (09/12/2025 5:54 PM EDT) Only the most recent of4 resultswithin the time period is included. High Sensitivity Troponin I <3 <=54 ng/L LAB CHEMISTRY METHOD 09/12/2025 6:47 PM EDT [facility] Blood Venous blood specimen / Unknown Venipuncture / Unknown 09/12/2025 5:54 PM EDT 09/12/2025 6:13 PM EDT Narrative [facility] - 09/12/2025 6:47 PM EDT High levels of biotin in samples may falsely decrease hsTroponin values. Use caution when interpreting hsTroponin results in patients taking biotin who exhibit renal impairment (eGFR <60) or in patients taking more than 20 mg/day of biotin. us Seymour Guardado MD LAB BLOOD ORDERABLES Final Resu lt Performing Organization Address City/[facility]/ZIP Co de Phone Number [facility] [address] [place] [address], [place] [phone] * Magnesium (09/12/2025 5:54 PM EDT) Only the most recent of3 resultswithin the time period is included. Magnesium 2.2 1.9 - 2.6 mg/dL LAB CHEMISTRY METHOD 09/12/2025 7:01 PM EDT [facility] Comment:Hemolysis present Blood Venous blood specimen / Unknown Venipuncture / Unknown 09/12/2025 5:54 PM EDT 09/12/2025 6:13 PM EDT Seymour Guardado MD LAB BLOOD ORDERABLES Final Resu lt Performing Organization Address [facility] de Phone Number [facility] [address] [place] [address], [place] [phone] * Lipase (09/12/2025 5:54 PM EDT) Only the most recent of2 resultswithin the time period is included. Lipase 24 13 - 75 unit/L LAB CHEMISTRY METHOD 09/12/2025 7:01 PM EDT [facility] Blood Venous blood specimen / Unknown Venipuncture / Unknown 09/12/2025 5:54 PM EDT 09/12/2025 6:13 PM EDT us Seymour Guardado MD LAB BLOOD ORDERABLES Final Resu lt Performing Organization Address [facility] de Phone Number [facility] [address] [place] [address], [place] [phone] * Comprehensive metabolic panel (09/12/2025 5:54 PM EDT) Only the most recent of2 resultswithin the time period is included. Sodium 137 133 - 145 mmol/L LAB CHEMISTRY METHOD 09/12/2025 7:01 PM [facility] Potassium 5.2 3.5 - 5.5 mmol/L LAB CHEMISTRY METHOD 09/12/2025 7:01 PM [facility] Comment:Hemolysis present Chloride 108 96 - 110 mmol/L LAB CHEMISTRY METHOD 09/12/2025 7:01 PM [facility] CO2 26 21 - 32 mmol/L LAB CHEMISTRY METHOD 09/12/2025 7:01 PM [facility] Anion Gap 3 3 - 11 LAB CHEMISTRY METHOD 09/12/2025 7:01 PM [facility] Glucose 81 70 - 100 mg/dL LAB CHEMISTRY METHOD 09/12/2025 7:01 PM [facility] BUN 7 5 - 25 mg/dL LAB CHEMISTRY METHOD 09/12/2025 7:01 PM [facility] Creatinine 0.84 0.50 - 1.10 mg/dL LAB CHEMISTRY METHOD 09/12/2025 7:01 PM [facility] eGFR 94 >=60 mL/min/1. 73m2 LAB CHEMISTRY METHOD 09/12/2025 7:01 PM [facility] Comment:Calculation based on the Chronic Kidney Disease Epidemiology Collaboration (CKD-EPI) equation refit without adjustment for race. BUN/Creatinine Ratio 8.3 LAB CHEMISTRY METHOD 09/12/2025 7:01 PM [facility] Calcium 8.9 8.5 - 10.5 mg/dL LAB CHEMISTRY METHOD 09/12/2025 7:01 PM [facility] AST (SGOT) 39 10 - 42 unit/L LAB CHEMISTRY METHOD 09/12/2025 7:01 PM [facility] Comment:Hemolysis present ALT (SGPT) 34 10 - 60 unit/L LAB CHEMISTRY METHOD 09/12/2025 7:01 PM EDT [facility] Alkaline Phosphatase 72 42 - 121 unit/L LAB CHEMISTRY METHOD 09/12/2025 7:01 PM EDT [facility] Total Protein 7.6 6.0 - 8.0 g/dL LAB CHEMISTRY METHOD 09/12/2025 7:01 PM EDT [facility] Albumin 3.8 3.2 - 5.0 g/dL LAB CHEMISTRY METHOD 09/12/2025 7:01 PM EDT [facility] Total Bilirubin 0.8 0.0 - 1.4 mg/dL LAB CHEMISTRY METHOD 09/12/2025 7:01 PM EDT [facility] Blood Venous blood specimen / Unknown Venipuncture / Unknown 09/12/2025 5:54 PM EDT 09/12/2025 6:13 PM EDT us Seymour Guardado MD LAB BLOOD ORDERABLES Final Resu lt [facility] [address] [place] [address], * (ABNORMAL) CBC auto differential (09/12/2025 5:10 PM EDT) Only the most recent of4 resultswithin the time period is included. WBC 6.0 4.8 - 10.8 K/mcL LAB HEMETOLOGY METHOD 09/12/2025 5:37 PM EDT [facility] RBC 5.00(H) 3.80 - 4.80 M/mcL LAB HEMETOLOGY METHOD 09/12/2025 5:37 PM EDT [facility] Hemoglobin 12.0 11.5 - 16.0 g/dL LAB HEMETOLOGY METHOD 09/12/2025 5:37 PM EDT [facility] Hematocrit 40.2 35.0 - 47.0 % LAB HEMETOLOGY METHOD 09/12/2025 5:37 PM EDT [facility] MCV 80.4 79.0 - 98.0 FL LAB HEMETOLOGY METHOD 09/12/2025 5:37 PM EDT [facility] MCH 24.0(L) 27.0 - 32.0 pcg LAB HEMETOLOGY METHOD 09/12/2025 5:37 PM EDT [facility] MCHC 29.9(L) 32.0 - 37.0 g/dL LAB HEMETOLOGY METHOD 09/12/2025 5:37 PM EDT [facility] RDW 17.2(H) 11.0 - 15.0 % LAB HEMETOLOGY METHOD 09/12/2025 5:[facility] Plate[facility] 408(H) 130 - 400 K/mcL LAB HEMETOLOGY METHOD 09/12/2025 5:37 [facility] MPV 9.6 7.0 - 11.0 FL LAB HEMETOLOGY METHOD 09/12/2025 5:37 PM EDT [facility] NRBC 0.0 <1.0 % LAB HEMETOLOGY METHOD 09/12/2025 5:37 [facility] NRBC Absolute 0.00 <0.10 K/mcL LAB HEMETOLOGY METHOD 09/12/2025 5:37 PM [facility] Neutrophils Relative 65.2 % LAB HEMETOLOGY METHOD 09/12/2025 5:37 PM EDT [facility] Lymphocytes Relative 26.3 % LAB HEMETOLOGY METHOD 09/12/2025 5:37 PM EDT [facility] Monocytes Relative 6.7 % LAB HEMETOLOGY METHOD 09/12/2025 5:37 [facility] Eosinophils Relative 1.0 % LAB HEMETOLOGY METHOD 09/12/2025 5:37 PM EDT [facility] Basophils Relative 0.5 % LAB HEMETOLOGY METHOD 09/12/2025 5:37 PM EDT [facility] Immature Granulocytes Relative 0.3 % LAB HEMETOLOGY METHOD 09/12/2025 5:37 PM EDT [facility] Neutrophils Absolute 3.91 1.50 - 7.00 K/mcL LAB HEMETOLOGY METHOD 09/12/2025 5:37 PM EDT [facility] Lymphocytes Absolute 1.58 1.00 - 5.00 K/mcL LAB HEMETOLOGY METHOD 09/12/2025 5:37 PM EDT [facility] Monocytes Absolute 0.40 0.20 - 1.00 K/mcL LAB HEMETOLOGY METHOD 09/12/2025 5:37 PM EDT [facility] Eosinophils Absolute 0.06 0.00 - 0.50 K/mcL LAB HEMETOLOGY METHOD 09/12/2025 5:37 PM EDT [facility] Basophils Absolute 0.03 0.00 - 0.20 K/mcL LAB HEMETOLOGY METHOD 09/12/2025 5:37 PM EDT [facility] Immature Granulocytes Absolute 0.02 0.00 - 0.03 K/mcL LAB HEMETOLOGY METHOD 09/12/2025 5:37 PM EDT [facility] Blood Venous blood specimen / Unknown Venipuncture / Unknown 09/12/2025 5:10 PM EDT 09/12/2025 5:32 PM EDT us Seymour Guardado MD LAB BLOOD ORDERABLES Final Resu lt [facility] [address] [place] [address], * D-dimer, quantitative (09/12/2025 5:10 PM EDT) D-Dimer, Quant (D-DU) <150 <=230 ng/mL DDU LAB COAGULATION METHOD 09/12/2025 5:45 PM EDT [facility] Blood Venous blood specimen / Unknown Venipuncture / Unknown 09/12/2025 5:10 PM EDT 09/12/2025 5:32 PM EDT Narrative [facility] - 09/12/2025 5:45 PM EDT D-Dimer <230 ng/mL (D-Dimer units) is the threshold for exclusion of DVT/PE. D-Dimer may be elevated in: Critically ill, severely infected, trauma patients, DIC, acute CVA, acute [place], unstable angina, AF, old age, , and smoking. D-Dimer may be decreased with: Initiation of heparin therapy and oral anticoagulants. Jose Romo MD LAB BLOOD ORDERABLES Final Resul t Performing Organization Address City/[facility]/ZIP Co de Phone Number [facility] [address] [place] [address], [place] [phone] * ECG 12 lead (09/12/2025 3:48 PM EDT) Only the most recent of2 resultswithin the time period is included. Ventricular Rate ECG 71 BPM GEM[facility] Atrial Rate 71 BPM GEMUSE P-R Interval 152 ms GEMUSE QRS Duration 60 ms GEMUSE Q-T Interval 392 ms GEMUSE QTc 425 ms GEMUSE P Wave [place] 51 degrees GEMUSE T [place] 76 degrees GEMUSE ECG Interpretation Normal sinus rhythm Low voltage QRS Borderline ECG When compared with ECG of 09-AUG-2025 16:16, No significant change was found Confirmed by Noelle RANDLE YUFENG ([id number]) on 09/12/2025 5:04:04 PM GEMUSE 09/12/2025 3:48 PM EDT 09/12/2025 5:04 PM EDT Warren Kelley MD ECG ORDERABLES Final Result Performing Organization Address City/[facility]/ZIP Co de Phone Number GEM[facility] * hCG Qualitative (08/09/2025 4:31 PM EDT) Only the most recent of2 resultswithin the time period is included. hCG Qual Negative Negative 08/09/2025 5:26 PM EDT [facility] Blood Venous blood specimen / Unknown Venipuncture / Unknown 08/09/2025 4:31 PM EDT 08/09/2025 4:59 PM EDT us Chantelle Brennan MD LAB BLOOD ORDERABLES Final Res ult [facility] [address] [place] [address], * Tissue Exam (07/28/2025 9:16 AM EDT) Final Diagnosis Skin, Shoulder, Right-excision: -CICATRIX, CONSISTENT WITH BIOPSY SITE SCAR -Negative for residual dysplastic nevus 07/29/2025 10:42 AM EDT [facility] Clinical Information History of atypical skin mole Z86.018 07/29/2025 10:42 AM EDT [facility] Gross Description A. Shoulder, Right, excision lesion posterior ink at 12: Labeled shoulder R . Received in formalin is a 2.2 x 1.2 cm oriented herrera-white skin ellipse excised to depth of 0.4 cm. There is blue ink on one tip designating 12:00 per the requisition. The epidermis displays a 0.6 x 0.5 cm pink-white well-healed scar, located 0.2 cm from the 9:00 and 3:00 margins. The 12-3-6 o'clock margin is inked blue, the 6-9-12 o'clock margin is inked black, and the epidermis of the 12:00 tip is inked green. The specimen is sectioned in a cruciate manner. Hotel Controller sections, to include the entirety of the scar, are submitted as follows: 1, cruciate 12:00 and 6:00 tips (12:00 epidermis inked green), two pieces 2 and 3, sequential transverse cross-sections from 12:00 to 6:00, two pieces each LOIDA 07/29/2025 10:42 AM EDT [facility] Disclaimer Unless otherwise specified, all tissue is 10% NB formalin fixed and paraffin embedded. 07/29/2025 10:42 AM [facility] Tissue Structure of right shoulder region / Unknown Non-blood Collection / Unknown 07/28/2025 9:16 AM EDT 07/28/2025 9:17 AM EDT us Trav Zarate DO LAB PATHOLOGY ORDERABLES Fin al Result [facility] [address] [place] [address], [place] [phone] * (ABNORMAL) Basic metabolic panel (07/25/2025 6:23 AM EDT) Only the most recent of2 resultswithin the time period is included. Sodium 140 133 - 145 mmol/L LAB CHEMISTRY METHOD 07/25/2025 7:27 AM [facility] Potassium 3.9 3.5 - 5.5 mmol/L LAB CHEMISTRY METHOD 07/25/2025 7:27 AM [facility] Chloride 107 96 - 110 mmol/L LAB CHEMISTRY METHOD 07/25/2025 7:27 AM [facility] CO2 30 21 - 32 mmol/L LAB CHEMISTRY METHOD 07/25/2025 7:27 AM [facility] Anion Gap 3 3 - 11 LAB CHEMISTRY METHOD 07/25/2025 7:27 AM [facility] Glucose 82 70 - 100 mg/dL LAB CHEMISTRY METHOD 07/25/2025 7:27 AM [facility] BUN 11 5 - 25 mg/dL LAB CHEMISTRY METHOD 07/25/2025 7:27 AM [facility] Creatinine 0.49(L) 0.50 - 1.10 mg/dL LAB CHEMISTRY METHOD 07/25/2025 7:27 AM EDT [facility] eGFR 127 >=60 mL/min/1. 73m2 LAB CHEMISTRY METHOD 07/25/2025 7:27 AM EDT [facility] Comment:Calculation based on the Chronic Kidney Disease Epidemiology Collaboration (CKD-EPI) equation refit without adjustment for race. BUN/Creatinine Ratio 22.4 LAB CHEMISTRY METHOD 07/25/2025 7:27 AM EDT [facility] Calcium 8.9 8.5 - 10.5 mg/dL LAB CHEMISTRY METHOD 07/25/2025 7:27 AM EDT [facility] Blood Venous blood specimen / Unknown Venipuncture / Unknown 07/25/2025 6:23 AM EDT 07/25/2025 6:57 AM EDT Franklin Calderon MD LAB BLOOD ORDERABLES Final Res ult [facility] [address] [place] [address], * MR Cervical Spine wo Contrast (07/24/2025 9:30 PM EDT) Anatomical Region Laterality Modality C-spine, Spine Magnetic Resonan ce 07/24/2025 11:0 6 PM EDT Impressions 07/24/2025 11:06 PM EDT 1. Multilevel degenerative changes within the cervical spine. No evidence of a high-grade central canal/neural foraminal stenosis. No evidence of cord compression. This document has been electronically signed by: Sergey Rob M.D. on 07/24/2025 23:06:52 Narrative 07/24/2025 11:06 PM EDT INDICATION: Myelopathy, acute or progressive MRI CERVICAL SPINE WITHOUT CONTRAST COMPARISON: Outside MRI report 06/27/2025. FINDINGS: MRI thoracic spine will be reported separately. There is minimal reversal of the normal cervical lordosis. Cervical vertebral body heights and alignment are otherwise maintained. No evidence of a marrow replacement process or acute fracture. No evidence of discitis-osteomyelitis. Cervical cord is unremarkable. Paraspinal soft tissues are unremarkable. Level by level analysis is as follows: At C2-C3, there is no significant disc bulge or herniation. There is no significant central canal or neural foraminal stenosis. At C3-C4, a shallow disc protrusion is present. Mild central canal stenosis is noted. No evidence of cord compression. Uncovertebral joint hypertrophy causes mild right neural foraminal stenosis. Disc protrusion causes mild left neural foraminal stenosis. At C4-C5, there is a shallow disc protrusion. Mild central canal stenosis is noted. There is no evidence of cord compression. Mild bilateral neural foraminal stenosis is noted. At C5-C6, a shallow disc protrusion is present. Mild central canal stenosis is noted. There is no evidence of cord compression. There is mild right neural foraminal stenosis. Left neural foramen is patent. At C6-C7, there is a shallow disc protrusion. Mild central canal stenosis is present. There is no significant neural foraminal stenosis. At C7-T1, there is no significant disc bulge or herniation. There is no significant central canal or neural foraminal stenosis. Procedure Note Sergey Rob MD - 07/24/2025 INDICATION: Myelopathy, acute or progressive MRI CERVICAL SPINE WITHOUT CONTRAST COMPARISON: Outside MRI report 06/27/2025. FINDINGS: MRI thoracic spine will be reported separately. There isminimal reversal of the normal cervical lordosis. Cervical vertebral bodyheights and alignment are otherwise maintained. No evidence of a marrow replacement process or acute fracture. No evidence of discitis-osteomyelitis. Cervical cord is unremarkable. Paraspinal soft tissues are unremarkable. Level by level analysis is as follows: At C2-C3, there is no significant disc bulge or herniation. There is no significant central canal or neural foraminal stenosis. At C3-C4, a shallow disc protrusion is present. Mild central canal stenosis is noted. No evidence of cord compression. Uncovertebral joint hypertrophy causes mild right neural foraminal stenosis. Disc protrusion causes mild left neural foraminal stenosis. At C4-C5, there is a shallow disc protrusion. Mild central canalstenosis is noted. There is no evidence of cord compression. Mild bilateralneural foraminal stenosis is noted. At C5-C6, a shallow disc protrusion is present. Mild central canal stenosis is noted. There is no evidence of cord compression. There ismild right neural foraminal stenosis. Left neural foramen is patent. At C6-C7, there is a shallow disc protrusion. Mild central canalstenosis is present. There is no significant neural foraminal stenosis. At C7-T1, there is no significant disc bulge or herniation. There is no significant central canal or neural foraminal stenosis. IMPRESSION: 1. Multilevel degenerative changes within the cervical spine. Noevidence of a high-grade central canal/neural foraminal stenosis. No evidence of cord compression. This document has been electronically signed by: Sergey Rob M.D. on 07/24/2025 23:06:52 Tod Barr MD IM MRI PROCEDURES Final Re sult * MR Thoracic Spine wo Contrast (07/24/2025 9:29 PM EDT) Anatomical Region Laterality Modality T-spine, Spine Magnetic Resonan ce 07/24/2025 10:5 2 PM EDT Impressions 07/24/2025 10:52 PM EDT 1. No acute disease within the thoracic spine. This document has been electronically signed by: Sergey Rob M.D. on 07/24/2025 22:52:43 Narrative 07/24/2025 10:52 PM EDT INDICATION: Myelopathy, acute or progressive MRI THORACIC SPINE WITHOUT CONTRAST COMPARISON: None provided. FINDINGS: MRI cervical spine and MRI lumbar spine will be reported separately. Exam is limited due to technical factors thoracic vertebral body heights and alignment are maintained without evidence of a marrow replacement process or acute fracture. No evidence of discitis-osteomyelitis. Benign hemangioma is noted within the T9 vertebral body level and is estimated to measure 1.5 cm. At all thoracic levels, there is no significant disc bulge or herniation. No significant central canal or neural foraminal stenosis. Thoracic cord is unremarkable in signal and morphology. Procedure Note Sergey Rob MD - 07/24/2025 INDICATION: Myelopathy, acute or progressive MRI THORACIC SPINE WITHOUT CONTRAST COMPARISON: None provided. FINDINGS: MRI cervical spine and MRI lumbar spine will be reported separately. Exam is limited due to technical factors thoracic vertebral body heights and alignment are maintained without evidence of a marrow replacement process or acute fracture. No evidence of discitis-osteomyelitis. Benign hemangioma is noted within the J4ohnlevayq body level and is estimated to measure 1.5 cm. At all thoracic levels, there is no significant disc bulge or herniation. No significant central canal or neural foraminal stenosis. Thoracic cord is unremarkable in signal and morphology. IMPRESSION: 1. No acute disease within the thoracic spine. This document has been electronically signed by: Sergey Rob M.D. on 07/24/2025 22:52:43 us Tod Barr MD IMG MRI PROCEDURES Final Re sult * MR Lumbar Spine wo Contrast (07/24/2025 7:25 PM EDT) Anatomical Region Laterality Modality L-spine, Spine Magnetic Resonan ce 07/24/2025 8:11 PM EDT Impressions 07/24/2025 8:11 PM EDT Impression: 1. Left-sided disc bulging at L4-5, and fairly large left paracentral and para foraminal disc protrusion at L5-S1, as described above. This document has been electronically signed by: Sebastien Reeder MD on 07/24/2025 20:11:07 Narrative 07/24/2025 8:11 PM EDT INDICATION: Low back pain, progressive neurologic deficit Exam: Nonenhanced MRI lumbar spine. Comparison: None. Findings: Lumbar vertebral body heights and alignment are well-maintained. There is mild disc desiccation at L5-S1. Remaining intervertebral disc heights appear maintained. Conus medullaris terminates at approximately L1-L2 level. Axial images reveal the following: L1-2: No focal disc herniation, spinal or foraminal compromise. L2-3: No focal disc herniation, spinal or foraminal compromise. L3-4: No focal disc herniation, spinal or foraminal compromise. L4-5: There is mild diffuse disc bulging extending from left paracentral region to the left foraminal region (for example, 11; 24). There is some resultant very minimal inferior left foraminal stenoses (8; 10). No significant spinal or right foraminal stenoses. L5-S1: A right paracentral and para foraminal disc protrusion measures 14 mm transverse dimension and space and extends posteriorly 6 mm (measured on 11; 31). This may abut the descending left S1 nerve root at the level of the lateral recess (11; 31). Otherwise no significant spinal or foraminal stenoses. Procedure Note Sebastien Reeder MD - 07/24/2025 INDICATION: Low back pain, progressive neurologic deficit Exam: Nonenhanced MRI lumbar spine. Comparison: None. Findings: Lumbar vertebral body heights and alignment arewell-maintained. There is mild disc desiccation at L5-S1. Remaining intervertebral disc heights appear maintained. Conus medullaris terminates at approximately L1-L2 level. Axial images reveal the following: L1-2: No focal disc herniation, spinal or foraminal compromise. L2-3: No focal disc herniation, spinal or foraminal compromise. L3-4: No focal disc herniation, spinal or foraminal compromise. L4-5: There is mild diffuse disc bulging extending from left paracentral region to the left foraminal region (for example, 11; 24). There is some resultant very minimal inferior left foraminal stenoses (8; 10). No significant spinal or right foraminal stenoses. L5-S1: A right paracentral and para foraminal disc protrusion [id number] mm transverse dimension and space and extends posteriorly 6 mm (measured on 11; 31). This may abut the descending left S1 nerve root at the level of the lateral recess (11; 31). Otherwise no significant spinal or foraminal stenoses. IMPRESSION: Impression: 1. Left-sided disc bulging at L4-5, and fairly large left paracentraland para foraminal disc protrusion at L5-S1, as described above. This document has been electronically signed by: Sebastien Reeder MD on 07/24/2025 20:11:07 us Tod Barr MD IMG MRI PROCEDURES Final Re sult * XR Lumbar Spine 2-3 Views (07/24/2025 4:50 PM EDT) Anatomical Region Laterality Modality Spine, L-spine Radiographic Holly ging 07/25/2025 8:57 AM EDT Impressions 07/25/2025 8:57 AM EDT No acute findings. -------- FINAL REPORT -------- Dictated By: Ander You Dictated Date: 07/25/2025 08:57 ET Assigned Physician: Ander You Reviewed and Electronically Signed By: Ander You Signed Date: 07/25/2025 08:57 ET Workstation ID: [id number] Transcribed By: Self Edit Transcribed Date: 07/25/2025 08:57 ET Narrative 07/25/2025 8:57 AM EDT PROCEDURE: Radiographs of the lumbar spine. HISTORY: pain. COMPARISON: None. FINDINGS: 4 views of the lumbar spine. Cholecystectomy clips. Straightening of the typical lumbar lordosis. Normal alignment. No compression deformity or other evidence of a fracture. No bony lesion. Procedure Note Ander You MD - 07/25/2025 PROCEDURE: Radiographs of the lumbar spine. HISTORY: pain. COMPARISON: None. FINDINGS: 4 views of the lumbar spine. Cholecystectomy clips. Straightening of the typical lumbar lordosis.Normal alignment. No compression deformity or other evidence of afracture. No bony lesion. IMPRESSION: No acute findings. -------- FINAL REPORT -------- Dictated By: Ander You Dictated Date: 07/25/2025 08:57 ET Assigned Physician: Ander You Reviewed and Electronically Signed By: Ander You Signed Date: 07/25/2025 08:57 ET Workstation ID: [id number] Transcribed By: Self Edit Transcribed Date: 07/25/2025 08:57 ET us Tod Barr MD IMG XR PROCEDURES Final Res ult * C-reactive protein (07/24/2025 3:47 PM EDT) C-Reactive Protein <0.29 <=0.50 mg/dL LAB CHEMISTRY METHOD 07/24/2025 4:36 PM EDT [facility] Blood Venous blood specimen / Unknown Venipuncture / Unknown 07/24/2025 3:47 PM EDT 07/24/2025 4:09 PM EDT us Tod Barr MD LAB BLOOD ORDERABLES Final Result [facility] [address] [place] [address], [place] [phone] from Last 3 Months Insurance [employer] Advance Directives * Full Code - Default (Latest Code Status on File) Date Activated Date Inactivated Comments 07/24/2025 11:41 PM 07/27/2025 7:19 PM This is order is used when code status has not been discussed with the patient, or code status is otherwise unknown/unconfirmed To update the patient's code status, place a code status order. Do not modify or discontinue any currently active code status orders. Care Teams Link Knitting Machine Operator Relationship Specialty Start Date End Date Physician, Pcp Unknown PCP - General 09/12/25
--- OUTSIDE RECORDS SUMMARY | 2025-10-02 16:38 | XMS_ITS | Encounter Summary ---
Author Organization [facility] Address [address] [facility] [address] [place] [address] Phone Care Team Providers Care Interceptor Operator Name Role Phone Alice Carmen APPLICATION RELEASE MANAGER Primary Care Provider [phone] Encounter Details Date Type Department Care Team (Late st Contact Info) Description 10/03/2022 Procedure Pass [facility], [address] [address] Social History Tobacco Use Types Packs/Day Years [...] high school, GED, job training, learning the [place] language, technical skills, or developing parenting skills)? [...] Author No Risk Indicated 10/03/2022 1:55 PM Kayla Oneal RN * [place] Suicide Severity Rating Scale (Screener/Recent Self-Report) Question Answer Date of Assessment Author 1. Wish to be (Past 1 Month) No 022 1:55 PM Kayla Oneal RN 2. Non-Specific Active Suici enrique Thoughts (Past 1 Month) No 10/03/2022 1:55 PM Judd Oneal RN 6. Suicidal Behavior (Lifetime) No 1:55 PM Kayla Oneal RN documented as of this encounter Plan of Treatment Upcoming Encounters Date Type Department Care Team (Late st Contact Info) Description 11/05/2025 11:40 AM EST Office Visit [facility] [address] [place] [address] [place] [address] Camron Umana MD [address] [facility], [address] [place] [address] documented as of this encounter Visit Diagnoses Not on filedocumented in this encounter Additional Health Concerns Infection Onset Date Last Indicated Resolved Time CoV-Risk 05/30/2023 05/30/2023 06/10/2023 1:21 AM EDT CoV-Risk 11/12/2024 11/12/2024 11/23/2024 1:22 AM EST CoV-Risk 01/01/2025 01/01/2025 01/12/2025 1:22 AM EST Assessment Noted Time PHQ-2 Depression Total Score: 0 07/09/20 11:33 AM EDT documented as of this encounter Care Teams Interceptor Operator Relationship Specialty Start Date End Date TiffanyAlice tabares Aye, APPLICATION RELEASE MANAGER [address] [place] [address], [address] [place] [address] [email or web address] PCP - General Family Medicine 09/28/22 documented as of this encounter Additional Source Comments The information contained in this document represents components of the legal health record. It is not the complete legal health record.[facility]
--- OUTSIDE RECORDS SUMMARY | 2025-10-02 16:38 | XMS_ITS | Encounter Summary ---
Author Organization [facility] Address [address] [facility] [address] [place] [address] Phone Care Team Providers Care System Support Developer Name Role Phone Alice Carmen FORESTRY INSTRUCTOR Primary Care Provider [phone] Encounter Details Date Type Department Care Team (Late st Contact Info) Description 04/18/2025 Procedure Pass [facility], [address] [address] Social History Tobacco Use Types Packs/Day Years [...] 8:53 PM EDT Brenda Ely RN * [place] Suicide Severity Rating Scale (Screener/Recent Self-Report) Question [...] Visit [facility] [address] [place] [address] Camron Umana MD [address] [facility], [address] [place] [address] documented as of this encounter Visit Diagnoses Not on filedocumented in this encounter Additional Health Concerns Assessment Noted Time PHQ-2 Depression Total Score: 0 06/19/20 23 4:56 PM EDT documented as of this encounter Care Teams System Support Developer Relationship Specialty Start Date End Date Alice Carmen April, FORESTRY INSTRUCTOR [address] [place] [address] [address] [place] [address] PCP - General Family Medicine 09/28/22 documented as of this encounter Additional Source Comments The information contained in this document represents components of the legal health record. It is not the complete legal health record.[facility]
--- OUTSIDE RECORDS SUMMARY | 2025-10-02 16:38 | XMS_ITS | Encounter Summary ---
Author Organization [facility] Address [address] [facility] [address] [place] [address] Phone Care Team Providers Care Senior Biostatistician/Group Leader Name Role Phone Alice Carmen BODY ART TECHNICIAN Primary Care Provider [phone] Encounter Details Date Type Department Care Team (Late st Contact Info) Description 10/03/2022 Procedure Pass [facility], Ct Scan - [address] [address] Social History Tobacco Use Types Packs/Day Years [...] high school, GED, job training, learning the [place] language, technical skills, or developing parenting skills)? [...] 7:16 PM EDT Sexual Orientation Straight 05/30/2023 3 :12 PM EDT documented as of this encounter Functional Status * Calculated C-SSRS Risk Score (Lifetime/Recent) Answer Date of Assessment Author No Risk Indicated 10/03/2022 1:55 PM Kayla Oneal RN * [place] Suicide Severity Rating Scale (Screener/Recent Self-Report) Question [...] Office Visit [facility] [address] [place] [address] [place] [address] Camron Umana MD [address] [facility], [address] [place] [address] documented as of this encounter Visit Diagnoses [...] as of this encounter Care Teams Senior Biostatistician/Group Leader Relationship Specialty Start Date End Date Alice Carmen April, BODY ART TECHNICIAN [address] [place] [address], [address] [place] [address] [email or web address] PCP - General Family Medicine 09/28/22 documented as of this encounter Additional Source Comments The information contained in this document represents components of the legal health record. It is not the complete legal health record.[facility]
--- OUTSIDE RECORDS SUMMARY | 2025-10-02 16:38 | XMS_ITS | Encounter Summary ---
Author Organization [facility] Address [address] [facility] [address] [place] [address] Phone Care Team Providers Care Appraiser Land Name Role Phone Alice Carmen ARCADE GAME TECHNICIAN Primary Care Provider [phone] Encounter Details Date Type Department Care Team (Late st Contact Info) Description 10/15/2022 Procedure Pass [facility], [address] [address] Social History Tobacco Use Types Packs/Day Years [...] high school, GED, job training, learning the Welsh language, technical skills, or developing parenting skills)? [...] Office Visit [facility] [address] [place] [address] [place] [address] Camron Umana MD [address] [place] [address], [address] [place] [address] documented as of this encounter Visit Diagnoses Not on filedocumented in this encounter Additional Health Concerns Infection Onset Date Last Indicated Resolved Time CoV-Risk 05/30/2023 05/30/2023 06/10/2023 1:21 AM EDT CoV-Risk 11/12/2024 11/12/2024 11/23/2024 1:22 AM EST CoV-Risk 01/01/2025 01/01/2025 01/12/2025 1:22 AM EST Assessment Noted Time PHQ-2 Depression Total Score: 0 07/09/20 11:33 AM EDT documented as of this encounter Care Teams Appraiser Land Relationship Specialty Start Date End Date Alice Carmen FNP [address] [place] [address] [address] [place] [address] PCP - General Family Medicine 09/28/22 documented as of this encounter Additional Source Comments The information contained in this document represents components of the legal health record. It is not the complete legal health record.[facility]
--- OUTSIDE RECORDS SUMMARY | 2025-10-02 16:39 | XMS_ITS | Encounter Summary ---
Author Organization [facility] Address [address] [place] [address] Phone Care Team Providers Care Blow Pit Operator Name Role Phone Pcp, Unknown Primary Care Provider Alice Baker Primary Care Provider [phone] Encounter Details Date Type Department Care Team (Late st Contact Info) Description 06/02/2022 Procedure Pass [facility], Ct Scan - [address] [address] Social History Tobacco Use Types Packs/Day Years [...] 6:56 PM EDT Karina Redmond, RN * [place] Suicide Severity Rating Scale (Screener/Recent Self-Report) Question Answer Date of Assessment Author 1. Wish to be (Past 1 Month) No 022 6:56 PM EDT Karina Redmond, RN 2. Non-Specific Active Suici enrique Thoughts (Past 1 Month) No 06/02/2022 6:56 PM EDT Karina Redmond, RN 6. Suicidal Behavior (Lifetime) No 07/16/202 2 6:56 PM EDT Karina Redmond RN documented as of this encounter Plan of Treatment Upcoming Encounters Date Type Department Care Team (Late st Contact Info) Description 11/05/2025 11:40 AM EST Office Visit [facility] [address] [place] [address] Camron Umana MD [address] [facility], [address] [place] [address] [email or web address] documented as of this encounter Visit Diagnoses Not on filedocumented in this encounter Additional Health Concerns Infection Onset Date Last Indicated Resolved Time CoV-Risk 05/30/2023 05/30/2023 06/10/2023 1:21 AM EDT CoV-Risk 11/12/2024 11/12/2024 11/23/2024 1:22 AM EST CoV-Risk 01/01/2025 01/01/2025 01/12/2025 1:22 AM EST documented as of this encounter Care Teams Blow Pit Operator Relationship Specialty Start Date End Date Pcp, Unknown PCP - General 03/03/22 09/27/22 Alice Carmen FNP [address] [place] [address] [address] [place] [address] [email or web address] PCP - General Family Medicine 09/28/22 documented as of this encounter Additional Source Comments The information contained in this document represents components of the legal health record. It is not the complete legal health record.[facility]
--- OUTSIDE RECORDS SUMMARY | 2025-10-02 16:39 | XMS_ITS | Encounter Summary ---
Author Organization [facility] Address [address] [facility] [address] [place] [address] Phone Care Team Providers Care It Trainee Name Role Phone Alice Carmen PUBLIC HEALTH DIETITIAN Primary Care Provider [phone] Encounter Details Date Type Department Care Team (Late st Contact Info) Description 11/05/2024 Procedure Pass [facility], Ct Scan - [address] [address] Social History Tobacco Use Types Packs/Day Years [...] 11/05/2024 11:38 AM Carmen Dunham, JIMI * [place] Suicide Severity Rating Scale (Screener/Recent Self-Report) Question Answer Date of Assessment Author 1. Wish to be (Past 1 Month) No 024 11:38 AM Carmen Dunham, JIMI 2. Non-Specific Active Suici enrique Thoughts (Past 1 Month) No 11/05/2024 11:38 AM Carmen Dunham , RN 6. Suicidal Behavior (Lifetime) No 11:38 AM Carmen Dunham, RN documented as of this encounter Plan of Treatment Upcoming Encounters Date Type Department Care Team (Late st Contact Info) Description 11/05/2025 11:40 AM EST Office Visit [facility] [address] [place] [address] Camron Umana MD [address] [facility], [address] [place] [address] documented as of this encounter Visit Diagnoses Not on filedocumented in this encounter Additional Health Concerns Infection Onset Date Last Indicated Resolved Time CoV-Risk 11/12/2024 11/12/2024 11/23/2024 1:22 AM EST CoV-Risk 01/01/2025 01/01/2025 01/12/2025 1:22 AM EST Assessment Noted Time PHQ-2 Depression Total Score: 0 06/19/20 23 4:56 PM EDT documented as of this encounter Care Teams It Trainee Relationship Specialty Start Date End Date Alice Carmen FNP [address] [place] [address] [address] [place] [address] PCP - General Family Medicine 09/28/22 documented as of this encounter Additional Source Comments The information contained in this document represents components of the legal health record. It is not the complete legal health record.[facility]
--- OUTSIDE RECORDS SUMMARY | 2025-10-02 16:39 | XMS_ITS | Clinical Summary ---
Author Organization [facility] Address [address] [place] [id number] Phone Care Team Providers Care Singe Machine Operator Name Role Phone Alice Carmen [facility] Primary Care Provider [phone] Allergies Active Allergy Reactions Criticality Noted Date Comments Alum-Mag Hydroxide-Simeth 04/04/2025 Aluminum Anaphylaxis High 01/07/2025 Diphenhydramine Hcl 05/31/2024 Benzonatate Palpitations Low 04/13/2020 Clindamycin Anaphylaxis High 02/16/2025 Gabapentin Other (See Comments) 04/25/2025 numbness Gadolinium-Containing Contrast Media 07/24/2025 Other Reaction(s): Cardiac Issue I go into V-Tach Ivabradine Rash Medium 05/19/2024 Brand name Corlanor Ketamine Unknown High 07/25/2025 Cardiac issue Ketorolac 04/04/2025 Other Reaction(s): rash Methocarbamol Other (See Comments) Low 06/08/2025 Other Reaction(s): Ventricular Tachycardia Nickel Anaphylaxis High 01/07/2025 Ondansetron Unknown Medium 02/16/2025 Penicillins Anaphylaxis,Hives High 07/31/2018 Prednisone Anaphylaxis,Hives High 07/31/2018 Prochlorperazine 04/04/2025 Sulfa (Sulfonamide Antibiotics) Hives,Anaphylaxis High 11/04/2015 Medications propranoloL (INDERAL) 20 MG immediate release tablet Take 20 mg by mouth 2 (two) times a day. Active clonazePAM (KLONOPIN) 1 MG tablet 3 (three) times a day as needed. 05/19/20 24 Active EPINEPHrine 0.3 mg/0.3 mL auto-injector Inject 0.3 mL (0.3 mg total) into the muscle as needed for anaphylaxis . 1 each 06/10/20 025 Discontinued colchicine (COLCRYS) 0.6 mg tablet Take 0.6 mg by mouth 2 (two) times a day. 01/13/20 025 Discontinued lemborexant (DAYVIGO) 10 mg tabletIndicatio ns:Insomnia, unspecified type Take 1 tablet (10 mg total) by mouth nightly at bedtime as needed (insomnia). 30 tablet 2 05/26/20 025 Discontinued doxycycline monohydrate (MONODOX) 100 MG capsule Take 1 capsule (100 mg total) by mouth 2 (two) times a day for 10 days. 20 capsule 08/26/20 Discontinued(No longer taking) Active Problems Problem Noted Date Diagnosed Date Lump in upper outer quadrant of right breast 08/2025 Overview (09/27/2025): Present for a few weeks, is in luteal phase of cycle Status post breast implant subsequently removed Assessment & Plan (09/27/2025 1:05 PM EST): Today she can palpate only 1-3 lump she palpated earlier, prefers to have diagnostic imaging rather than waiting 1 menstrual cycle to see if [...] under any deductible if she has 1 Pain of right shoulder girdle 08/26/2025 Assessment & Plan (08/26/2025 8:38 AM EDT): Severe pain and swelling with symptoms of heat, aching, and throbbing. No fever. Symptoms include vomiting, dizziness, cold sweats, and night sweats. Concern for infection tracking from surgical site into deeper tissues. Differential includes infection versus possible melanoma spread or fracture. - Prescribed doxycycline for possible infection. - Ordered ultrasound of shoulder to assess for infection or other abnormalities. - Coordinated with nursing team to schedule ultrasound PAULETTE. - Advised her to take a probiotic with antibiotics. - Advised patient to contact her surgeon today so they can evaluate further - Seek immediate attention should she develop fevers, worsening pain Urinary retention 04/05/2025 Assessment & Plan (04/19/2025 12:38 PM EDT): Chronic urinary retention with dark urine, no infection, normal renal function. Possible spinal-related etiology due to herniated disc. - Order kidney and bladder ultrasound. - Refer to urology for further evaluation. - Provide urine collection cup for home use if able to urinate. Orders: [facility]- Dr. 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 Sena Santiago. Subacute frontal [...] day for 10 days. 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 Schmitt Rash and other nonspecific skin eruption Assessment & Plan (09/04/2024 9:56 PM EDT): Merrilea presents with concern of new rash. Difficult [...] sinus rinses and plan to see her ultrasound sonographer. Syncope 05/31/2024 Assessment & Plan (04/05/2025 1:50 [...] Assessment & Plan (03/22/2023 3:04 PM EDT): Beverly presents for follow-up from [facility] earlier this week regarding palpitations and anxiety. She notes that hospital did an EKG as well as an exam on her and found that she was having palpitations and advised her to urgently see a sales agent business services. She called [facility] cardiology to make an appointment but they [...] Assessment & Plan (03/22/2023 3:04 PM EDT): Beverly burns is a highly anxious 32-year-old [...] if there are any other issues or [id number] with her PCP next week. She understands [...] 5-6 months; she will follow up with [facility] and decide on a strategy. Jimenez strausszain 07/12/2022 12/27/2022 Encounters Date Type Department Care Team Description 09/27/2025 11:00 AM EST Office Visit [facility] [address] [place] [address] Mona Zarate MD Lump in upper outer quadrant of right breast (Primary Dx) 09/24/2025 5:05 PM EST - 09/24/2025 6:40 PM EST Emergency [facility] [address] [place] [address] Discharge Disposition: Left Against Medical Advice 08/26/2025 9:44 AM EDT - 08/26/2025 11:59 PM EDT Hospital Encounter [facility] - [address] [place] [address] Sylvie Rincon MD Discharge Disposition: Home or Self Care 08/26/2025 8:00 AM EDT Office Visit [address] [address] Sylvie Rincon MD Pain of right shoulder girdle (Primary Dx) 08/24/[address] [address] Alice Carmen FNP Triage (Yellow+swelling) 08/16/2025 9:49 PM EDT - 08/17/2025 2:03 AM EDT Emergency [facility] [address] [place] [address] Mariel Higgins MD, PhD Nory Blackwood MD Discharge Disposition: Home or Self Care from Last 3 Months Immunizations Immunization Administration [...] housing situation today? I have leonie sing 09/24/2025 How many times have you move [...] Pressure 98/68 09/27/2025 11:13 AM EST Pulse 71 09/24/2025 6:14 PM EST Temperature 36.7 C (98.1 F) 09/24/2025 5:12 PM EST Respiratory Rate 18 09/24/2025 6:14 PM EST Oxygen Saturation 98% 09/24/2025 6:14 PM EST Inhaled Oxygen Concentration - - Weight 78.5 kg (173 lb) 09/24/2025 5:12 PM EST Height 185.4 cm (6' 1 ) 09/24/2025 5:12 PM EST Body Mass Index 22.82 09/24/2025 5:12 PM EST Plan of Treatment Upcoming Encounters Date Type Department Care Team (Late st Contact Info) Description 11/05/2025 11:40 AM EST Office Visit [facility] [address] [place] [address] [place] [address] Camron Umana MD [address] [facility], [address] [place] [address] Health Maintenance Due Date Last Done Comments DEPRESSION SCREENING 06/19/2024 06/19/2023 INFLUENZA VACCINE (#1) 2025 09/13/2022 COVID-19 VACCINE (2 - 2024-2 6 season) 2025 05/18/2022 PAP SMEAR 01/22/2026 01/22/2023 Adult Td,Tdap Booster 06/28/2032 06/28/2022 HEPATITIS C SCREENING Completed 07/12/2022 HIV ONE-TIME SCREENING (18-6 5 YEARS) Completed 07/12/2022 SMOKING STATUS SCREENING (On ce After 26 Yrs) Completed 09/27/2025 HEPATITIS A VACCINES Aged Out No long er eligible based on patient's age to complete this topic HIB VACCINES Aged Out No longer eligi ble based on patient's age to complete this topic IPV VACCINES Aged Out No longer eligi ble [...] Procedure Name Priority Date/Time Associated Diagnosis Comments HCG, SERUM QUALITATIVE STAT 09/24/2025 6:06 PM EST TSH WITH REFLEX STAT 09/24/2025 6:06 PM EST CBC AND DIFFERENTIAL STAT 09/24/2025 6:06 PM EST D-DIMER STAT 09/24/2025 6:06 PM EST TROPONIN STAT 09/24/2025 6:06 PM EST LFTS (HEPATIC PANEL) STAT 09/24/2025 6:06 PM EST BASIC METABOLIC PANEL (BMP) STAT 09/24/2025 6:06 PM EST CBC AND DIFFERENTIAL STAT 09/24/2025 6:06 PM EST ECG 12-LEAD STAT 09/24/2025 5:13 PM EST US UPPER BACK Urgent/patient waiting 08/26/2025 10:04 AM EDT Pain of right shoulder girdle D-DIMER STAT 08/16/2025 11:44 PM EDT TROPONIN STAT 08/16/2025 10:20 PM EDT XR CHEST PA AND LATERAL 2 VIEWS Routine 08/16/2025 5:38 PM EDT TROPONIN STAT 08/16/2025 5:27 PM EDT BASIC METABOLIC PANEL (BMP) STAT 08/16/2025 5:27 PM EDT CBC AND DIFFERENTIAL STAT 08/16/2025 5:27 PM EDT ECG 12-LEAD STAT 08/16/2025 5:21 PM EDT PAP TEST Routine 01/22/2023 12:00 AM EST HEPATITIS C ANTIBODY, QUALITATIVE Routine 07/12/2022 11:51 AM EDT Need for hepatitis C screening test from Last 3 Months or Most Recently Relevant to Health Maintenance Results * Human Chorionic Gonadotropin (HCG), Qualitative, Blood (09/24/2025 6:06 PM EST) hCG Qualitative Negative Negative 6:29 PM EST [facility] Blood (Blood) Venipuncture / Unknown 09/24/2025 6:06 PM EST 09/24/2025 6:12 PM EST us Irina Negrete PA-C LAB BLOOD BKR ORDERABLE S Final Result [facility] [address] [place] [address] * (ABNORMAL) CBC and Differential (09/24/2025 6:06 PM EST) WBC 5.57 4.00 - 11.00 K/uL 09/24/2025 6:15 PM [facility] RBC 4.18 4.00 - 5.20 M/uL 09/24/2025 6:15 PM [facility] Hemoglobin 10.1(L) 12.0 - 16.0 g/dL 09/24/2025 6:15 PM [facility] Hematocrit 33.9(L) 36.0 - 46.0 % 09/24/2025 6:15 PM [facility] MCV 81.1 80.0 - 100.0 fL 09/24/2025 6:15 PM [facility] MCH 24.2(L) 27.0 - 31.0 pg 09/24/2025 6:15 PM [facility] MCHC 29.8(L) 32.0 - 36.0 g/dL 09/24/2025 6:15 PM [facility] MPV 9.3 8.4 - 12.0 fL 09/24/2025 6:15 PM [facility] RDW-CV 17.2(H) 11.5 - 14.5 % 09/24/2025 6:15 PM [facility] PLT 290 150 - 450 K/uL 09/24/2025 6:15 PM [facility] Neutrophils 56.3 % 09/24/2025 6:15 PM [facility] Lymphocytes 34.1 % 09/24/2025 6:15 PM [facility] Monocytes 7.4 % 09/24/2025 6:15 PM [facility] Eosinophils 1.3 % 09/24/2025 6:15 PM [facility] Basophils 0.7 % 09/24/2025 6:15 PM [facility] Imm Grans 0.2 % 09/24/2025 6:15 PM [facility] NRBC 0.0 <=0.0 /100 WBCs 09/24/2025 6:15 PM [facility] Absolute Neutrophils 3.14 1.92 - 7.60 K/uL 09/24/2025 6:15 PM [facility] Absolute Lymphocytes 1.90 0.72 - 4.10 K/uL 09/24/2025 6:15 PM [facility] Absolute Monocytes 0.41 0.16 - 1.10 K/uL 09/24/2025 6:15 PM [facility] Absolute Eosinophils 0.07 0.00 - 0.50 K/uL 09/24/2025 6:15 PM [facility] Absolute Basophils 0.04 0.00 - 0.15 K/uL 09/24/2025 6:15 PM [facility] Absolute Imm Grans 0.01 0.00 - 0.09 K/uL 09/24/2025 6:15 PM [facility] Absolute NRBC 0.00 <=0.00 K cells/uL 09/24/2025 6:15 PM [facility] Absolute Neutrophils 3.14 1.92 - 7.60 K/uL 09/24/2025 6:15 PM [facility] Comment:Automated cell count . Manual ANC may differ if performed. Diff Type Auto 09/24/2025 6:15 PM [facility] Blood (Blood) Venipuncture / Unknown 09/24/2025 6:06 PM EST 09/24/2025 6:12 PM EST us Irina FELTON-C LAB BLOOD BKR ORDERABLE S Final Result [address] [address] * Thyroid Stimulating Hormone (TSH), with Reflex (09/24/2025 6:06 PM EST) TSH 1.21 0.40 - 5.00 uIU/mL 09/24/2025 6:50 PM [facility] Blood (Blood) Venipuncture / Unknown 09/24/2025 6:06 PM EST 09/24/2025 6:12 PM EST us Irina FELTON-C LAB BLOOD BKR ORDERABLE S Final Result Performing Organization Address City/[facility]/ZIP Co de Phone Number [address] [address] * Hepatic Panel (LFTs) (09/24/2025 6:06 PM EST) AST 14 <33 U/L 09/24/2025 6:50 PM [facility] ALT 18 <34 U/L 09/24/2025 6:50 PM [facility] Alkaline Phosphatase 57 40 - 130 U/L 09/24/2025 6:50 PM [facility] Bilirubin, Total 0.3 0.0 - 1.2 mg/dL 09/24/2025 6:50 PM [facility] Bilirubin, Direct 0.1 0.0 - 0.3 mg/dL 09/24/2025 6:50 PM [facility] Total Protein 6.6 6.4 - 8.3 g/dL 09/24/2025 6:50 PM [facility] Albumin 3.9 3.5 - 5.2 g/dL 09/24/2025 6:50 PM [facility] Globulin 2.7 1.9 - 4.1 g/dL 09/24/2025 6:50 PM [facility] Blood (Blood) Venipuncture / Unknown 09/24/2025 6:06 PM EST 09/24/2025 6:12 PM EST us Irina Negrete PA-C LAB BLOOD BKR ORDERABLE S Final Result [address] [address] * D-Dimer (09/24/2025 6:06 PM EST) Only the most recent of2 resultswithin the time period is included. D-Dimer <215 <500 ng/mL FEU 09/24/2025 6:26 PM [facility] Comment: (Range) Below Test Range [215.000 - 7650.000] (Range) Below Linear Range A negative D-dimer result (at a cut off of 500 ng/mL FEU) when combined with a clinical assessment of low pretest probability has been shown to have a high negative predictive value for DVT or PE. Clinical correlation is required. Blood (Blood) Venipuncture / Unknown 09/24/2025 6:06 PM EST 09/24/2025 6:12 PM EST Irina FELTON-C LAB BLOOD BKR ORDERABLE S Final Result Performing Organization Address [facility]/ZIP Co de Phone Number [address] [address] * (ABNORMAL) Troponin (09/24/2025 6:06 PM EST) Only the most recent of3 resultswithin the time period is included. [facility] Troponin-T HS Gen5 10(H) 0 - 9 ng/L 09/24/2025 6:31 PM [facility] Blood (Blood) Venipuncture / Unknown 09/24/2025 6:06 PM EST 09/24/2025 6:12 PM EST Irina FELTON-C LAB BLOOD BKR ORDERABLE S Final Result Performing Organization Address [facility]/ZIP Co de Phone Number [address] [address] * Basic Metabolic Panel (BMP) (09/24/2025 6:06 PM EST) Only the most recent of2 resultswithin the time period is included. [facility] Sodium 141 136 - 145 mmol/L 09/24/2025 6:50 PM [facility] Potassium 3.6 3.4 - 5.1 mmol/L 09/24/2025 6:50 PM [facility] Chloride 107 98 - 107 mmol/L 09/24/2025 6:50 PM [facility] CO2 22 20 - 31 mmol/L 09/24/2025 6:50 PM [facility] Anion Gap 12 3 - 17 mmol/L 09/24/2025 6:50 PM [facility] BUN 10 6 - 23 mg/dL 09/24/2025 6:50 PM [facility] Creatinine 0.50 0.50 - 1.00 mg/dL 09/24/2025 6:50 PM EST [facility] eGFR 126 >59 mL/min/1.7 3m2 09/24/2025 6:50 PM EST [facility] Comment:Estimated glomerular filtration rate calculated using the CKD-EPI refit equation. Glucose 94 70 - 99 mg/dL 09/24/2025 6:50 PM EST [facility] Calcium 8.6 8.5 - 10.5 mg/dL 09/24/2025 6:50 PM EST [facility] Blood (Blood) Venipuncture / Unknown 09/24/2025 6:06 PM EST 09/24/2025 6:12 PM EST us Irina Negrete PA-C LAB BLOOD BKR ORDERABLE S Final Result Performing Organization Address City/[facility]/ZIP Co de Phone Number [address] [address] * ECG 12-LEAD (09/24/2025 5:13 PM EST) Only the most recent of2 resultswithin the time period is included. Ventricular Rate EKG/MIN 73 BPM [facility] Atrial Rate 73 BPM [facility] MN Interval 132 ms [facility] QRS Duration 58 ms [facility] QT Interval 388 ms [facility] QTC Interval 427 ms [facility] P [place] 23 degrees [facility] R Wave [place] 7 degrees [facility] T Wave [place] 42 degrees [facility] 09/24/2025 5:13 PM EST 09/25/2025 10:12 AM EST Narrative [facility] - 09/25/2025 10:12 AM EST Normal sinus rhythm Low voltage QRS Borderline ECG When compared with ECG of 16-Aug-2025 17:21, ST no longer elevated in Inferior leads Nonspecific T wave abnormality no longer evident in Lateral leads Confirmed by Kishor SAAVEDRA ([id number]) on 09/25/2025 10:12:35 AM us Ricardo Bello MD ECG ORDERABLES Final Re sult [facility] * US Upper Back (08/26/2025 10:04 AM EDT) Anatomical Region Laterality Modality Chest Ultrasound 08/26/2025 10:1 9 AM EDT Impressions 08/26/2025 10:20 AM EDT No sonographic abnormality. Narrative 08/26/2025 10:20 AM EDT US UPPER BACK Referring clinician's provided indication for this examination in Epic: Infection; Pain; S/p recent Mohs surgery with severe pain inferior to the surgical site on the right scapula TECHNIQUE: Focused sonographic evaluation of the right upper back COMPARISON: None FINDINGS: There is an elongated hypoechoic cutaneous lesion, likely reflecting a surgical scar. No soft tissue mass or drainable fluid collection. No abnormal vascularity. Procedure Note Pari Marques MD - 08/26/2025 US UPPER BACK Referring clinician's provided indication for this examination in Epic:Infection; Pain; S/p recent Mohs surgery with severe pain inferior to thesurgical site on the right scapula TECHNIQUE: Focused sonographic evaluation of the right upper back COMPARISON: None FINDINGS: There is an elongated hypoechoic cutaneous lesion, likely reflecting asurgical scar. No soft tissue mass or drainable fluid collection. Noabnormal vascularity. IMPRESSION: No sonographic abnormality. us Sylvie Rincon MD IMG US CHEST Final Resul t * XR CHEST PA AND LATERAL 2 VIEWS (08/16/2025 5:38 PM EDT) Anatomical Region Laterality Modality Chest Computed Radiogr aphy 08/16/2025 7:17 PM EDT Impressions 08/16/2025 7:18 PM EDT No acute abnormality. Narrative 08/16/2025 7:18 PM EDT XR CHEST PA AND LATERAL 2 VIEWS Referring clinician's provided indication for this examination in Epic: Pain; Dyspnea (Shortness of Breath) COMPARISON: XR CHEST PA AND LATERAL 2 VIEWS FINDINGS: Devices/Tubes/Lines: None. Lungs: No focal consolidation or pulmonary edema. Pleura: No pleural effusions or pneumothorax. Heart/Mediastinum: Normal cardiomediastinal silhouette. Bones/Soft Tissues: No significant abnormality. Procedure Note Michelle Argueta MD - 08/16/2025 XR CHEST PA AND LATERAL 2 VIEWS Referring clinician's provided indication for this examination in Epic:Pain; Dyspnea (Shortness of Breath) COMPARISON: XR CHEST PA AND LATERAL 2 VIEWS 2024- FINDINGS: Devices/Tubes/Lines: None. Lungs: No focal consolidation or pulmonary edema. Pleura: No pleural effusions or pneumothorax. Heart/Mediastinum: Normal cardiomediastinal silhouette. Bones/Soft Tissues: No significant abnormality. IMPRESSION: No acute abnormality. Raghav Adkins MD IMG XR CHEST Final Resul t * (ABNORMAL) CBC and differential (08/16/2025 5:27 PM EDT) WBC 6.22 4.00 - 11.00 K/uL [facility] RBC 4.54 4.00 - 5.20 M/uL [facility] HGB 11.0(L) 12.0 - 16.0 g/dL [facility] HCT 35.8(L) 36.0 - 46.0 % [facility] PLT 436 150 - 450 K/uL [facility] MCV 78.9(L) 80.0 - 100.0 fL [facility] MCH 24.2(L) 27.0 - 31.0 pg [facility] MCHC 30.7(L) 32.0 - 36.0 g/dL [facility] RDW 15.5(H) 11.5 - 14.5 % [facility] MPV 8.8 8.4 - 12.0 fL [facility] NRBC 0.00 0.00 /100 WBCs [facility] ABSOLUTE NRBC 0.00 0.00 K/uL [facility] DIFF METHOD Auto [facility] NEUTS 62.3 48.0 - 76.0 % [facility] LYMPHS 28.0 18.0 - 41.0 % [facility] MONOS 7.6 4.0 - 11.0 % [facility] EOS 1.3 0.0 - 5.0 % [facility] BASOS 0.6 0.0 - 1.5 % [facility] Granulocytes, immature (%) 0.2 0.0 - 0.9 % [facility] ABSOLUTE NEUTS 3.88 1.92 - 7.60 K/uL [facility] ABSOLUTE LYMPHS 1.74 0.72 - 4.10 K/uL [facility] ABSOLUTE MONOS 0.47 0.16 - 1.10 K/uL [facility] ABSOLUTE EOS 0.08 0.00 - 0.50 K/uL [facility] ABSOLUTE BASOS 0.04 0.00 - 0.15 K/uL [facility] Granulocytes, immature 0.01 0.00 - 0.09 K/uL [facility] Blood 08/16/2025 5:27 PM EDT 08/16/2025 5:37 PM EDT us Raghav Adkins MD LAB BLOOD BKR ORDERABLES Fi nal Result [address] [address] * Pap Test (01/22/2023 12:00 AM EST) 01/22/2023 01/23/2023 9:1 3 AM EST Narrative SEE NARRATIVE - 01/28/2023 9:00 AM EDT [address] [address] Customer Service Administrator: Heidi Mojica MD LIVING SUPERVISOR Cytology Report FINAL DIAGNOSIS A. PAP SMEAR (SUREPATH) CE: SPECIMEN ADEQUACY: Satisfactory for evaluation; transformation zone present. INTERPRETATION: NEGATIVE FOR INTRAEPITHELIAL LESION OR MALIGNANCY. Electronically Signed Out By: GERSON Dunne(ASCP) The Pap test is a screening test [...] 59, 66, 68) Note: Testing performed by [facility] HR-HPV analysis. Clinical correlation is advised. This HPV test was performed at [facility], [address] [place] [address]. This test has been FDA approved for [facility] cervical cytology specimens. The accuracy and precision of this test for all other specimen sources has been verified in the Cytopathology Laboratory of the [facility] and has not been cleared or approved by the U.S. Food and Drug Administration. Clinical correlation is advised. CLINICAL HISTORY Date of Last Menstrual Period: Not Provided Menstrual History: Unknown Other Clinical Conditions: Screening Pap LIVING SUPERVISOR exam with abnormal findings: PELVIC PAIN SPECIMEN SOURCE A: PAP SMEAR (SUREPATH) CE Patient [facility] : 1990 (Age: 32) Sex: F Institution: [facility] Location: [facility] Date of Collection: 01/22/2023 Date of Reported: 01/28/2023 09:00 Results to: Mariam David us Mariam Boyd MD CYTOLOGY ORDER ANGELIKA Final Result Performing Organization Address City/State/[facility] Co de Phone Number SEE NARRATIVE * Hepatitis C antibody, qualitative (07/12/2022 11:51 AM EDT) HCV NON-REACTIV E NON-REACTI VE [facility] Blood 07/12/2022 11:5 1 AM EDT 07/12/2022 11:55 AM EDT us Alice DOUGLASP LAB BLOOD BKR ORDERABLES Kala guardado Result [facility] [address] [place] [address] from Last 3 Months or Most Recently Relevant to Health Maintenance Insurance [employer] TOTAL CHOICE INDEMNITY [employer] TOTAL CHOICE INDEMNITY [employer] TOTAL CHOICE INDEMNITY Categorical [facility] TOTAL CHOICE INDEMNITY Categorical [facility] TOTAL CHOICE INDEMNITY Categorical [facility] TOTAL CHOICE INDEMNITY [facility] TOTAL CHOICE [facility]DEMNITY [facility] TOTAL CHOICE INDEMNITY [facility] TOTAL CHOICE INDEMNITY Advance Directives For more information, please contact: [phone] (9AM - 5PM [facility], Saturday-Saturday) * Full Code (Latest Code Status on File) Date Activated Date Inactivated Comments 04/05/2025 1:39 AM Question Answer Comments Code Status Confirmed With: Patient * Full Code Date Activated Date Inactivated Comments 05/31/2024 9:55 PM 04/05/2025 1:39 AM Question Answer Comments Code Status Confirmed With: Patient Care Teams Singe Machine Operator Relationship Specialty Start Date End Date Alice Carmen Aye, BIN FILLER [address] [place] [address], [address] [place] [address] [email or web address] PCP - General Family Medicine 09/28/22 Additional Source Comments The information contained in this document represents components of the legal health record. It is not the complete legal health record.[facility]
--- OUTSIDE RECORDS SUMMARY | 2025-10-02 16:40 | XMS_ITS | Clinical Summary ---
Author Organization [facility] Health Address [address] [place] [address] Care Team Providers Care Head Worker Name Role Phone Unavailable Primary Care Provider [...]
--- OUTSIDE RECORDS SUMMARY | 2025-10-02 16:40 | XMS_ITS | Encounter Summary ---
Author Organization [facility] Health Address [address] [place] [address] Care Team Providers Care Fuels Engineer Name Role Phone Unavailable Primary Care Provider Unavailabl e Prior Encounters Date Type Department Care Team Description 12/07/2019 Converted 13x Documents [facility] [address] [facility] , [facility] [address] [place] [address] <No scans attached> Plan of Treatment Not on file Visit Diagnoses Not on file
--- OUTSIDE RECORDS SUMMARY | 2025-10-02 16:41 | XMS_ITS | Encounter Summary ---
Author Organization [facility] Address [address] [place] [address] Care Team Providers Care Hydro Generation Manager Name Role Phone Alice Carmen NP Primary Care Provider [phone] Richard Bello MD Unavailable [phone] Bandar Schmitt MD Unavailable Yaneli Beck RN Unavailable [phone] Beatriz Miller PT Unavailable [phone] Encounter Details Date Type Department Care Team (Late st Contact Info) Description 10/05/2024 Scanned Document [facility] [place] [address] [place] [address] Cardiology, Scan Social History Tobacco Use Types [...] Resolved Time R/O Respiratory Disease 01/07/2025 01/07/2025 02/2 7:55 AM EST documented as of this encounter Care Teams Hydro Generation Manager Relationship Specialty Start Date End Date Alice Carmen NP [address] [place] [address] PCP - General 08/07/24 Richard Bello MD [address] [place] [address] Primary Topography Technician Cardiovascular Disease 08/07/24 Bandar Schmitt MD [address] [place] [address] Topography Technician Cardiac Electrophysiology 06/04/25 Yaneli Tesfaye, RN [address] [place] [address] Nurse Navigator Surgery, Neurosurgery 06/28/25 07/07/25 Beatriz Miller, PT [address] [address] Dairy Feed Mixing OperatorLabel Stitcher Medicine and Rehabilitation 06/28/25 documented as of this encounter
--- OUTSIDE RECORDS SUMMARY | 2025-10-02 16:41 | XMS_ITS | Encounter Summary ---
Author Organization [facility] Address [address] [place] [address] Care Team Providers Care Computing Systems Mechanic Name Role Phone Alice Carmen NP Primary Care Provider [phone] Richard Bello MD Unavailable [phone] Bandar Schmitt MD Unavailable Yaneli Beck RN Unavailable [phone] Beatriz Miller PT Unavailable [phone] Encounter Details Date Type Department Care Team (Late st Contact Info) Description 08/07/2024 Scanned Document [address] [facility] [place] [id number] Provider, Generic Social History Tobacco Use Types [...] documented as of this encounter Care Teams Computing Systems Mechanic Relationship Specialty Start Date End Date Alice Carmen NP [address] [place] [address] PCP - General 08/07/24 Richard Bello MD [address] [place] [address] Primary Organization Development Consultant Cardiovascular Disease 08/07/24 Bandar Schmitt MD [address] [place] [address] Organization Development Consultant Cardiac Electrophysiology 06/04/25 Yaneli Tesfaye, JIMI [address] [place] [address] Nurse Navigator Surgery, Neurosurgery 06/28/25 07/07/25 Beatriz Miller, PT [address] [address] Florist HelperFisherman Helper Medicine and Rehabilitation 06/28/25 documented as of this encounter
--- OUTSIDE RECORDS SUMMARY | 2025-10-02 16:41 | XMS_ITS | Encounter Summary ---
Author Organization [facility] Address [address] [place] [address] Care Team Providers Care Bowling Ball Assembler Name Role Phone Pcp, No Primary Care Provider UnavailAlice Hernandez NP Primary Care Provider [phone] Richard Bello MD Unavailable [phone] Bandar Schmitt MD Unavailable Yaneli Beck RN Unavailable [phone] Beatriz Miller PT Unavailable [phone] Encounter Details Date Type Department Care Team (Late st Contact Info) Description 06/09/2024 Scanned Document [address] [facility]7 [place] [address] Provider, Generic Social History Tobacco [...] documented as of this encounter Care Teams Bowling Ball Assembler Relationship Specialty Start Date End Date Pcp, No PCP - General General Medicine 07/03/24 08/06/24 Alice Carmen NP [address] [place] [address] PCP - General 08/07/24 Richard Bello MD [address] [place] [address] Primary Bicycle Racer Cardiovascular Disease 08/07/24 Bandar Schmitt MD [address] [place] [address] Bicycle Racer Cardiac Electrophysiology 06/04/25 Yaneli Tesfaye, RN [address] [place] [address] Nurse Navigator Surgery, Neurosurgery 06/28/25 07/07/25 Beatriz Miller, PT [address] [address] Reefer EngineerOptician Medicine and Rehabilitation 06/28/25 documented as of this encounter
--- OUTSIDE RECORDS SUMMARY | 2025-10-02 16:41 | XMS_ITS | Encounter Summary ---
Author Organization [facility] Address [address] [place] [address] Care Team Providers Care Manager Strategic Partnerships Name Role Phone Pcp, Cassie Primary Care Provider Unavailabl Alice Evans JOURNEYMAN ELECTRICIAN PV INSTALLER Primary Care Provider [phone] Richard Bello MD Unavailable [phone] Bandar Schmitt MD Unavailable Yaneli Beck RN Unavailable [phone] Beatriz Miller PT Unavailable [phone] Encounter Details Date Type Department Care Team (Late st Contact Info) Description 06/15/2024 Scanned Document [address] [place] [phone] Cardiology, Scan Social History Tobacco Use [...] as of this encounter Care Teams Manager Strategic Partnerships Relationship Specialty Start Date End Date Cassie Licona PCP - General General Medicine 07/03/24 08/06/24 Alice Carmen NP [address] [place] [address] PCP - General 08/07/24 Richard Bello MD [address] [place] [address] Primary Mortician Investigator Cardiovascular Disease 08/07/24 Bandar Schmitt MD [address] [place] [address] Mortician Investigator Cardiac Electrophysiology 06/04/25 Yanlei Tesfaye, JIMI [address] [place] [address] Nurse Navigator Surgery, Neurosurgery 06/28/25 07/07/25 Beatriz Miller, PT [address] [address] Airplane Patrol PilotSearch Planner Medicine and Rehabilitation 06/28/25 documented as of this encounter
--- OUTSIDE RECORDS SUMMARY | 2025-10-02 16:41 | XMS_ITS | Encounter Summary ---
Author Organization [facility] Address [address] [facility] [address] [place] [address] Phone Care Team Providers Care Employment Service Specialist Name Role Phone Alice Carmen BREWERY PUMPER Primary Care Provider [phone] Encounter Details Date Type Department Care Team (Late st Contact Info) Description 08/11/2024 Procedure Pass [facility] Endoscopy Admitting Dept Virtual Department [address] [place] [address] Social History Tobacco Use Types Packs/Day Years [...] Visit [facility] [address] [place] [address] Camron Umana MD [address] [place] [address], [address] [place] [address] documented as of this encounter Visit Diagnoses Not on filedocumented in this encounter Additional Health Concerns Infection Onset Date Last Indicated Resolved Time CoV-Risk 11/12/2024 11/12/2024 11/23/2024 1:22 AM EST CoV-Risk 01/01/2025 01/01/2025 01/12/2025 1:22 AM EST Assessment Noted Time PHQ-2 Depression Total Score: 0 06/19/20 4:56 PM EDT documented as of this encounter Care Teams Employment Service Specialist Relationship Specialty Start Date End Date Alice Carmen FNP [address] [place] [address] [address] [place] [address] PCP - General Family Medicine 09/28/22 documented as of this encounter Additional Source Comments The information contained in this document represents components of the legal health record. It is not the complete legal health record.[facility]
[2025-10-02 16:51] LABS: MANUAL DIFF FLAG NO
[2025-10-02 16:53] LABS: Hematocrit 34.9 % (37.0-47.0); Hemoglobin 10.6 g/dl (12.0-16.0); Imm Gran Abs Auto 0.01 X10*3/uL (0.00-0.03); Imm Gran Pct Auto 0.2 % (0.0-0.4); Lymphocytes Absolute Auto 2.0 X10*3/uL (1.2-4.9); Mean Corpuscular HGB Conc 30.4 g/dl (31.0-35.0); Mean Corpuscular Hemoglobin 24.7 pg (27.0-33.0); Mean Corpuscular Volume 81.2 fL (80.0-98.0); NRBC Abs Auto 0.000 X10*3/uL (0.0-0.012); NRBC Pct Auto 0.0 /100WBC (0.0-0.2); Platelet Count 329 X10*3/uL (160-400); Red Blood Count 4.30 X10*6/uL (4.20-5.50); White Blood Count 5.4 X10*3/uL (4.8-10.8)
--- NOTE | 2025-10-02 17:07 | ED_ITS ---
HPI - Chest Pain General Chief Complaint: Chest Pain Stated Complaint: chest pain Time Seen by Provider: 10/02/25 17:06 Source: patient Mode of arrival: ambulatory Limitations: no limitations History of Present Illness ED Provider: Dr. Stevenson HPI narrative: This is a 35-year-old female presented hospital today for evaluation of left- sided chest pain that is pleuritic in nature and sharp in nature. Patient states she has history of pulmonary embolism in the past. She has been treated for this. The patient is endorsing some nausea associated with this pain. She feels a burning sensation in her chest. Related Data Home Medications ?Medication ?Instructions ?Recorded ?Confirmed acetaminophen 500 mg capsule 1,000 mg PO Q8H fever or pain 07/05/25 07/05/25 clonazepam 1 mg tablet 1 mg PO BID PRN panic attack s 07/05/25 07/05/25 ibuprofen 800 mg tablet 800 mg PO QID 07/05/2507/05 lemborexant 10 mg tablet (Dayvigo) 10 mg PO BEDTIME PA N insomnia 07/05/25 07/05/25 propranolol 20 mg tablet 40 mg PO TID PRN anxiety 07/05/25 Previous Rx's ?Medication ?Instructions ?Recorded acetaminophen 500 mg tablet 1,000 mg (2 x 500 mg) PO Q 8H pain 10/02/25 #21 tabs lidocaine 5 % topical patch 1 patch topical DAILY #15 ea 10/02/25 Allergies Allergy/AdvReac Type Severity Reaction Status Date / Time Penicillins Allergy Unknown Verified 10/02/25 16:25 Sulfa (Sulfonamide Allergy Unknown Verified 10/02/25 16:25 Antibiotics) diphenhydramine (From AdvReac Unknown Verified 10/02/25 16:25 Benadryl) midazolam AdvReac Itching Verified 10/02/25 16:25 ondansetron (From Zofran) AdvReac Unknown Verified 10/02/25 16:25 prednisone AdvReac Palpitation Verified 10/02/25 16:25 s Review of Systems 2 Review of Systems: Pertinent review of systems as mentioned in HPI. All other system otherwise negative. [facility] Past Medical History [facility] Narrative: Medical history as mentioned in HPI Medical History Dysautonomia POTS (postural orthostatic tachycardia syndrome) Surgical History H/O cardiac radiofrequency ablation Social History Social History Household Members: Friend(s) Housing: House Do you presently have visiting nurse or other home services: No Patient Tobacco Use Status: Never used Tobacco Smoked in Last 30 Days: No Use of substances other than those prescribed or required for medical reasons: No Advance Directives: No Advance Directives Information Provided: No Do you have a plan to hurt others: No Plan Patient : No service: No Physical Exam 2 Exam: Exam: General: Pleasant, no distress, interacting appropriately Head: Normacephalic, atraumatic ENT: oral mucosa moist, neck supple, no tracheal deviation Cardiovascular: regular rate, regular rhythm, no murmurs, rubbing, gallops, left-sided chest tenderness Respiratory: CTAB, no wheeze, rales, rhonchi Gastrointestinal: Soft, non distended, non tender, non guarding Extremities: No limb pain or swelling, no calf tenderness Neurological: Awake and alert, no facial droop noted Skin: Warm and dry Psychiatric: Appropriate mood and thoughts Vital Signs: Vital Signs: Last Vital Signs Temp 97.9 F 10/02/25 16:24 Pulse 69 10/02/25 16:24 Resp 14 10/02/25 16:24 BP 116/88 10/02/25 16:24 Pulse Ox 100 10/02/25 16:24 O2 Del Method Room Air 10/02/25 16:24 BMI result Body Mass Index 29.5 Medications Administered Discontinued Medications Generic Name Dose Route Start Last Admin Trade Name Freq PRN Reason Stop Dose Admin Al Hydroxide/Mg Hydroxide 30 ml 10/02/25 17:20 10/02/25 17:59 Magnesium Hydrox/Alum Hydrox 30 Ml Oral.Susp PO 10/02/25 17:21 Not Given ONCE ONE Famotidine 20 mg 10/02/25 17:20 10/02/25 17:58 Famotidine/Pf 20 Mg/2 Ml Vial IVPUSH 10/02/25 17:21 Not Given ONCE ONE Sodium Chloride 1,000 mls @ 999 mls/hr 10/02/25 17:30 10/02/25 19:52 Ns IV 10/02/25 18:30 Infused .Q1H1M JOSIANE Infusion Lidocaine HCl 15 ml 10/02/25 17:20 10/02/25 17:59 Lidocaine Hcl Viscous 2 % 15 Ml Solution MUCOUS MEM 10/02/25 17:21 Not Given ONCE ONE Metoclopramide HCl 5 mg 10/02/25 17:21 10/02/25 17:59 Metoclopramide Hcl 10 Mg/2 Ml Vial IV 10/02/25 17:22 Not Given ONCE ONE Morphine Sulfate 4 mg 10/02/25 18:02 10/02/25 18:32 Morphine Sulfate 4 Mg/Ml Cartridge IVPUSH 10/02/25 18:03 4 mg ONCE ONE Administration Protocol Medical Decision Making Medical Decision Making [facility] Narrative: 35-year-old female presented hospital today for left-sided chest pain. Patient has multi to a limitation regards to what kind of medication she could take. She is unable to go to CT imaging due to ventricular tachycardia from IV contrast in the past. Patient is worried about receiving medication that can mess with her QT. To me her presentation sounds like gastric reflux. Certainly I did consider pulmonary embolism given her history. However she is unable to go to CT imaging at this time. Due to ventricular tachycardia. We will obtain a D-dimer. EKG did not show any signs of STEMI. Troponin is negative here. D-dimer is negative. Patient stated that morphine does help with her pain. We will plan to give patient IV morphine. At this time patient's troponin is negative. EKG is negative. D-dimer is negative. We will plan to discharge patient. We will have her follow up with her primary care doctor. I did offer IV Pepcid, GI cocktail for the patient. The patient refused medication. Differential Diagnosis Differential Diagnoses: The differential diagnosis associated with the presentation includes PE, ACS, STEMI, gastric reflux Lab Data [facility] Lab Attestation statement: I reviewed the patient's lab results. 10/02/25 16:41 10/02/25 16:41 Labs: Lab Results 10/02/25 10/02/25 Range/Units 16:41 19:35 WBC 5.4 (4.8-10.8) X10*3/uL RBC 4.30 (4.20-5.50) X10*6/uL Hgb 10.6 L (12.0-16.0) g/dl Hct 34.9 L (37.0-47.0) % MCV 81.2 (80.0-98.0) fL MCH 24.7 L (27.0-33.0) pg MCHC 30.4 L (31.0-35.0) g/dl RDW 17.2 H (11.0-16.0) % Plt Count 329 (160-400) X10*3/uL MPV 8.6 L (9.4-12.3) fL Immature Gran % (Auto) 0.2 (0.0-0.4) % Neut % (Auto) 51.4 (45-73) % Lymph % (Auto) 35.9 (20-40) % [place] % (Auto) 9.6 (2-11) % Eos % (Auto) 2.0 (0-4) % Baso % (Auto) 0.9 (0-2) % Lymph # (Auto) 2.0 (1.2-4.9) X10*3/uL [place] # (Auto) 0.5 (0.1-1.2) X10*3/uL Eos # (Auto) 0.1 (0.0-0.4) X10*3/uL Baso # (Auto) 0.1 (0.0-0.2) X10*3/uL Abs Immat Gran (auto) 0.01 (0.00-0.03) X10*3/uL Absolute Neuts (auto) 2.8 (2.0-8.3) x10*3/uL Absolute Nucleated RBC 0.000 (0.0-0.012) X10*3/uL Nucleated RBC % (auto) 0.0 (0.0-0.2) /100WBC D-Dimer High Sensitivty < 150 NG/ML Sodium 142 (135-145) mmol/L Potassium 3.8 (3.3-5.1) mmol/L Chloride 112 H (96-108) mmol/L Carbon Dioxide 23 (22-29) mmol/L Anion Gap 11 L (12-20) BUN 15 (9-16) mg/dL Creatinine 0.64 (0.5-1.4) mg/dL Estim Creat Clear Calc 167.7 Estimated GFR > 60 Random Glucose 89 (60-115) mg/dL Calcium 8.6 (8.4-10.2) mg/dL Troponin I High Sens < 2.7 (<3.5-17.0) ng/L Influenza Type A (PCR) NEGATIVE (Negative) Influenza Type B (PCR) NEGATIVE (Negative) RSV RNA Qual (PCR) NEGATIVE (Negative) SARS-CoV-2 RNA (RT-PCR) NEGATIVE (Negative) Independent Interpretation I performed an independent interpretation of an: EKG Radiology Impression Discussion of test interpretation with radiology: I have reviewed the radiologist's reading. Discharge Plan Discharge Clinical Impression: Atypical chest pain Patient Disposition: Home, Self-Care Instructions: Chest Wall Pain (ED) Additional Instructions: Your cardiac enzymes are negative and your D-Dimer is negative. I have low suspicion for cardiac or pulmonary embolism cause of your chest pain. Some things to consider is whether this is from a GI source. Follow up with your primary care doctor Prescriptions: New lidocaine 5 % adhesive patch,medicated 1 patch topical DAILY Qty: 15 0RF Rx Instructions: leave on most painful area for up to 12 hrs acetaminophen 500 mg tablet 1,000 mg PO Q8H Qty: 21 0RF No Action propranolol 20 mg tablet 40 mg PO TID PRN (Reason: anxiety) Dayvigo 10 mg tablet 10 mg PO BEDTIME PRN (Reason: insomnia) clonazepam 1 mg tablet 1 mg PO BID PRN (Reason: panic attacks) ibuprofen 800 mg tablet 800 mg PO QID acetaminophen 500 mg capsule 1,000 mg PO Q8H Print Language: Occitan
[2025-10-02 17:08] LABS: Anion Gap 11 (12-20); Blood Urea Nitrogen 15 mg/dL (9-16); Calcium 8.6 mg/dL (8.4-10.2); Carbon Dioxide 23 mmol/L (22-29); Chloride 112 mmol/L (96-108); Creatinine Clr Calc Pharmacy 167.7; Estimated Glomerular Filt Rate > 60; Potassium 3.8 mmol/L (3.3-5.1); Sodium 142 mmol/L (135-145)
[2025-10-02 17:17] LABS: Troponin-I High Sensitivity < 2.7 ng/L (<3.5-17.0)
[2025-10-02 17:40] LABS: Resp Syncy Virus RNA Qual PCR NEGATIVE (Negative); SARS COV2 PCR INHOUSE NEGATIVE (Negative)
--- NOTE | 2025-10-02 18:35 | PC.NURSE ---
patient a&ox3, iv inserted, labs previously drawn, monitoring manager applied, ekg performed, upon going to medicate pt, pt refused all meds previously ordered by provider except IVF. pt then began c/o increased chest pain 9-08/27 pain- IV morphine was ordered and administered per order, pt requested warm blankets which she was provided. call boyce within reach, plan of care ongoing
--- NOTE | 2025-10-02 19:10 | PC.NURSE ---
assumed care of pt. Pt reports redness in the R arm above the IV. IVV not infiltrated, pt fluids running as they should, flushed line with no issues. Pt reports it happened after the morphine was pushed. Pt confirms taking morphine in the past with no issues. This RN offered to change the IV site and remove current IV, pt declined stating it was fine for now. Pt offered an ice pack, pt declined. denies itching or burning at site just redness at the AC, IV in forearm.
[2025-10-02 19:55] LABS: D Dimer High Sensitivity < 150 NG/ML
[2025-10-02 20:30] VITALS: BP 110/81; PULSE 77; RESP 14; TEMP 36.7; O2SAT 98
== END 2025-10-02 20:49 | disposition home or self-care (01) ==
PROVIDERS: Emergency Provider Student in an Organized Health Care Education/Training Program
DX: R07.89 Other chest pain (principal); Z86.711 Personal history of pulmonary embolism; Z03.818 Encounter for observation for suspected exposure to other biological agents ruled out; Z88.0 Allergy status to penicillin; Z88.2 Allergy status to sulfonamides
CPT/HCPCS: 36415; 80048; 84484; 85025; 85379; 87637; 93005; 96361; 96374; 99284; 99285; J2270

== ENCOUNTER → 2025-10-02 16:11 | Outpatient (BNV) | payer OTHER, SELFPAY | PROVIDERS: Emergency Provider Student in an Organized Health Care Education/Training Program; Visit Provider Internal Medicine Cardiovascular Disease | DX: R07.9 Chest pain, unspecified (principal) | CPT/HCPCS: 93010 ==